=== PATIENT | female | born 1955 | race Caucasian/White ===

== ENCOUNTER → 2016-11-12 | Outpatient (CLI) | payer OTHER ==
--- NOTE | 2016-11-12 12:02 | MR ---
EXAMINATION TYPE: MR luisine/lspine wo/w con DATE OF EXAM: 11/12/2016 11:23 AM COMPARISON: CT cervical spine August 14, 2016. MRI lumbar spine November 26, 2013. HISTORY: Low back pain, spinal stenosis per order. Headache with neck pain for 30 years causing pain or weakness in left arm per patient. History of prior neck surgery. Low back pain for 20 years causin g pain into both lower extremities with history of prior surgery per patient. TECHNIQUE: Multiplanar, multisequence images of the cervical and lumbar spine are performed without and with IV contrast, utilizing 20 mL intravenous MultiHance FINDINGS: C-SPINE: FINDINGS: Sagittal images of the cervical spine show the craniocervical junction to appear within nor mal limits. The cervical and upper thoracic spinal cord is normal in caliber and signal. Vertebral alignment is stable and straightened. There is artifact from disc material C5-C6 level identified. Th e vertebral body and intravertebral disk heights are normal above and below this level. No large post erior disc herniations are seen on sagittal images. The bone marrow signal intensity is within maria de jesus l limits. No suspicious postcontrast enhancement is seen. No significant spurring is noted. Axial images show the C2-C3 and C3-C4 levels to appear within normal limits. Axial images at C4-C5 level are degraded by artifact, there may be ventral thecal sac effacement due to central disc herniation, bilateral neural foramina are patent. Axial images at C5-C6 level are degraded by artifact, bilateral neural foramina are patent. Axial images at C6-C7 are degraded by artifact, cannot exclude some mild thecal sac effacement on mendoza ge 14, bilateral neural foramina are patent. Axial images at C7-T1 level are felt within normal limits. Coronal images show T1 hyperintense signal right sagittal sinus presumed related to slow flow in asym ptomatic patient. IMPRESSION: Surgical changes C5-C6 level with satisfactory in stable alignment seen. Artifact degrada tion at the adjacent disc space levels is noted. Additional levels felt within normal limits. L-SPINE: Sagittal images of the lumbar spine show vertebral body heights to appear satisfactory. Multilevel d isc desiccation is redemonstrated. There is mild disc space narrowing L5-S1 level with disc desiccati on noted. No significant posterior disc herniations are seen on sagittal images. The conus medullari s is normal in position and signal ending at mid L1 vertebral body level. The bone marrow signal int ensity is within normal limits. No significant spurring is seen. No suspicious postcontrast enhanceme nt is noted. Axial images show the T12-L1 and L1-L2 levels to appear within normal limits. Axial images at L2-L3, L3-L4, and L4-L5 levels show mild facet arthropathy bilaterally but spinal can al is preserved and bilateral neural foramina are patent. Axial images at L5-S1 level shows mild to moderate facet arthropathy. There is broad-based right para central disc protrusion seen minimally effacing the anterior thecal sac, bilateral neural foramina ar e patent. There is right-sided laminectomy defect. Some enhancing scar tissue is present at this leve l extending to right epidural level is noted and stable. IMPRESSION: No significant change from prior exam, postsurgical change lumbosacral junction redemonst rated. No new prominent disc herniations are noted.
== END | disposition home or self-care (01) ==
LOC: RADMRIMAIN 10:06
PROVIDERS: ATTEND Family Medicine
DX: M54.9 Dorsalgia, unspecified (principal); Z98.890 Other specified postprocedural states
CPT/HCPCS: 72156; 72158; A9577

== ENCOUNTER → 2017-09-13 | Outpatient (CLI) | payer OTHER ==
--- NOTE | 2017-09-13 17:17 | CT ---
EXAMINATION TYPE: CT chest wo con DATE OF EXAM: 09/13/2017 COMPARISON: 08/29/2014 HISTORY: Shortness of breath CT DLP: 439.70 mGycm, Automated exposure control for dose reduction was used. CONTRAST: None TECHNIQUE: Axial images were obtained at 5 mm thick sections. Reconstructed images are reviewed on Footnote computer in the coronal plane. FINDINGS: Portion of the thyroid visualized is normal. There is an irregular triangular-shaped density with microlobulated borders measuring 2.7 x 3.3 cm in the posterior right upper lobe. Series 4 image 20. This has enlarged over the interval and suspiciou s for neoplasm.r There is a punctate density in the periphery of the right middle lobe measuring 0.2 cm. Series 4 imag e 30. No enlarged mediastinal or hilar adenopathy is evident. Small shotty lymph nodes are present. The a scending aorta diameter at the level of the main pulmonary artery is 3.9 cm. The main pulmonary shirin ry diameter at the bifurcation is 2.6 cm. No pericardial effusion is evident. Limited CT sections are obtained through the upper abdomen. Abdomen is essentially unremarkable. Osse ous structures as visualized are normal. IMPRESSIONS: 1. Enlarging lobulated density posterior right apex suspicious for neoplasm.
== END | disposition home or self-care (01) ==
LOC: RADCTMAIN 13:06
PROVIDERS: ATTEND Internal Medicine Pulmonary Disease
DX: R91.8 Other nonspecific abnormal finding of lung field (principal); R06.02 Shortness of breath
CPT/HCPCS: 71250; 94060; 94726; 94729

== ENCOUNTER → 2017-10-01 | Outpatient (CLI) | payer OTHER ==
--- NOTE | 2017-10-01 22:30 | PE ---
EXAMINATION TYPE: PET CT fusion skull to thigh DATE OF EXAM: 10/01/2017 COMPARISON: CT chest September 13, 2017 HISTORY: Lung mass per order. TECHNIQUE: Following the intravenous administration of 14.99 mCi of F-18 FDG, whole body images are performed from the skull base to the midthigh. Images are reviewed on the computer in the coronal, a xial, and sagittal planes. Reconstructed rotating images are created on independent workstation and reviewed on the computer. A noncontrast CT is performed in conjunction with the PET scan. SCAN: Initial Scan FINDINGS: SKULL BASE AND NECK: There is marked artifact from metallic cervical surgical material. At this leve l there is hypermetabolic uptake along the anterior margin max SUV is 4.71 near level of vocal cords, nonspecific finding. CHEST, MEDIASTINUM, AND HILAR REGION: There is persistent lobulated nodule posterior right upper lobe abutting major fissure measuring 2.1 x 1.7 cm axial image 76, it is fairly low dense, there is mild hypermetabolic uptake, max SUV is 2.89. Remainder of the thorax shows no suspicious hypermetabolic uptake. No worrisome lymph nodes are seen. ABDOMEN AND PELVIS: No suspicious hypermetabolic uptake is present. Normal excretion in bladder is se en. OSSEOUS STRUCTURES: No suspicious hypermetabolic uptake is present. OTHER CT: There is fairly moderate calcified plaque at bilateral carotid bulbs. Consider correlating with nonemergent carotid ultrasound. Surgical changes causing streak artifact in the lower cervical spine. Lipomatous hypertrophy of intra-arterial suboptimal heart is noted. Ascending aorta measures up to 3. 8 cm diameter on axial image 85. Area perhaps slightly more nodular tissue right breast axial image 95 does not show hypermetabolic up take, advise correlating with annual mammogram. Metallic artifact bilateral hip arthroplasties causes streak artifact limiting evaluation of pelvic s tructures. Scattered pelvic phleboliths are seen. Uterus is suboptimally evaluated. Normal-appearing appendix and cecum posteriorly in the right lower quadrant is noted. There is fairly moderate nonspecific perinephric fat stranding or fluid. There is facet arthropathy lower lumbar levels. There is mild to moderate calcified plaque in the abd ominal aorta extending into branch vessels. IMPRESSION: No convincing PET/CT evidence for malignancy. Borderline PET/CT findings are noted for no dule as detailed above. Consider bronchoscopy with sampling and/or short-term CT/PET CT in 2-3 months time to further evaluate. Nonspecific finding near site of cervical surgery is presumed related to s urgery. No suspicious adenopathy or metastatic disease seen.
== END | disposition home or self-care (01) ==
LOC: RADPETMAIN 12:37
PROVIDERS: ATTEND Internal Medicine Pulmonary Disease
DX: R91.1 Solitary pulmonary nodule (principal)
CPT/HCPCS: 78815; A9552

== ENCOUNTER → 2017-11-04 | Outpatient (CLI) | payer OTHER ==
--- NOTE | 2017-11-04 12:39 | MR ---
EXAMINATION TYPE: MR brain wo con DATE OF EXAM: 11/04/2017 COMPARISON: CT brain 08/14/2016 HISTORY: Short-term memory loss CONTRAST: Performed utilizing 0 mL intravenous Gadavist gadolinium contrast. TECHNIQUE: Multiplanar, multiecho imaging on a 3.0 Bren magnet is performed through the brain. Stud y is performed within 24 hours of arrival to the hospital. The craniovertebral junction is normal. The pituitary is normal. Diffusion-weighted imaging is performed. No abnormal hyperintensity is present to suggest an acute i ntracranial infarct or acute ischemic change. There are scattered punctate areas of hyperintensity on T2 and Inversion Recovery weighted sequences which are non-specific but can be related to microvascular ischemic changes. Couple of larger subcort ical areas are within the right keita radiata. Multiple periventricular white matter changes are pre sent. Scattered punctate subcortical white matter changes are within the centrum semiovale, right mor e so than left. Findings are nonspecific but can be related to microvascular ischemic change. Differe ntial could include gliosis from other etiologies such as Lyme disease, multiple sclerosis, vasculiti s. Findings appear more numerous than typically identified with migraine headaches. Ventricles and sulci are appropriate for the patient age. IMPRESSIONS: 1. Multiple bilateral subcortical and periventricular white matter changes. These are nonspecific. Di fferential diagnosis could include microvascular ischemic change, multiple sclerosis, vasculitis, Lym e disease. 2. Examination is noncontrast. If there is clinical concern for metastatic disease, post contrast MRI may be useful for additional evaluation. Large metastases are not evident. Punctate metastases canno t be excluded.
[2017-11-04 13:37] LABS: T4, Free (Free Thyroxine) 1.04 ng/dL (0.78-2.19)
== END | disposition home or self-care (01) ==
LOC: RADMRIMAIN 11:48
PROVIDERS: ATTEND Psychiatry & Neurology Neurology
DX: R90.89 Other abnormal findings on diagnostic imaging of central nervous system (principal); R41.3 Other amnesia
CPT/HCPCS: 36415; 70551; 82607; 84439; 84443

== ENCOUNTER → 2018-01-17 | Outpatient (CLI) | payer OTHER ==
--- NOTE | 2018-01-17 09:54 | US ---
EXAMINATION TYPE: US carotid duplex BILAT DATE OF EXAM: 01/17/2018 COMPARISON: NONE CLINICAL HISTORY: I77.9 Disorder of arteries. EXAM MEASUREMENTS: RIGHT: Peak Systolic Velocity (PSV) cm/sec ----- Right CCA: 86.6 ----- Right ICA: 312.5 ----- Right ECA: 167.0 ICA/CCA ratio: 3.6 RIGHT: End Diastole cm/sec ----- Right CCA: 16.9 ----- Right ICA: 63.0 ----- Right ECA: 16.4 LEFT: Peak Systolic Velocity (PSV) cm/sec ----- Left CCA: 106.6 ----- Left ICA: 155.4 ----- Left ECA: 222.7 ICA/CCA ratio: 1.5 LEFT: End Diastole cm/sec ----- Left CCA: 18.4 ----- Left ICA: 30.0 ----- Left ECA: 19.1 VERTEBRALS (direction of flow): Right Vertebral: Antegrade Left Vertebral: Antegrade Rhythm: Normal IMPRESSION: Moderate/severe amount of plaque visualized bilaterally. Elevated velocities right ICA, right ECA, left ICA, and left ECA Criteria for Assigning % of Stenosis / Diameter reduction (Estimation based on the indirect measurements of the internal carotid artery velocities (ICA PSV). 1. Normal (no stenosis)=ICA PSV < 125 cm/s: ratio < 2.0: ICA EDV<40 cm/s. 2. Less than 50% stenosis=ICA PSV < 125 cm/s: ratio < 2.0: ICA EDV<40 cm/s. 3. 50 to 69% stenosis=ICA PSV of 125 to 230 cm/s: ration 2.0 ? 4.0: ICA EDV 40-100 cm/s. 4. Greater than 70% stenosis to near occlusion= ICA PSV > 230 cm/s: ratio > 4.0: ICA EDV > 100 cm/s. 5. Near occlusion= ICA PSV velocities may be low or undetectable: variable ratio and ICA EDV. 6. Total occlusion=unable to detect flow.
--- NOTE | 2018-01-18 11:55 | MM ---
Reason for exam: screening (asymptomatic). Last mammogram was performed 4 years and 7 months ago. History: Patient is postmenopausal. Taking estrogen for 9 years beginning at age 43. Taking progesterone for 9 years beginning at age 43. Physical Findings: A clinical breast exam by your physician is recommended on an annual basis and results should be correlated with mammographic findings. MG 3D Screening Mammo W/Cad Bilateral CC and MLO view(s) were taken. XCCL view(s) were taken of the left breast. Prior study comparison: June 08, 2013, [facility] DIGITAL RIGHT MAMMOGRAM w/CAD. June 04, 2013, bilateral digital screening mammo w/CAD. There are scattered fibroglandular densities. No suspicious abnormality. No significant changes when compared with prior studies. ASSESSMENT: Negative, BI-RAD 1 RECOMMENDATION: Routine screening mammogram of both breasts in 1 year.
== END | disposition home or self-care (01) ==
LOC: RADMAMWWP 09:04
PROVIDERS: ATTEND Family Medicine
DX: Z12.31 Encounter for screening mammogram for malignant neoplasm of breast (principal); I65.23 Occlusion and stenosis of bilateral carotid arteries
CPT/HCPCS: 77063; 77067; 93880

== ENCOUNTER 2018-09-07 23:48 | Emergency (ER) | payer OTHER ==
[2018-09-08 00:03] VITALS: BP 198/94; PULSE 100; RESP 18; TEMP 98
--- NOTE | 2018-09-08 00:25 | ED ---
Fall HPI - General Chief Complaint: Fall Stated Complaint: Fall Time Seen by Provider: 09/08/18 00:23 Source: patient, EMS Mode of arrival: ambulatory - History of Present Illness Initial Comments: This is a 62-year-old female the ER for evaluation she presents today for evaluation status post fall trip and fall on her kitchen getting out some food from her fridge. Patient has history of fibromyalgia. Patient fell backwards landing on her right side right knee right hip. Patient denies loss of consciousness denies hitting her head, patient was unable to get up mainly after fall. No blood thinners no loss of consciousness MD Complaint: fall -: hour(s) Fall From: standing When Fall Occurred: 1-3 hours [employer] Fall Witnessed: no Place Fall Occurred: home Loss of Consciousness: none Prolonged Down Time?: no Symptoms Prior to Fall: none Location: pelvis Location - Extremities: Left: Thigh, Knee Severity: moderate Severity scale (1-10): 5 Quality: aching Context: tripped/slipped Associated Symptoms: denies - Related Data Home Medications Medication Instructions Recorded Confirmed ALPRAZolam 1 mg PO Q6H 12/26/14 08/14/16 Albuterol Inhaler [Ventolin 2 puff INHALATION RT-QID PRN 12/26/14 08/14/16 Inhaler] Albuterol Nebulized [Ventolin 2.5 mg INHALATION RT-QID PRN 12/26/14 08/14/16 Nebulized] Enalapril [Vasotec] 20 mg PO DAILY 12/26/14 08/14/16 Ipratropium Nebulized [Atrovent 0.5 mg INHALATION RT-QID PRN 12/26/14 08/14/16 Nebulized] Isosorbide Mononitrate [Isosorbide 30 mg PO DAILY 12/26/14 08/14/16 Mononitrate ER] Omeprazole 20 mg PO BID 12/26/14 08/14/16 Temazepam [Restoril] 30 mg PO HS 12/26/14 08/14/16 HYDROcodone/APAP 7.5-325MG [Stokes 1 tab PO 5XD PRN 03/08/16 08/14/16 7.5-325] Estrogen,Con/M-Progest Acet 1 tab PO DAILY 03/09/16 08/14/16 [Prempro 0.625-5 mg Tablet] Hydrochlorothiazide [Hydrodiuril] 50 mg PO DAILY 08/14/16 08/14/16 Levofloxacin [Levaquin] 500 mg PO DAILY 08/14/16 08/14/16 Loratadine [Claritin] 10 mg PO DAILY 08/14/16 08/14/16 Metoprolol Succinate [Toprol XL] 25 mg PO DAILY 08/14/16 08/14/16 Potassium Chloride [Klor-Con 20] 20 meq PO DAILY 08/14/16 08/14/16 Promethazine HCl/Codeine 5 - 10 ml PO Q4-6H PRN MDD 30ML 08/14/16 08/14/16 [Prometh-Codein 6.25-10 mg/5 ml] Spironolactone [Aldactone] 25 mg PO DAILY 08/14/16 08/14/16 Varenicline [Chantix] 0.5 - 1 mg PO DIRECTED 08/14/16 08/14/16 traMADol HCL [Ultram] 50 mg PO Q6HR PRN 08/14/16 08/14/16 Previous Rx's Medication Instructions Recorded Omeprazole [PriLOSEC] 40 mg PO AC-BRKFST #14 capsule. 08/16/16 predniSONE 10 mg PO DAILY #40 tab 08/16/16 Allergies Allergy/AdvReac Type Severity Reaction Status Date / Time adhesive Allergy Rash/Hives Verified 09/08/18 00:03 adhesive tape Allergy Rash/Hives Verified 09/08/18 00:03 chocolate flavor Allergy Anaphylaxis Verified 09/08/18 00:03 diphenhydramine HCl Allergy Unknown Verified 09/08/18 00:03 [From Benadryl] grass pollen-perennial rye, Allergy Unknown Verified 09/08/18 00:03 standar [grass poll-perennial rye,std] hydromorphone HCl Allergy Unknown Verified 09/08/18 00:03 [From Dilaudid] mold Allergy Unknown Verified 09/08/18 00:03 venom-honey bee Allergy Anaphylaxis Verified 09/08/18 00:03 [bee venom (honey bee)] dust Allergy Unknown Uncoded 09/08/18 00:03 nuts Allergy Anaphylaxis Uncoded 09/08/18 00:03 tape Allergy Rash/Hives Uncoded 09/08/18 00:03 Review of Systems ROS Statement: Those systems with pertinent positive or pertinent negative responses have been documented in the HPI. ROS Other: All systems not noted in ROS Statement are negative. Past Medical History Past Medical History: Asthma, COPD, CVA/TIA, Fibromyalgia, GERD/Reflux, Hypertension, Memory Impairment, Myocardial Infarction ([place]), Respiratory Disorder Additional Past Medical History / Comment(s): COPD, chronic hypoxic respiratory failure and the patient has been maintained on oxygen at 2 L/m nasal cannula, chronic constipation, Chronic back pain, frequent urinary tract infections, .had a pne and shingle vaccine but does'nt know the dates and dr office , hypertension, coronary artery disease, chronic back pain, abdominal aortic aneurysm measuring 3.7 cm, previous history of MRSA infection of the feet him a chronic back pain and 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 Last Myocardial Infarction Date:: 1999 History of Any Multi-Drug Resistant Organisms: MRSA Date of last positivie culture/infection: 02/07 MDRO Source:: linda feet Past Surgical History: Adenoidectomy, Back Surgery, Heart Catheterization, Joint Replacement, Orthopedic Surgery, Tonsillectomy, Tubal Ligation Additional Past Surgical History / Comment(s): bilateral hip replacements, had 2 sx on lt and 3 sx on rt., neck fusion with plate ,linda cataracts, Past Anesthesia/Blood Transfusion Reactions: No Reported Reaction Past Psychological History: Anxiety, Depression Smoking Status: Current every day smoker Past Alcohol Use History: Occasional Past Drug Use History: None Reported - Past Family History Father History Unknown: Yes Mother Family Medical History: Congestive Heart Failure (CHF), COPD General Exam Limitations: no limitations General appearance: alert, in no apparent distress Head exam: Present: atraumatic, normocephalic, normal inspection Eye exam: Present: normal appearance, PERRL, EOMI. Absent: scleral icterus, conjunctival injection, periorbital swelling ENT exam: Present: normal exam, mucous membranes moist Neck exam: Present: normal inspection. Absent: tenderness, meningismus, lymphadenopathy Respiratory exam: Present: normal lung sounds bilaterally. Absent: respiratory distress, wheezes, rales, rhonchi, stridor Cardiovascular Exam: Present: regular rate, normal rhythm, normal heart sounds. Absent: systolic murmur, diastolic murmur, rubs, gallop, clicks GI/Abdominal exam: Present: soft, normal bowel sounds. Absent: distended, tenderness, guarding, rebound, rigid Extremities exam: Present: normal inspection, full ROM, normal capillary refill , other (Right knee abrasion). Absent: tenderness, pedal edema, joint swelling , calf tenderness Back exam: Present: normal inspection Neurological exam: Present: alert, oriented X3, CN II-XII intact Psychiatric exam: Present: normal affect, normal mood Skin exam: Present: warm, dry, intact, normal color. Absent: rash Course Vital Signs 09/07/18 23:50 Temperature 98.0 F Pulse Rate 100 Respiratory 18 Rate Blood Pressure 198/94 O2 Sat by Pulse 98 Oximetry - Reevaluation(s) Reevaluation #1: 09/08/18 00:30 medical record is reviewed Reevaluation #2: 09/08/18 00:30 patient has improvement in pain control Medical Decision Making - Medical Decision Making 60 female the ER for evaluation of fall. Fall with knee pain. Patient is no fracture of distal femur. Distal to prosthetic right hip. Patient has pain control will be transferred - Radiology Data Radiology results: report reviewed (Chest x-ray x-ray pelvis x-ray right knee and right hip does show distal femur fracture), image reviewed Disposition Clinical Impression: Fall, Fracture, femur, distal Disposition: OTHER INSTITUTION NOT DEFINED Condition: Fair Is patient prescribed a controlled substance at d/c from ED?: No Referrals: Geovani Samayoa MD [Primary Care Provider] - 1-2 days - Out of Hospital Transfer - Req. Specs Out of Hospital Transfer - Requested Specifics: Other Emergency Center ([facility])
[2018-09-08] MEDS ORDERED: MORPHINE SULFATE 4 MG/ML SYRINGE IVP STA ×2 (00:27→02:21)
--- NOTE | 2018-09-08 01:53 | XR ---
EXAMINATION TYPE: XR Hip RT and AP Pelvis DATE OF EXAM: 09/08/2018 COMPARISON: NONE HISTORY: Hip pain TECHNIQUE: A single AP view of the pelvis is obtained. Two views of the right hip are obtained. FINDINGS: There is bilateral hip prosthesis. Components appear in normal anatomic position. There is mild protrusio of the prosthetic right acetabulum. I see no pelvic fracture. Sacroiliac joints are in tact. IMPRESSION: Mild protrusio of the prosthetic right acetabulum. No fracture seen.
--- NOTE | 2018-09-08 01:55 | XR ---
EXAMINATION TYPE: XR chest 1V DATE OF EXAM: 09/08/2018 COMPARISON: 08/14/2016 HISTORY: Fall. Chest pain. FINDINGS: There is no heart failure. Heart size is normal. Costophrenic angles are clear. There is 2 cm irregu lar infiltrate in the right upper lobe. TECHNIQUE: Single frontal view of the chest is obtained. IMPRESSION: No pleural effusion or pneumothorax. No rib fracture seen. There is an new Right upper lobe somewhat rounded infiltrate compared to old exam. Follow-up is recom mended.
--- NOTE | 2018-09-08 01:57 | XR ---
EXAMINATION TYPE: XR knee limited RT DATE OF EXAM: 09/08/2018 COMPARISON: NONE HISTORY: Knee pain TECHNIQUE: 2 views FINDINGS: There is an acute supracondylar fracture of the distal right femur. There is anterior angul ation at the fracture site. The knee joint is anatomic. IMPRESSION: Acute angulated supracondylar fracture distal right femur.
== END 2018-09-08 03:03 | disposition other institution (70) ==
LOC: EC 23:48
DX: T84.010A Broken internal right hip prosthesis, initial encounter (principal); M25.561 Pain in right knee; J44.9 Chronic obstructive pulmonary disease, unspecified; M79.7 Fibromyalgia; K21.9 Gastro-esophageal reflux disease without esophagitis; I10 Essential (primary) hypertension; I25.2 Old myocardial infarction; J96.90 Respiratory failure, unspecified, unspecified whether with hypoxia or hypercapnia; I25.10 Atherosclerotic heart disease of native coronary artery without angina pectoris; F32.9 Major depressive disorder, single episode, unspecified; F41.9 Anxiety disorder, unspecified; F17.200 Nicotine dependence, unspecified, uncomplicated; Z86.14 Personal history of Methicillin resistant Staphylococcus aureus infection; Z86.73 Personal history of transient ischemic attack (TIA), and cerebral infarction without residual deficits; Z79.899 Other long term (current) drug therapy; Z91.048 Other nonmedicinal substance allergy status; Z91.030 Bee allergy status; Z88.5 Allergy status to narcotic agent; Z91.018 Allergy to other foods; Z91.010 Allergy to peanuts; Z91.09 Other allergy status, other than to drugs and biological substances; Z96.643 Presence of artificial hip joint, bilateral; W01.0XXA Fall on same level from slipping, tripping and stumbling without subsequent striking against object, initial encounter; Y92.000 Kitchen of unspecified non-institutional (private) residence as the place of occurrence of the external cause
CPT/HCPCS: 51702; 96374; 96376; 99285; 73502; 73560; 71045; L1830; J2270; 99284

== ENCOUNTER 2019-10-10 19:39 | Observation (INO) | payer OTHER ==
[2019-10-10] MEDS ORDERED: IPRATROPIUM-ALBUTEROL 3 ML NEB INHALATION STA (19:49)
[2019-10-10] MEDS ORDERED: SODIUM CHLORIDE 0.9% 1,000 ML IV STA (19:49)
[2019-10-10] MEDS ORDERED: methylPREDNISolone SOD SUCCI 125 MG/2 ML VIAL IV STA (19:49)
--- NOTE | 2019-10-10 19:49 | ED ---
SOB HPI - General Chief Complaint: Shortness of Breath Stated Complaint: MACIEL Time Seen by Provider: 10/10/19 19:49 Source: patient, EMS, RN notes reviewed, old records reviewed Mode of arrival: EMS Limitations: no limitations - History of Present Illness Initial Comments: This is a 63-year-old female here she presents today for evaluation regards to severe shortness breath. Patient similar primary care sent ER for further evaluation regarding severe shortness of breath no significant cough or congestion recent travel history no sick contacts. Patient stated of worsening with no recent hospitalizations in the last year no fevers occasional chest pain mild. She doesn't some anxiety regarding her shortness of breath MD Complaint: shortness of breath, cough -: days(s) Severity: severe Severity scale (1-10): 8 Quality: throbbing Consistency: intermittent Improves With: nothing Worsens With: exertion Known History Of: COPD, asthma Context: recent URI, anxiety Associated Symptoms: chest pain, pain with inspiration, cough, sputum production Treatments Prior to Arrival: none - Related Data Home Medications Medication Instructions Recorded Confirmed Albuterol Inhaler [Ventolin 2 puff INHALATION RT-QID PRN 12/26/14 10/10/19 Inhaler] Albuterol Nebulized [Ventolin 2.5 mg INHALATION RT-QID 12/26/14 10/10/19 Nebulized] Enalapril [Vasotec] 20 mg PO DAILY 12/26/14 10/10/19 Ipratropium Nebulized [Atrovent 0.5 mg INHALATION RT-QID 12/26/14 10/10/19 Nebulized 0.2 MG/ML] Isosorbide Mononitrate [Isosorbide 30 mg PO DAILY 12/26/14 10/10/19 Mononitrate ER] Omeprazole 20 mg PO BID 12/26/14 10/10/19 Temazepam [Restoril] 30 mg PO HS 12/26/14 10/10/19 HYDROcodone/APAP 7.5-325MG [[place] 1 tab PO QID 03/08/16 10/10/19 7.5-325] Loratadine [Claritin] 10 mg PO DAILY 08/14/16 10/10/19 Metoprolol Succinate [Toprol XL] 25 mg PO DAILY 08/14/16 10/10/19 Atorvastatin [Lipitor] 40 mg PO DAILY 10/10/19 10/10/19 Cyclobenzaprine [Flexeril] 10 mg PO BID 10/10/19 10/10/19 EPINEPHrine (Auto Inject) [Epipen] 0.3 mg IM ONCE PRN 10/10/19 10/10/19 Estrogen,Con/M-Progest Acet 1 tab PO DAILY 10/10/19 10/10/19 [Prempro 0.625-5 mg Tablet] Fluticasone Nasal [place] [Flonase 2 sprays EA NOSTRIL BID 10/10/19 10/10/19 Nasal [place]] Furosemide [Lasix] 40 mg PO DAILY 10/10/19 10/10/19 Gabapentin 800 mg PO TID 10/10/19 10/10/19 Ibuprofen [Motrin] 800 mg PO TID PRN 10/10/19 10/10/19 Montelukast [Singulair] 10 mg PO DAILY 10/10/19 10/10/19 Nitroglycerin Sl Tabs [Nitrostat] 0.4 mg SUBLINGUAL Q5M PRN 10/10/19 10/10/19 Potassium Chloride ER [K-Dur 10] 10 meq PO DAILY 10/10/19 10/10/19 Sennosides [Senna] 17.2 mg PO HS 10/10/19 10/10/19 Vitamin B Complex 1 cap PO DAILY 10/10/19 10/10/19 Zinc 50 mg PO DAILY 10/10/19 10/10/19 busPIRone HCL 15 mg PO BID 10/10/19 10/10/19 Allergies Allergy/AdvReac Type Severity Reaction Status Date / Time adhesive Allergy Rash/Hives Verified 10/10/19 21:51 adhesive tape Allergy Rash/Hives Verified 10/10/19 21:51 chocolate flavor Allergy Anaphylaxis Verified 10/10/19 21:51 diphenhydramine HCl Allergy Unknown Verified 10/10/19 21:51 [From Benadryl] grass pollen-perennial rye, Allergy Unknown Verified 10/10/19 21:51 standar [grass poll-perennial rye,std] hydromorphone HCl Allergy Unknown Verified 10/10/19 21:51 [From Dilaudid] mold Allergy Unknown Verified 10/10/19 21:51 venom-honey bee Allergy Anaphylaxis Verified 10/10/19 21:51 [bee venom (honey bee)] dust Allergy Unknown Uncoded 10/10/19 19:48 nuts Allergy Anaphylaxis Uncoded 10/10/19 19:48 tape Allergy Rash/Hives Uncoded 10/10/19 19:48 Review of Systems ROS Statement: Those systems with pertinent positive or pertinent negative responses have been documented in the HPI. ROS Other: All systems not noted in ROS Statement are negative. Past Medical History Past Medical History: Asthma, COPD, CVA/TIA, Fibromyalgia, GERD/Reflux, Hypertension, Memory Impairment, Myocardial Infarction ([place]), Respiratory Disorder Additional Past Medical History / Comment(s): COPD, chronic hypoxic respiratory failure and the patient has been maintained on oxygen at 2 L/m nasal cannula, chronic constipation, Chronic back pain, frequent urinary tract infections, .had a pne and shingle vaccine but does'nt know the dates and dr office , hypertensio n, coronary artery disease, chronic back pain, abdominal aortic aneurysm measuring 3.7 cm, previous history of MRSA infection of the feet him a chronic back pain and 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 Last Myocardial Infarction Date:: 1999 History of Any Multi-Drug Resistant Organisms: MRSA Date of last positivie culture/infection: 02/07 MDRO Source:: linda feet Past Surgical History: Adenoidectomy, Back Surgery, Heart Catheterization, Joint Replacement, Orthopedic Surgery, Tonsillectomy, Tubal Ligation Additional Past Surgical History / Comment(s): bilateral hip replacements, had 2 sx on lt and 3 sx on rt., neck fusion with plate ,linda cataracts, Past Anesthesia/Blood Transfusion Reactions: No Reported Reaction Past Psychological History: Anxiety, Depression Smoking Status: Current every day smoker Past Alcohol Use History: Occasional Past Drug Use History: None Reported - Past Family History Father History Unknown: Yes Mother Family Medical History: Congestive Heart Failure (CHF), COPD General Exam Limitations: no limitations General appearance: alert, in no apparent distress, anxious Head exam: Present: atraumatic, normocephalic, normal inspection Eye exam: Present: normal appearance, PERRL, EOMI. Absent: scleral icterus, conjunctival injection, periorbital swelling ENT exam: Present: normal exam, mucous membranes moist Neck exam: Present: normal inspection. Absent: tenderness, meningismus, lym phadenopathy Respiratory exam: Present: normal lung sounds bilaterally. Absent: respiratory distress, wheezes, rales, rhonchi, stridor Cardiovascular Exam: Present: regular rate, normal rhythm, tachycardia, normal heart sounds. Absent: systolic murmur, diastolic murmur, rubs, gallop, clicks GI/Abdominal exam: Present: soft, normal bowel sounds. Absent: distended, tenderness, guarding, rebound, rigid Extremities exam: Present: normal inspection, full ROM, normal capillary refill. Absent: tenderness, pedal edema, joint swelling, calf tenderness Back exam: Present: normal inspection Neurological exam: Present: alert, oriented X3, CN II-XII intact Psychiatric exam: Present: normal affect, normal mood Skin exam: Present: warm, dry, intact, normal color. Absent: rash Course Vital Signs 10/10/19 10/10/19 10/10/19 19:40 20:10 20:28 Temperature 98.6 F Pulse Rate 117 H 106 H 111 H Respiratory 18 Rate Blood Pressure 138/83 O2 Sat by Pulse 93 L Oximetry 10/10/19 21:50 Temperature Pulse Rate 111 H Respiratory 20 Rate Blood Pressure 143/82 O2 Sat by Pulse 96 Oximetry - Reevaluation(s) Reevaluation #1: 10/10/19 22:37 Medical record is reviewed Reevaluation #2: 10/10/19 22:37 Patient has no significant improvement here in the emergency department - Consultations Consultation #1: Will admit to Dr. Samayoa for evaluation he agrees to admission Medical Decision Making - Medical Decision Making 63 female here for evaluation severe cough and congestion with COPD exacerbation A for continued breathing treatments - Lab Data Result diagrams: 10/10/19 07:59 10/10/19 07:59 Lab Results 10/10/19 10/10/19 10/10/19 Range/Units 07:59 07:59 07:59 WBC 12.4 H (3.8-10.6) k/uL RBC 4.20 (3.80-5.40) m/uL Hgb 12.7 (11.4-16.0) gm/dL Hct 39.5 (34.0-46.0) % MCV 94.1 (80.0-100.0) fL MCH 30.2 (25.0-35.0) pg MCHC 32.1 (31.0-37.0) g/dL RDW 13.6 (11.5-15.5) % Plt Count 378 (150-450) k/uL Neutrophils % 62 % Lymphocytes % 25 % Monocytes % 6 % Eosinophils % 1 % Basophils % 1 % Neutrophils # 7.7 (1.3-7.7) k/uL Lymphocytes # 3.1 (1.0-4.8) k/uL Monocytes # 0.7 (0-1.0) k/uL Eosinophils # 0.2 (0-0.7) k/uL Basophils # 0.2 (0-0.2) k/uL PT (9.0-12.0) sec INR (<1.2) APTT (22.0-30.0) sec Sodium 135 L (137-145) mmol/L Potassium 3.8 (3.5-5.1) mmol/L Chloride 101 (98-107) mmol/L Carbon Dioxide 29 (22-30) mmol/L Anion Gap 5 mmol/L BUN 9 (7-17) mg/dL Creatinine 0.55 (0.52-1.04) mg/dL Est GFR (CKD-EPI)AfAm >90 (>60 ml/min/1.73 sqM) Est GFR (CKD-EPI)NonAf >90 (>60 ml/min/1.73 sqM) Glucose 120 H (74-99) mg/dL Calcium 9.3 (8.4-10.2) mg/dL Magnesium 1.6 (1.6-2.3) mg/dL Total Bilirubin 0.3 (0.2-1.3) mg/dL AST 30 (14-36) U/L ALT 13 (4-34) U/L Alkaline Phosphatase 105 (38-126) U/L Troponin I (0.000-0.034) ng/mL NT-Pro-B Natriuret Pep 243 pg/mL Total Protein 6.2 L (6.3-8.2) g/dL Albumin 3.2 L (3.5-5.0) g/dL 10/10/19 10/10/19 Range/Units 07:59 07:59 WBC (3.8-10.6) k/uL RBC (3.80-5.40) m/uL Hgb (11.4-16.0) gm/dL Hct (34.0-46.0) % MCV (80.0-100.0) fL MCH (25.0-35.0) pg MCHC (31.0-37.0) g/dL RDW (11.5-15.5) % Plt Count (150-450) k/uL Neutrophils % % Lymphocytes % % Monocytes % % Eosinophils % % Basophils % % Neutrophils # (1.3-7.7) k/uL Lymphocytes # (1.0-4.8) k/uL Monocytes # (0-1.0) k/uL Eosinophils # (0-0.7) k/uL Basophils # (0-0.2) k/uL PT 9.8 (9.0-12.0) sec INR 0.9 (<1.2) APTT 25.4 (22.0-30.0) sec Sodium (137-145) mmol/L Potassium (3.5-5.1) mmol/L Chloride (98-107) mmol/L Carbon Dioxide (22-30) mmol/L Anion Gap mmol/L BUN (7-17) mg/dL Creatinine (0.52-1.04) mg/dL Est GFR (CKD-EPI)AfAm (>60 ml/min/1.73 sqM) Est GFR (CKD-EPI)NonAf (>60 ml/min/1.73 sqM) Glucose (74-99) mg/dL Calcium (8.4-10.2) mg/dL Magnesium (1.6-2.3) mg/dL Total Bilirubin (0.2-1.3) mg/dL AST (14-36) U/L ALT (4-34) U/L Alkaline Phosphatase (38-126) U/L Troponin I <0.012 (0.000-0.034) ng/mL NT-Pro-B Natriuret Pep pg/mL Total Protein (6.3-8.2) g/dL Albumin (3.5-5.0) g/dL - EKG Data -: EKG Interpreted by Me (EKG shows sinus tachycardia rate of 114, SD 162, QRS 80, QTC 468) - Radiology Data Radiology results: report reviewed (Chest x-rays atypical possible pneumonia but nondiagnostic), image reviewed Disposition Clinical Impression: Asthma with acute exacerbation, Acute exacerbation of chronic obstructive pulmonary disease, COPD exacerbation Disposition: ADMITTED IP TO THIS HOSP Condition: Good Is patient prescribed a controlled substance at d/c from ED?: No Referrals: Geovani Samayoa MD [Primary Care Provider] - 1-2 days
[2019-10-10 20:17] LABS: Basophils # (A) 0.2 k/uL (0-0.2); Basophils % (A) 1 %; Eosinophils # (A) 0.2 k/uL (0-0.7); Eosinophils % (A) 1 %; HCT 39.5 % (34.0-46.0); HGB 12.7 gm/dL (11.4-16.0); Lymphocytes # (A) 3.1 k/uL (1.0-4.8); Lymphocytes % (A) 25 %; MCH 30.2 pg (25.0-35.0); MCHC 32.1 g/dL (31.0-37.0); MCV 94.1 fL (80.0-100.0); Mean Platelet Volume 8.5; Monocytes # (A) 0.7 k/uL (0-1.0); Monocytes % (A) 6 %; Neutrophils # (A) 7.7 k/uL (1.3-7.7); Neutrophils % (A) 62 %; Platelet Count 378 k/uL (150-450); RDW 13.6 % (11.5-15.5); WBC 12.4 k/uL (3.8-10.6)
[2019-10-10 20:25] LABS: INR 0.9 (<1.2); Partial Thromboplastin Time 25.4 sec (22.0-30.0); Prothrombin Time 9.8 sec (9.0-12.0)
[2019-10-10 20:27] LABS: ALT 13 U/L (4-34); AST 30 U/L (14-36); African American GFR (CKD) >90 (>60 ml/min/1.73 sqM); Albumin 3.2 g/dL (3.5-5.0); Alkaline Phosphatase 105 U/L (38-126); Anion Gap 5 mmol/L; Blood Urea Nitrogen 9 mg/dL (7-17); Calcium 9.3 mg/dL (8.4-10.2); Carbon Dioxide 29 mmol/L (22-30); Chloride 101 mmol/L (98-107); Glucose 120 mg/dL (74-99); Magnesium 1.6 mg/dL (1.6-2.3); Non-African American GFR(CKD) >90 (>60 ml/min/1.73 sqM); Potassium 3.8 mmol/L (3.5-5.1); Sodium 135 mmol/L (137-145); Total Bilirubin 0.3 mg/dL (0.2-1.3); Total Protein 6.2 g/dL (6.3-8.2)
--- NOTE | 2019-10-10 21:02 | XR ---
EXAMINATION TYPE: XR chest 2V DATE OF EXAM: 10/10/2019 COMPARISON: 09/08/2018 HISTORY: Difficulty breathing TECHNIQUE: FINDINGS: Heart is normal. Lungs are clear of infiltrate. There is no heart failure. There is no pleu ral effusion. There is metallic density at the base of the cervical spine consistent with surgery. Th oracic spine is intact. There is unusual linear density that measures 3 x 1 cm over the medial right upper lobe. This could be area of scarring or atelectasis. IMPRESSION: Right upper lobe density of uncertain significance. There is density so close to this are a on the old exam and now appears increased. This does not have appearance of tumor or pneumonia. I t hink this could be followed conservatively with repeat chest x-ray in 4 weeks.
[2019-10-10] MEDS ORDERED: AZITHROMYCIN 500 MG in SODIUM CHLORIDE 0.9% 250 ML IVPB STA (22:40)
[2019-10-10] MEDS: SODIUM CHLORIDE 0.9% 1,000 ML IV SCH (23:10)
[2019-10-10] MEDS: IPRATROPIUM-ALBUTEROL 3 ML NEB INHALATION SCH (23:38)
[2019-10-11] MEDS ORDERED: NITROGLYCERIN SL TABS 0.4 MG TAB SUBLINGUAL PRN (00:46)
[2019-10-11] MEDS ORDERED: NON FORMULARY DRUG (Epinephrine (Auto Inject) 0.3 MG) IM PRN (00:46)
[2019-10-11] MEDS ORDERED: IBUPROFEN 800 MG TAB PO PRN (00:46)
[2019-10-11] MEDS ORDERED: ALBUTEROL NEBULIZED 2.5 MG/3 ML INHALATION PRN (00:50)
[2019-10-11] MEDS: methylPREDNISolone SOD SUCCI 125 MG/2 ML VIAL IV SCH ×5 (01:12→23:57)
[2019-10-11] MEDS: TEMAZEPAM 30 MG CAP PO SCH ×2 (01:19→20:41)
[2019-10-11] MEDS: SENNOSIDES 8.6 MG TAB PO SCH ×2 (01:19→20:40)
[2019-10-11] MEDS: HYDROcodone/APAP 7.5-325MG 1 EACH TAB PO PRN ×4 (01:19→20:44)
[2019-10-11] MEDS: GABAPENTIN 400 MG CAP PO SCH ×4 (01:19→20:40)
[2019-10-11] MEDS: busPIRone HCl 5 MG TAB PO SCH ×3 (01:19→20:40)
[2019-10-11] MEDS: CYCLOBENZAPRINE 10 MG TAB PO SCH ×3 (01:19→20:40)
[2019-10-11] MEDS: ATORVASTATIN 40 MG TAB PO SCH (08:05)
[2019-10-11] MEDS: METOPROLOL SUCCINATE (ER) 25 MG TAB.ER.24H PO SCH (08:05)
[2019-10-11] MEDS: LORATADINE 10 MG TAB PO SCH (08:05)
[2019-10-11] MEDS: LISINOPRIL 20 MG TAB PO SCH (08:05)
[2019-10-11] MEDS: MONTELUKAST 10 MG TAB PO SCH (08:05)
[2019-10-11] MEDS: POTASSIUM CHLORIDE ER 10 MEQ TAB.ER.PRT PO SCH (08:06)
[2019-10-11] MEDS: SODIUM CHLORIDE 0.9% 1,000 ML IV SCH ×2 (08:06→20:39)
[2019-10-11] MEDS: PANTOPRAZOLE 40 MG TABLET PO SCH (08:06)
[2019-10-11] MEDS: ISOSORBIDE MONONITRATE ER 30 MG TAB.ER.24H PO SCH (08:06)
[2019-10-11] MEDS: FUROSEMIDE 40 MG TAB PO SCH (08:06)
[2019-10-11] MEDS: FLUTICASONE 50MCG/SPRAY NASAL 16GM EA NOSTRIL SCH ×2 (08:16→20:41)
[2019-10-11] MEDS: ESTROGEN CON PO SCH (08:17)
[2019-10-11] MEDS: M PROGEST ACET PO SCH (08:17)
[2019-10-11] MEDS: IPRATROPIUM-ALBUTEROL 3 ML NEB INHALATION SCH ×4 (08:48→21:10)
[2019-10-11] MEDS ORDERED: NON FORMULARY DRUG (Zinc [Zinc] 50 MG) PO SCH (09:00)
[2019-10-11] MEDS ORDERED: NON FORMULARY DRUG (Vitamin B Complex [Vitamin B Complex] 1 CAP) PO SCH (09:00)
[2019-10-11] MEDS ORDERED: RX INFO: IV CONTRAST WAS GIVEN 1 EACH MISC MISCELLANE PRN (11:42)
--- NOTE | 2019-10-11 11:55 | P.CNPUL ---
History of Present Illness Consult date: 10/11/19 Requesting physician: Joe Morales Reason for consult: dyspnea, cough, lung mass Chief complaint: Shortness of breath, cough, sputum production History of present illness: 63-year-old female patient of Dr. Samayoa with past medical history of COPD on home oxygen at 3 L, history of 55 years of smoking, 1,5-2 packs daily, diabetes, hypertension, dementia. Patient had seen Dr. Taveras 6 years ago in 2014 she was diagnosed with severe COPD with chronic CO2 retention and chronic hypoxemic respiratory failure, unfortunately she had been unable to quit smoking. She states last year she had been seen by Dr. Hewitt/Lisha Pollard, however she states she decided not to see him anymore because she was not happy that Dr. Pollard wanted to do lung biopsy without clearly explaining to her why he was doing at. She states there was an abnormality in her lung on the CT chest are year ago that was performed at [facility]. She states she refused a biopsy. She is on maintenance inhaler and nebulized treatments. Most recent chest CT in this institution is from August 2017 that showed enlarging lobulated density in the posterior right apex suspicious for neoplasm measuring 2.7 x 3.3 cm. Her PFT from 2017 showed FEV1 of 1.01 L or 41% of predicted with FVC of 1.69 m or 54% of predicted and decreased diffusion capacity with DLVA of 77%. Patient did not follow-up with anybody in regards to the right upper lobe mass. She states she was also diagnosed with the left carotid artery stenosis of 70%. On 10/10/2019 patient presented to the emergency department per EMS for severe sh ortness of breath, cough, congestion, patient is bringing up yellow colored sputum, she was complaining of headaches, but no fevers, no hemoptysis. She states she hasn't had her influenza or pneumonia vaccine yet. She continues to smoke. She denied any chest pain. Chest x-ray showed right upper lobe density of uncertain significance likely the same right upper lobe mass previously seen on the CT chest. Patient has been started on Zithromax, IV steroids, nebulized bronchodilators, started to feel better, still quite congestive bronchospastic on today's exam. Review of Systems All systems: negative Constitutional: Reports weight loss, Denies chills, Denies fever Eyes: denies blurred vision, denies pain Ears, nose, mouth and throat: Denies headache, Denies sore throat Cardiovascular: Denies chest pain, Denies shortness of breath Respiratory: Reports congestion, Reports cough with sputum, Reports dyspnea, Denies cough Gastrointestinal: Denies abdominal pain, Denies diarrhea, Denies nausea, Denies vomiting Genitourinary: Denies dysuria, Denies hematuria Musculoskeletal: Denies myalgias Integumentary: Denies pruritus, Denies rash Neurological: Denies numbness, Denies weakness Psychiatric: Denies anxiety, Denies depression Endocrine: Denies fatigue, Denies weight change Past Medical History Past Medical History: Asthma, COPD, CVA/TIA, Fibromyalgia, GERD/Reflux, Hypertension, Memory Impairment, Myocardial Infarction ([place]), Respiratory Disorder Additional Past Medical History / Comment(s): COPD, chronic hypoxic respiratory failure and the patient has been maintained on oxygen at 2 L/m nasal cannula, chronic constipation, Chronic back pain, frequent urinary tract infections, .had a pne and shingle vaccine but does'nt know the dates and dr office , hypertension, coronary artery disease, chronic back pain, abdominal aortic aneurysm measuring 3.7 cm, previous history of MRSA infection of the feet him a chronic back pain and 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 Last Myocardial Infarction Date:: 1999 History of Any Multi-Drug Resistant Organisms: MRSA Date of last positivie culture/infection: 02/07 MDRO Source:: linda feet Past Surgical History: Adenoidectomy, Back Surgery, Heart Catheterization, Joint Replacement, Orthopedic Surgery, Tonsillectomy, Tubal Ligation Additional Past Surgical History / Comment(s): bilateral hip replacements, had 2 sx on lt and 3 sx on rt., neck fusion with plate ,linda cataracts, Past Anesthesia/Blood Transfusion Reactions: No Reported Reaction Past Psychological History: Anxiety, Depression Additional Psychological History / Comment(s): pt lives alone-has 1 indoor cat.hortensia checks on her often, gets visiting nurses Smoking Status: Former smoker Past Alcohol Use History: Occasional Additional Past Alcohol Use History / Comment(s): smokes 1 ppd,drinks occ, denies any drug use. Past Drug Use History: None Reported - Past Family History Father History Unknown: Yes Mother Family Medical History: Congestive Heart Failure (CHF), COPD Medications and Allergies Home Medications Medication Instructions Recorded Confirmed Type Albuterol Inhaler [Ventolin 2 puff INHALATION RT-QID PRN 12/26/14 10/10/19 History Inhaler] Albuterol Nebulized [Ventolin 2.5 mg INHALATION RT-QID 12/26/14 10/10/19 History Nebulized] Enalapril [Vasotec] 20 mg PO DAILY 12/26/14 10/10/19 History Ipratropium Nebulized [Atrovent 0.5 mg INHALATION RT-QID 12/26/14 10/10/19 History Nebulized 0.2 MG/ML] Isosorbide Mononitrate [Isosorbide 30 mg PO DAILY 12/26/14 10/10/19 History Mononitrate ER] Omeprazole 20 mg PO BID 12/26/14 10/10/19 History Temazepam [Restoril] 30 mg PO HS 12/26/14 10/10/19 History HYDROcodone/APAP 7.5-325MG [[place] 1 tab PO QID PRN 03/08/16 10/10/19 History 7.5-325] Loratadine [Claritin] 10 mg PO DAILY 08/14/16 10/10/19 History Metoprolol Succinate [Toprol XL] 25 mg PO DAILY 08/14/16 10/10/19 History Atorvastatin [Lipitor] 40 mg PO DAILY 10/10/19 10/10/19 History Cyclobenzaprine [Flexeril] 10 mg PO BID 10/10/19 10/10/19 History EPINEPHrine (Auto Inject) [Epipen] 0.3 mg IM ONCE PRN 10/10/19 10/10/19 History Estrogen,Con/M-Progest Acet 1 tab PO DAILY 10/10/19 10/10/19 History [Prempro 0.625-5 mg Tablet] Fluticasone Nasal [place] [Flonase 2 sprays EA NOSTRIL BID 10/10/19 10/10/19 History Nasal [place]] Furosemide [Lasix] 40 mg PO DAILY 10/10/19 10/10/19 History Gabapentin 800 mg PO TID 10/10/19 10/10/19 History Ibuprofen [Motrin] 800 mg PO TID PRN 10/10/19 10/10/19 History Montelukast [Singulair] 10 mg PO DAILY 10/10/19 10/10/19 History Nitroglycerin Sl Tabs [Nitrostat] 0.4 mg SUBLINGUAL Q5M PRN 10/10/19 10/10/19 History Potassium Chloride ER [K-Dur 10] 10 meq PO DAILY 10/10/19 10/10/19 History Sennosides [Senna] 17.2 mg PO HS 10/10/19 10/10/19 History Vitamin B Complex 1 cap PO DAILY 10/10/19 10/10/19 History Zinc 50 mg PO DAILY 10/10/19 10/10/19 History busPIRone HCL 15 mg PO BID 10/10/19 10/10/19 History Allergies Allergy/AdvReac Type Severity Reaction Status Date / Time adhesive Allergy Rash/Hives Verified 10/10/19 21:51 adhesive tape Allergy Rash/Hives Verified 10/10/19 21:51 chocolate flavor Allergy Anaphylaxis Verified 10/10/19 21:51 diphenhydramine HCl Allergy Unknown Verified 10/10/19 21:51 [From Benadryl] grass pollen-perennial rye, Allergy Unknown Verified 10/10/19 21:51 standar [grass poll-perennial rye,std] hydromorphone HCl Allergy Unknown Verified 10/10/19 21:51 [From Dilaudid] mold Allergy Unknown Verified 10/10/19 21:51 venom-honey bee Allergy Anaphylaxis Verified 10/10/19 21:51 [bee venom (honey bee)] dust Allergy Unknown Uncoded 10/10/19 19:48 nuts Allergy Anaphylaxis Uncoded 10/10/19 19:48 tape Allergy Rash/Hives Uncoded 10/10/19 19:48 Physical Exam Vitals: Vital Signs Temp Pulse Pulse Resp BP BP Pulse Ox 10/11/19 08:58 101 H 10/11/19 08:48 104 H 95 10/11/19 05:00 97.6 F 99 20 136/84 100 10/10/19 23:48 100 10/10/19 23:40 100 10/10/19 23:00 97.0 F L 80 24 122/78 97 10/10/19 21:50 111 H 20 143/82 96 10/10/19 20:28 111 H 10/10/19 20:10 106 H 10/10/19 19:40 98.6 F 117 H 18 138/83 93 L Intake and Output 10/10/19 10/11/19 10/11/19 22:59 06:59 14:59 Intake Total 0 Balance 0 Intake: Oral 0 Other: Voiding Method Toilet Toilet Bedside Commode Bedside Commode # Voids 1 # Bowel Movements 1 Weight 73.936 kg 73.936 kg GENERAL EXAM: Alert, very pleasant, 63-year-old white female on 4 L of oxygen with a pulse ox of 95-100% comfortable in no apparent distress. HEAD: Normocephalic/atraumatic. EYES: Normal reaction of pupils, equal size. Conjunctiva pink, sclera white. NOSE: Clear with pink turbinates. THROAT: No erythema or exudates. NECK: No masses, no JVD, no thyroid enlargement, no adenopathy. CHEST: No chest wall deformity. Symmetrical expansion. LUNGS: Equal air entry with diffuse rhonchi and wheezes CVS: Regular rate and rhythm, normal S1 and S2, no gallops, no murmurs, no rubs ABDOMEN: Soft, nontender. No hepatosplenomegaly, normal bowel sounds, no guarding or rigidity. EXTREMITIES: No clubbing, 1+ lower extremity pretibial and ankle edema, no cyanosis, 2+ pulses and upper and lower extremities. MUSCULOSKELETAL: Muscle strength and tone normal. SPINE: No scoliosis or deformity SKIN: No rashes CENTRAL NERVOUS SYSTEM: Alert and oriented -3. No focal deficits, tone is normal in all 4 extremities. PSYCHIATRIC: Alert and oriented -3. Appropriate affect. Intact judgment and insight. Results - Laboratory Findings CBC and BMP: 10/10/19 07:59 10/10/19 07:59 PT/INR, D-dimer PT 9.8 sec (9.0-12.0) 10/10/19 07:59 INR 0.9 (<1.2) 10/10/19 07:59 Abnormal lab findings: Abnormal Labs 10/10/19 10/10/19 07:59 07:59 WBC 12.4 H Sodium 135 L Glucose 120 H Total Protein 6.2 L Albumin 3.2 L - Diagnostic Findings Chest x-ray: report reviewed, image reviewed Assessment and Plan Plan: Assessment: #1. Acute exacerbation of COPD with tracheobronchitis #2. Right upper lobe mass, previously seen on the CT chest on 09/13/2017, and patient has not had a biopsy. PET scan was done in September 2017 showing no convincing PET/CT evidence for malignancy, and the SUV uptake in the posterior right upper lobe nodule was mild at 2.89, with no evidence of adenopathy or metastatic disease. Brain MRI from October 2017 was noncontrast but large metastasis was not evident #3. Advanced COPD, with chronic hypercapnic and hypoxemic respiratory failure on home oxygen at 3 L/m, last PFT in 2016 showed FEV1 value of 41% of predicted with diffusion abnormality, consistent with stage III COPD #4. Chronic and ongoing history of smoking, currently down to 1,5 packs a day, carries 55 years of smoking of up to 2 packs a day #5. Carotid stenosis bilaterally #6. History of CVA/TIA #7. Gait dysfunction, patient uses a motorized scooter #8. History of right hip fracture and surgical repair #9. Hypertension #10. Abdominal aortic aneurysm #11. MRSA infection history #12. Chronic back pain #13. Anxiety/depression #14. Weight loss, some intentional, patient states she lost 55 pounds in the last year, however states she had been dieting as well Plan: We'll obtain a repeat CT of the chest with contrast to characterize the right upper lobe lesion. Check influenza screen, continue current antibiotics, continue steroids and nebulized bronchodilators, we'll send a sputum for culture, we'll continue to follow I performed a history & physical examination of the patient and discussed their management with my nurse practitioner, Rica Mccullough. I reviewed the nurse practitioner's note and agree with the documented findings and plan of care. Lung sounds are positive for diffuse wheezes throughout the lung harmon. The findings and the impression was discussed with the patient. I attest to the documentation by the nurse practitioner. Time with Patient: Greater than 30
--- NOTE | 2019-10-11 11:58 | P.HPIM ---
History of Present Illness 63-year-old female presented to family physician noted to be hypoxic respiratory distress sent to the emergency room for evaluation. Patient has long-standing history of a chronic hypoxic respiratory failure on home O2 2 L. Chronic COPD and asthma Review of Systems Constitutional: Reports fever, Reports malaise Respiratory: Reports cough, Reports dyspnea Past Medical History Past Medical History: Asthma, COPD, CVA/TIA, Fibromyalgia, GERD/Reflux, Hypertension, Memory Impairment, Myocardial Infarction (ME), Respiratory Di sorder Additional Past Medical History / Comment(s): COPD, chronic hypoxic respiratory failure and the patient has been maintained on oxygen at 2 L/m nasal cannula, chronic constipation, Chronic back pain, frequent urinary tract infections, .had a pne and shingle vaccine but does'nt know the dates and dr office , hypertension, coronary artery disease, chronic back pain, abdominal aortic aneurysm measuring 3.7 cm, previous history of MRSA infection of the feet him a chronic back pain and 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 Last Myocardial Infarction Date:: 1999 History of Any Multi-Drug Resistant Organisms: MRSA Date of last positivie culture/infection: 02/07 MDRO Source:: linda feet Past Surgical History: Adenoidectomy, Back Surgery, Heart Catheterization, Joint Replacement, Orthopedic Surgery, Tonsillectomy, Tubal Ligation Additional Past Surgical History / Comment(s): bilateral hip replacements, had 2 sx on lt and 3 sx on rt., neck fusion with plate ,linda cataracts, Past Anesthesia/Blood Transfusion Reactions: No Reported Reaction Past Psychological History: Anxiety, Depression Additional Psychological History / Comment(s): pt lives alone-has 1 indoor cat.hortensia checks on her often, gets visiting nurses Smoking Status: Former smoker Past Alcohol Use History: Occasional Additional Past Alcohol Use History / Comment(s): smokes 1 ppd,drinks occ, denies any drug use. Past Drug Use History: None Reported - Past Family History Father History Unknown: Yes Mother Family Medical History: Congestive Heart Failure (CHF), COPD Medications and Allergies Home Medications Medication Instructions Recorded Confirmed Type Albuterol Inhaler [Ventolin 2 puff INHALATION RT-QID PRN 12/26/14 10/10/19 History Inhaler] Albuterol Nebulized [Ventolin 2.5 mg INHALATION RT-QID 12/26/14 10/10/19 History Nebulized] Enalapril [Vasotec] 20 mg PO DAILY 12/26/14 10/10/19 History Ipratropium Nebulized [Atrovent 0.5 mg INHALATION RT-QID 12/26/14 10/10/19 History Nebulized 0.2 MG/ML] Isosorbide Mononitrate [Isosorbide 30 mg PO DAILY 12/26/14 10/10/19 History Mononitrate ER] Omeprazole 20 mg PO BID 12/26/14 10/10/19 History Temazepam [Restoril] 30 mg PO HS 12/26/14 10/10/19 History HYDROcodone/APAP 7.5-325MG [[place] 1 tab PO QID PRN 03/08/16 10/10/19 History 7.5-325] Loratadine [Claritin] 10 mg PO DAILY 08/14/16 10/10/19 History Metoprolol Succinate [Toprol XL] 25 mg PO DAILY 08/14/16 10/10/19 History Atorvastatin [Lipitor] 40 mg PO DAILY 10/10/19 10/10/19 History Cyclobenzaprine [Flexeril] 10 mg PO BID 10/10/19 10/10/19 History EPINEPHrine (Auto Inject) [Epipen] 0.3 mg IM ONCE PRN 10/10/19 10/10/19 History Estrogen,Con/M-Progest Acet 1 tab PO DAILY 10/10/19 10/10/19 History [Prempro 0.625-5 mg Tablet] Fluticasone Nasal [place] [Flonase 2 sprays EA NOSTRIL BID 10/10/19 10/10/19 History Nasal [place]] Furosemide [Lasix] 40 mg PO DAILY 10/10/19 10/10/19 History Gabapentin 800 mg PO TID 10/10/19 10/10/19 History Ibuprofen [Motrin] 800 mg PO TID PRN 10/10/19 10/10/19 History Montelukast [Singulair] 10 mg PO DAILY 10/10/19 10/10/19 History Nitroglycerin Sl Tabs [Nitrostat] 0.4 mg SUBLINGUAL Q5M PRN 10/10/19 10/10/19 History Potassium Chloride ER [K-Dur 10] 10 meq PO DAILY 10/10/19 10/10/19 History Sennosides [Senna] 17.2 mg PO HS 10/10/19 10/10/19 History Vitamin B Complex 1 cap PO DAILY 10/10/19 10/10/19 History Zinc 50 mg PO DAILY 10/10/19 10/10/19 History busPIRone HCL 15 mg PO BID 10/10/19 10/10/19 History Allergies Allergy/AdvReac Type Severity Reaction Status Date / Time adhesive Allergy Rash/Hives Verified 10/10/19 21:51 adhesive tape Allergy Rash/Hives Verified 10/10/19 21:51 chocolate flavor Allergy Anaphylaxis Verified 10/10/19 21:51 diphenhydramine HCl Allergy Unknown Verified 10/10/19 21:51 [From Benadryl] grass pollen-perennial rye, Allergy Unknown Verified 10/10/19 21:51 standar [grass poll-perennial rye,std] hydromorphone HCl Allergy Unknown Verified 10/10/19 21:51 [From Dilaudid] mold Allergy Unknown Verified 10/10/19 21:51 venom-honey bee Allergy Anaphylaxis Verified 10/10/19 21:51 [bee venom (honey bee)] dust Allergy Unknown Uncoded 10/10/19 19:48 nuts Allergy Anaphylaxis Uncoded 10/10/19 19:48 tape Allergy Rash/Hives Uncoded 10/10/19 19:48 Physical Exam Vitals: Vital Signs Temp Pulse Pulse Resp BP BP Pulse Ox 10/11/19 08:58 101 H 10/11/19 08:48 104 H 95 10/11/19 05:00 97.6 F 99 20 136/84 100 10/10/19 23:48 100 10/10/19 23:40 100 10/10/19 23:00 97.0 F L 80 24 122/78 97 10/10/19 21:50 111 H 20 143/82 96 10/10/19 20:28 111 H 10/10/19 20:10 106 H 10/10/19 19:40 98.6 F 117 H 18 138/83 93 L Intake and Output 10/10/19 10/11/19 10/11/19 22:59 06:59 14:59 Intake Total 0 Balance 0 Intake: Oral 0 Other: Voiding Method Toilet Toilet Bedside Commode Bedside Commode # Voids 1 # Bowel Movements 1 Weight 73.936 kg 73.936 kg - Constitutional General appearance: mild distress - EENT Eyes: PERRLA Ears: bilateral: normal - Neck Neck: normal ROM - Respiratory Respiratory: bilateral: diminished, wheezing - Cardiovascular Rhythm: regular Abnormal Heart Sounds: systolic murmur - Gastrointestinal General gastrointestinal: soft - Integumentary Integumentary: normal - Neurologic Neurologic: CNII-XII intact - Musculoskeletal Musculoskeletal: generalized weakness - Psychiatric Psychiatric: A&O x's 3, appropriate affect, intact judgment & insight Results CBC & Chem 7: 10/10/19 07:59 10/10/19 07:59 Labs: Abnormal Lab Results - Last 24 Hours (Table) 10/10/19 10/10/19 Range/Units 07:59 07:59 WBC 12.4 H (3.8-10.6) k/uL Sodium 135 L (137-145) mmol/L Glucose 120 H (74-99) mg/dL Total Protein 6.2 L (6.3-8.2) g/dL Albumin 3.2 L (3.5-5.0) g/dL Chest x-ray: report reviewed Assessment and Plan Plan: Assessment Acute on Chronic hypoxic respiratory failure home O2 2 L Asthma acute exacerbation Acute on chronic COPD exacerbation Memory impairment History of anxiety/depression Smoker History of CVA/TIA Fibromyalgia Coronary disease with history of [place] Chronic back pain GERD Hypertension Plan Pulmonology consult
--- NOTE | 2019-10-11 13:28 | CT ---
EXAMINATION TYPE: CT chest w con DATE OF EXAM: 10/11/2019 COMPARISON: 09/13/2017 HISTORY: Rt upper lobe mass CT DLP: 312.6 mGycm Automated exposure control for dose reduction was used. CONTRAST: CT scan of the chest is performed with IV Contrast, patient injected with 100 mL of Isovue 300. FINDINGS: LUNGS: The previously noted 3.3 x 2.7 cm mass now measures 2.9 x 1.6 cm. No consolidative pneumonia. No pleu ral effusion. No pneumothorax subpleural nodule in the left upper lobe incidentally noted measuring 2 mm retrospectively stable. Punctate 2 mm density in the right middle lobe stable. Subsegmental changes involving the anterior left lower lobe most typical of atelectasis. MEDIASTINUM: There are no greater than 1 cm hilar or mediastinal lymph nodes. No pericardial effusi on is seen. Stable pericardial lipomatosis particularly surrounding the SVC. OTHER: Nonspecific perinephric stranding are seen in the upper abdomen. Atherosclerotic change of th e vasculature. Gallbladder wall thickened but the gallbladder is decompressed. Chronic appearing defo rmities of the rib cage suggest remote trauma. Hypertrophic change of the vertebral column. Hypodensi ty involving the upper pole the left kidney too small to characterize but statistically most likely r elated to a tiny cyst. IMPRESSION: 1. There is interval improvement in the appearance of the right upper lobe mass which now measures 2. 9 x 1.6 cm and previously measured 3.3 x 2.7 cm.
[2019-10-11] MEDS ORDERED: AZITHROMYCIN 500 MG in SODIUM CHLORIDE 0.9% 250 ML IVPB SCH (23:00)
[2019-10-12] MEDS: methylPREDNISolone SOD SUCCI 125 MG/2 ML VIAL IV SCH ×2 (06:08→13:13)
[2019-10-12] MEDS: SODIUM CHLORIDE 0.9% 1,000 ML IV SCH (06:09)
[2019-10-12] MEDS: HYDROcodone/APAP 7.5-325MG 1 EACH TAB PO PRN (06:11)
[2019-10-12] MEDS: ATORVASTATIN 40 MG TAB PO SCH (07:25)
[2019-10-12] MEDS: PANTOPRAZOLE 40 MG TABLET PO SCH (07:25)
[2019-10-12] MEDS: LISINOPRIL 20 MG TAB PO SCH (07:25)
[2019-10-12] MEDS: POTASSIUM CHLORIDE ER 10 MEQ TAB.ER.PRT PO SCH (07:26)
[2019-10-12] MEDS: FUROSEMIDE 40 MG TAB PO SCH (07:26)
[2019-10-12] MEDS: LORATADINE 10 MG TAB PO SCH (07:26)
[2019-10-12] MEDS: METOPROLOL SUCCINATE (ER) 25 MG TAB.ER.24H PO SCH (07:26)
[2019-10-12] MEDS: ISOSORBIDE MONONITRATE ER 30 MG TAB.ER.24H PO SCH (07:26)
[2019-10-12] MEDS: busPIRone HCl 5 MG TAB PO SCH (07:26)
[2019-10-12] MEDS: CYCLOBENZAPRINE 10 MG TAB PO SCH (07:26)
[2019-10-12] MEDS: GABAPENTIN 400 MG CAP PO SCH (07:27)
[2019-10-12] MEDS: MONTELUKAST 10 MG TAB PO SCH (07:27)
[2019-10-12] MEDS: ESTROGEN CON PO SCH (07:27)
[2019-10-12] MEDS: M PROGEST ACET PO SCH (07:27)
[2019-10-12] MEDS: FLUTICASONE 50MCG/SPRAY NASAL 16GM EA NOSTRIL SCH (07:28)
[2019-10-12] MEDS: IPRATROPIUM-ALBUTEROL 3 ML NEB INHALATION SCH ×2 (07:38→11:46)
--- NOTE | 2019-10-12 12:27 | P.PN ---
Subjective Progress Note Date: 10/12/19 Principal diagnosis: Acute exacerbation of COPD 63-year-old female patient of Dr. Samayoa with past medical history of COPD on home oxygen at 3 L, history of 55 years of smoking, 1,5-2 packs daily, diabetes, hypertension, dementia. Patient had seen Dr. Taveras 6 years ago in 2014 she was diagnosed with severe COPD with chronic CO2 retention and chronic hypoxemic respiratory failure, unfortunately she had been unable to quit smoking. She states last year she had been seen by Dr. Hewitt/Lisha Pollard, however she states she decided not to see him anymore because she was not happy that Dr. Pollard wanted to do lung biopsy without clearly explaining to her why he was doing at. She states there was an abnormality in her lung on the CT chest are year ago that was performed at [facility]. She states she refused a biopsy. She is on maintenance inhaler and nebulized treatments. Most recent chest CT in this institution is from August 2017 that showed enlarging lobulated density in the posterior right apex suspicious for neoplasm measuring 2.7 x 3.3 cm. Her PFT from 2017 showed FEV1 of 1.01 L or 41% of predicted with FVC of 1.69 m or 54% of predicted and decreased diffusion capacity with DLVA of 77%. Patient did not follow-up with anybody in regards to the right upper lobe mass. She states she was also diagnosed with the left carotid artery stenosis of 70%. On 10/10/2019 patient presented to the emergency department per EMS for severe shortness of breath, cough, congestion, patient is bringing up yellow colored sputum, she was complaining of headaches, but no fevers, no hemoptysis. She states she hasn't had her influenza or pneumonia vaccine yet. She continues to smoke. She denied any chest pain. Chest x-ray showed right upper lobe density of uncertain significance likely the same right upper lobe mass previously seen on the CT chest. Patient has been started on Zithromax, IV steroids, nebulized bronchodilators, started to feel better, still quite congestive bronchospastic on today's exam. The patient is seen today 10/12/2019 in follow-up on the regular medical floor. She is currently sitting up in a chair at the bedside. Awake and alert in no acute distress. She is maintaining O2 saturations in the upper 90s on 3 L/m per nasal cannula. She's been afebrile. Hemodynamically stable. She's been continued on DuoNeb inhalations, IV Solu-Medrol, Singulair, empiric antibiotics in the form of azithromycin. Objective - Vital Signs Vital signs: Vital Signs Temp 97.3 F L 10/12/19 05:10 Pulse 72 10/12/19 11:54 Resp 20 10/12/19 05:10 BP 108/66 10/12/19 05:10 Pulse Ox 97 10/12/19 05:10 Intake & Output 10/11/19 10/12/19 10/12/19 18:59 06:59 18:59 Intake Total 760 325 Output Total 2 Balance 758 325 Intake: Oral 760 325 Output: Urine 2 Other: Voiding Method Toilet Toilet Bedside Commode Bedside Commode # Voids 2 - Exam GENERAL EXAM: Alert, 63-year-old female patient, appears older than stated age, on 2 L nasal cannula, active, comfortable in no apparent distress. HEAD: Normocephalic. EYES: Normal reaction of pupils, equal size. NOSE: Clear with pink turbinates. THROAT: No erythema or exudates. NECK: No masses, no JVD. CHEST: No chest wall deformity. LUNGS: Equal air entry with bilateral end expiratory wheeze, diminished. CVS: S1 and S2 normal with no audible murmur, regular rhythm. ABDOMEN: No hepatosplenomegaly, normal bowel sounds, no guarding or rigidity. SPINE: No scoliosis or deformity SKIN: No rashes CENTRAL NERVOUS SYSTEM: No focal deficits, tone is normal in all 4 extremities. EXTREMITIES: There is no peripheral edema. No clubbing, no cyanosis. Peripheral pulses are intact. - Labs CBC & Chem 7: 10/10/19 07:59 10/10/19 07:59 Assessment and Plan Assessment: #1. Acute exacerbation of COPD with tracheobronchitis #2. Right upper lobe mass, previously seen on the CT chest on 09/13/2017, and patient has not had a biopsy. PET scan was done in September 2017 showing no convincing PET/CT evidence for malignancy, and the SUV uptake in the posterior right upper lobe nodule was mild at 2.89, with no evidence of adenopathy or metastatic disease. Brain MRI from October 2017 was noncontrast but large metastasis was not evident. CT of the chest with contrast has been reviewed with Dr. Orozco, compared to previous CT of the chest from 2017, and the lesion in the right upper lobe has decreased in size. Patient's most recent PET scan from September 2017 did not show convincing PET CT evidence for malignancy with low uptake in the right upper lobe lesion. For now we will treat the patient's COPD, patient will need outpatient follow-up with Dr. Taveras in the office and we'll need follow-up PET scan and further workup. #3. Advanced COPD, with chronic hypercapnic and hypoxemic respiratory failure on home oxygen at 3 L/m, last PFT in 2017 showed FEV1 value of 41% of predicted with diffusion abnormality, consistent with stage III COPD #4. Chronic and ongoing history of smoking, currently down to 1,5 packs a day, carries 55 years of smoking of up to 2 packs a day #5. Carotid stenosis bilaterally #6. History of CVA/TIA #7. Gait dysfunction, patient uses a motorized scooter #8. History of right hip fracture and surgical repair #9. Hypertension #10. Abdominal aortic aneurysm #11. MRSA infection history #12. Chronic back pain #13. Anxiety/depression #14. Weight loss, some intentional, patient states she lost 55 pounds in the last year, however states she had been dieting as well Plan: The patient was seen and evaluated by Dr. Orozco Cleared for discharge from the pulmonary standpoint Complete a course of antibiotics Complete a prednisone burst and taper starting at 40 mg for 4 days Continue her home pulmonary medications Again educated regarding the importance of complete smoking cessation Follow up with Dr. Taveras in the office to determine if a follow-up PET scan is recommended She is encouraged to call sooner with any recurrence of symptoms or other questions or concerns I, the cosigning physician, performed a history & physical examination of the patient. Lungs sounds with bilateral end expiratory wheeze, diminished. Maintaining good O2 saturations in the 90s on 2 L/m per nasal cannula. I discussed the assessment and plan of care with my nurse practitioner, Elida Hurtado. I attest to the above note as dictated by her.
--- NOTE | 2019-10-12 14:45 | P.DS ---
Providers Date of admission: 10/10/19 22:32 Expected date of discharge: 10/12/19 Attending physician: Geovani Samayoa Consults: 10/11/19 08:48 Consult Physician Urgent Consulting Provider: Vaishali Taveras Consult Reason/Comments: copd exacerbation Do you want consulting provider notified?: Yes Primary care physician: Geovani Samayoa Hospital Course: Final diagnosis Acute on Chronic hypoxic respiratory failure home O2 2 L Asthma acute exacerbation Acute on chronic COPD exacerbation Memory impairment History of anxiety/depression Smoker History of CVA/TIA Fibromyalgia Coronary disease with history of [place] Chronic back pain GERD Hypertension Discharge disposition Patient is being discharged in a stable condition with guarded prognosis to home and will follow-up with primary care provider Dr. Samayoa upon discharge this week. Patient will also follow-up with Dr. Taveras in the outpatient setting for further PET scanning and evaluation. Patient will continue on a short course of oral antibiotics in the form of Zithromax along with a prednisone taper upon discharge. Total time taken is 35 minutes. History of present illness 63-year-old female presented to family physician noted to be hypoxic respiratory distress sent to the emergency room for evaluation. Patient has long-standing history of a chronic hypoxic respiratory failure on home O2 2 L. Chronic COPD and asthma. Influenza screening was negative. Patient was started on oral antibiotics along with IV steroids and breathing inhalational treatments. Patient was evaluated by pulmonary and recommending outpatient follow-up for further PET scans due to a right upper lobe mass that has been being followed since 2017. Recent CAT scan of the chest yesterday shows that the lesion in the right upper lobe has decreased and will need a PET scan CT for further workup. Currently patient's condition is stable and would like to go home today. She is very angry at times and states that multiple doctors and nurses have been in here and aren't saying anything as far as her condition. Patient was talked to at length about the plan and what the plan will be moving forward. Patient's tobacco packing machine operator from [facility] was also notified by myself as the patient is concerned that her aide will no longer be visiting her and helping her as she was 3 times a week. Case management discussed with the patient that she will not lose those services. Patient was also given the number to [facility] and will follow-up with them as well. On exam vital signs are stable. Temp is 97.3F, pulse is 70, respirations are 20, blood pressure is 108/66, oxygen saturation is 97% on 2 L via nasal cannula. Patient is O2 dependent at home at 2 L via nasal cannula. Cardio S1, S2 are muffled. Respiratory system shows diminished breath sounds at the bases with mild expiratory wheezing noted. Abdomen is soft, thin, nontender. Nervous system shows no focal deficits. Please refer to medication reconciliation sheet for a list of medications. Patient Condition at Discharge: Good Plan - Discharge Summary Discharge Rx Participant: No New Discharge Prescriptions: New predniSONE 10 mg PO DIRECTED #30 tab Azithromycin [Zithromax] 500 mg PO DAILY 4 Days #4 tab Continue Temazepam [Restoril] 30 mg PO HS Ipratropium Nebulized [Atrovent Nebulized 0.2 MG/ML] 0.5 mg INHALATION RT-QID Enalapril [Vasotec] 20 mg PO DAILY Albuterol Nebulized [Ventolin Nebulized] 2.5 mg INHALATION RT-QID Albuterol Inhaler [Ventolin Hfa Inhaler] 2 puff INHALATION RT-QID PRN PRN Reason: Shortness Of Breath Omeprazole 20 mg PO BID Isosorbide Mononitrate [Isosorbide Mononitrate ER] 30 mg PO DAILY HYDROcodone/APAP 7.5-325MG [[place] 7.5-325] 1 tab PO QID PRN PRN Reason: pain Loratadine [Claritin] 10 mg PO DAILY Metoprolol Succinate [Toprol XL] 25 mg PO DAILY busPIRone HCL 15 mg PO BID Montelukast [Singulair] 10 mg PO DAILY Ibuprofen [Motrin] 800 mg PO TID PRN PRN Reason: Pain Gabapentin 800 mg PO TID Cyclobenzaprine [Flexeril] 10 mg PO BID Atorvastatin [Lipitor] 40 mg PO DAILY Estrogen,Con/M-Progest Acet [Prempro 0.625-5 mg Tablet] 1 tab PO DAILY Sennosides [Senna] 17.2 mg PO HS Potassium Chloride ER [K-Dur 10] 10 meq PO DAILY Nitroglycerin Sl Tabs [Nitrostat] 0.4 mg SUBLINGUAL Q5M PRN PRN Reason: Chest Pain Furosemide [Lasix] 40 mg PO DAILY Zinc 50 mg PO DAILY Fluticasone Nasal [place] [Flonase Nasal [place]] 2 sprays EA NOSTRIL BID EPINEPHrine (Auto Inject) [Epipen] 0.3 mg IM ONCE PRN PRN Reason: Anaphylaxis Vitamin B Complex 1 cap PO DAILY Discharge Medication List Albuterol Inhaler [Ventolin Hfa Inhaler] 2 puff INHALATION RT-QID PRN 12/26/14 [History] Albuterol Nebulized [Ventolin Nebulized] 2.5 mg INHALATION RT-QID 12/26/14 [History] Enalapril [Vasotec] 20 mg PO DAILY 12/26/14 [History] Ipratropium Nebulized [Atrovent Nebulized 0.2 MG/ML] 0.5 mg INHALATION RT-QID 12/26/14 [History] Isosorbide Mononitrate [Isosorbide Mononitrate ER] 30 mg PO DAILY 12/26/14 [History] Omeprazole 20 mg PO BID 12/26/14 [History] Temazepam [Restoril] 30 mg PO HS 12/26/14 [History] HYDROcodone/APAP 7.5-325MG [[place] 7.5-325] 1 tab PO QID PRN 03/08/16 [History] Loratadine [Claritin] 10 mg PO DAILY 08/14/16 [History] Metoprolol Succinate [Toprol XL] 25 mg PO DAILY 08/14/16 [History] Atorvastatin [Lipitor] 40 mg PO DAILY 10/10/19 [History] Cyclobenzaprine [Flexeril] 10 mg PO BID 10/10/19 [History] EPINEPHrine (Auto Inject) [Epipen] 0.3 mg IM ONCE PRN 10/10/19 [History] Estrogen,Con/M-Progest Acet [Prempro 0.625-5 mg Tablet] 1 tab PO DAILY 10/10/19 [History] Fluticasone Nasal [place] [Flonase Nasal [place]] 2 sprays EA NOSTRIL BID 10/10/19 [History] Furosemide [Lasix] 40 mg PO DAILY 10/10/19 [History] Gabapentin 800 mg PO TID 10/10/19 [History] Ibuprofen [Motrin] 800 mg PO TID PRN 10/10/19 [History] Montelukast [Singulair] 10 mg PO DAILY 10/10/19 [History] Nitroglycerin Sl Tabs [Nitrostat] 0.4 mg SUBLINGUAL Q5M PRN 10/10/19 [History] Potassium Chloride ER [K-Dur 10] 10 meq PO DAILY 10/10/19 [History] Sennosides [Senna] 17.2 mg PO HS 10/10/19 [History] Vitamin B Complex 1 cap PO DAILY 10/10/19 [History] Zinc 50 mg PO DAILY 10/10/19 [History] busPIRone HCL 15 mg PO BID 10/10/19 [History] Azithromycin [Zithromax] 500 mg PO DAILY 4 Days #4 tab 10/12/19 [Rx] predniSONE 10 mg PO DIRECTED #30 tab 10/12/19 [Rx] Follow up Appointment(s)/Referral(s): Geovani Samayoa MD [Primary Care Provider] - 1-2 days [facility], [NON-STAFF] - Vaishali Taveras MD [STAFF PHYSICIAN] - 1 Week Patient Instructions/Handouts: COPD (Chronic Obstructive Pulmonary Disease) (DC) Activity/Diet/Wound Care/Special Instructions: NURSE: Patient will need a [employer] van ride home due to her not having her scooter or portable tanks with her. Hospital will pay for this Activity [employer] until follow-up Follow-up with primary care provider upon discharge Follow Up with Dr. Taveras in the office in 1-2 weeks Continue antibiotics until finished Continue with prednisone taper Continue current diet Discharge Disposition: HOME WITH HOME HEALTH SERVICES
[2019-10-12 14:57] VITALS: BP 120/62; PULSE 97; RESP 18; TEMP 98.2
[2019-10-12] MEDS ORDERED: AZITHROMYCIN 500 MG TAB PO SCH (21:00)
== END 2019-10-12 14:29 | disposition home health service (06) ==
LOC: EC 19:39 → 6NMEDSUR 22:32
PROVIDERS: ADMIT Family Medicine; ATTEND Family Medicine
DX: J96.21 Acute and chronic respiratory failure with hypoxia (principal); J96.22 Acute and chronic respiratory failure with hypercapnia; J44.1 Chronic obstructive pulmonary disease with (acute) exacerbation; J45.901 Unspecified asthma with (acute) exacerbation; Z86.14 Personal history of Methicillin resistant Staphylococcus aureus infection; E11.9 Type 2 diabetes mellitus without complications; F03.90 Unspecified dementia, unspecified severity, without behavioral disturbance, psychotic disturbance, mood disturbance, and anxiety; F17.200 Nicotine dependence, unspecified, uncomplicated; F32.9 Major depressive disorder, single episode, unspecified; F41.9 Anxiety disorder, unspecified; I10 Essential (primary) hypertension; I25.10 Atherosclerotic heart disease of native coronary artery without angina pectoris; I25.2 Old myocardial infarction; I65.23 Occlusion and stenosis of bilateral carotid arteries; I71.4 Abdominal aortic aneurysm, without rupture; K21.9 Gastro-esophageal reflux disease without esophagitis; M79.7 Fibromyalgia; Z79.899 Other long term (current) drug therapy; Z82.49 Family history of ischemic heart disease and other diseases of the circulatory system; Z82.5 Family history of asthma and other chronic lower respiratory diseases; Z86.73 Personal history of transient ischemic attack (TIA), and cerebral infarction without residual deficits; Z87.440 Personal history of urinary (tract) infections; Z96.643 Presence of artificial hip joint, bilateral; Z98.1 Arthrodesis status; Z99.81 Dependence on supplemental oxygen; Z79.891 Long term (current) use of opiate analgesic
CPT/HCPCS: 96376 ×2; 96361 ×3; 96366 ×3; 96375; 96365; 99285; 36415; 94640 ×6; 94760; 93005; 97116; 97162; 97166; 83880; 80053; 83735; 84484; 85025; 85610; 85730; 87502; 71046; 71260; G0378 ×3; J2930 ×2; J0456 ×2; Q9967

== ENCOUNTER 2020-03-19 11:17 | Emergency (ER) | payer OTHER ==
[2020-03-19] MEDS ORDERED: HYDROcodone/APAP 7.5-325MG 1 EACH TAB PO ONE (11:36)
--- NOTE | 2020-03-19 11:59 | XR ---
EXAMINATION TYPE: XR knee complete RT DATE OF EXAM: 03/19/2020 CLINICAL HISTORY: pain TECHNIQUE: Three views of the right knee are obtained. COMPARISON: None. FINDINGS: There is no acute fracture/dislocation. Postoperative fixation right femur with plate fixa tion and screws noted as well as intramedullary anish partially imaged. The tri-compartment joint space s appear within normal limits. The overlying soft tissue appears unremarkable. IMPRESSION: There is no acute fracture or dislocation.ICD 10 NO FRACTURE, INITIAL EVALUATION
--- NOTE | 2020-03-19 12:24 | ED ---
Extremity Problem HPI - General Chief complaint: Extremity Problem,Nontraumatic Stated complaint: R Leg Pain Time Seen by Provider: 03/19/20 11:33 Source: patient, EMS Mode of arrival: EMS Limitations: no limitations - History of Present Illness Initial comments: Patient is 64-year-old female with history of COPD presenting to the emergency department with a chief complaint of right knee pain. Patient reports the pain started earlier today with no traumatic injury. Patient states she was walking and felt the sudden onset of sharp pain along the anterior lateral aspect of her right knee. Patient does report a previous right femur fracture which she underwent extensive surgery with plates and screws. Patient reports she has not had any significant problems since the surgical procedure. States the pain is exacerbated with ambulation. States she still able to ambulate. Denies any swelling, erythema or ecchymosis in the region. Denies any trauma. Denies any numbness or tingling. Denies any calf pain. Patient states she takes 7.5 [place] daily for chronic back pain but has not taken her medication today. Patient states having a caregiver for the last 20 years but she stopped taking for the last 2 weeks due to the coronavirus. Patient states now she is moving more throughout the house which could potentially be causing her to have increased pain. Patient states she also attempted to declutter her house - Related Data Home Medications Medication Instructions Recorded Confirmed Albuterol Inhaler (Mhu) [Ventolin 2 puff INHALATION RT-QID PRN 12/26/14 10/10/19 Hfa Inhaler (Mhu)] Albuterol Nebulized [Ventolin 2.5 mg INHALATION RT-QID 12/26/14 10/10/19 Nebulized] Enalapril [Vasotec] 20 mg PO DAILY 12/26/14 10/10/19 Ipratropium Nebulized [Atrovent 0.5 mg INHALATION RT-QID 12/26/14 10/10/19 Nebulized 0.2 MG/ML] Isosorbide Mononitrate [Isosorbide 30 mg PO DAILY 12/26/14 10/10/19 Mononitrate ER] Omeprazole 20 mg PO BID 12/26/14 10/10/19 Temazepam [Restoril] 30 mg PO HS 12/26/14 10/10/19 HYDROcodone/APAP 7.5-325MG [[place] 1 tab PO QID PRN 03/08/16 10/10/19 7.5-325] Loratadine [Claritin] 10 mg PO DAILY 08/14/16 10/10/19 Metoprolol Succinate [Toprol XL] 25 mg PO DAILY 08/14/16 10/10/19 Atorvastatin [Lipitor] 40 mg PO DAILY 10/10/19 10/10/19 Cyclobenzaprine [Flexeril] 10 mg PO BID 10/10/19 10/10/19 EPINEPHrine (Auto Inject) [Epipen] 0.3 mg IM ONCE PRN 10/10/19 10/10/19 Estrogen,Con/M-Progest Acet 1 tab PO DAILY 10/10/19 10/10/19 [Prempro 0.625-5 mg Tablet] Fluticasone Nasal [place] [Flonase 2 sprays EA NOSTRIL BID 10/10/19 10/10/19 Nasal [place]] Furosemide [Lasix] 40 mg PO DAILY 10/10/19 10/10/19 Gabapentin 800 mg PO TID 10/10/19 10/10/19 Ibuprofen [Motrin] 800 mg PO TID PRN 10/10/19 10/10/19 Montelukast [Singulair] 10 mg PO DAILY 10/10/19 10/10/19 Nitroglycerin Sl Tabs [Nitrostat] 0.4 mg SUBLINGUAL Q5M PRN 10/10/19 10/10/19 Potassium Chloride ER [K-Dur 10] 10 meq PO DAILY 10/10/19 10/10/19 Sennosides [Senna] 17.2 mg PO HS 10/10/19 10/10/19 Vitamin B Complex 1 cap PO DAILY 10/10/19 10/10/19 Zinc 50 mg PO DAILY 10/10/19 10/10/19 busPIRone HCL 15 mg PO BID 10/10/19 10/10/19 Previous Rx's Medication Instructions Recorded Azithromycin [Zithromax] 500 mg PO DAILY 4 Days #4 tab 10/12/19 predniSONE 10 mg PO DIRECTED #30 tab 10/12/19 Allergies Allergy/AdvReac Type Severity Reaction Status Date / Time adhesive Allergy Rash/Hives Verified 10/10/19 21:51 adhesive tape Allergy Rash/Hives Verified 10/10/19 21:51 chocolate flavor Allergy Anaphylaxis Verified 10/10/19 21:51 diphenhydramine HCl Allergy Unknown Verified 10/10/19 21:51 [From Benadryl] grass pollen-perennial rye, Allergy Unknown Verified 10/10/19 21:51 standar [grass poll-perennial rye,std] hydromorphone HCl Allergy Unknown Verified 10/10/19 21:51 [From Dilaudid] mold Allergy Unknown Verified 10/10/19 21:51 venom-honey bee Allergy Anaphylaxis Verified 10/10/19 21:51 [bee venom (honey bee)] dust Allergy Unknown Uncoded 10/10/19 19:48 nuts Allergy Anaphylaxis Uncoded 10/10/19 19:48 tape Allergy Rash/Hives Uncoded 10/10/19 19:48 Review of Systems ROS Statement: Those systems with pertinent positive or pertinent negative responses have been documented in the HPI. ROS Other: All systems not noted in ROS Statement are negative. Past Medical History Past Medical History: Asthma, COPD, CVA/TIA, Fibromyalgia, GERD/Reflux, Hypertension, Memory Impairment, Myocardial Infarction ([place]), Respiratory Disorder Additional Past Medical History / Comment(s): COPD, chronic hypoxic respiratory failure and the patient has been maintained on oxygen at 2 L/m nasal cannula, chronic constipation, Chronic back pain, frequent urinary tract infections, .had a pne and shingle vaccine but does'nt know the dates and dr office , hypertension, coronary artery disease, chronic back pain, abdominal aortic aneurysm measuring 3.7 cm, previous history of MRSA infection of the feet him a chronic back pain and 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 Last Myocardial Infarction Date:: 1999 History of Any Multi-Drug Resistant Organisms: MRSA Date of last positivie culture/infection: 02/07 MDRO Source:: linda feet Past Surgical History: Adenoidectomy, Back Surgery, Heart Catheterization, Joint Replacement, Orthopedic Surgery, Tonsillectomy, Tubal Ligation Additional Past Surgical History / Comment(s): bilateral hip replacements, had 2 sx on lt and 3 sx on rt., neck fusion with plate ,linda cataracts, Past Anesthesia/Blood Transfusion Reactions: No Reported Reaction Past Psychological History: Anxiety, Depression Smoking Status: Former smoker Past Alcohol Use History: Occasional Past Drug Use History: None Reported - Past Family History Father History Unknown: Yes Mother Family Medical History: Congestive Heart Failure (CHF), COPD General Exam Limitations: no limitations General appearance: alert, in no apparent distress, obese Head exam: Present: atraumatic, normocephalic, normal inspection Eye exam: Present: normal appearance, PERRL, EOMI Pupils: Present: normal accommodation ENT exam: Present: normal exam, normal oropharynx, mucous membranes moist Neck exam: Present: normal inspection, full ROM Respiratory exam: Present: normal lung sounds bilaterally. Absent: respiratory distress, wheezes Cardiovascular Exam: Present: regular rate, normal rhythm, normal heart sounds Extremities exam: Present: normal inspection (Scarring noted from previous surgical procedure. No swelling, ecchymosis or erythema noted. No signs of trauma.), full ROM, tenderness (Localized tenderness over the anterior lateral aspect of the suprapatellar region of the right knee.), normal capillary refill, other (+2 dorsalis pedis and posterior tibialis. Strength 5/5 bilateral lower extremities. Sensation intact.). Absent: joint swelling Back exam: Present: normal inspection, full ROM Neurological exam: Present: alert, oriented X3 Psychiatric exam: Present: normal affect, normal mood Skin exam: Present: warm, dry, intact, normal color Course Vital Signs 03/19/20 11:18 Temperature 97.2 F L Pulse Rate 101 H Respiratory 18 Rate Blood Pressure 126/62 O2 Sat by Pulse 97 Oximetry Medical Decision Making - Medical Decision Making Patient is 64-year-old female presenting to the emergency Department with a chief complaint of right knee pain. Exam there is no signs of acute trauma, s welling, erythema or ecchymosis. Patient has full range of motion. She is able to ambulate but that also causes her pain to be exacerbated. X-ray of the right knee shows no acute fracture or dislocations. Hardware intact. Neurovascularly intact right lower extremity. I gave the patient a prescription for knee brace. I suspect her pain is secondary to increased movement throughout the house due to not having a caregiver. Patient is attempting to get in contact with a social secretary but the process is delayed due to rotavirus. I also give the patient contact information for an case resolution specialist. Return parameters were thoroughly discussed patient was understanding and agreeable. Case discussed with physician. Disposition Clinical Impression: Right knee pain Disposition: HOME SELF-CARE Condition: Stable Instructions (If sedation given, give patient instructions): Knee Pain (ED) Additional Instructions: Follow up with case resolution specialist. Please obtain and apply knee brace. Avoid moving or standing for prolonged periods of time. Return to emergency department if symptoms worsen. Is patient prescribed a controlled substance at d/c from ED?: No Referrals: Gevoani Samayoa MD [Primary Care Provider] - 1-2 days Tim Remy MD [STAFF PHYSICIAN] - 1-2 days Time of Disposition: 12:42
[2020-03-19 12:58] VITALS: BP 128/70; PULSE 91; RESP 17; TEMP 98
== END 2020-03-19 13:07 | disposition home or self-care (01) ==
LOC: EC 11:17
DX: M25.561 Pain in right knee (principal); J44.9 Chronic obstructive pulmonary disease, unspecified; M79.7 Fibromyalgia; K21.9 Gastro-esophageal reflux disease without esophagitis; I10 Essential (primary) hypertension; I25.2 Old myocardial infarction; I25.10 Atherosclerotic heart disease of native coronary artery without angina pectoris; M47.892 Other spondylosis, cervical region; M16.0 Bilateral primary osteoarthritis of hip; F41.9 Anxiety disorder, unspecified; F32.9 Major depressive disorder, single episode, unspecified; Z86.73 Personal history of transient ischemic attack (TIA), and cerebral infarction without residual deficits; Z86.14 Personal history of Methicillin resistant Staphylococcus aureus infection; Z79.891 Long term (current) use of opiate analgesic; Z95.818 Presence of other cardiac implants and grafts; Z96.643 Presence of artificial hip joint, bilateral; Z98.1 Arthrodesis status; Z87.891 Personal history of nicotine dependence; Z79.890 Hormone replacement therapy; Z79.899 Other long term (current) drug therapy; Z91.048 Other nonmedicinal substance allergy status; Z91.018 Allergy to other foods; Z88.8 Allergy status to other drugs, medicaments and biological substances; Z88.5 Allergy status to narcotic agent; Z91.030 Bee allergy status; Z53.8 Procedure and treatment not carried out for other reasons
CPT/HCPCS: 99283

== ENCOUNTER → 2020-03-31 | Outpatient (CLI) | payer OTHER ==
--- NOTE | 2020-04-09 12:09 | EM ---
EVENT MONITOR EVENT MONITOR: Patient was monitored between the 03/31 and 04/07/2020. The rhythm strip revealed a sinus mechanism with single PVCs and single PACs. There was 1 episode of 5 complex ventricular tachycardia. There was a 5 complex and a 9 complex ventricular tachycardia that was asymptomatic. Symptoms of irregular heartbeat and flutter did not correlate with any dysrhythmia. CONCLUSION: 1. Sinus mechanism baseline rhythm. 2. Episode of nonsustained ventricular tachycardia that was asymptomatic with the longest being 9 complexes. No atrial fibrillation. 3. No pauses. MMODL / IJN: [id number] /
== END | disposition home or self-care (01) ==
LOC: RADECHMAIN 11:37
PROVIDERS: ATTEND Family Medicine
DX: R00.2 Palpitations (principal)
CPT/HCPCS: 93270

== ENCOUNTER → 2021-02-11 | Outpatient (CLI) | payer MEDICARE, OTHER ==
--- NOTE | 2021-02-11 11:44 | US ---
EXAMINATION TYPE: US duplex aorta DATE OF EXAM: 02/11/2021 COMPARISON: NONE CLINICAL HISTORY: Z13.6 Encounter for screening for cardiovascular disease EXAM MEASUREMENTS: Abdominal Aorta: Proximal: 2.0cm Mid/distal: difficult to assess, it is unclear whether visualization of the IVC is adjacent or whe ther there could be plaque in the aorta causing adjacent linear focus, a third option could be a diss ection. Technologist unable to use doppler to identify due to peristalsing bowel obscuring signal. Bi furcation: not seen due to obesity and overlying bowel Impression: 1. Limited study. This patient is morbidly obese and the mid to distal abdominal aorta is poorly visu alized. There is an area of possible focal dissection within the mid abdominal aorta which is not def initive on this study. A CT of the abdomen and pelvis is recommended with IV contrast to assess this region. Stat results were notified from [facility] to referring physician office Dr. Samayoa at 11:45 AM on 01/24
--- NOTE | 2021-02-12 12:37 | BD ---
EXAMINATION TYPE: Axial Bone Density DATE OF EXAM: 02/11/2021 COMPARISON: 04/22/2011 CLINICAL HISTORY: Post menopausal female Height: 62.5 IN Weight: 198 LBS FRAX RISK QUESTIONS: History of Fracture in Adulthood: RT FEMUR AGE 62 Secondary Osteoporosis: 3. Menopause before 45: PERIODS STOPPED AGE 16. DUE TO CONTROL AND PROBLEMS Current Tobacco Use: YES RISK FACTORS HISTORY OF: History of Wrist Fracture: YES LEFT WRIST Surgery to Spine/Hip([facility]): L-SPINE SURGERY 1999; HIP REPLACEMENTS SINCE 2003 Active: NO Postmenopausal woman: NO PERIOD SINCE AGE 16 DUE TO CONTROL AND PERIOD PROBLEMS Take estrogen and/or progesterone medications: CONTROL AGE 13-19; PREMPRO TAKES NOW. TAKEN FO R APPROX 15 YEARS Frequent falls: YES DUE TO BALANCE AND BAD HIPS MEDICATIONS: Additional Medications: BLOOD PRESSURE MEDS, CHOLESTEROL MEDS, ACID REFLUX MEDS, MUSCLE RELAXER, PRABHU PRO, NORCO, HEART PILL, WATER PILL, EXAM MEASUREMENTS: Bone mineral densitometry was performed using the [employer] System. PT HAS HAD L SPINE SURGERY. PT HAS HAD EDNA HIP REPLACEMENTS. PT HAS HAD LT WRIST FX Bone mineral density about the R Wrist (g/cm2): 0.534 T Score values are as follows: -----Dist. R+U: -2.5 -----Prox. R+U: -1.6 -----Radius total: -2.3 Bone mineral density BASELINE OF RT WRIST IMPRESSION: Osteopenia (T Score between -2.5 and -1). There is slightly increased risk of fracture and the patient may be considered for treatment. Re-Screen 2-5 years. NOTE: T-SCORE=SD OF THE YOUNG ADULT MEAN.
--- NOTE | 2021-02-16 09:43 | MM ---
Reason for exam: screening (asymptomatic). Last mammogram was performed 3 years and 1 month ago. History: Patient is postmenopausal. Taking estrogen for 9 years beginning at age 43. Taking progesterone for 9 years beginning at age 43. Physical Findings: A clinical breast exam by your physician is recommended on an annual basis and results should be correlated with mammographic findings. MG 3D Screening Mammo W/Cad Bilateral CC and MLO view(s) were taken. Prior study comparison: January 17, 2018, bilateral MG 3d screening mammo w/cad. June 08, 2013, [facility] DIGITAL RIGHT MAMMOGRAM w/CAD. New nodule upper outer quadrant posterior left breast. New nodule lower inner posterior left breast. This finding is changed when compared with previous exams. ASSESSMENT: Incomplete: need additional imaging evaluation, BI-RAD 0 RECOMMENDATION: Special view mammogram of the left breast. If lesion persists on supplemental views, image directed ultrasound is recommended. [facility] will attempt to contact patient to return for supplemental views and ultrasound if indicated.
== END | disposition home or self-care (01) ==
LOC: RADUSWWP 07:10
PROVIDERS: ATTEND Family Medicine
DX: Z12.31 Encounter for screening mammogram for malignant neoplasm of breast (principal); Z78.0 Asymptomatic menopausal state; Z13.6 Encounter for screening for cardiovascular disorders; M85.88 Other specified disorders of bone density and structure, other site
CPT/HCPCS: 77063; 77067; 77080; 93979

== ENCOUNTER → 2021-02-11 | Outpatient (CLI) | payer MEDICARE, OTHER ==
[2021-02-11 08:19] LABS: HCT 35.5 % (34.0-46.0); HGB 12.1 gm/dL (11.4-16.0); MCH 32.7 pg (25.0-35.0); MCV 96.2 fL (80.0-100.0); Mean Platelet Volume 8.6; Platelet Count 393 k/uL (150-450); RBC 3.69 m/uL (3.80-5.40); WBC 10.8 k/uL (3.8-10.6)
[2021-02-11 08:38] LABS: Potassium 4.7 mmol/L (3.5-5.1)
== END | disposition home or self-care (01) ==
LOC: LABPAT 07:11
PROVIDERS: ATTEND Internal Medicine Interventional Cardiology
DX: Z01.812 Encounter for preprocedural laboratory examination (principal); I47.2 Ventricular tachycardia
CPT/HCPCS: 36415; 80051; 82565; 84520; 85027

== ENCOUNTER → 2021-02-12 | Outpatient (CLI) | payer MEDICARE, OTHER ==
--- NOTE | 2021-02-12 09:20 | CT ---
EXAMINATION TYPE: CT angio thor/abd pel aorta DATE OF EXAM: 02/12/2021 COMPARISON: 10/11/2019 CT chest HISTORY: h/o dissention of aorta CT DLP: 2436 mGycm CONTRAST: CTA thoracic and abdominal aorta with 3-D reconstruction is performed and with IV Contrast, patient i njected with 80ml mL of Isovue 370. Contrast CTA of the thoracic and abdominal aorta was performed from the lung apex through the base of the pelvis. 3-D reconstruction imaging obtained at a separate workstation. CT Chest: THORACIC AORTA: There is no evidence for aneurysm. No dissection or mediastinal hematoma. Atheroma tous changes are seen. LUNGS: The lungs are clear and free of infiltrate or atelectasis. Increasing mass posterior aspect ri ght upper lobe measuring 3.3 x 2.2 cm versus 2.9 x 1.6 cm previously. Malignancy is not excluded. No additional nodules or masses seen. Parenchymal scarring in the region of the lingula. No pleural effu alan or CT evidence of interstitial lung disease. MEDIASTINUM: The heart is mildly enlarged. No evidence for mediastinal mass or adenopathy. HILAR STRUCTURES: No evidence for mass. No hilar adenopathy is appreciated. OTHER: No significant abnormality. CONTRAST CT ABDOMEN AND PELVIS ABDOMINAL AORTA: Scattered atheromatous changes noted. No evidence for abdominal aortic aneurysm. No dissection. Iliac vessels are symmetric and patent. LIVER/GB- No significant abnormality is seen. PANCREAS- No significant abnormality is seen. SPLEEN- No significant abnormality is seen. ADRENALS- No significant abnormality is seen. KIDNEYS/BLADDER- No significant abnormality is seen. BOWEL- No Significant abnormality GENITAL ORGANS: No gross abnormality seen. LYMPH NODES- No greater than 1cm abdominal or pelvic lymph nodes are appreciated. OSSEOUS STRUCTURES-bilateral hip prosthesis are in place. OTHER- No significant abnormality is seen. IMPRESSION- 1. No evidence for aortic aneurysm or dissection. Scattered atheromatous changes seen. 2. Enlarging mass right upper lobe suspicious for malignancy.
== END | disposition home or self-care (01) ==
LOC: RADCTMAIN 06:55
PROVIDERS: ATTEND Family Medicine
DX: I71.00 Dissection of unspecified site of aorta (principal)
CPT/HCPCS: 71275; 74174; Q9967

== ENCOUNTER → 2021-02-16 | Day surgery (SDC) | payer MEDICARE, OTHER ==
[2021-02-12 11:01] VITALS: BMI 35.4
[~2021-02-16] MED LIST: ALPRAZolam 0.25 MG TAB PO PRN; ALPRAZolam 0.5 MG TAB PO PRN; ASPIRIN 325 MG TAB PO STA; ATORVASTATIN 80 MG TAB PO STA; HEPARIN SODIUM,PORCINE 10,000 UNIT in SODIUM CHLORIDE 0.9% 1,000 ML IRRIGATION PRN; HEPARIN SODIUM,PORCINE 2,500 UNIT in SODIUM CHLORIDE 0.9% 250 ML IRRIGATION PRN; NITROGLYCERIN SL TABS 0.4 MG TAB SUBLINGUAL PRN; SODIUM CHLORIDE 0.9% 1,000 ML in EMPTY BAG 1 BAG IV ONE
== END ==
LOC: CATHCVL 06:11
PROVIDERS: ATTEND Internal Medicine Interventional Cardiology
DX: Z53.9 Procedure and treatment not carried out, unspecified reason (principal)

== ENCOUNTER 2021-02-19 12:44 | Observation (INO) | payer MEDICARE, OTHER ==
[2021-02-19] MEDS ORDERED: IPRATROPIUM-ALBUTEROL 3 ML NEB INHALATION STA (12:58)
--- NOTE | 2021-02-19 13:00 | ED ---
General Adult HPI - General Chief complaint: Shortness of Breath Stated complaint: SOB Time Seen by Provider: 02/19/21 12:50 Source: patient, RN notes reviewed Mode of arrival: wheelchair Limitations: no limitations - History of Present Illness Initial comments: Patient is a pleasant 65-year-old female presenting to the emergency Department with chest discomfort and dyspnea. Symptoms are chronic however worse over the past week. Patient has had multiple visits and test done with her doctor over the past week. Patient was advised come to the hospital. Patient was supposed to have a heart catheterization yesterday however was not able to do it s econdary to her anxiety. No calf pain. No leg swelling. Dyspnea is similar to chronic COPD. Patient is trying to stop smoking right now. No chest discomfort at this time. - Related Data Home Medications Medication Instructions Recorded Confirmed Enalapril [Vasotec] 20 mg PO DAILY 12/26/14 02/19/21 Isosorbide Mononitrate [Isosorbide 30 mg PO DAILY 12/26/14 02/19/21 Mononitrate ER] Omeprazole 20 mg PO BID 12/26/14 02/19/21 Temazepam [Restoril] 30 mg PO HS 12/26/14 02/19/21 Loratadine [Claritin] 10 mg PO DAILY 08/14/16 02/19/21 Cyclobenzaprine [Flexeril] 10 mg PO BID 10/10/19 02/19/21 EPINEPHrine (Auto Inject) [Epipen] 0.3 mg IM ONCE PRN 10/10/19 02/19/21 Estrogen,Con/M-Progest Acet 1 tab PO DAILY 10/10/19 02/19/21 [Prempro 0.625-5 mg Tablet] Fluticasone Nasal [place] [Flonase 2 sprays EA NOSTRIL DAILY 10/10/19 02/19/21 Nasal [place]] Furosemide [Lasix] 40 mg PO DAILY 10/10/19 02/19/21 Ibuprofen [Motrin] 800 mg PO TID PRN 10/10/19 02/19/21 Montelukast [Singulair] 10 mg PO DAILY 10/10/19 02/19/21 Nitroglycerin Sl Tabs [Nitrostat] 0.4 mg SUBLINGUAL Q5M PRN 10/10/19 02/19/21 Potassium Chloride ER [K-Dur 10] 10 meq PO DAILY 10/10/19 02/19/21 busPIRone HCL 15 mg PO BID 10/10/19 02/19/21 Atorvastatin [Lipitor] 80 mg PO DAILY 02/12/21 02/19/21 HYDROcodone/APAP 10-325MG [[place] 1 tab PO Q6HR PRN 02/12/21 02/19/21 10-325] Aspirin EC [Ecotrin Low Dose] 81 mg PO DAILY 02/19/21 02/19/21 Gabapentin 300 mg PO TID 02/19/21 02/19/21 Ipratropium-Albuterol Nebulize 3 ml INHALATION RT-Q6H PRN 02/19/21 02/19/21 [Duoneb 0.5 mg-3 mg/3 ml Soln] Metoprolol Succinate [Toprol XL] 50 mg PO DAILY 02/19/21 02/19/21 Mirabegron [Myrbetriq] 25 mg PO DAILY 02/19/21 02/19/21 Nystatin 100,000 Unit/gm Powd 1 applic TOPICAL BID 02/19/21 02/19/21 [Mycostatin Powder] Varenicline [Chantix Continuing 1 mg PO BID 02/19/21 02/19/21 Pack] traMADol HCL 50 mg PO QID PRN 02/19/21 02/19/21 Allergies Allergy/AdvReac Type Severity Reaction Status Date / Time adhesive Allergy Rash/Hives Verified 02/19/21 13:32 adhesive tape Allergy Rash/Hives Verified 02/19/21 13:32 chocolate flavor Allergy Anaphylaxis Verified 02/19/21 13:32 diphenhydramine HCl Allergy Unknown Verified 02/19/21 13:32 [From Benadryl] grass pollen-perennial rye, Allergy Unknown Verified 02/19/21 13:32 standar [grass poll-perennial rye,std] hydromorphone HCl Allergy Unknown Verified 02/19/21 13:32 [From Dilaudid] mold Allergy Unknown Verified 02/19/21 13:32 venom-honey bee Allergy Anaphylaxis Verified 02/19/21 13:32 [bee venom (honey bee)] dust Allergy Unknown Uncoded 02/19/21 12:49 nuts Allergy Anaphylaxis Uncoded 02/19/21 12:49 tape Allergy Rash/Hives Uncoded 02/12/21 10:21 Review of Systems ROS Statement: Those systems with pertinent positive or pertinent negative responses have been documented in the HPI. ROS Other: All systems not noted in ROS Statement are negative. Constitutional: Denies: fever Eyes: Denies: eye pain ENT: Denies: ear pain Respiratory: Reports: dyspnea Cardiovascular: Reports: chest pain Endocrine: Reports: fatigue Gastrointestinal: Denies: abdominal pain Genitourinary: Denies: urgency Musculoskeletal: Denies: back pain Skin: Denies: rash Neurological: Denies: weakness Past Medical History Past Medical History: Asthma, COPD, CVA/TIA, Fibromyalgia, GERD/Reflux, Hypertension, Memory Impairment, Myocardial Infarction ([place]), Respiratory Disorder Additional Past Medical History / Comment(s): COPD, chronic hypoxic respiratory failure and the patient has been maintained on oxygen at 2 L/m nasal cannula, chronic constipation, Chronic back pain, frequent urinary tract infections, .had a pne and shingle vaccine but does'nt know the dates and dr office , hypertension, coronary artery disease, chronic back pain, abdominal aortic aneurysm measuring 3.7 cm, previous history of MRSA infection of the feet him a chronic back pain and 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 Last Myocardial Infarction Date:: 1999 History of Any Multi-Drug Resistant Organisms: MRSA Date of last positivie culture/infection: 02/07 MDRO Source:: linda feet Past Surgical History: Adenoidectomy, Back Surgery, Heart Catheterization, Joint Replacement, Orthopedic Surgery, Tonsillectomy, Tubal Ligation Additional Past Surgical History / Comment(s): bilateral hip replacements, had 2 sx on lt and 3 sx on rt., neck fusion with plate ,linda cataracts, Past Anesthesia/Blood Transfusion Reactions: No Reported Reaction Past Psychological History: Anxiety, Depression Smoking Status: Current every day smoker Past Alcohol Use History: None Reported, Occasional Past Drug Use History: None Reported - Past Family History Father History Unknown: Yes Mother Family Medical History: Congestive Heart Failure (CHF), COPD General Exam Limitations: no limitations General appearance: alert, in no apparent distress Head exam: Present: normocephalic Eye exam: Present: normal appearance Neck exam: Present: normal inspection Respiratory exam: Present: wheezes. Absent: respiratory distress Cardiovascular Exam: Present: regular rate, normal rhythm GI/Abdominal exam: Present: soft. Absent: tenderness Extremities exam: Present: normal inspection. Absent: pedal edema, calf tenderness Neurological exam: Present: alert Psychiatric exam: Present: normal affect, normal mood Skin exam: Present: normal color Course Vital Signs 02/19/21 02/19/21 02/19/21 12:45 13:34 13:43 Temperature 99.0 F Pulse Rate 98 92 91 Respiratory 20 Rate Blood Pressure 152/86 O2 Sat by Pulse 98 Oximetry EKG Findings - EKG Comments: EKG Findings:: Normal sinus rhythm with rate of 96. MT 166. QRS 76. QT 360. QTC 454. Normal axis. Normal QRS. No acute ST change. Medical Decision Making - Medical Decision Making Patient was updated on plan. Case discussed with practitioner Ander, covering with Dr. Samayoa who will admit. - Lab Data Result diagrams: 02/19/21 13:13 02/19/21 13:13 Lab Results 02/19/21 02/19/21 02/19/21 Range/Units 13:13 13:13 13:13 WBC 16.4 H (3.8-10.6) k/uL RBC 4.13 (3.80-5.40) m/uL Hgb 13.1 (11.4-16.0) gm/dL Hct 38.9 (34.0-46.0) % MCV 94.3 (80.0-100.0) fL MCH 31.6 (25.0-35.0) pg MCHC 33.6 (31.0-37.0) g/dL RDW 13.2 (11.5-15.5) % Plt Count 420 (150-450) k/uL MPV 8.4 Neutrophils % 72 % Lymphocytes % 20 % Monocytes % 3 % Eosinophils % 3 % Basophils % 1 % Neutrophils # 11.8 H (1.3-7.7) k/uL Lymphocytes # 3.4 (1.0-4.8) k/uL Monocytes # 0.5 (0-1.0) k/uL Eosinophils # 0.4 (0-0.7) k/uL Basophils # 0.1 (0-0.2) k/uL PT 9.9 (9.0-12.0) sec INR 0.9 (<1.2) APTT 20.7 L (22.0-30.0) sec Sodium 136 L (137-145) mmol/L Potassium 4.6 (3.5-5.1) mmol/L Chloride 103 (98-107) mmol/L Carbon Dioxide 26 (22-30) mmol/L Anion Gap 7 mmol/L BUN 20 H (7-17) mg/dL Creatinine 1.13 H (0.52-1.04) mg/dL Est GFR (CKD-EPI)AfAm 59 (>60 ml/min/1.73 sqM) Est GFR (CKD-EPI)NonAf 51 (>60 ml/min/1.73 sqM) Glucose 92 (74-99) mg/dL Plasma Lactic Acid [place] (0.7-2.0) mmol/L Calcium 9.7 (8.4-10.2) mg/dL Total Bilirubin 0.3 (0.2-1.3) mg/dL AST 21 (14-36) U/L ALT 13 (4-34) U/L Alkaline Phosphatase 76 (38-126) U/L Troponin I (0.000-0.034) ng/mL NT-Pro-B Natriuret Pep pg/mL Total Protein 6.7 (6.3-8.2) g/dL Albumin 4.1 (3.5-5.0) g/dL 02/19/21 02/19/21 02/19/21 Range/Units 13:13 13:13 13:13 WBC (3.8-10.6) k/uL RBC (3.80-5.40) m/uL Hgb (11.4-16.0) gm/dL Hct (34.0-46.0) % MCV (80.0-100.0) fL MCH (25.0-35.0) pg MCHC (31.0-37.0) g/dL RDW (11.5-15.5) % Plt Count (150-450) k/uL MPV Neutrophils % % Lymphocytes % % Monocytes % % Eosinophils % % Basophils % % Neutrophils # (1.3-7.7) k/uL Lymphocytes # (1.0-4.8) k/uL Monocytes # (0-1.0) k/uL Eosinophils # (0-0.7) k/uL Basophils # (0-0.2) k/uL PT (9.0-12.0) sec INR (<1.2) APTT (22.0-30.0) sec Sodium (137-145) mmol/L Potassium (3.5-5.1) mmol/L Chloride (98-107) mmol/L Carbon Dioxide (22-30) mmol/L Anion Gap mmol/L BUN (7-17) mg/dL Creatinine (0.52-1.04) mg/dL Est GFR (CKD-EPI)AfAm (>60 ml/min/1.73 sqM) Est GFR (CKD-EPI)NonAf (>60 ml/min/1.73 sqM) Glucose (74-99) mg/dL Plasma Lactic Acid [place] 0.9 (0.7-2.0) mmol/L Calcium (8.4-10.2) mg/dL Total Bilirubin (0.2-1.3) mg/dL AST (14-36) U/L ALT (4-34) U/L Alkaline Phosphatase (38-126) U/L Troponin I <0.012 (0.000-0.034) ng/mL NT-Pro-B Natriuret Pep 1050 pg/mL Total Protein (6.3-8.2) g/dL Albumin (3.5-5.0) g/dL - Radiology Data Radiology results: image reviewed (Chest x-ray shows chronic changes. Persistent lung nodule.) Disposition Clinical Impression: COPD exacerbation, Chest pain Disposition: ADMITTED IP TO THIS HOSP Is patient prescribed a controlled substance at d/c from ED?: No Referrals: Geovani Samayoa MD [Primary Care Provider] - 1-2 days Decision Time: 14:39
[2021-02-19 13:36] LABS: Basophils # (A) 0.1 k/uL (0-0.2); Basophils % (A) 1 %; Eosinophils # (A) 0.4 k/uL (0-0.7); Eosinophils % (A) 3 %; HCT 38.9 % (34.0-46.0); HGB 13.1 gm/dL (11.4-16.0); Lymphocytes # (A) 3.4 k/uL (1.0-4.8); Lymphocytes % (A) 20 %; MCH 31.6 pg (25.0-35.0); MCHC 33.6 g/dL (31.0-37.0); MCV 94.3 fL (80.0-100.0); Mean Platelet Volume 8.4; Monocytes # (A) 0.5 k/uL (0-1.0); Monocytes % (A) 3 %; Neutrophils # (A) 11.8 k/uL (1.3-7.7); Neutrophils % (A) 72 %; Platelet Count 420 k/uL (150-450); RBC 4.13 m/uL (3.80-5.40); RDW 13.2 % (11.5-15.5); WBC 16.4 k/uL (3.8-10.6)
[2021-02-19 13:45] LABS: Albumin 4.1 g/dL (3.5-5.0); Calcium 9.7 mg/dL (8.4-10.2); Potassium 4.6 mmol/L (3.5-5.1); Total Bilirubin 0.3 mg/dL (0.2-1.3); Total Protein 6.7 g/dL (6.3-8.2)
--- NOTE | 2021-02-19 13:48 | XR ---
EXAMINATION TYPE: XR chest 2V DATE OF EXAM: 02/19/2021 COMPARISON: Chest x-ray October 10, 2019. CT chest October 11, 2019. HISTORY: History of COPD with shortness of breath TECHNIQUE: Frontal and lateral views of the chest are obtained. FINDINGS: There is chronic emphysematous change with persistent posterior right upper lung nodule se en best on lateral view. No new focal airspace opacity, pleural effusion, or pneumothorax seen bilate rally. The cardiac silhouette size is stable and upper limits of normal with atherosclerotic aorta. M etallic rectangular device lower cervical spine is redemonstrated. Old posterolateral right sixth rib fracture again seen. IMPRESSION: Chronic changes without new acute pulmonary process.
[2021-02-19 14:19] LABS: INR 0.9 (<1.2); Prothrombin Time 9.9 sec (9.0-12.0)
[2021-02-19 14:27] LABS: Partial Thromboplastin Time 20.7 sec (22.0-30.0)
[2021-02-19] MEDS ORDERED: NITROGLYCERIN SL TABS 0.4 MG TAB SUBLINGUAL PRN ×2 (14:39→17:23)
[2021-02-19] MEDS ORDERED: ASPIRIN 81 MG PO STA (14:39)
[2021-02-19] MEDS ORDERED: HYDROcodone/APAP 10-325MG 1 EACH TAB PO PRN (17:00)
[2021-02-19] MEDS: IPRATROPIUM-ALBUTEROL 3 ML NEB INHALATION SCH ×2 (17:45→20:20)
[2021-02-19] MEDS: NYSTATIN 100,000 UNIT/GM POWD 15 GM TOPICAL SCH (20:43)
[2021-02-19] MEDS: GABAPENTIN 300 MG CAP PO SCH (20:43)
[2021-02-19] MEDS: CYCLOBENZAPRINE 10 MG TAB PO SCH (20:44)
[2021-02-19] MEDS: NITROGLYCERIN OINT 1 INCH/GM PACKET TOPICAL SCH (20:44)
[2021-02-19] MEDS ORDERED: busPIRone HCl 5 MG TAB PO SCH (21:00)
[2021-02-19] MEDS ORDERED: TEMAZEPAM 30 MG CAP PO PRN (21:00)
[2021-02-19] MEDS ORDERED: TEMAZEPAM 15 MG CAP PO PRN (21:10)
[2021-02-19] MEDS: traMADol 50 MG TAB PO PRN (21:29)
[2021-02-20] MEDS: ALPRAZolam 0.5 MG TAB PO SCH ×4 (00:30→21:17)
[2021-02-20] MEDS: NITROGLYCERIN OINT 1 INCH/GM PACKET TOPICAL SCH ×4 (00:31→18:16)
[2021-02-20] MEDS: IPRATROPIUM-ALBUTEROL 3 ML NEB INHALATION PRN (04:39)
[2021-02-20] MEDS: IOPAMIDOL CONTRAST (ORAL USE) VIAL PO PRN ×2 (07:00→08:05)
[2021-02-20] MEDS: HYDROcodone/APAP 10-325MG 1 EACH TAB PO PRN ×2 (07:22→13:51)
--- NOTE | 2021-02-20 07:26 | P.HPIM ---
History of Present Illness H&P Date: 02/20/21 Chief Complaint: Shortness of breath 65-year-old female was admitted to the hospital for progressive shortness of breath, intermittent chest discomfort, and generalized weakness for acute on chronic duration. Patient has significant medical history of asthma, COPD, CVA/TIA, fibromyalgia, GERD/reflux, hypertension, mild memory impairment, chronic back pain, dysfunctional gait, history of myocardial infarction, abdominal aortic aneurysm measuring 3.7 cm, enlarging right upper lobe mass, and mixed anxiety and depression. Patient was seen in the office sent to the emergency department due to increasing shortness of breath and intermittent chest discomfort, admitted for COPD, and intermittent chest discomfort with consultation of cardiology, pulmonology, oncology/hematology for multiple medical conditions. Review of Systems Constitutional: Reports fatigue Ears: bilateral: decreased hearing Cardiovascular: Reports chest pain, Reports decreased exercise tolerance, Reports dyspnea on exertion, Reports high blood pressure, Reports shortness of breath Respiratory: Reports cough, Reports dyspnea Genitourinary: Reports stress incontinence, Reports urge incontinence, Reports urinary frequency Musculoskeletal: Reports muscle cramps, Reports muscle weakness Integumentary: Reports pruritus Neurological: Reports gait dysfunction, Reports weakness Psychiatric: Reports anxiety, Reports depression, Reports difficulty concentrating, Reports insomnia Endocrine: Reports fatigue Past Medical History Past Medical History: Asthma, COPD, CVA/TIA, Fibromyalgia, GERD/Reflux, Hypertension, Memory Impairment, Myocardial Infarction ([place]), Respiratory Disorder Additional Past Medical History / Comment(s): COPD, chronic hypoxic respiratory failure and the patient has been maintained on oxygen at 2 L/m nasal cannula, chronic constipation, Chronic back pain, frequent urinary tract infections, .had a pne and shingle vaccine but does'nt know the dates and dr office , hypertension, coronary artery disease, chronic back pain, abdominal aortic aneur ysm measuring 3.7 cm, previous history of MRSA infection of the feet him a chronic back pain and 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 Last Myocardial Infarction Date:: 1999 History of Any Multi-Drug Resistant Organisms: MRSA Date of last positivie culture/infection: 02/07 MDRO Source:: linda feet Past Surgical History: Adenoidectomy, Back Surgery, Heart Catheterization, Joint Replacement, Orthopedic Surgery, Tonsillectomy, Tubal Ligation Additional Past Surgical History / Comment(s): bilateral hip replacements, had 2 sx on lt and 3 sx on rt., neck fusion with plate ,linda cataracts, Past Anesthesia/Blood Transfusion Reactions: No Reported Reaction Past Psychological History: Anxiety, Depression Additional Psychological History / Comment(s): pt lives alone-has 1 indoor cat.hortensia checks on her often, gets visiting nurses Smoking Status: Current every day smoker Past Alcohol Use History: None Reported, Occasional Additional Past Alcohol Use History / Comment(s): smokes 1 ppd,drinks occ, denies any drug use. Past Drug Use History: None Reported - Past Family History Father History Unknown: Yes Mother Family Medical History: Congestive Heart Failure (CHF), COPD Medications and Allergies Home Medications and Allergies Comment(s): Medications and ALLERGIES reviewed Home Medications Medication Instructions Recorded Confirmed Type Enalapril [Vasotec] 20 mg PO DAILY 12/26/14 02/19/21 History Isosorbide Mononitrate [Isosorbide 30 mg PO DAILY 12/26/14 02/19/21 History Mononitrate ER] Omeprazole 20 mg PO BID 12/26/14 02/19/21 History Temazepam [Restoril] 30 mg PO HS 12/26/14 02/19/21 History Loratadine [Claritin] 10 mg PO DAILY 08/14/16 02/19/21 History Cyclobenzaprine [Flexeril] 10 mg PO BID 10/10/19 02/19/21 History EPINEPHrine (Auto Inject) [Epipen] 0.3 mg IM ONCE PRN 10/10/19 02/19/21 History Estrogen,Con/M-Progest Acet 1 tab PO DAILY 10/10/19 02/19/21 History [Prempro 0.625-5 mg Tablet] Fluticasone Nasal [place] [Flonase 2 sprays EA NOSTRIL DAILY 10/10/19 02/19/21 History Nasal [place]] Furosemide [Lasix] 40 mg PO DAILY 10/10/19 02/19/21 History Ibuprofen [Motrin] 800 mg PO TID PRN 10/10/19 02/19/21 History Montelukast [Singulair] 10 mg PO DAILY 10/10/19 02/19/21 History Nitroglycerin Sl Tabs [Nitrostat] 0.4 mg SUBLINGUAL Q5M PRN 10/10/19 02/19/21 History Potassium Chloride ER [K-Dur 10] 10 meq PO DAILY 10/10/19 02/19/21 History busPIRone HCL 15 mg PO BID 10/10/19 02/19/21 History Atorvastatin [Lipitor] 80 mg PO DAILY 02/12/21 02/19/21 History HYDROcodone/APAP 10-325MG [[place] 1 tab PO Q6HR PRN 02/12/21 02/19/21 History 10-325] Aspirin EC [Ecotrin Low Dose] 81 mg PO DAILY 02/19/21 02/19/21 History Gabapentin 300 mg PO TID 02/19/21 02/19/21 History Ipratropium-Albuterol Nebulize 3 ml INHALATION RT-Q6H PRN 02/19/21 02/19/21 History [Duoneb 0.5 mg-3 mg/3 ml Soln] Metoprolol Succinate [Toprol XL] 50 mg PO DAILY 02/19/21 02/19/21 History Mirabegron [Myrbetriq] 25 mg PO DAILY 02/19/21 02/19/21 History Nystatin 100,000 Unit/gm Powd 1 applic TOPICAL BID 02/19/21 02/19/21 History [Mycostatin Powder] Varenicline [Chantix Continuing 1 mg PO BID 02/19/21 02/19/21 History Pack] traMADol HCL 50 mg PO QID PRN 02/19/21 02/19/21 History Allergies Allergy/AdvReac Type Severity Reaction Status Date / Time adhesive Allergy Rash/Hives Verified 02/19/21 13:32 adhesive tape Allergy Rash/Hives Verified 02/19/21 13:32 chocolate flavor Allergy Anaphylaxis Verified 02/19/21 13:32 diphenhydramine HCl Allergy Unknown Verified 02/19/21 13:32 [From Benadryl] grass pollen-perennial rye, Allergy Unknown Verified 02/19/21 13:32 standar [grass poll-perennial rye,std] hydromorphone HCl Allergy Unknown Verified 02/19/21 13:32 [From Dilaudid] mold Allergy Unknown Verified 02/19/21 13:32 venom-honey bee Allergy Anaphylaxis Verified 02/19/21 13:32 [bee venom (honey bee)] dust Allergy Unknown Uncoded 02/19/21 12:49 nuts Allergy Anaphylaxis Uncoded 02/19/21 12:49 tape Allergy Rash/Hives Uncoded 02/12/21 10:21 Physical Exam Vitals: Vital Signs Temp Pulse Pulse Resp BP BP Pulse Ox 02/20/21 04:47 78 02/20/21 04:39 74 02/20/21 02:00 73 02/20/21 01:09 97.5 F L 73 18 134/70 98 02/19/21 20:30 84 02/19/21 20:25 88 02/19/21 20:00 91 18 02/19/21 19:19 98.2 F 91 18 129/80 98 02/19/21 18:34 98.7 F 97 20 153/89 93 L 02/19/21 17:53 100 02/19/21 17:43 100 02/19/21 15:28 90 19 125/72 95 02/19/21 13:43 91 02/19/21 13:34 92 02/19/21 12:45 99.0 F 98 20 152/86 98 Intake and Output 02/19/21 02/20/21 02/20/21 22:59 06:59 14:59 Other: Voiding Method Diaper # Voids 1 2 Weight 89.358 kg - Constitutional General appearance: mild distress - EENT Eyes: EOMI, PERRLA ENT: hard of hearing Ears: bilateral: normal - Neck Neck: normal ROM Thyroid: bilateral: normal size - Respiratory Respiratory: bilateral: wheezing (Anterior and posterior lung harmon) - Cardiovascular Normal sinus rhythm Heart rate: 74 Rhythm: regular Heart sounds: normal: S1, S2 radial pulse Peripheral Pulses: bilateral: Normal dorsalis pedis Peripheral Pulses: bilateral: Normal - Gastrointestinal General gastrointestinal: normal bowel sounds - Integumentary Integumentary: pale - Neurologic Neurologic: CNII-XII intact - Musculoskeletal Musculoskeletal: generalized weakness - Psychiatric Psychiatric: A&O x's 3 Results CBC & Chem 7: 02/19/21 13:13 02/19/21 13:13 Labs: Abnormal Lab Results - Last 24 Hours (Table) 02/19/21 02/19/21 02/19/21 Range/Units 13:13 13:13 13:13 WBC 16.4 H (3.8-10.6) k/uL Neutrophils # 11.8 H (1.3-7.7) k/uL APTT 20.7 L (22.0-30.0) sec Sodium 136 L (137-145) mmol/L BUN 20 H (7-17) mg/dL Creatinine 1.13 H (0.52-1.04) mg/dL Chest x-ray: report reviewed Thrombosis Risk Factor Assmnt - Choose All That Apply Any of the Below Risk Factors Present?: Yes Each Factor Represents 1 point: Abnormal pulmonary function (COPD), Age 41-60 years Other Risk Factors: Yes Each Risk Factor Represents 2 Points: Age 61-74 years Other congenital or acquired thrombophilia - If yes, enter type in comment: No Thrombosis Risk Factor Assessment Total Risk Factor Score: 4 Thrombosis Risk Factor Assessment Level: Moderate Risk Assessment and Plan Assessment: Chest discomfort COPD-dependent on 2 L of oxygen Right upper lobe lung mass Hypertension Fibromyalgia GERD/reflux History of CVA/TIA History of myocardial infarction History of multiple urinary tract infections History of urinary incontinence Memory impairment History of MRSA History of heart catheterizations History of bilateral hip replacements Mixed anxiety and depression DO NOT RESUSCITATE Plan: Chest discomfort, troponins negative 3, no acute EKG changes, consultation with cardiology for recommendations and treatment plan COPD, continue breathing treatments, consultation with pulmonology for recommendations and treatment plan Right upper lobe lung mass, consultation with hematology/oncology for recommendations and treatment plan Continue to monitor vital signs and diagnostic testing Continue home medications Further recommendations to come based on patient's clinical condition Time with Patient: Greater than 30
[2021-02-20] MEDS: IPRATROPIUM-ALBUTEROL 3 ML NEB INHALATION SCH ×4 (07:34→20:01)
[2021-02-20] MEDS: CYCLOBENZAPRINE 10 MG TAB PO SCH ×2 (08:13→21:16)
[2021-02-20] MEDS: ASPIRIN 325 MG TAB PO SCH (08:13)
[2021-02-20] MEDS: PANTOPRAZOLE 40 MG TABLET PO SCH (08:13)
[2021-02-20] MEDS: ISOSORBIDE MONONITRATE ER 30 MG TAB.ER.24H PO SCH (08:13)
[2021-02-20] MEDS: LORATADINE 10 MG TAB PO SCH (08:13)
[2021-02-20] MEDS: FUROSEMIDE 40 MG TAB PO SCH (08:13)
[2021-02-20] MEDS: MONTELUKAST 10 MG TAB PO SCH (08:14)
[2021-02-20] MEDS: lisinopriL 20 MG TAB PO SCH (08:14)
[2021-02-20] MEDS: ATORVASTATIN 80 MG TAB PO SCH (08:14)
[2021-02-20] MEDS: GABAPENTIN 300 MG CAP PO SCH ×3 (08:14→21:17)
[2021-02-20] MEDS: POTASSIUM CHLORIDE ER 10 MEQ TAB.ER.PRT PO SCH (08:14)
[2021-02-20] MEDS: FLUTICASONE 50MCG/SPRAY NASAL 16GM EA NOSTRIL SCH (08:15)
[2021-02-20] MEDS ORDERED: NON FORMULARY DRUG (Aspirin Ec 81 MG Tablet.Dr) PO SCH (09:00)
--- NOTE | 2021-02-20 09:58 | CT ---
EXAMINATION TYPE: CT ChestAbdPelvis w con DATE OF EXAM: 02/20/2021 COMPARISON: 02/12/2021 HISTORY: Staging probable lung malignancy CT DLP: 1636.20 mGycm CONTRAST: CT scan of the chest, abdomen and pelvis is performed with Oral Contrast and with IV Contrast, patien t injected with 100 ml mL of Isovue 300. CT Chest: LUNGS: Right upper lobe mass persists and currently measures 3.4 x 2.1 cm versus 3.3 x 2.2 cm previou sly. No additional pulmonary masses or nodules seen. No evidence for infiltrate. No pleural effusion. MEDIASTINUM: Thoracic aorta is of normal caliber. The heart is not enlarged. No evidence for media stinal mass or adenopathy. HILAR STRUCTURES: No evidence for mass. No hilar adenopathy is appreciated. OTHER: No significant abnormality. CONTRAST CT ABDOMEN AND PELVIS FINDINGS: LIVER/GB: No calcified gallstones. No space occupying hepatic lesion. Biliary tree is of normal ca liber. PANCREAS: No inflammation. No distinct mass. SPLEEN: No splenic enlargement. No lesion seen. ADRENALS: No nodule. No thickening. KIDNEYS/BLADDER: No hydronephrosis. No nephrolithiasis. No disctinct renal mass. BOWEL: Normal appendix. Normal bowel caliber. No inflammation. GENITAL ORGANS: No gross abnormality. LYMPH NODES: No greater than 1cm abdominal or pelvic lymph nodes are appreciated. All AORTA: No significant abnormality. OSSEOUS STRUCTURES: No significant abnormality is seen. OTHER: No significant additional abnormality is seen. IMPRESSION: 1. Right upper lobe mass persists and currently measures 3.4 x 2.1 cm versus 3.3 x 2.2 cm previously. No evidence for metastatic disease at this time.
[2021-02-20 10:04] LABS: Basophils # (A) 0.11 X 10*3/uL (0.00-0.10); Basophils % (A) 0.9 %; Eosinophils # (A) 0.19 X 10*3/uL (0.04-0.35); Eosinophils % (A) 1.5 %; HGB 12.5 g/dL (12.0-15.0); Lymphocytes # (A) 3.15 X 10*3/uL (0.90-5.00); Lymphocytes % (A) 25.3 %; MCH 31.2 pg (27.0-32.0); MCHC 31.3 g/dL (32.0-37.0); MCV 99.8 fL (80.0-97.0); Mean Platelet Volume 11.4 fL (9.5-12.2); Monocytes # (A) 0.74 X 10*3/uL (0.20-1.00); Monocytes % (A) 5.9 %; Neutrophils # (A) 8.19 X 10*3/uL (1.80-7.70); Neutrophils % (A) 65.9 %; Platelet Count 412 X 10*3/uL (140-440); RBC 4.01 X 10*6/uL (4.10-5.20); RDW 14.4 % (11.5-14.5); WBC 12.44 X 10*3/uL (4.50-10.00)
[2021-02-20] MEDS: traMADol 50 MG TAB PO PRN (10:34)
[2021-02-20] MEDS: METOPROLOL SUCCINATE (ER) 50 MG TAB.ER.24H PO SCH (10:35)
[2021-02-20] MEDS: NYSTATIN 100,000 UNIT/GM POWD 15 GM TOPICAL SCH ×2 (10:37→21:17)
[2021-02-20] MEDS: MIRABEGRON 25 MG PO SCH (10:39)
--- NOTE | 2021-02-20 11:46 | P.CRDCN ---
History of Present Illness History of present illness: This is Dr. Barnes dictating a consult on this patient The patient was interviewed and examined IMPRESSION / ASSESSMENT: Recurrent chest discomfort and shortness of breath History of COPD Hypertension PLAN: Patient had CT of the abdomen today with contrast Hold off sales operations lead catheterization today perhaps in the next 1-2 days as an inpatient HPI Patient presented with chest discomfort shortness of breath She was here yesterday for coronary angiography but she had a panic attack when she found out that Dr. Barnes was not doing the cardiac catheterization but it was some yahoo from [facility] whose name starts with S. ROS: No fever chills or rigors, no cough, phlegm or expectoration, no nausea, vomiting or diarrhea, no hematuria, dysuria, no musculoskeletal complaints, no strokes or seizures, no skin lesions. EXAMINATION: Patient looks comfortable. She is going around in her scootie Looks comfortable blood pressure is normal 137/79 mmHg Afebrile Heart rates are normal Normal heart sounds Decreased breath sounds bilaterally no rhonchi no crackles REVIEW OF LABS, ECG & MEDICAL DATA Elevated white count of 16,000, today 12.4 thousand Hemoglobin 13 Elevated neutrophil count Sodium 136 potassium 4.6 BUN 20 and creatinine 1.13 Normal troponins 3 MT proBNP 1050 Past Medical History Past Medical History: Asthma, COPD, CVA/TIA, Fibromyalgia, GERD/Reflux, Hypertension, Memory Impairment, Myocardial Infarction ([place]), Respiratory Disorder Additional Past Medical History / Comment(s): COPD, chronic hypoxic respiratory failure and the patient has been maintained on oxygen at 2 L/m nasal cannula, chronic constipation, Chronic back pain, frequent urinary tract infections, .had a pne and shingle vaccine but does'nt know the dates and dr office , hypertension, coronary artery disease, chronic back pain, abdominal aortic aneurysm measuring 3.7 cm, previous history of MRSA infection of the feet him a chronic back pain and 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 Last Myocardial Infarction Date:: 1999 History of Any Multi-Drug Resistant Organisms: MRSA Date of last positivie culture/infection: 02/07 MDRO Source:: linda feet Past Surgical History: Adenoidectomy, Back Surgery, Heart Catheterization, Joint Replacement, Orthopedic Surgery, Tonsillectomy, Tubal Ligation Additional Past Surgical History / Comment(s): bilateral hip replacements, had 2 sx on lt and 3 sx on rt., neck fusion with plate ,linda cataracts, Past Anesthesia/Blood Transfusion Reactions: No Reported Reaction Past Psychological History: Anxiety, Depression Additional Psychological History / Comment(s): pt lives alone-has 1 indoor cat.hortensia checks on her often, gets visiting nurses Smoking Status: Current every day smoker Past Alcohol Use History: None Reported, Occasional Additional Past Alcohol Use History / Comment(s): smokes 1 ppd,drinks occ, denies any drug use. Past Drug Use History: None Reported - Past Family History Father History Unknown: Yes Mother Family Medical History: Congestive Heart Failure (CHF), COPD Medications and Allergies Home Medications Medication Instructions Recorded Confirmed Type Enalapril [Vasotec] 20 mg PO DAILY 12/26/14 02/19/21 History Isosorbide Mononitrate [Isosorbide 30 mg PO DAILY 12/26/14 02/19/21 History Mononitrate ER] Omeprazole 20 mg PO BID 12/26/14 02/19/21 History Temazepam [Restoril] 30 mg PO HS 12/26/14 02/19/21 History Loratadine [Claritin] 10 mg PO DAILY 08/14/16 02/19/21 History Cyclobenzaprine [Flexeril] 10 mg PO BID 10/10/19 02/19/21 History EPINEPHrine (Auto Inject) [Epipen] 0.3 mg IM ONCE PRN 10/10/19 02/19/21 History Estrogen,Con/M-Progest Acet 1 tab PO DAILY 10/10/19 02/19/21 History [Prempro 0.625-5 mg Tablet] Fluticasone Nasal [place] [Flonase 2 sprays EA NOSTRIL DAILY 10/10/19 02/19/21 History Nasal [place]] Furosemide [Lasix] 40 mg PO DAILY 10/10/19 02/19/21 History Ibuprofen [Motrin] 800 mg PO TID PRN 10/10/19 02/19/21 History Montelukast [Singulair] 10 mg PO DAILY 10/10/19 02/19/21 History Nitroglycerin Sl Tabs [Nitrostat] 0.4 mg SUBLINGUAL Q5M PRN 10/10/19 02/19/21 History Potassium Chloride ER [K-Dur 10] 10 meq PO DAILY 10/10/19 02/19/21 History busPIRone HCL 15 mg PO BID 10/10/19 02/19/21 History Atorvastatin [Lipitor] 80 mg PO DAILY 02/12/21 02/19/21 History HYDROcodone/APAP 10-325MG [[place] 1 tab PO Q6HR PRN 02/12/21 02/19/21 History 10-325] Aspirin EC [Ecotrin Low Dose] 81 mg PO DAILY 02/19/21 02/19/21 History Gabapentin 300 mg PO TID 02/19/21 02/19/21 History Ipratropium-Albuterol Nebulize 3 ml INHALATION RT-Q6H PRN 02/19/21 02/19/21 History [Duoneb 0.5 mg-3 mg/3 ml Soln] Metoprolol Succinate [Toprol XL] 50 mg PO DAILY 02/19/21 02/19/21 History Mirabegron [Myrbetriq] 25 mg PO DAILY 02/19/21 02/19/21 History Nystatin 100,000 Unit/gm Powd 1 applic TOPICAL BID 02/19/21 02/19/21 History [Mycostatin Powder] Varenicline [Chantix Continuing 1 mg PO BID 02/19/21 02/19/21 History Pack] traMADol HCL 50 mg PO QID PRN 02/19/21 02/19/21 History Allergies Allergy/AdvReac Type Severity Reaction Status Date / Time adhesive Allergy Rash/Hives Verified 02/19/21 13:32 adhesive tape Allergy Rash/Hives Verified 02/19/21 13:32 chocolate flavor Allergy Anaphylaxis Verified 02/19/21 13:32 diphenhydramine HCl Allergy Unknown Verified 02/19/21 13:32 [From Benadryl] grass pollen-perennial rye, Allergy Unknown Verified 02/19/21 13:32 standar [grass poll-perennial rye,std] hydromorphone HCl Allergy Unknown Verified 02/19/21 13:32 [From Dilaudid] mold Allergy Unknown Verified 02/19/21 13:32 venom-honey bee Allergy Anaphylaxis Verified 02/19/21 13:32 [bee venom (honey bee)] dust Allergy Unknown Uncoded 02/19/21 12:49 nuts Allergy Anaphylaxis Uncoded 02/19/21 12:49 tape Allergy Rash/Hives Uncoded 02/12/21 10:21 Physical Exam Vitals: Vital Signs Temp Pulse Pulse Resp BP BP Pulse Ox 02/20/21 11:27 99 02/20/21 11:16 97 02/20/21 07:41 75 02/20/21 07:34 78 98 02/20/21 07:00 97.8 F 88 17 137/89 99 02/20/21 04:47 78 02/20/21 04:39 74 02/20/21 02:00 73 02/20/21 01:09 97.5 F L 73 18 134/70 98 02/19/21 20:30 84 02/19/21 20:25 88 02/19/21 20:00 91 18 02/19/21 19:19 98.2 F 91 18 129/80 98 02/19/21 18:34 98.7 F 97 20 153/89 93 L 02/19/21 17:53 100 02/19/21 17:43 100 02/19/21 15:28 90 19 125/72 95 02/19/21 13:43 91 02/19/21 13:34 92 02/19/21 12:45 99.0 F 98 20 152/86 98 Intake and Output 02/19/21 02/20/21 02/20/21 22:59 06:59 14:59 Other: Voiding Method Diaper # Voids 1 2 Weight 89.358 kg Results 02/20/21 05:10 02/19/21 13:13 Cardiac Enzymes 02/19/21 02/19/21 02/19/21 Range/Units 13:13 13:13 16:00 AST 21 (14-36) U/L Troponin I <0.012 <0.012 (0.000-0.034) ng/mL 02/19/21 Range/Units 19:42 AST (14-36) U/L Troponin I <0.012 (0.000-0.034) ng/mL Coagulation 02/19/21 Range/Units 13:13 PT 9.9 (9.0-12.0) sec APTT 20.7 L (22.0-30.0) sec CBC 02/19/21 02/20/21 Range/Units 13:13 05:10 WBC 16.4 H 12.44 H (3.8-10.6) k/uL RBC 4.13 4.01 L (3.80-5.40) m/uL Hgb 13.1 12.5 (11.4-16.0) gm/dL Hct 38.9 40.0 (34.0-46.0) % Plt Count 420 412 (150-450) k/uL Comprehensive Metabolic Panel 02/19/21 Range/Units 13:13 Sodium 136 L (137-145) mmol/L Potassium 4.6 (3.5-5.1) mmol/L Chloride 103 (98-107) mmol/L Carbon Dioxide 26 (22-30) mmol/L BUN 20 H (7-17) mg/dL Creatinine 1.13 H (0.52-1.04) mg/dL Glucose 92 (74-99) mg/dL Calcium 9.7 (8.4-10.2) mg/dL AST 21 (14-36) U/L ALT 13 (4-34) U/L Alkaline Phosphatase 76 (38-126) U/L Total Protein 6.7 (6.3-8.2) g/dL Albumin 4.1 (3.5-5.0) g/dL Current Medications Generic Name Dose Route Start Last Admin Trade Name Freq PRN Reason Stop Dose Admin Hydrocodone Bitart/Acetaminophen 1 each 02/19/21 17:23 02/20/21 07:22 Hydrocodone/Apap 10-325mg 1 Each Tab PO 1 each Q6HR PRN Administration Pain Albuterol/Ipratropium 3 ml 02/19/21 16:00 02/20/21 11:14 Ipratropium-Albuterol 3 Ml Neb INHALATION 3 ml RT-QID LARA Administration Albuterol/Ipratropium 3 ml 02/19/21 14:39 02/20/21 04:39 Ipratropium-Albuterol 3 Ml Neb INHALATION 3 ml RT-Q4H PRN Administration Shortness Of Breath Or Wheezing Alprazolam 0.5 mg 02/19/21 22:15 02/20/21 08:13 Alprazolam 0.5 Mg Tab PO 0.5 mg TID LARA Administration Aspirin 325 mg 02/20/21 09:00 02/20/21 08:13 Aspirin 325 Mg Tab PO 325 mg DAILY LARA Administration Atorvastatin Calcium 80 mg 02/20/21 09:00 02/20/21 08:14 Atorvastatin 80 Mg Tab PO 80 mg DAILY LARA Administration Cyclobenzaprine HCl 10 mg 02/19/21 21:00 02/20/21 08:13 Cyclobenzaprine 10 Mg Tab PO 10 mg BID LARA Administration Fluticasone Propionate 2 spray 02/20/21 09:00 02/20/21 08:15 Fluticasone 50mcg/[place] Nasal 16gm EA NOSTRIL 2 spray DAILY LARA Administration Furosemide 40 mg 02/20/21 09:00 02/20/21 08:13 Furosemide 40 Mg Tab PO 40 mg DAILY LARA Administration Gabapentin 300 mg 02/19/21 22:00 02/20/21 08:14 Gabapentin 300 Mg Cap PO 300 mg TID LARA Administration Iopamidol 30 ml 02/19/21 19:44 02/20/21 08:05 Iopamidol Contrast (Oral Use) Vial PO 02/20/21 19:45 30 ml Q60M PRN Administration CT Scan Isosorbide Mononitrate 30 mg 02/20/21 09:00 02/20/21 08:13 Isosorbide Mononitrate Er 30 Mg Tab.Er.24h PO 30 mg DAILY LARA Administration Lisinopril 40 mg 02/20/21 09:00 02/20/21 08:14 Lisinopril 20 Mg Tab PO 40 mg DAILY LARA Administration Loratadine 10 mg 02/20/21 09:00 02/20/21 08:13 Loratadine 10 Mg Tab PO 10 mg DAILY LARA Administration Metoprolol Succinate 50 mg 02/20/21 09:00 02/20/21 10:35 Metoprolol Succinate (Er) 50 Mg Tab.Er.24h PO 50 mg DAILY LARA Administration Montelukast Sodium 10 mg 02/20/21 09:00 02/20/21 08:14 Montelukast 10 Mg Tab PO 10 mg DAILY [facility] Administration Nitroglycerin 0.4 mg 02/19/21 14:39 Nitroglycerin Sl Tabs 0.4 Mg Tab SUBLINGUAL Q5M PRN Chest Pain Nitroglycerin 1 inch 02/19/21 18:00 02/20/21 05:34 Nitroglycerin Oint 1 Inch/Gm Packet TOPICAL Not Given Q6HR LARA Mirabegron [ 25 mg 02/20/21 09:00 02/20/21 10:39 Myrbetriq] 25 Mg Tab PO Not Given .Er DAILY LARA Nystatin 1 applic 02/19/21 21:00 02/20/21 10:37 Nystatin 100,000 Unit/Gm Powd 15 Gm TOPICAL 1 applic BID LARA Administration Pantoprazole Sodium 40 mg 02/20/21 07:30 02/20/21 08:13 Pantoprazole 40 Mg Tablet PO 40 mg [id number] LARA Administration Potassium Chloride 10 meq 02/20/21 09:00 02/20/21 08:14 Potassium Chloride Er 10 Meq Tab.Er.Prt PO 10 meq DAILY LARA Administration Sodium Chloride 10 ml 02/19/21 21:00 02/20/21 10:37 Sodium Chloride 0.9% Flush 10 Ml Syringe IV 10 ml BID LARA Administration Tramadol HCl 50 mg 02/19/21 17:23 02/20/21 10:34 Tramadol 50 Mg Tab PO 50 mg QID PRN Administration Pain Intake and Output 02/19/21 02/20/21 02/20/21 22:59 06:59 14:59 Other: Voiding Method Diaper # Voids 1 2 Weight 89.358 kg 02/20/21 05:10 02/19/21 13:13
[2021-02-20 11:49] LABS: African American GFR (CKD) 77.8 (60.0-200.0); Albumin 4.1 g/dL (3.80-4.90); Albumin/Globulin Ratio 1.86 (1.60-3.17); Anion Gap 7.6 mmol/L (4.00-12.00); BUN/Creat Ratio 21.11 Ratio (12.00-20.00); Calcium 9.3 mg/dL (8.7-10.3); Carbon Dioxide 29.4 mmol/L (21.6-31.8); Chol/HDL Ratio 3.46; Globulin 2.2 g/dL (1.6-3.3); LDL Cholesterol,Calculated 72.8 mg/dL (0.0-131.0); Magnesium 2.1 mg/dL (1.5-2.4); Non-African American GFR(CKD) 67.1 (60.0-200.0); Potassium 4.7 mmol/L (3.5-5.5); Total Bilirubin 0.2 mg/dL (0.2-1.2); Total Protein 6.3 g/dL (6.2-8.2); VLDL Calculation 55.2 mg/dL (5.00-40.00)
--- NOTE | 2021-02-20 13:07 | P.CNPUL ---
History of Present Illness Consult date: 02/20/21 Requesting physician: Geovani Samayoa Reason for consult: abnormal CXR/CT Chief complaint: Chest pain, shortness of breath History of present illness: This is a 65-year-old female patient who follows with Dr. Samayoa as her primary care provider. She has a history of CVA/TIA, fibromyalgia, GERD, hypertension, chronic back pain, chronic and ongoing tobacco dependence, chronic obstructive pulmonary disease, chronic hypoxic respiratory failure on home oxygen at 2 L/m. She states she has not been seen by a light coil winder in the past. They have a nebulizer and utilizes nebulized treatments as needed. She presented to the emergency room yesterday after having increasing shortness of breath and anxiety due to multiple testing that had been prescribed this week. She was to have a cardiac catheterization and states they were unable to do it because she can only travel by scooter and bus and she was not allowed to take a bus home after the procedure. Further arrangements were to be made and to be scheduled at a separate date. She also had a callback on a mammogram and was to have more t esting done. She is also scheduled for a PET scan that she was not able to get to. She has a history of a right upper lobe mass that she states she has had for 10 years but had recently increased in size. We are consulted for the same. Today's CAT scan reveals a right upper lobe mass measuring measuring 3.4 x 2.1 cm. This started as a pulmonary nodule dating back to 2012 with a 7 mm that had progressed to 11 mm in 2013. Multiple scans have been performed over the years. A PET scan from September 2017 revealed borderline findings with the mass at that time measuring 2.1 x 1.7. There was mild hypermetabolic uptake within max SUV of 2.89. No other areas of suspicious metastasis. Presently, she is seen on the regular medical floor. Currently sitting up in bed. Awake and alert in no acute distress. She is somewhat agitated throughout the process. She states she is not "a fan of doctors or hospitals". She does have some shortness of breath with exertion. Mild end expiratory wheeze. Review of Systems REVIEW OF SYSTEMS: CONSTITUTIONAL: Denies any recent significant weight loss or weight gain. EYES: Denies change in vision. EARS, NOSE, MOUTH, THROAT: Denies headaches, denies sore throat. CARDIOVASCULAR: Positive for chest pain, no palpitations or syncopal episodes. RESPIRATORY: Positive for shortness of breath, cough, congestion no hemoptysis. GASTROINTESTINAL: Denies change in appetite, denies abdominal pain GENITOURINARY: Denies hematuria, denies infections. MUSKULOSKELETAL: Denies pain, denies swelling. INTEGUMENTARY: Denies rash, denies eczema. NEUROLOGICAL: Denies recent memory loss, no recent seizure activity. PSYCHIATRIC: Denies anxiety, denies depression. HEMATOLOGIC/LYMPHATIC: Denies anemia, denies enlarged lymph nodes. Past Medical History Past Medical History: Asthma, COPD, CVA/TIA, Fibromyalgia, GERD/Reflux, Hypertension, Memory Impairment, Myocardial Infarction ([place]), Respiratory Di sorder Additional Past Medical History / Comment(s): COPD, chronic hypoxic respiratory failure and the patient has been maintained on oxygen at 2 L/m nasal cannula, chronic constipation, Chronic back pain, frequent urinary tract infections, .had a pne and shingle vaccine but does'nt know the dates and dr office , hypertension, coronary artery disease, chronic back pain, abdominal aortic aneurysm measuring 3.7 cm, previous history of MRSA infection of the feet him a chronic back pain and 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 Last Myocardial Infarction Date:: 1999 History of Any Multi-Drug Resistant Organisms: MRSA Date of last positivie culture/infection: 02/07 MDRO Source:: linda feet Past Surgical History: Adenoidectomy, Back Surgery, Heart Catheterization, Joint Replacement, Orthopedic Surgery, Tonsillectomy, Tubal Ligation Additional Past Surgical History / Comment(s): bilateral hip replacements, had 2 sx on lt and 3 sx on rt., neck fusion with plate ,linda cataracts, Past Anesthesia/Blood Transfusion Reactions: No Reported Reaction Past Psychological History: Anxiety, Depression Additional Psychological History / Comment(s): pt lives alone-has 1 indoor cat.hortensia checks on her often, gets visiting nurses Smoking Status: Current every day smoker Past Alcohol Use History: None Reported, Occasional Additional Past Alcohol Use History / Comment(s): smokes 1 ppd,drinks occ, denies any drug use. Past Drug Use History: None Reported - Past Family History Father History Unknown: Yes Mother Family Medical History: Congestive Heart Failure (CHF), COPD Medications and Allergies Home Medications Medication Instructions Recorded Confirmed Type Enalapril [Vasotec] 20 mg PO DAILY 12/26/14 02/19/21 History Isosorbide Mononitrate [Isosorbide 30 mg PO DAILY 12/26/14 02/19/21 History Mononitrate ER] Omeprazole 20 mg PO BID 12/26/14 02/19/21 History Temazepam [Restoril] 30 mg PO HS 12/26/14 02/19/21 History Loratadine [Claritin] 10 mg PO DAILY 08/14/16 02/19/21 History Cyclobenzaprine [Flexeril] 10 mg PO BID 10/10/19 02/19/21 History EPINEPHrine (Auto Inject) [Epipen] 0.3 mg IM ONCE PRN 10/10/19 02/19/21 History Estrogen,Con/M-Progest Acet 1 tab PO DAILY 10/10/19 02/19/21 History [Prempro 0.625-5 mg Tablet] Fluticasone Nasal [place] [Flonase 2 sprays EA NOSTRIL DAILY 10/10/19 02/19/21 History Nasal [place]] Furosemide [Lasix] 40 mg PO DAILY 10/10/19 02/19/21 History Ibuprofen [Motrin] 800 mg PO TID PRN 10/10/19 02/19/21 History Montelukast [Singulair] 10 mg PO DAILY 10/10/19 02/19/21 History Nitroglycerin Sl Tabs [Nitrostat] 0.4 mg SUBLINGUAL Q5M PRN 10/10/19 02/19/21 History Potassium Chloride ER [K-Dur 10] 10 meq PO DAILY 10/10/19 02/19/21 History busPIRone HCL 15 mg PO BID 10/10/19 02/19/21 History Atorvastatin [Lipitor] 80 mg PO DAILY 02/12/21 02/19/21 History HYDROcodone/APAP 10-325MG [[place] 1 tab PO Q6HR PRN 02/12/21 02/19/21 History 10-325] Aspirin EC [Ecotrin Low Dose] 81 mg PO DAILY 02/19/21 02/19/21 History Gabapentin 300 mg PO TID 02/19/21 02/19/21 History Ipratropium-Albuterol Nebulize 3 ml INHALATION RT-Q6H PRN 02/19/21 02/19/21 History [Duoneb 0.5 mg-3 mg/3 ml Soln] Metoprolol Succinate [Toprol XL] 50 mg PO DAILY 02/19/21 02/19/21 History Mirabegron [Myrbetriq] 25 mg PO DAILY 02/19/21 02/19/21 History Nystatin 100,000 Unit/gm Powd 1 applic TOPICAL BID 02/19/21 02/19/21 History [Mycostatin Powder] Varenicline [Chantix Continuing 1 mg PO BID 02/19/21 02/19/21 History Pack] traMADol HCL 50 mg PO QID PRN 02/19/21 02/19/21 History Allergies Allergy/AdvReac Type Severity Reaction Status Date / Time adhesive Allergy Rash/Hives Verified 02/19/21 13:32 adhesive tape Allergy Rash/Hives Verified 02/19/21 13:32 chocolate flavor Allergy Anaphylaxis Verified 02/19/21 13:32 diphenhydramine HCl Allergy Unknown Verified 02/19/21 13:32 [From Benadryl] grass pollen-perennial rye, Allergy Unknown Verified 02/19/21 13:32 standar [grass poll-perennial rye,std] hydromorphone HCl Allergy Unknown Verified 02/19/21 13:32 [From Dilaudid] mold Allergy Unknown Verified 02/19/21 13:32 venom-honey bee Allergy Anaphylaxis Verified 02/19/21 13:32 [bee venom (honey bee)] dust Allergy Unknown Uncoded 02/19/21 12:49 nuts Allergy Anaphylaxis Uncoded 02/19/21 12:49 tape Allergy Rash/Hives Uncoded 02/12/21 10:21 Physical Exam Vitals: Vital Signs Temp Pulse Pulse Resp BP BP Pulse Ox 02/20/21 11:27 99 02/20/21 11:16 97 02/20/21 07:41 75 02/20/21 07:34 78 98 02/20/21 07:00 97.8 F 88 17 137/89 99 02/20/21 04:47 78 02/20/21 04:39 74 02/20/21 02:00 73 02/20/21 01:09 97.5 F L 73 18 134/70 98 02/19/21 20:30 84 02/19/21 20:25 88 02/19/21 20:00 91 18 02/19/21 19:19 98.2 F 91 18 129/80 98 02/19/21 18:34 98.7 F 97 20 153/89 93 L 02/19/21 17:53 100 02/19/21 17:43 100 02/19/21 15:28 90 19 125/72 95 02/19/21 13:43 91 02/19/21 13:34 92 02/19/21 12:45 99.0 F 98 20 152/86 98 Intake and Output 02/19/21 02/20/21 02/20/21 22:59 06:59 14:59 Other: Voiding Method Diaper # Voids 1 2 Weight 89.358 kg GENERAL EXAM: Alert, 65-year-old female patient, on 3 L nasal cannula, comfortable in no apparent distress. HEAD: Normocephalic. EYES: Normal reaction of pupils, equal size. NOSE: Clear with pink turbinates. THROAT: No erythema or exudates. NECK: No masses, no JVD. CHEST: No chest wall deformity. LUNGS: Equal air entry with end expiratory wheeze, diminished. CVS: S1 and S2 normal with no audible murmur, regular rhythm. ABDOMEN: No hepatosplenomegaly, normal bowel sounds, no guarding or rigidity. SPINE: No scoliosis or deformity SKIN: No rashes CENTRAL NERVOUS SYSTEM: No focal deficits, tone is normal in all 4 extremities. EXTREMITIES: There is no peripheral edema. No clubbing, no cyanosis. Peripheral pulses are intact. Results - Laboratory Findings CBC and BMP: 02/20/21 05:10 02/20/21 05:10 PT/INR, D-dimer PT 9.9 sec (9.0-12.0) 02/19/21 13:13 INR 0.9 (<1.2) 02/19/21 13:13 Abnormal lab findings: Abnormal Labs 02/19/21 02/19/21 02/19/21 13:13 13:13 13:13 WBC 16.4 H RBC MCV MCHC Immature Gran # Neutrophils # 11.8 H Basophils # APTT 20.7 L Sodium 136 L BUN 20 H Creatinine 1.13 H BUN/Creatinine Ratio Triglycerides VLDL Cholesterol, Calc 02/20/21 02/20/21 05:10 05:10 WBC 12.44 H RBC 4.01 L MCV 99.8 H MCHC 31.3 L Immature Gran # 0.06 H Neutrophils # 8.19 H Basophils # 0.11 H APTT Sodium BUN Creatinine BUN/Creatinine Ratio 21.11 H Triglycerides 276.0 H VLDL Cholesterol, Calc 55.20 H - Diagnostic Findings CT scan - chest: image reviewed Assessment and Plan Assessment: 1 Recurrent chest discomfort, was seen in outpatient heart catheterization 2 Acute exacerbation of chronic obstructive pulmonary disease with advanced COPD, with chronic hypercapnic and hypoxemic respiratory failure on home oxygen at 3 L/m, last PFT in 2017 showed FEV1 value of 41% of predicted with diffusion abnormality, consistent with stage III COPD 3 Chronic and ongoing tobacco dependence, carries 55 years of smoking of up to 2 packs a day 4 History of right upper lobe mass without any significant change. Previous PET scan in 2018 with a SUV of 2.89 5 Carotid stenosis bilaterally 6 History of CVA/TIA 7 Gait dysfunction, patient uses a motorized scooter 8 History of right hip fracture and surgical repair 9 Hypertension 10 Abdominal aortic aneurysm 11 MRSA infection history 12 Chronic back pain 13 Anxiety/depression 14 Weight loss, some intentional, patient states she lost 55 pounds in the last year, however states she had been dieting as well Plan: The patient was seen and evaluated by Dr. Tavears Multiple CT scans and PET scan were reviewed over the past several years No significant uptake and no significant changes in the right upper lobe mass No plans for biopsies at this point Continue DuoNeb inhalations Add Pulmicort and Perforomist inhalations We'll continue to follow I, the cosigning physician, performed a history & physical examination of the patient. Lungs sounds with bilateral end expiratory wheeze, diminished. Maintaining good O2 saturations in the 90s on 3 L/m per nasal cannula. I discussed the assessment and plan of care with my nurse practitioner, Elida Hurtado. I attest to the above consultation as dictated by her. Time with Patient: Greater than 30
--- NOTE | 2021-02-20 16:39 | P.CONS ---
History of Present Illness - Reason for Consult Consult date: 02/20/21 Enlarging Right Posterior Lung Mass Requesting physician: Ander Balderrama - Chief Complaint SOB/ANxiety - History of Present Illness Mrs. Thorne is a 63-year-old female patient of Dr. Samayoa with history of COPD on daily home oxygen at 3 L, admits to smoking 1,5-2 packs daily for all of her life. She also has known history of diabetes, hypertension, dementia. Patient has been seen and evaluated Dr. Taveras regarding her extensive COPD Apparently they had found an abnormality years ago on CT chest are year ago that was performed at [facility]. She has refused a biopsy to further diagnose this mass as it appears to continue to slowly enlarge over the years. CT from September 2020 that showed enlarging lobulated density in the posterior right apex suspicious for neoplasm measuring 2.7 x 3.3 cm. Prior 2.9 X 1.6, however it appears it had initially decreased then increased again. Review of Systems All systems: negative Constitutional: Reports as per HPI Past Medical History Past Medical History: Asthma, COPD, CVA/TIA, Fibromyalgia, GERD/Reflux, Hypertension, Memory Impairment, Myocardial Infarction (MO), Respiratory Disorder Additional Past Medical History / Comment(s): COPD, chronic hypoxic respiratory failure and the patient has been maintained on oxygen at 2 L/m nasal cannula, chronic constipation, Chronic back pain, frequent urinary tract infections, .had a pne and shingle vaccine but does'nt know the dates and dr office , hypertension, coronary artery disease, chronic back pain, abdominal aortic aneurysm measuring 3.7 cm, previous history of MRSA infection of the feet him a chronic back pain and 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 Last Myocardial Infarction Date:: 1999 History of Any Multi-Drug Resistant Organisms: MRSA Year Discovered:: 02/07 MDRO Source:: linda feet Past Surgical History: Adenoidectomy, Back Surgery, Heart Catheterization, Joint Replacement, Orthopedic Surgery, Tonsillectomy, Tubal Ligation Additional Past Surgical History / Comment(s): bilateral hip replacements, had 2 sx on lt and 3 sx on rt., neck fusion with plate ,linda cataracts, Past Anesthesia/Blood Transfusion Reactions: No Reported Reaction Past Psychological History: Anxiety, Depression Additional Psychological History / Comment(s): pt lives alone-has 1 indoor cat.duaghter checks on her often, gets visiting nurses Smoking Status: Current every day smoker Past Alcohol Use History: None Reported, Occasional Additional Past Alcohol Use History / Comment(s): smokes 1 ppd,drinks occ, denies any drug use. Past Drug Use History: None Reported - Past Family History Father History Unknown: Yes Mother Family Medical History: Congestive Heart Failure (CHF), COPD Medications and Allergies Home Medications Medication Instructions Recorded Confirmed Type Enalapril [Vasotec] 20 mg PO DAILY 12/26/14 02/19/21 History Isosorbide Mononitrate [Isosorbide 30 mg PO DAILY 12/26/14 02/19/21 History Mononitrate ER] Omeprazole 20 mg PO BID 12/26/14 02/19/21 History Temazepam [Restoril] 30 mg PO HS 12/26/14 02/19/21 History Loratadine [Claritin] 10 mg PO DAILY 08/14/16 02/19/21 History Cyclobenzaprine [Flexeril] 10 mg PO BID 10/10/19 02/19/21 History EPINEPHrine (Auto Inject) [Epipen] 0.3 mg IM ONCE PRN 10/10/19 02/19/21 History Estrogen,Con/M-Progest Acet 1 tab PO DAILY 10/10/19 02/19/21 History [Prempro 0.625-5 mg Tablet] Fluticasone Nasal [place] [Flonase 2 sprays EA NOSTRIL DAILY 10/10/19 02/19/21 History Nasal [place]] Furosemide [Lasix] 40 mg PO DAILY 10/10/19 02/19/21 History Ibuprofen [Motrin] 800 mg PO TID PRN 10/10/19 02/19/21 History Montelukast [Singulair] 10 mg PO DAILY 10/10/19 02/19/21 History Nitroglycerin Sl Tabs [Nitrostat] 0.4 mg SUBLINGUAL Q5M PRN 10/10/19 02/19/21 History Potassium Chloride ER [K-Dur 10] 10 meq PO DAILY 10/10/19 02/19/21 History busPIRone HCL 15 mg PO BID 10/10/19 02/19/21 History Atorvastatin [Lipitor] 80 mg PO DAILY 02/12/21 02/19/21 History HYDROcodone/APAP 10-325MG [[place] 1 tab PO Q6HR PRN 02/12/21 02/19/21 History 10-325] Aspirin EC [Ecotrin Low Dose] 81 mg PO DAILY 02/19/21 02/19/21 History Gabapentin 300 mg PO TID 02/19/21 02/19/21 History Ipratropium-Albuterol Nebulize 3 ml INHALATION RT-Q6H PRN 02/19/21 02/19/21 History [Duoneb 0.5 mg-3 mg/3 ml Soln] Metoprolol Succinate [Toprol XL] 50 mg PO DAILY 02/19/21 02/19/21 History Mirabegron [Myrbetriq] 25 mg PO DAILY 02/19/21 02/19/21 History Nystatin 100,000 Unit/gm Powd 1 applic TOPICAL BID 02/19/21 02/19/21 History [Mycostatin Powder] Varenicline [Chantix Continuing 1 mg PO BID 02/19/21 02/19/21 History Pack] traMADol HCL 50 mg PO QID PRN 02/19/21 02/19/21 History Allergies Allergy/AdvReac Type Severity Reaction Status Date / Time adhesive Allergy Rash/Hives Verified 02/19/21 13:32 adhesive tape Allergy Rash/Hives Verified 02/19/21 13:32 chocolate flavor Allergy Anaphylaxis Verified 02/19/21 13:32 diphenhydramine HCl Allergy Unknown Verified 02/19/21 13:32 [From Benadryl] grass pollen-perennial rye, Allergy Unknown Verified 02/19/21 13:32 standar [grass poll-perennial rye,std] hydromorphone HCl Allergy Unknown Verified 02/19/21 13:32 [From Dilaudid] mold Allergy Unknown Verified 02/19/21 13:32 venom-honey bee Allergy Anaphylaxis Verified 02/19/21 13:32 [bee venom (honey bee)] dust Allergy Unknown Uncoded 02/19/21 12:49 nuts Allergy Anaphylaxis Uncoded 02/19/21 12:49 tape Allergy Rash/Hives Uncoded 02/12/21 10:21 Physical Exam Vitals: Vital Signs Temp Pulse Pulse Resp BP BP Pulse Ox 02/20/21 07:41 75 02/20/21 07:34 78 98 02/20/21 07:00 97.8 F 88 17 137/89 99 02/20/21 04:47 78 02/20/21 04:39 74 02/20/21 02:00 73 02/20/21 01:09 97.5 F L 73 18 134/70 98 02/19/21 20:30 84 02/19/21 20:25 88 02/19/21 20:00 91 18 02/19/21 19:19 98.2 F 91 18 129/80 98 02/19/21 18:34 98.7 F 97 20 153/89 93 L 02/19/21 17:53 100 02/19/21 17:43 100 02/19/21 15:28 90 19 125/72 95 02/19/21 13:43 91 02/19/21 13:34 92 02/19/21 12:45 99.0 F 98 20 152/86 98 Intake and Output 02/19/21 02/20/21 02/20/21 22:59 06:59 14:59 Other: Voiding Method Diaper # Voids 1 2 Weight 89.358 kg Wears oxygen - Constitutional General appearance: no acute distress - EENT Eyes: EOMI ENT: NA/AT, normal oropharynx - Neck Neck: normal ROM - Respiratory Respiratory: right: rhonchi, bilateral: diminished - Cardiovascular Rhythm: regularly irregular - Gastrointestinal General gastrointestinal: soft - Integumentary Integumentary: pale Results CBC & Chem 7: 02/20/21 05:10 02/20/21 05:10 Labs: Abnormal Lab Results - Last 24 Hours (Table) 02/19/21 02/19/21 02/19/21 Range/Units 13:13 13:13 13:13 WBC 16.4 H (3.8-10.6) k/uL Neutrophils # 11.8 H (1.3-7.7) k/uL APTT 20.7 L (22.0-30.0) sec Sodium 136 L (137-145) mmol/L BUN 20 H (7-17) mg/dL Creatinine 1.13 H (0.52-1.04) mg/dL Chest x-ray: report reviewed Assessment and Plan (1) Lung mass Current Visit: Yes Status: Acute Code(s): R91.8 - OTHER NONSPECIFIC ABNORMAL FINDING OF LUNG FIELD SNOMED Code(s): 803091345 (2) COPD exacerbation Current Visit: Yes Status: Acute Code(s): J44.1 - CHRONIC OBSTRUCTIVE PULMONARY DISEASE W (ACUTE) EXACERBATION SNOMED Code(s): 639506208 Plan: Patient has had lung mass quite some time and refuses diagnostic testing with biopsy. She continues to follow with Pulm She agreed to CT scans and will do PET as outpatient and if FDG avid may see radiation therapy to treat without biopsy. Physician attest: Sara completed the full history and physical and agree with above dictation dictated as a scribe.
[2021-02-21] MEDS: NITROGLYCERIN OINT 1 INCH/GM PACKET TOPICAL SCH ×2 (00:34→05:53)
[2021-02-21 02:18] VITALS: RESP 16
[2021-02-21] MEDS: IPRATROPIUM-ALBUTEROL 3 ML NEB INHALATION PRN (03:17)
[2021-02-21] MEDS: HYDROcodone/APAP 10-325MG 1 EACH TAB PO PRN (06:15)
[2021-02-21] MEDS: IPRATROPIUM-ALBUTEROL 3 ML NEB INHALATION SCH ×2 (07:27→10:53)
[2021-02-21] MEDS: PANTOPRAZOLE 40 MG TABLET PO SCH (07:58)
[2021-02-21] MEDS: ALPRAZolam 0.5 MG TAB PO SCH (09:48)
[2021-02-21] MEDS: ATORVASTATIN 80 MG TAB PO SCH (09:48)
[2021-02-21] MEDS: ISOSORBIDE MONONITRATE ER 30 MG TAB.ER.24H PO SCH (09:48)
[2021-02-21] MEDS: LORATADINE 10 MG TAB PO SCH (09:49)
[2021-02-21] MEDS: POTASSIUM CHLORIDE ER 10 MEQ TAB.ER.PRT PO SCH (09:49)
[2021-02-21] MEDS: GABAPENTIN 300 MG CAP PO SCH (09:49)
[2021-02-21] MEDS: FUROSEMIDE 40 MG TAB PO SCH (09:49)
[2021-02-21] MEDS: METOPROLOL SUCCINATE (ER) 50 MG TAB.ER.24H PO SCH (09:49)
[2021-02-21] MEDS: ASPIRIN 325 MG TAB PO SCH (09:49)
[2021-02-21] MEDS: CYCLOBENZAPRINE 10 MG TAB PO SCH (09:50)
[2021-02-21] MEDS: MONTELUKAST 10 MG TAB PO SCH (09:57)
[2021-02-21] MEDS: lisinopriL 20 MG TAB PO SCH (09:57)
[2021-02-21] MEDS: NYSTATIN 100,000 UNIT/GM POWD 15 GM TOPICAL SCH (09:57)
[2021-02-21] MEDS: FLUTICASONE 50MCG/SPRAY NASAL 16GM EA NOSTRIL SCH (09:58)
[2021-02-21] MEDS: MIRABEGRON 25 MG PO SCH (10:01)
[2021-02-21 11:05] VITALS: PULSE 76
--- NOTE | 2021-02-21 12:32 | PN ---
PROGRESS NOTE Mrs. Thorne is a lady with multiple medical problems, admitted to the hospital yesterday with chest pain, recurrent also atypical. She was advised cardiac cath, but this was not performed in view of the fact she received some contrast 24 hours before. However, the patient was a little unhappy, was going to go home, but came back to the hospital and there are a number of social issues for her to come into the hospital again. She was scheduled to have a cardiac cath by Dr. Le. However, this being the holiday and her pain is not severe or significant and does not require immediate in- hospital procedure and therefore I suggested that she can be discharged. She has issues with transportation, but she is willing to have the procedure done on Tuesday and go home on a Tuesday on a bus and her visiting nurse will be able to follow up with her in the house when she goes back home after the procedure. These arrangements will be made as an outpatient. I spoke to Dr. Barnes who takes care of her from a cardiology standpoint. The patient is comfortable and quite happy with this. VITAL SIGNS: Stable. No further chest pain. S1-S2 heard normally. Lungs reveal diminished air entry. No significant murmurs. Abdomen is soft. Lower extremities reveal trace edema. Diminished pulses. The patient is on oxygen 24 hours. She can be discharged on current medical regimen and we will make outpatient catheterization arrangements and Dr. Barnes will facilitate this. The patient can be discharged. MMODL / DALIAN: [id number] /
[2021-02-21 13:30] VITALS: BP 132/88; TEMP 98.8
--- NOTE | 2021-02-22 07:12 | DS ---
DISCHARGE SUMMARY DATE OF SERVICE: 02/21/2021 FINAL DIAGNOSIS: 1. Chest pain, possible unstable angina. Myocardial infarction ruled out. 2. Chronic obstructive pulmonary disease with chronic hypoxic respiratory failure. 3. Right upper lobe lung mass. 4. Hypertension. 5. Fibromyalgia. 6. Gastroesophageal reflux disease. 7. Cerebrovascular accident, transient ischemic attack. 8. History of myocardial infarction. 9. History of multiple UTIs. 10.History of urinary incontinence. 11.History of memory impairment. 12.History of MRSA. 13.History of cardiac catheterization. 14.History of bilateral hip replacement. 15.History of mixed anxiety and depression. 16.NO CODE, NO CPR, NO VENT. DISPOSITION: The patient will be discharged in stable condition with guarded prognosis. HISTORY OF PRESENT ILLNESS: This 65-year-old woman with a past medical history of multiple medical problems being followed by Dr. Geovani Samayoa in the outpatient setting was admitted with chest pain. Myocardial infarction was ruled out. Cardiology recommended the patient to be discharged and follow up in the outpatient setting. PHYSICAL EXAMINATION: On exam vitals are stable. Cardiovascular S1 and S2. Abdomen soft. Nervous system DISCHARGE INSTRUCTIONS: Discharge diet is cardiac. Activity limited to follow up. Follow up with Dr. Samayoa in 1- 2 days. Follow up with Cardiology as recommended. DISCHARGE MEDICATIONS ARE: 1. BuSpar 15 mg p.o. b.i.d. 2. Chantix 1 mg b.i.d. 3. Claritin 10 mg daily. 4. DuoNeb q.i.d. and p.r.n. 5. Ecotrin 81 mg p.o. daily. 6. Flexeril 10 mg p.o. b.i.d. 7. Fluticasone 2 sprays daily. 8. Gabapentin 300 mg t.i.d. 9. Imdur 30 mg daily. 10.K-Dur 10 mEq p.o. daily. 11.Lasix 40 mg p.o. daily. 12.Lipitor 80 mg p.o. daily. 13.Motrin 800 mg p.o. t.i.d. 14.Nystatin p.r.n. 15.Myrbetriq 25 mg p.o. daily. 16.Nitrostat p.r.n. 17.[place] 10 mg q.6 p.r.n. 18.Omeprazole 20 mg p.o. b.i.d. 19.Estrogen 1 p.o. daily. 20.Restoril 30 mg q.h.s. 21.Singulair 10 mg daily. 22.Toprol-XL 50 mg p.o. daily. 23.Ultram 50 mg q.i.d. p.r.n. 24.Vasotec 20 mg p.o. daily. Once again the patient will be discharged in stable condition with a guarded prognosis. MMODL / DALIAN: [id number] / MTDD
== END 2021-02-21 12:03 ==
LOC: EC 12:44 → 6NMEDSUR 14:39
PROVIDERS: ADMIT Family Medicine; ATTEND Family Medicine
DX: J44.1 Chronic obstructive pulmonary disease with (acute) exacerbation (principal); J96.12 Chronic respiratory failure with hypercapnia; J96.11 Chronic respiratory failure with hypoxia; R91.1 Solitary pulmonary nodule; R07.89 Other chest pain; I25.10 Atherosclerotic heart disease of native coronary artery without angina pectoris; I65.23 Occlusion and stenosis of bilateral carotid arteries; I10 Essential (primary) hypertension; I25.2 Old myocardial infarction; K21.9 Gastro-esophageal reflux disease without esophagitis; M79.7 Fibromyalgia; R26.9 Unspecified abnormalities of gait and mobility; I71.4 Abdominal aortic aneurysm, without rupture; G89.29 Other chronic pain; M54.9 Dorsalgia, unspecified; K59.09 Other constipation; M19.90 Unspecified osteoarthritis, unspecified site; F17.210 Nicotine dependence, cigarettes, uncomplicated; Z99.81 Dependence on supplemental oxygen; F41.3 Other mixed anxiety disorders; F32.9 Major depressive disorder, single episode, unspecified; F41.8 Other specified anxiety disorders; N39.41 Urge incontinence; E11.9 Type 2 diabetes mellitus without complications; F03.90 Unspecified dementia, unspecified severity, without behavioral disturbance, psychotic disturbance, mood disturbance, and anxiety; F41.0 Panic disorder [episodic paroxysmal anxiety]; R45.1 Restlessness and agitation; D72.829 Elevated white blood cell count, unspecified; Z20.822 Contact with and (suspected) exposure to COVID-19; Z79.82 Long term (current) use of aspirin; Z79.899 Other long term (current) drug therapy; Z91.030 Bee allergy status; Z88.5 Allergy status to narcotic agent; Z91.018 Allergy to other foods; Z88.8 Allergy status to other drugs, medicaments and biological substances; Z91.048 Other nonmedicinal substance allergy status; Z86.14 Personal history of Methicillin resistant Staphylococcus aureus infection; Z87.440 Personal history of urinary (tract) infections; Z86.73 Personal history of transient ischemic attack (TIA), and cerebral infarction without residual deficits; Z66 Do not resuscitate; Z96.643 Presence of artificial hip joint, bilateral; Z98.1 Arthrodesis status; Z98.51 Tubal ligation status; Z98.42 Cataract extraction status, left eye; Z98.41 Cataract extraction status, right eye; Z87.81 Personal history of (healed) traumatic fracture; Z82.49 Family history of ischemic heart disease and other diseases of the circulatory system; Z82.5 Family history of asthma and other chronic lower respiratory diseases
CPT/HCPCS: 93005 ×2; 99285; 36415; 94640 ×6; 94760; 97162; 83880; 80061; 80053 ×2; 83605; 83735; 84484; 85025 ×2; 85610; 85730; 87635; 71046; 71260; 74177; G0378 ×3; Q9967

== ENCOUNTER 2021-05-10 01:57 | Inpatient (IN) | payer MEDICARE, OTHER ==
[2021-05-10] MEDS ORDERED: SODIUM CHLORIDE 0.9% 1,000 ML IV STA ×2 (02:35→04:36)
[2021-05-10] MEDS ORDERED: ONDANSETRON 4 MG/2 ML VIAL IVP STA (02:38)
--- NOTE | 2021-05-10 02:38 | ED ---
Weakness HPI - General Chief complaint: Nausea/Vomiting/Diarrhea Stated complaint: Fall Time Seen by Provider: 05/10/21 02:20 Source: patient, RN notes reviewed, old records reviewed Mode of arrival: ambulatory Limitations: no limitations - History of Present Illness Initial comments: This is a 65-year-old female presenting today for evaluation regards to nausea and diarrhea shortness of breath weakness. Patient denies any chest pain. Appetite is been diminished patient's able tolerate oral intake at home. She states she did try some Gatorade today requested a family member she was able to tolerate. Otherwise she has no fevers. No recent travel history or sick contacts and no recent change in medications. Patient is a mildly poor historian MD Complaint: generalized weakness, lack of energy -: unknown Location: generalized Severity: severe Severity scale (1-10): 9 Consistency: constant Improves with: none Worsens with: none Context: recent illness, history of similar Associated Symptoms: confusion, loss of appetite, nausea/vomiting, shortness of breath - Related Data Home Medications Medication Instructions Recorded Confirmed Isosorbide Mononitrate [Isosorbide 30 mg PO DAILY 12/26/14 05/10/21 Mononitrate ER] Omeprazole 20 mg PO BID 12/26/14 05/10/21 Temazepam [Restoril] 30 mg PO HS 12/26/14 05/10/21 Loratadine [Claritin] 10 mg PO DAILY 08/14/16 05/10/21 Cyclobenzaprine [Flexeril] 10 mg PO BID 10/10/19 05/10/21 EPINEPHrine (Auto Inject) [Epipen] 0.3 mg IM ONCE PRN 10/10/19 05/10/21 Estrogen,Con/M-Progest Acet 1 tab PO DAILY 10/10/19 05/10/21 [Prempro 0.625-5 mg Tablet] Fluticasone Nasal [place] [Flonase 2 sprays EA NOSTRIL DAILY 10/10/19 05/10/21 Nasal [place]] Montelukast [Singulair] 10 mg PO DAILY 10/10/19 05/10/21 Nitroglycerin Sl Tabs [Nitrostat] 0.4 mg SUBLINGUAL Q5M PRN 10/10/19 05/10/21 Potassium Chloride ER [K-Dur 10] 10 meq PO DAILY 10/10/19 05/10/21 busPIRone HCL 15 mg PO BID 10/10/19 05/10/21 Atorvastatin [Lipitor] 80 mg PO DAILY 02/12/21 05/10/21 HYDROcodone/APAP 10-325MG [[place] 1 tab PO Q6HR PRN 02/12/21 05/10/21 10-325] Gabapentin 900 mg PO TID 02/19/21 05/10/21 Ipratropium-Albuterol Nebulize 3 ml INHALATION RT-Q6H PRN 02/19/21 05/10/21 [Duoneb 0.5 mg-3 mg/3 ml Soln] Metoprolol Succinate [Toprol XL] 50 mg PO DAILY 02/19/21 05/10/21 Nystatin 100,000 Unit/gm Powd 1 applic TOPICAL BID 02/19/21 05/10/21 [Mycostatin Powder] traMADol HCL 50 mg PO QID PRN 02/19/21 05/10/21 Previous Rx's Medication Instructions Recorded Amoxicillin/Potassium Clav 1 tab PO BID 10 Days #20 tab 05/15/21 [Augmentin 875-125 Tablet] Ferrous Sulfate [Iron (65 MG 325 mg PO DAILY #60 tab 05/15/21 Elemental)] Furosemide [Lasix] 20 mg PO DAILY #10 tab 05/15/21 hydrALAZINE HCL 25 mg PO TID #30 tablet 05/15/21 metroNIDAZOLE [Flagyl] 500 mg PO TID 10 Days #30 tab 05/15/21 Allergies Allergy/AdvReac Type Severity Reaction Status Date / Time adhesive Allergy Rash/Hives Verified 05/10/21 14:04 adhesive tape Allergy Rash/Hives Verified 05/10/21 14:04 chocolate flavor Allergy Anaphylaxis Verified 05/10/21 14:04 diphenhydramine HCl Allergy Unknown Verified 05/10/21 14:04 [From Benadryl] grass pollen-perennial rye, Allergy Unknown Verified 05/10/21 14:04 standar [grass poll-perennial rye,std] hydromorphone HCl Allergy Unknown Verified 05/10/21 14:04 [From Dilaudid] mold Allergy Unknown Verified 05/10/21 14:04 venom-honey bee Allergy Anaphylaxis Verified 05/10/21 14:04 [bee venom (honey bee)] dust Allergy Unknown Uncoded 05/10/21 02:09 nuts Allergy Anaphylaxis Uncoded 05/10/21 02:09 tape Allergy Rash/Hives Uncoded 05/10/21 02:09 Review of Systems ROS Statement: Those systems with pertinent positive or pertinent negative responses have been documented in the HPI. ROS Other: All systems not noted in ROS Statement are negative. Past Medical History Past Medical History: Asthma, COPD, CVA/TIA, Fibromyalgia, GERD/Reflux, Hypertension, Memory Impairment, Myocardial Infarction (DC), Respiratory Disorder Additional Past Medical History / Comment(s): COPD, chronic hypoxic respiratory failure and the patient has been maintained on oxygen at 2 L/m nasal cannula, chronic constipation, Chronic back pain, frequent urinary tract infections, .had a pne and shingle vaccine but does'nt know the dates and dr office , hypertension, coronary artery disease, chronic back pain, abdominal aortic aneu rysm measuring 3.7 cm, previous history of MRSA infection of the feet him a chronic back pain and 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 Last Myocardial Infarction Date:: 1999 History of Any Multi-Drug Resistant Organisms: MRSA Date of last positivie culture/infection: 02/07 MDRO Source:: linda feet Past Surgical History: Adenoidectomy, Back Surgery, Heart Catheterization, Joint Replacement, Orthopedic Surgery, Tonsillectomy, Tubal Ligation Additional Past Surgical History / Comment(s): bilateral hip replacements, had 2 sx on lt and 3 sx on rt., neck fusion with plate ,linda cataracts, Past Anesthesia/Blood Transfusion Reactions: No Reported Reaction Past Psychological History: Anxiety, Depression Smoking Status: Current every day smoker - Past Family History Father History Unknown: Yes Mother Family Medical History: Congestive Heart Failure (CHF), COPD General Exam Limitations: altered mental status General appearance: alert, in no apparent distress, anxious Head exam: Present: atraumatic, normocephalic, normal inspection Eye exam: Present: normal appearance, PERRL, EOMI. Absent: scleral icterus, conjunctival injection, periorbital swelling ENT exam: Present: normal exam, mucous membranes dry Neck exam: Present: normal inspection. Absent: tenderness, meningismus, lymphadenopathy Respiratory exam: Present: normal lung sounds bilaterally. Absent: respiratory distress, wheezes, rales, rhonchi, stridor Cardiovascular Exam: Present: regular rate, normal rhythm, normal heart sounds. Absent: systolic murmur, diastolic murmur, rubs, gallop, clicks GI/Abdominal exam: Present: soft, normal bowel sounds. Absent: distended, tenderness, guarding, rebound, rigid Extremities exam: Present: normal inspection, full ROM, normal capillary refill. Absent: tenderness, pedal edema, joint swelling, calf tenderness Back exam: Present: normal inspection Neurological exam: Present: alert, oriented X3, CN II-XII intact Psychiatric exam: Present: normal affect, normal mood Skin exam: Present: warm, dry, intact, normal color. Absent: rash Course Vital Signs 05/10/21 05/10/21 05/10/21 02:00 03:22 04:02 Temperature 98.1 F Pulse Rate 95 90 92 Respiratory 20 20 18 Rate Blood Pressure 77/60 88/42 90/44 O2 Sat by Pulse 99 98 97 Oximetry 05/10/21 05/10/21 05/10/21 04:34 05:09 05:33 Temperature 97 F L Pulse Rate 90 102 H 88 Respiratory 20 20 Rate Blood Pressure 100/63 92/67 O2 Sat by Pulse 98 97 Oximetry 05/10/21 05/10/21 05:46 06:15 Temperature Pulse Rate 87 89 Respiratory 20 Rate Blood Pressure 110/62 O2 Sat by Pulse 97 Oximetry - Reevaluation(s) Reevaluation #1: 05/10/21 04:54 Medical record is reviewed Reevaluation #2: 05/10/21 04:55 Patient symptoms are mildly improved blood pressure is improved Reevaluation #3: 05/10/21 04:55 Patient is without pain EKG Findings - EKG Comments: EKG Findings:: EKG is sinus rhythm 84 RI 190 QRS 90 QTC 502 Medical Decision Making - Medical Decision Making 65 female in moderate distress from dehydration malnutrition multiple electrolyte abnormalities as well as pneumonia and day urinary tract infection. Diarrhea, patient will be admitted for resuscitation and IV antibiotics patient is also found to have possible cholecystitis likely ultrasound pending surgery consult pending and colitis on computed tomography scan - Lab Data Result diagrams: 05/15/21 14:42 05/15/21 14:42 Lab Results 05/10/21 05/10/21 05/10/21 Range/Units 02:37 02:37 02:37 WBC 20.8 H (3.8-10.6) k/uL RBC 3.65 L (3.80-5.40) m/uL Hgb 11.5 (11.4-16.0) gm/dL Hct 34.6 (34.0-46.0) % MCV 94.9 (80.0-100.0) fL MCH 31.6 (25.0-35.0) pg MCHC 33.3 (31.0-37.0) g/dL RDW 14.1 (11.5-15.5) % Plt Count 673 H (150-450) k/uL MPV 7.5 Neutrophils % (Manual) 64 % Band Neuts % (Manual) 8 % Lymphocytes % (Manual) 18 % Monocytes % (Manual) 8 % Metamyelocytes % 1 % Myelocytes % 1 % Neutrophils # (Manual) 14.90 H (1.3-7.7) k/uL Lymphocytes # (Manual) 3.74 (1.0-4.8) k/uL Monocytes # (Manual) 1.66 H (0-1.0) k/uL Metamyelocytes # (Man) 0.21 H (0) k/uL Myelocytes # (Manual) 0.21 H (0) k/uL Nucleated RBCs 0 (0-0) /100 WBC Manual Slide Review Performed Poikilocytosis Slight PT 14.1 H (9.0-12.0) sec INR 1.4 H (<1.2) APTT 26.1 (22.0-30.0) sec Sodium (137-145) mmol/L Potassium (3.5-5.1) mmol/L Chloride (98-107) mmol/L Carbon Dioxide (22-30) mmol/L Anion Gap mmol/L BUN (7-17) mg/dL Creatinine (0.52-1.04) mg/dL Est GFR (CKD-EPI)AfAm (>60 ml/min/1.73 sqM) Est GFR (CKD-EPI)NonAf (>60 ml/min/1.73 sqM) Glucose (74-99) mg/dL Plasma Lactic Acid [place] (0.7-2.0) mmol/L Calcium (8.4-10.2) mg/dL Phosphorus (2.5-4.5) mg/dL Magnesium (1.6-2.3) mg/dL Total Bilirubin (0.2-1.3) mg/dL AST (14-36) U/L ALT (4-34) U/L Alkaline Phosphatase (38-126) U/L Troponin I (0.000-0.034) ng/mL Total Protein (6.3-8.2) g/dL Albumin (3.5-5.0) g/dL Lipase (23-300) U/L Urine Color Dark Yellow Urine Appearance Turbid H (Clear) Urine pH 5.0 (5.0-8.0) Ur Specific [place] 1.023 (1.001-1.035) Urine Protein 1+ H (Negative) Urine Glucose (UA) Negative (Negative) Urine Ketones Negative (Negative) Urine Blood Small H (Negative) Urine Nitrite Negative (Negative) Urine Bilirubin Negative (Negative) Urine Urobilinogen <2.0 (<2.0) mg/dL Ur Leukocyte Esterase Large H (Negative) Urine RBC 8 H (0-5) /hpf Urine WBC 26 H (0-5) /hpf Ur Squamous Epith Cells 15 H (0-4) /hpf Amorphous Sediment Occasional H (None) /hpf Urine Bacteria Moderate H (None) /hpf Urine Mucus Rare H (None) /hpf Coronavirus (PCR) (Not Detectd) 05/10/21 05/10/21 05/10/21 Range/Units 02:37 02:37 02:37 WBC (3.8-10.6) k/uL RBC (3.80-5.40) m/uL Hgb (11.4-16.0) gm/dL Hct (34.0-46.0) % MCV (80.0-100.0) fL MCH (25.0-35.0) pg MCHC (31.0-37.0) g/dL RDW (11.5-15.5) % Plt Count (150-450) k/uL MPV Neutrophils % (Manual) % Band Neuts % (Manual) % Lymphocytes % (Manual) % Monocytes % (Manual) % Metamyelocytes % % Myelocytes % % Neutrophils # (Manual) (1.3-7.7) k/uL Lymphocytes # (Manual) (1.0-4.8) k/uL Monocytes # (Manual) (0-1.0) k/uL Metamyelocytes # (Man) (0) k/uL Myelocytes # (Manual) (0) k/uL Nucleated RBCs (0-0) /100 WBC Manual Slide Review Poikilocytosis PT (9.0-12.0) sec INR (<1.2) APTT (22.0-30.0) sec Sodium 137 (137-145) mmol/L Potassium 3.3 L (3.5-5.1) mmol/L Chloride 108 H (98-107) mmol/L Carbon Dioxide 13 L (22-30) mmol/L Anion Gap 16 mmol/L BUN 48 H (7-17) mg/dL Creatinine 5.17 H (0.52-1.04) mg/dL Est GFR (CKD-EPI)AfAm 9 (>60 ml/min/1.73 sqM) Est GFR (CKD-EPI)NonAf 8 (>60 ml/min/1.73 sqM) Glucose 101 H (74-99) mg/dL Plasma Lactic Acid [place] 1.8 (0.7-2.0) mmol/L Calcium 7.1 L (8.4-10.2) mg/dL Phosphorus 6.5 H (2.5-4.5) mg/dL Magnesium 1.5 L (1.6-2.3) mg/dL Total Bilirubin 0.2 (0.2-1.3) mg/dL AST 30 (14-36) U/L ALT 14 (4-34) U/L Alkaline Phosphatase 121 (38-126) U/L Troponin I 0.013 (0.000-0.034) ng/mL Total Protein 4.9 L (6.3-8.2) g/dL Albumin 2.3 L (3.5-5.0) g/dL Lipase (23-300) U/L Urine Color Urine Appearance (Clear) Urine pH (5.0-8.0) Ur Specific [place] (1.001-1.035) Urine Protein (Negative) Urine Glucose (UA) (Negative) Urine Ketones (Negative) Urine Blood (Negative) Urine Nitrite (Negative) Urine Bilirubin (Negative) Urine Urobilinogen (<2.0) mg/dL Ur Leukocyte Esterase (Negative) Urine RBC (0-5) /hpf Urine WBC (0-5) /hpf Ur Squamous Epith Cells (0-4) /hpf Amorphous Sediment (None) /hpf Urine Bacteria (None) /hpf Urine Mucus (None) /hpf Coronavirus (PCR) (Not Detectd) 05/10/21 05/10/21 Range/Units 02:37 03:15 WBC (3.8-10.6) k/uL RBC (3.80-5.40) m/uL Hgb (11.4-16.0) gm/dL Hct (34.0-46.0) % MCV (80.0-100.0) fL MCH (25.0-35.0) pg MCHC (31.0-37.0) g/dL RDW (11.5-15.5) % Plt Count (150-450) k/uL MPV Neutrophils % (Manual) % Band Neuts % (Manual) % Lymphocytes % (Manual) % Monocytes % (Manual) % Metamyelocytes % % Myelocytes % % Neutrophils # (Manual) (1.3-7.7) k/uL Lymphocytes # (Manual) (1.0-4.8) k/uL Monocytes # (Manual) (0-1.0) k/uL Metamyelocytes # (Man) (0) k/uL Myelocytes # (Manual) (0) k/uL Nucleated RBCs (0-0) /100 WBC Manual Slide Review Poikilocytosis PT (9.0-12.0) sec INR (<1.2) APTT (22.0-30.0) sec Sodium (137-145) mmol/L Potassium (3.5-5.1) mmol/L Chloride (98-107) mmol/L Carbon Dioxide (22-30) mmol/L Anion Gap mmol/L BUN (7-17) mg/dL Creatinine (0.52-1.04) mg/dL Est GFR (CKD-EPI)AfAm (>60 ml/min/1.73 sqM) Est GFR (CKD-EPI)NonAf (>60 ml/min/1.73 sqM) Glucose (74-99) mg/dL Plasma Lactic Acid [place] (0.7-2.0) mmol/L Calcium (8.4-10.2) mg/dL Phosphorus (2.5-4.5) mg/dL Magnesium (1.6-2.3) mg/dL Total Bilirubin (0.2-1.3) mg/dL AST (14-36) U/L ALT (4-34) U/L Alkaline Phosphatase (38-126) U/L Troponin I (0.000-0.034) ng/mL Total Protein (6.3-8.2) g/dL Albumin (3.5-5.0) g/dL Lipase 10 L (23-300) U/L Urine Color Urine Appearance (Clear) Urine pH (5.0-8.0) Ur Specific [place] (1.001-1.035) Urine Protein (Negative) Urine Glucose (UA) (Negative) Urine Ketones (Negative) Urine Blood (Negative) Urine Nitrite (Negative) Urine Bilirubin (Negative) Urine Urobilinogen (<2.0) mg/dL Ur Leukocyte Esterase (Negative) Urine RBC (0-5) /hpf Urine WBC (0-5) /hpf Ur Squamous Epith Cells (0-4) /hpf Amorphous Sediment (None) /hpf Urine Bacteria (None) /hpf Urine Mucus (None) /hpf Coronavirus (PCR) Not Detected (Not Detectd) - Radiology Data Radiology results: report reviewed (Chest x-ray shows persistent pneumonia likely underlying lung mass), image reviewed Critical Care Time Critical Care Time: Yes Total Critical Care Time: 31 Disposition Clinical Impression: ARF (acute renal failure), Dehydration, Malnutrition, Hypokalemia, Hypomagnesemia, Acute exacerbation of chronic obstructive pulmonary disease, Pneumonia, UTI (urinary tract infection), Altered mental status, Cholecystitis, Colitis, Diarrhea Disposition: ADMITTED IP TO THIS [facility] Condition: Serious Is patient prescribed a controlled substance at d/c from ED?: No
--- NOTE | 2021-05-10 03:03 | XR ---
EXAMINATION TYPE: XR chest 2V DATE OF EXAM: 05/10/2021 COMPARISON: 02/19/2021 HISTORY: COPD. Short of breath. Weakness. TECHNIQUE: FINDINGS: Heart is normal. There is poorly marginated 2.5 cm infiltrate over the medial right upper l obe. This is also present on old exam and CT scan of 02/20/2021 as infiltrate in the posterior segment of the right upper lobe. This is adjacent to the major fissure. The other lung harmon are clear. The re are no hilar masses. Bony thorax is intact. Pulmonary vascularity is normal. There is no pleural e ffusion. There are chest leads. IMPRESSION: Right upper lobe infiltrate not significantly different than old exam. This infiltrate al so demonstrated by previous CT scans up to 4 years ago and not significantly different.
[2021-05-10 03:05] LABS: INR 1.4 (<1.2); Partial Thromboplastin Time 26.1 sec (22.0-30.0); Prothrombin Time 14.1 sec (9.0-12.0)
[2021-05-10 03:06] LABS: HCT 34.6 % (34.0-46.0); HGB 11.5 gm/dL (11.4-16.0); MCH 31.6 pg (25.0-35.0); MCHC 33.3 g/dL (31.0-37.0); MCV 94.9 fL (80.0-100.0); Mean Platelet Volume 7.5; Platelet Count 673 k/uL (150-450); Poikilocytosis Slight; RBC 3.65 m/uL (3.80-5.40); RDW 14.1 % (11.5-15.5); WBC 20.8 k/uL (3.8-10.6)
[2021-05-10 03:08] LABS: Albumin 2.3 g/dL (3.5-5.0); Calcium 7.1 mg/dL (8.4-10.2); Magnesium 1.5 mg/dL (1.6-2.3); Phosphorus 6.5 mg/dL (2.5-4.5); Potassium 3.3 mmol/L (3.5-5.1); Total Bilirubin 0.2 mg/dL (0.2-1.3); Total Protein 4.9 g/dL (6.3-8.2)
[2021-05-10 03:33] LABS: Band Neutrophils % 8 %; Lymphocytes # (M) 3.74 k/uL (1.0-4.8); Metamyelocytes # (M) 0.21 k/uL (0); Metamyelocytes % 1 %; Monocytes # (M) 1.66 k/uL (0-1.0); Myelocytes # (M) 0.21 k/uL (0); Myelocytes % 1 %; Neutrophils % (M) 64 %; Nucleated Red Blood Cells 0 /100 WBC (0-0); Total Cells Counted 100
[2021-05-10 04:13] LABS: Amorphous Sediment,Urine Occasional /hpf; Appearance,Urine Turbid (Clear); Bacteria,Urine Moderate /hpf; Bilirubin,Urine Negative (Negative); Blood,Urine Small (Negative); Color,Urine Dark Yellow; Glucose,Urine (UA) Negative (Negative); Ketones,Urine Negative (Negative); Leukocyte Esterase,Urine Large (Negative); Mucus,Urine Rare /hpf; Nitrite,Urine Negative (Negative); Protein,Urine 1+ (Negative); RBC,Urine 8 /hpf (0-5); Specific Gravity,Urine 1.023 (1.001-1.035); Squamous Epithelial Cell,Urine 15 /hpf (0-4); Urobilinogen,Urine <2.0 mg/dL (<2.0); WBC,Urine 26 /hpf (0-5)
[2021-05-10] MEDS ORDERED: LEVOFLOXACIN 750MG-D5W PMX 750 MG in DEXTROSE/WATER 1 150ML.BAG IVPB STA (04:33)
[2021-05-10] MEDS ORDERED: PIPERACILLIN-TAZOBACTAM 3.375 GM in SODIUM CHLORIDE 0.9% 100 ML IVPB STA (04:33)
[2021-05-10] MEDS ORDERED: SODIUM CHLORIDE 0.9% 1,000 ML IV SCH (04:45)
[2021-05-10] MEDS ORDERED: fentaNYL (PF) 50 MCG/ML 2 ML AMP IV PRN (04:50)
[2021-05-10] MEDS ORDERED: ACETAMINOPHEN IV (For NPO) 1,000 MG in EMPTY BAG 1 BAG IVPB STA (04:50)
[2021-05-10] MEDS ORDERED: methylPREDNISolone SOD SUCCI 125 MG/2 ML VIAL IV STA (04:52)
[2021-05-10] MEDS ORDERED: IPRATROPIUM-ALBUTEROL 3 ML NEB INHALATION STA (04:52)
[2021-05-10] MEDS ORDERED: IPRATROPIUM-ALBUTEROL 3 ML NEB INHALATION PRN (04:58)
--- NOTE | 2021-05-10 06:15 | CT ---
EXAMINATION TYPE: CT brain wo con DATE OF EXAM: 05/10/2021 COMPARISON: 08/14/2016 HISTORY: fever/pain. prior on PACS CT DLP: 1051 mGycm Automated exposure control for dose reduction was used. Ventricles have normal size. There is no mass effect nor midline shift. There is no sign of intracran ial hemorrhage. There is no evidence of cerebral edema. Calvarium is intact. IMPRESSION: Negative unenhanced head CT scan. No change.
[2021-05-10] MEDS: methylPREDNISolone SOD SUCCI 125 MG/2 ML VIAL IV SCH ×4 (06:16→23:25)
--- NOTE | 2021-05-10 06:22 | CT ---
EXAMINATION TYPE: CT abdomen pelvis wo con DATE OF EXAM: 05/10/2021 COMPARISON: 02/20/2021 HISTORY: fever/pain. prior on PACS CT DLP: 1031 mGycm Automated exposure control for dose reduction was used. Images obtained without contrast from the diaphragm to the floor the pelvis. Lung bases are clear of consolidation. There is no pleural effusion. Heart size is fairly normal. The re is no pericardial effusion. There is 1 cm calcified gallstone. Gallbladder is dilated and measures 5 x 11 cm. The bile ducts are not dilated. Spleen is intact. Stomach is intact. There is no pancreatic mass. There is no adrenal mass. Kidneys show bilateral perinephric fat stranding. There is no evidence of a renal mass. Ureters are not dilated. There is metal artifact from bilateral hip prosthesis. There is Cordero catheter in the urinary bladder. Bladder is empty. There is no sign of free fluid in the pelvi s. There is no hydronephrosis. There is no retroperitoneal adenopathy. There is no sign of free air. There is no evidence of bowel obstruction. There is some wall thickeni ng of the right colon. There is also some wall thickening and edema around the transverse colon and d escending colon. Lumbar vertebra have normal alignment. There is vacuum disc at L5-S1. There is no compression fractur e. IMPRESSION: Dilated gallbladder with gallstone and suggestive of acute cholecystitis. This is a change compared t o old exam. There is diffuse colonic wall thickening involving the ascending colon transverse colon and descendin g colon and is consistent with nonspecific colitis and is a change compared to old exam. Perinephric fat stranding could relate to previous episode of obstruction or inflammation. Unchanged.
[2021-05-10] MEDS: IPRATROPIUM-ALBUTEROL 3 ML NEB INHALATION SCH ×3 (07:00→21:48)
[2021-05-10] MEDS ORDERED: IPRATROPIUM-ALBUTEROL 3 ML NEB INHALATION SCH (08:00)
--- NOTE | 2021-05-10 08:00 | US ---
EXAMINATION TYPE: US gallbladder DATE OF EXAM: 05/10/2021 COMPARISON: CT CLINICAL HISTORY: donna. COPD, Fever, UTI, gallstone per CT STUDY IS SUBOPTIMAL IN EVALUATION DUE TO TECHNIQUE EXAM MEASUREMENTS: Liver Length: 16.4 cm Gallbladder Wall: 0.3 cm CBD: 0.6 cm Right Kidney: 10.9 x 5.6 x 5.7 cm Pancreas: Hyperechoic appearing pancreas likely represents partial fatty replacement. Distal body and neck secured by bowel bowel gas. Liver: Hyperechoic hepatic parenchyma suggests steatosis. Coarse heterogeneous echotexture. Gallbladder: non mobile, shadowing gallstone seen near neck Evidence for sonographic Scott's sign: yes CBD: 6 mm in diameter Right Kidney: Limited in evaluation, normal parenchymal echogenicity. No hydronephrosis. IMPRESSION: 1. Gallbladder stone at the neck, no gallbladder wall thickening, no significant pericholecystic flui d, Scott's sign reported positive by breeder service technician. Findings are not strongly convincing for acute cholecystitis, clinical correlation recommended. 2. Hepatic steatosis.
[2021-05-10] MEDS ORDERED: POTASSIUM CHLORIDE ER 20 MEQ TAB.ER PO STA (08:58)
--- NOTE | 2021-05-10 09:00 | P.NPCON ---
History of Present Illness - Reason for Consult acute renal failure - History of Present Illness Reason for consultation: Acute kidney injury History of present illness: Patient is a 65-year-old female seen in renal consultation for acute kidney injury. Patient was brought to the hospital due to nausea, diarrhea and generalized weakness. Patient is currently quite confused and states she wants to go home today. It appears the patient only had some Gatorade and was not tolerating much oral intake at all prior to admission. At this time patient does not recall why she is in the hospital. Her blood pressure was in the systolic 70s on admission and is now 110/62. She did receive 2 L of normal sa line on admission and is currently maintained on normal saline at 130 mL an hour. Has been voiding. No hematuria. I do see Lasix and her home medication list as well as enalapril but unclear as to what exactly she's been taking. No fever or chills. Denies chest pain or shortness of breath. No edema. No history of diabetes. Vital signs are stable. General: The patient appeared well nourished and normally developed. HEENT: Head exam is unremarkable. LUNGS: Breath sounds decreased. HEART: Rate and Rhythm are regular. ABDOMEN: Soft, no distention. EXTREMITITES: No edema. Past Medical History Past Medical History: Asthma, COPD, CVA/TIA, Fibromyalgia, GERD/Reflux, Hyperlipidemia, Hypertension, Memory Impairment, Myocardial Infarction ([place]), Respiratory Disorder Additional Past Medical History / Comment(s): COPD, chronic hypoxic respiratory failure and the patient has been maintained on oxygen at 2 L/m nasal cannula, ch ronic constipation, Chronic back pain, frequent urinary tract infections, .had a pne and shingle vaccine but does'nt know the dates and dr office , hypertension, coronary artery disease, chronic back pain, abdominal aortic aneurysm measuring 3.7 cm, previous history of MRSA infection of the feet him a chronic back pain and 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 Last Myocardial Infarction Date:: 1999 History of Any Multi-Drug Resistant Organisms: MRSA Date of last positivie culture/infection: 02/07 MDRO Source:: linda feet Past Surgical History: Adenoidectomy, Back Surgery, Heart Catheterization, Joint Replacement, Orthopedic Surgery, Tonsillectomy, Tubal Ligation Additional Past Surgical History / Comment(s): bilateral hip replacements, had 2 sx on lt and 3 sx on rt., neck fusion with plate ,linda cataracts, Past Anesthesia/Blood Transfusion Reactions: No Reported Reaction Smoking Status: Current every day smoker - Past Family History Father History Unknown: Yes Mother Family Medical History: Congestive Heart Failure (CHF), COPD Medications and Allergies Home Medications Medication Instructions Recorded Confirmed Type RX: Enalapril [Vasotec] 20 mg PO DAILY 12/26/14 02/26/21 History RX: Isosorbide Mononitrate 30 mg PO DAILY 12/26/14 02/26/21 History [Isosorbide Mononitrate ER] RX: Omeprazole 20 mg PO BID 12/26/14 02/26/21 History RX: Temazepam [Restoril] 30 mg PO HS 12/26/14 02/26/21 History RX: Loratadine [Claritin] 10 mg PO DAILY 08/14/16 02/26/21 History RX: Cyclobenzaprine [Flexeril] 10 mg PO BID 10/10/19 02/26/21 History RX: EPINEPHrine (Auto Inject) 0.3 mg IM ONCE PRN 10/10/19 02/26/21 History [Epipen] RX: Estrogen,Con/M-Progest Acet 1 tab PO DAILY 10/10/19 02/26/21 History [Prempro 0.625-5 mg Tablet] RX: Fluticasone Nasal [place] 2 sprays EA NOSTRIL DAILY 10/10/19 02/26/21 History [Flonase Nasal [place]] RX: Furosemide [Lasix] 40 mg PO DAILY 10/10/19 02/26/21 History RX: Ibuprofen [Motrin] 800 mg PO TID PRN 10/10/19 02/26/21 History RX: Montelukast [Singulair] 10 mg PO DAILY 10/10/19 02/26/21 History RX: Nitroglycerin Sl Tabs 0.4 mg SUBLINGUAL Q5M PRN 10/10/19 02/26/21 History [Nitrostat] RX: Potassium Chloride ER [K-Dur 10 meq PO DAILY 10/10/19 02/26/21 History 10] RX: busPIRone HCL 15 mg PO BID 10/10/19 02/26/21 History RX: Atorvastatin [Lipitor] 80 mg PO DAILY 02/12/21 02/26/21 History RX: HYDROcodone/APAP 10-325MG 1 tab PO Q6HR PRN 02/12/21 02/26/21 History [[place] 10-325] RX: Aspirin EC [Ecotrin Low Dose] 81 mg PO DAILY 02/19/21 02/26/21 History RX: Gabapentin 800 mg PO TID 02/19/21 02/26/21 History RX: Ipratropium-Albuterol Nebulize 3 ml INHALATION RT-Q6H PRN 02/19/21 02/26/21 History [Duoneb 0.5 mg-3 mg/3 ml Soln] RX: Metoprolol Succinate [Toprol 50 mg PO DAILY 02/19/21 02/26/21 History XL] RX: Mirabegron [Myrbetriq] 25 mg PO DAILY 02/19/21 02/26/21 History RX: Nystatin 100,000 Unit/gm Powd 1 applic TOPICAL BID 02/19/21 02/26/21 History [Mycostatin Powder] RX: Varenicline [Chantix 1 mg PO BID 02/19/21 02/26/21 History Continuing Pack] RX: traMADol HCL 50 mg PO QID PRN 02/19/21 02/26/21 History Allergies Allergy/AdvReac Type Severity Reaction Status Date / Time adhesive Allergy Rash/Hives Verified 05/10/21 02:09 adhesive tape Allergy Rash/Hives Verified 05/10/21 02:09 chocolate flavor Allergy Anaphylaxis Verified 05/10/21 02:09 diphenhydramine HCl Allergy Unknown Verified 05/10/21 02:09 [From Benadryl] grass pollen-perennial rye, Allergy Unknown Verified 05/10/21 02:09 standar [grass poll-perennial rye,std] hydromorphone HCl Allergy Unknown Verified 05/10/21 02:09 [From Dilaudid] mold Allergy Unknown Verified 05/10/21 02:09 venom-honey bee Allergy Anaphylaxis Verified 05/10/21 02:09 [bee venom (honey bee)] dust Allergy Unknown Uncoded 05/10/21 02:09 nuts Allergy Anaphylaxis Uncoded 05/10/21 02:09 tape Allergy Rash/Hives Uncoded 05/10/21 02:09 Physical Exam Vitals: Vital Signs Temp Pulse Resp BP Pulse Ox 05/10/21 07:10 82 18 05/10/21 07:00 88 18 05/10/21 06:15 89 20 110/62 97 05/10/21 05:46 87 05/10/21 05:33 88 05/10/21 05:09 97 F L 102 H 20 92/67 97 05/10/21 04:34 90 20 100/63 98 05/10/21 04:02 92 18 90/44 97 05/10/21 03:22 90 20 88/42 98 05/10/21 02:00 98.1 F 95 20 77/60 99 Intake and Output 05/09/21 05/10/21 05/10/21 22:59 06:59 14:59 Other: Weight 81.647 kg 81.647 kg Results - Lab Results Most recent lab results Calcium 7.1 mg/dL (8.4-10.2) L 05/10/21 02:37 Phosphorus 6.5 mg/dL (2.5-4.5) H 05/10/21 02:37 Magnesium 1.5 mg/dL (1.6-2.3) L 05/10/21 02:37 05/10/21 02:37 05/10/21 02:37 Assessment and Plan Plan: Assessment: 1. Acute kidney injury mostly prerenal from hypovolemia, Lasix and Vasotec. Creatinine 5.17 on admission. Baseline creatinine from January 2021 was near 1. No hydronephrosis noted on CAT scan. 2. UTI on antibiotics. 3. Metabolic acidosis secondary to acute kidney injury and diarrhea. 4. Hypokalemia from poor intake and Lasix. 5. Hypomagnesemia from GI losses and diuretics. 6. Hyperphosphatemia secondary to acute kidney injury. Plan: Stop normal saline. Start bicarb drip to be run at 100 mL an hour. Replace potassium and magnesium. Diuretics and antihypertensives held. Avoid nephrotoxins. Continue to monitor renal function and urine output. Thank you for the consultation. I will continue to follow the patient with you during her hospital stay.
[2021-05-10] MEDS: DEXTROSE 5% IN WATER 1,000 ML with SODIUM BICARB (1 MEQ/ML) 150 ML IV SCH (10:54)
[2021-05-10] MEDS: MAGNESIUM SULFATE-D5W PMX 1 GM in DEXTROSE/WATER 1 100ML.BAG IVPB SCH ×2 (12:28→13:46)
--- NOTE | 2021-05-10 13:10 | HP ---
HISTORY AND PHYSICAL I am covering for Dr. Samayoa. CHIEF COMPLAINTS: Fever, change in mental status, nausea, diarrhea. HISTORY OF PRESENT ILLNESS: This 65-year-old woman who presented with a past medical history of asthma, COPD, CVA, TIA, fibromyalgia, GERD, hyperlipidemia, being followed by Dr. Samayoa in the outpatient setting, also had chronic hypoxic respiratory failure. Patient is using 2 L nasal cannula. The patient was not feeling well over the past several days. Patient had fever and some change in mental status. Patient came to [facility]. UTI with pneumonia was suspected. Creatinine was more than 5. Nephrology has seen the patient and she has been started on bicarb drip at this time. The patient is unable to tolerate p.o. fluids also. The patient is currently confused, unable to give a coherent history. Most of the history is taken from my discussion with staff and review of chart at this time. There is no history of trauma. PAST MEDICAL HISTORY: Asthma, COPD, CVA, TIA, fibromyalgia, GERD, hypertension, hyperlipidemia, history of memory impairment. MEDICATIONS: Home medications are Ultram, buspirone, Chantix, Restoril, K-Dur, Mycostatin, Nitrostat, Singulair, Toprol-XL, Claritin, isosorbide, DuoNeb, [place], Flonase, Prempro, Vasotec, EpiPen, Flexeril, Lipitor, Ecotrin. Doses are reviewed. ALLERGIES: ADHESIVE TAPE, CHOCOLATE FLAVOR, BENADRYL, POLLEN, MOLD, HONEY BEE VENOM, TAPE. FAMILY HISTORY: History of CHF and COPD in the family. SOCIAL HISTORY: Previous history of smoking. REVIEW OF SYSTEMS: Review of systems could not be taken. The patient is confused. PHYSICAL EXAMINATION: Patient is conscious but confused and stuporous. The patient is restless, slightly combative. Pulse 79, blood pressure 110/62, respiration 20, temperature normal, pulse ox 97% on 4 L. It was 99% on 3 L. HEENT: Conjunctivae normal. Oral mucosa moist. NECK: No jugular venous distention. No carotid bruit. No lymph node enlargement. CARDIOVASCULAR SYSTEM: S1, S2 muffled. No S3. No S4. RESPIRATORY: Breath sounds diminished at the bases. A few scattered rhonchi and crackles. ABDOMEN: Soft, nontender. LEGS: No edema. No swelling. NERVOUS SYSTEM: Diffusely weak. Full exam is not possible. SKIN: No ulcer, rash, bleeding. JOINTS: No active deforming arthropathy. LABS: WBC 20.8. INR is 1.4. Sodium ntd, potassium 3.3. CO2 is 13. Creatinine is 5.17. Magnesium is 1.5. UA noted. ASSESSMENT: 1. Possible acute urinary tract infection with sepsis. 2. Acute on chronic kidney disease with chronic kidney disease, stage 3 baseline. 3. Acute cholelithiasis. Rule out cholecystitis. 4. Hypotension, possibly secondary to sepsis as well as hypovolemia. 5. Possible colitis with diffuse colonic wall thickening of the ascending, transverse and descending colon. 6. Hypokalemia. 7. Metabolic acidosis secondary to worsening renal failure. 8. Hypomagnesemia. 9. Hypoalbuminemia with mild protein-calorie malnutrition. 10.Obesity with body mass index of 30. 11.Rule out chronic liver disease. 12.Increased white count, possibly secondary to sepsis. 13.Increased platelets. 14.Abnormal peripheral smear. 15.History of asthma, chronic obstructive pulmonary disease. 16.Possible right upper lobe pneumonia, possibly chronic lesion. 17.History of cerebrovascular accident, transient ischemic attack. 18.Fibromyalgia. 19.Gastroesophageal reflux disease. 20.Hypertension. 21.Hyperlipidemia. 22.History of memory impairment. 23.History of myocardial infarction. 24.Chronic hypoxic respiratory failure, on 2 L nasal cannula at home. 25.Chronic constipation. 26.Chronic back pain. 27.History of recurrent urinary tract infections. 28.Abdominal aortic aneurysm, 3.7 cm. 29.History of MRSA. 30.History of back surgery. 31.History of cardiac catheterization. 32.FULL CODE. RECOMMENDATIONS AND DISCUSSION: In this 65-year-old woman who presented with multiple complex medical issues, we will monitor the patient closely. Will initiate broad-spectrum IV antibiotics, bronchodilators. Otherwise, empiric steroids. Monitor blood sugars closely. Bicarb drip. Monitor electrolytes closely. The patient also had an abdominal gallbladder ultrasound which showed cholelithiasis with no evidence of any acute cholecystitis. Ultrasound also showed hepatic steatosis. CT scan of the abdomen and pelvis, which was reviewed personally by me, showed a dilated gallbladder and diffuse colonic wall thickening also, including ascending colon, transverse colon, descending colon. CT brain was noted. Overall prognosis is guarded. Will consult Surgery as well. Obtain cultures. We will resume the home medications once they are reconciled. Avoid hepatotoxic as well as nephrotoxic medications. Prognosis guarded. Further recommendations to follow. A copy of this dictation is being forwarded to Dr. Samayoa, who is the primary physician. KAROL / DOREEN: [id number] / MTDD
[2021-05-10] MEDS ORDERED: PIPERACILLIN-TAZOBACTAM 3.375 GM in SODIUM CHLORIDE 0.9% 100 ML IVPB SCH (14:00)
[2021-05-10 16:24] LABS: Glucose,Whole Blood 130 mg/dL (75-99)
[2021-05-10] MEDS: PIPERACILLIN-TAZOBACTAM 3.375 GM in SODIUM CHLORIDE 0.9% 100 ML IVPB SCH (17:41)
[2021-05-10] MEDS: ACETAMINOPHEN TAB 325 MG TAB PO PRN (18:36)
--- NOTE | 2021-05-10 19:44 | P.GSCN ---
History of Present Illness Consult date: 05/10/21 History of present illness: CHIEF COMPLAINT: Abnormal computed tomography scan HISTORY OF PRESENT ILLNESS: The patient is a 65-year-old female with pre- existing multiple comorbidities including ischemic cardiomyopathy, abdominal aortic aneurysm, chronic obstructive pulmonary disease, tobacco abuse disorder, hypertensive heart disease who presented to emergency room with generalized weakness nausea and diarrhea. Additional workup including CT brain, abdomen and pelvis were performed. Incidental finding of gallstones with possible cholecystitis was found. Computed tomography scan was identified and Gen. surgery consultation. Patient also presented in acute renal failure with creatinine greater than 5 as her baseline is 0. as of 3 months ago.general surgery is consulted for possible cholecystitis. PAST MEDICAL HISTORY: See list and reviewed PAST SURGICAL HISTORY: See list and reviewed MEDICATIONS: See list and reviewed ALLERGIES: See list and reviewed SOCIAL HISTORY: See list and reviewed FAMILY HISTORY: See list and reviewed REVIEW OF ORGAN SYSTEMS: CONSTITUTIONAL: No fevers or chills. EYES: Denies any trouble with vision. HEENT: No difficulties with hearing. No nosebleeds. No difficulty swallowing. RESPIRATORY: His chronic obstructive pulmonary disease and past hospitalization. Also has lung mass. She is on supplemental oxygen. CARDIOVASCULAR: Past history of myocardial infarction including cardiac catheterization. History of abdominal aortic aneurysm. Has congestive heart failure. Has coronary artery disease. Has hyperlipidemia. GASTROINTESTINAL: Recent diarrhea. No blood in stools. Has gastroesophageal reflux disease. GENITOURINARY: Has blood in urine or increased urinary frequency. NEUROLOGICAL: Past CVA and transient ischemic attack. Has fibromyalgia. History of memory impairment. MUSCULOSKELETAL: Has back pain, stiffness or joint arthritis. History of bilateral hip replacements. SKIN: No current skin cancer. Has skin rash. PSYCHIATRIC: Has anxiety and depression. ENDOCRINE: Denies current thyroid disorders. Denies any blood sugar glucose intolerance. HEME/LYMPHATIC: Denies any lumps and bumps around the neck. No recent deep venous thrombosis. History of MRSA ALLERGY/IMMUNOLOGY: No immunoglobulin therapy. No immune deficiencies. BREAST: Denies current breast lumps, pain or nipple discharge. PHYSICAL EXAM: VITALS: Reviewed CONSTITUTIONAL: Well developed and in no acute distress. Resting comfortably. EYES: Conjuctivae without sclera icterus. Extraocular movements grossly intact. HEAD, EARS, NOSE, THROAT: Moist buccal mucosa. Head is atraumatic, normocephalic. Hears conversational speech. No nasal drainage. NECK: Supple. No gross JV distention. No gross thyroidomegaly. RESPIRATORY: Non-labored respirations and equal bilateral excursions. No gross wheezes. CARDIOVASCULAR: Palpable 2+ radial pulses. ABDOMEN: No peritonitis. LYMPH: No gross neck lymphadenopathy. MUSCULOSKELETAL: Nail and fingers with good capillary refill. SKIN: Warm and well perfused with good skin turgor. NEUROLOGIC: Cranial nerves II through XII grossly intact. Sensation upper and extremities intact. No focal or lateralizing signs. PSYCH: Appropriate affect. Alert and oriented to person, place and time. CLINCAL LABS: Reviewed. WBC and presentation over 20,000. INR elevated at 1.4. LFTs within normal limits. Creatinine elevated 5.17. Potassium of 3.3. IMAGING: Independently reviewed CT of the abdomen and pelvis was with dilated gallbladder including stone along the infundibulum with hydropic features. Computed tomography scan is noncontrast. Bilateral kidney inflammation or features of medical kidney disease. Motion artifact identified. Questionable colitis of the ascending colon. Studies of the pelvis limited due to bilateral knee arthroplasties. This is my independent interpretation. RADIOLOGY: Report reviewed CT of the brain without acute intraparenchymal bleed or hemorrhage Ultrasound report of the gallbladder independently reviewed with gallbladder wall less than 3 mm. RECORDS: previous old records reviewed from January 2021 with known liver nodules for which patient declined biopsy of workup during hospitalization. EKG: Prolonged QT interval ASSESSMENT: 1. Hydropic cholecystitis due to gallstones 2. Acute renal failure 3. Sepsis due to unclear etiology 4. Ischemic cardiomyopathy 5. Diarrhea PLAN: 1. She has elevated INR including acute renal failure which increased risk for any immediate surgical intervention. Recommend correction of renal failure including antibiotic management. 2. Patient has pre-existing heart disease and may need cardiac risk assessment prior to surgical intervention 3. Management of acute renal failure may require additional IV fluid hydration due to prolonged diarrhea 4. Send stool cultures for C. diff and stool assays for diarrhea Thank you for this kind consultation. Past Medical History Past Medical History: Asthma, COPD, CVA/TIA, Fibromyalgia, GERD/Reflux, Hyperlipidemia, Hypertension, Memory Impairment, Myocardial Infarction ([place]), Respiratory Disorder Additional Past Medical History / Comment(s): COPD, chronic hypoxic respiratory failure and the patient has been maintained on oxygen at 2 L/m nasal cannula, chronic constipation, Chronic back pain, frequent urinary tract infections, .had a pne and shingle vaccine but does'nt know the dates and dr office , hypertension, coronary artery disease, chronic back pain, abdominal aortic aneurysm measuring 3.7 cm, previous history of MRSA infection of the feet him a chronic back pain and 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 Last Myocardial Infarction Date:: 1999 History of Any Multi-Drug Resistant Organisms: MRSA Year Discovered:: 02/07 MDRO Source:: linda feet Past Surgical History: Adenoidectomy, Back Surgery, Heart Catheterization, Joint Replacement, Orthopedic Surgery, Tonsillectomy, Tubal Ligation Additional Past Surgical History / Comment(s): bilateral hip replacements, had 2 sx on lt and 3 sx on rt., neck fusion with plate ,linda cataracts, Past Anesthesia/Blood Transfusion Reactions: No Reported Reaction Smoking Status: Current every day smoker - Past Family History Father History Unknown: Yes Mother Family Medical History: Congestive Heart Failure (CHF), COPD Medications and Allergies Home Medications Medication Instructions Recorded Confirmed Type Enalapril [Vasotec] 20 mg PO DAILY 12/26/14 05/10/21 History Isosorbide Mononitrate [Isosorbide 30 mg PO DAILY 12/26/14 05/10/21 History Mononitrate ER] Omeprazole 20 mg PO BID 12/26/14 05/10/21 History Temazepam [Restoril] 30 mg PO HS 12/26/14 05/10/21 History Loratadine [Claritin] 10 mg PO DAILY 08/14/16 05/10/21 History Cyclobenzaprine [Flexeril] 10 mg PO BID 10/10/19 05/10/21 History EPINEPHrine (Auto Inject) [Epipen] 0.3 mg IM ONCE PRN 10/10/19 05/10/21 History Estrogen,Con/M-Progest Acet 1 tab PO DAILY 10/10/19 05/10/21 History [Prempro 0.625-5 mg Tablet] Fluticasone Nasal [place] [Flonase 2 sprays EA NOSTRIL DAILY 10/10/19 05/10/21 History Nasal [place]] Furosemide [Lasix] 40 mg PO DAILY 10/10/19 05/10/21 History Ibuprofen [Motrin] 800 mg PO TID PRN 10/10/19 05/10/21 History Montelukast [Singulair] 10 mg PO DAILY 10/10/19 05/10/21 History Nitroglycerin Sl Tabs [Nitrostat] 0.4 mg SUBLINGUAL Q5M PRN 10/10/19 05/10/21 History Potassium Chloride ER [K-Dur 10] 10 meq PO DAILY 10/10/19 05/10/21 History busPIRone HCL 15 mg PO BID 10/10/19 05/10/21 History Atorvastatin [Lipitor] 80 mg PO DAILY 02/12/21 05/10/21 History HYDROcodone/APAP 10-325MG [[place] 1 tab PO Q6HR PRN 02/12/21 05/10/21 History 10-325] Aspirin EC [Ecotrin Low Dose] 81 mg PO DAILY 02/19/21 05/10/21 History Gabapentin 900 mg PO TID 02/19/21 05/10/21 History Ipratropium-Albuterol Nebulize 3 ml INHALATION RT-Q6H PRN 02/19/21 05/10/21 History [Duoneb 0.5 mg-3 mg/3 ml Soln] Metoprolol Succinate [Toprol XL] 50 mg PO DAILY 02/19/21 05/10/21 History Mirabegron [Myrbetriq] 25 mg PO DAILY 02/19/21 05/10/21 History Nystatin 100,000 Unit/gm Powd 1 applic TOPICAL BID 02/19/21 05/10/21 History [Mycostatin Powder] Varenicline [Chantix Continuing 1 mg PO BID 02/19/21 05/10/21 History Pack] traMADol HCL 50 mg PO QID PRN 02/19/21 05/10/21 History Allergies Allergy/AdvReac Type Severity Reaction Status Date / Time adhesive Allergy Rash/Hives Verified 05/10/21 14:04 adhesive tape Allergy Rash/Hives Verified 05/10/21 14:04 chocolate flavor Allergy Anaphylaxis Verified 05/10/21 14:04 diphenhydramine HCl Allergy Unknown Verified 05/10/21 14:04 [From Benadryl] grass pollen-perennial rye, Allergy Unknown Verified 05/10/21 14:04 standar [grass poll-perennial rye,std] hydromorphone HCl Allergy Unknown Verified 05/10/21 14:04 [From Dilaudid] mold Allergy Unknown Verified 05/10/21 14:04 venom-honey bee Allergy Anaphylaxis Verified 05/10/21 14:04 [bee venom (honey bee)] dust Allergy Unknown Uncoded 05/10/21 02:09 nuts Allergy Anaphylaxis Uncoded 05/10/21 02:09 tape Allergy Rash/Hives Uncoded 05/10/21 02:09 Surgical - Exam Vital Signs Temp Pulse Resp BP Pulse Ox 98.1 F 95 20 77/60 99 05/10/21 02:00 05/10/21 02:00 05/10/21 02:00 05/10/21 02:00 05/10/21 02:00 Results - Labs 05/10/21 02:37 05/10/21 02:37 Abnormal Lab Results - Last 24 Hours (Table) 05/10/21 05/10/21 05/10/21 Range/Units 02:37 02:37 02:37 WBC 20.8 H (3.8-10.6) k/uL RBC 3.65 L (3.80-5.40) m/uL Plt Count 673 H (150-450) k/uL Neutrophils # (Manual) 14.90 H (1.3-7.7) k/uL Monocytes # (Manual) 1.66 H (0-1.0) k/uL Metamyelocytes # (Man) 0.21 H (0) k/uL Myelocytes # (Manual) 0.21 H (0) k/uL PT 14.1 H (9.0-12.0) sec INR 1.4 H (<1.2) Potassium (3.5-5.1) mmol/L Chloride (98-107) mmol/L Carbon Dioxide (22-30) mmol/L BUN (7-17) mg/dL Creatinine (0.52-1.04) mg/dL Glucose (74-99) mg/dL Calcium (8.4-10.2) mg/dL Phosphorus (2.5-4.5) mg/dL Magnesium (1.6-2.3) mg/dL Total Protein (6.3-8.2) g/dL Albumin (3.5-5.0) g/dL Lipase (23-300) U/L Urine Appearance Turbid H (Clear) Urine Protein 1+ H (Negative) Urine Blood Small H (Negative) Ur Leukocyte Esterase Large H (Negative) Urine RBC 8 H (0-5) /hpf Urine WBC 26 H (0-5) /hpf Ur Squamous Epith Cells 15 H (0-4) /hpf Amorphous Sediment Occasional H (None) /hpf Urine Bacteria Moderate H (None) /hpf Urine Mucus Rare H (None) /hpf 05/10/21 05/10/21 Range/Units 02:37 02:37 WBC (3.8-10.6) k/uL RBC (3.80-5.40) m/uL Plt Count (150-450) k/uL Neutrophils # (Manual) (1.3-7.7) k/uL Monocytes # (Manual) (0-1.0) k/uL Metamyelocytes # (Man) (0) k/uL Myelocytes # (Manual) (0) k/uL PT (9.0-12.0) sec INR (<1.2) Potassium 3.3 L (3.5-5.1) mmol/L Chloride 108 H (98-107) mmol/L Carbon Dioxide 13 L (22-30) mmol/L BUN 48 H (7-17) mg/dL Creatinine 5.17 H (0.52-1.04) mg/dL Glucose 101 H (74-99) mg/dL Calcium 7.1 L (8.4-10.2) mg/dL Phosphorus 6.5 H (2.5-4.5) mg/dL Magnesium 1.5 L (1.6-2.3) mg/dL Total Protein 4.9 L (6.3-8.2) g/dL Albumin 2.3 L (3.5-5.0) g/dL Lipase 10 L (23-300) U/L Urine Appearance (Clear) Urine Protein (Negative) Urine Blood (Negative) Ur Leukocyte Esterase (Negative) Urine RBC (0-5) /hpf Urine WBC (0-5) /hpf Ur Squamous Epith Cells (0-4) /hpf Amorphous Sediment (None) /hpf Urine Bacteria (None) /hpf Urine Mucus (None) /hpf Microbiology - Last 24 Hours (Table) 05/10/21 02:37 Urine Culture - Preliminary Urine,Catheterized Diabetes panel 05/10/21 Range/Units 02:37 Sodium 137 (137-145) mmol/L Potassium 3.3 L (3.5-5.1) mmol/L Chloride 108 H (98-107) mmol/L Carbon Dioxide 13 L (22-30) mmol/L BUN 48 H (7-17) mg/dL Creatinine 5.17 H (0.52-1.04) mg/dL Glucose 101 H (74-99) mg/dL Calcium 7.1 L (8.4-10.2) mg/dL AST 30 (14-36) U/L ALT 14 (4-34) U/L Alkaline Phosphatase 121 (38-126) U/L Total Protein 4.9 L (6.3-8.2) g/dL Albumin 2.3 L (3.5-5.0) g/dL Calcium panel 05/10/21 Range/Units 02:37 Calcium 7.1 L (8.4-10.2) mg/dL Phosphorus 6.5 H (2.5-4.5) mg/dL Albumin 2.3 L (3.5-5.0) g/dL Pituitary panel 05/10/21 Range/Units 02:37 Sodium 137 (137-145) mmol/L Potassium 3.3 L (3.5-5.1) mmol/L Chloride 108 H (98-107) mmol/L Carbon Dioxide 13 L (22-30) mmol/L BUN 48 H (7-17) mg/dL Creatinine 5.17 H (0.52-1.04) mg/dL Glucose 101 H (74-99) mg/dL Calcium 7.1 L (8.4-10.2) mg/dL Adrenal panel 05/10/21 Range/Units 02:37 Sodium 137 (137-145) mmol/L Potassium 3.3 L (3.5-5.1) mmol/L Chloride 108 H (98-107) mmol/L Carbon Dioxide 13 L (22-30) mmol/L BUN 48 H (7-17) mg/dL Creatinine 5.17 H (0.52-1.04) mg/dL Glucose 101 H (74-99) mg/dL Calcium 7.1 L (8.4-10.2) mg/dL Total Bilirubin 0.2 (0.2-1.3) mg/dL AST 30 (14-36) U/L ALT 14 (4-34) U/L Alkaline Phosphatase 121 (38-126) U/L Total Protein 4.9 L (6.3-8.2) g/dL Albumin 2.3 L (3.5-5.0) g/dL Assessment and Plan (1) Tobacco abuse disorder Current Visit: Yes Status: Acute Code(s): Z72.0 - TOBACCO USE SNOMED Code(s): 202076515 (2) ARF (acute renal failure) Current Visit: Yes Status: Acute Code(s): N17.9 - ACUTE KIDNEY FAILURE, UNSPECIFIED SNOMED Code(s): 33387292 (3) Cholecystitis Current Visit: Yes Status: Acute Code(s): K81.9 - CHOLECYSTITIS, UNSPECIFIED SNOMED Code(s): 21624723 (4) Colitis Current Visit: Yes Status: Acute Code(s): K52.9 - NONINFECTIVE GASTROENTERITIS AND COLITIS, UNSPECIFIED SNOMED Code(s): 65253084 (5) Dehydration Current Visit: Yes Status: Acute Code(s): E86.0 - DEHYDRATION SNOMED Code(s): 04395733 (6) Diarrhea Current Visit: Yes Status: Acute Code(s): R19.7 - DIARRHEA, UNSPECIFIED SNOMED Code(s): 33620918 (7) Hypokalemia Current Visit: Yes Status: Acute Code(s): E87.6 - HYPOKALEMIA SNOMED Code(s): 19972547 (8) COPD exacerbation Current Visit: No Status: Acute Code(s): J44.1 - CHRONIC OBSTRUCTIVE PULMO NARY DISEASE W (ACUTE) EXACERBATION SNOMED Code(s): 616429611 (9) Lung mass Current Visit: No Status: Acute Code(s): R91.8 - OTHER NONSPECIFIC ABNORMAL FINDING OF LUNG FIELD SNOMED Code(s): 417943988 (10) Sepsis Current Visit: Yes Status: Acute Code(s): A41.9 - SEPSIS, UNSPECIFIED ORGANISM SNOMED Code(s): 34056775
[2021-05-11] MEDS: ACETAMINOPHEN TAB 325 MG TAB PO PRN ×3 (01:01→20:50)
[2021-05-11] MEDS ORDERED: LEVOFLOXACIN 750MG-D5W PMX 750 MG in DEXTROSE/WATER 1 150ML.BAG IVPB SCH (05:00)
[2021-05-11] MEDS: PIPERACILLIN-TAZOBACTAM 3.375 GM in SODIUM CHLORIDE 0.9% 100 ML IVPB SCH ×2 (05:45→18:50)
[2021-05-11] MEDS: methylPREDNISolone SOD SUCCI 125 MG/2 ML VIAL IV SCH ×4 (05:45→23:35)
[2021-05-11] MEDS: DEXTROSE 5% IN WATER 1,000 ML with SODIUM BICARB (1 MEQ/ML) 150 ML IV SCH ×3 (05:45→23:35)
[2021-05-11 06:27] LABS: Glucose,Whole Blood 156 mg/dL (75-99)
[2021-05-11] MEDS: INSULIN ASPART (NovoLOG) 100 UNIT/ML VIAL SQ SCH ×4 (06:29→20:42)
[2021-05-11 07:34] LABS: Magnesium 2.2 mg/dL (1.6-2.3); Potassium 3.4 mmol/L (3.5-5.1)
[2021-05-11 07:40] LABS: Calcium 5.9 mg/dL (8.4-10.2)
[2021-05-11] MEDS ORDERED: POTASSIUM CHLORIDE ER 20 MEQ TAB.ER PO STA (08:22)
--- NOTE | 2021-05-11 08:41 | P.PN ---
Subjective Patient is seen in follow-up for acute kidney injury. Renal function a little better. Acidosis slowly improving. Patient remains somewhat confused and agitated. Wants to go home. Vital signs are stable. General: The patient appeared well nourished and normally developed. HEENT: Head exam is unremarkable. Neck is without jugular venous distension. LUNGS: Breath sounds decreased. HEART: Rate and Rhythm are regular. ABDOMEN: Soft, no distention. EXTREMITITES: No edema. Objective - Vital Signs Vital signs: Vital Signs Temp 98.2 F 05/10/21 20:00 Pulse 101 H 05/11/21 08:00 Resp 18 05/11/21 08:00 BP 109/55 05/11/21 08:00 Pulse Ox 97 05/11/21 08:00 Intake & Output 05/10/21 05/11/21 05/11/21 18:59 06:59 18:59 Intake Total 1430 660 Output Total 200 200 Balance 1430 460 -200 Weight 81.647 kg Intake: Intake, IV Titration 900 Amount Dextrose 5% in Water 1, 700 000 ml @ 100 mls/hr IV . [id number] LARA with Sodium Bicarb (1 Meq/ml) 150 ml Rx#:[id number] Levofloxacin 500Mg-D5w 100 Pmx 500 mg In Dextrose/ Water 1 100ml.bag @ 100 mls/hr IVPB Q48H [facility] Rx#: [id number] Piperacillin-Tazobactam 3 100 .375 gm In Sodium Chloride 0.9% 100 ml @ 25 mls/hr IVPB Q12H [facility] Rx# :[id number] Oral 530 660 Output: Urine 200 200 Other: Voiding Method Indwelling Catheter Indwelling Catheter Indwelling Catheter - Labs CBC & Chem 7: 05/10/21 02:37 05/11/21 07:03 Labs: Abnormal Lab Results - Last 24 Hours (Table) 05/10/21 05/10/21 05/11/21 Range/Units 02:37 16:19 06:26 Potassium (3.5-5.1) mmol/L Chloride (98-107) mmol/L Carbon Dioxide (22-30) mmol/L BUN (7-17) mg/dL Creatinine (0.52-1.04) mg/dL Glucose (74-99) mg/dL POC Glucose (mg/dL) 130 H 156 H (75-99) mg/dL Calcium (8.4-10.2) mg/dL Lipase 10 L (23-300) U/L 05/11/21 Range/Units 07:03 Potassium 3.4 L (3.5-5.1) mmol/L Chloride 108 H (98-107) mmol/L Carbon Dioxide 15 L (22-30) mmol/L BUN 56 H (7-17) mg/dL Creatinine 4.35 H (0.52-1.04) mg/dL Glucose 146 H (74-99) mg/dL POC Glucose (mg/dL) (75-99) mg/dL Calcium 5.9 L* (8.4-10.2) mg/dL Lipase (23-300) U/L Microbiology - Last 24 Hours (Table) 05/10/21 05:35 Blood Culture - Preliminary Blood No Growth after 24 hours 05/10/21 05:48 Blood Culture - Preliminary Blood No Growth after 24 hours 05/10/21 02:37 Urine Culture - Preliminary Urine,Catheterized Assessment and Plan Plan: Assessment: 1. Acute kidney injury mostly prerenal from hypovolemia, Lasix and Vasotec. Creatinine 5.17 on admission - 4.35 today. Baseline creatinine from January 2021 was near 1. No hydronephrosis noted on CAT scan. 2. UTI on antibiotics. 3. Metabolic acidosis secondary to acute kidney injury and diarrhea. 4. Hypokalemia from poor intake and Lasix. Also component of intracellular shifting from IV bicarb. 5. Hypomagnesemia from GI losses and diuretics. Replace. Better. 6. Hyperphosphatemia secondary to acute kidney injury. 7. Hypocalcemia secondary to acute kidney injury. Corrected calcium near 7.1. Plan: Maintain bicarb dript 100 mL an hour. Replace potassium. 1 g IV calcium gluconate today. Diuretics and antihypertensives held. Avoid nephrotoxins. Continue to monitor renal function and urine output. Check renal ultrasound.
[2021-05-11] MEDS: IPRATROPIUM-ALBUTEROL 3 ML NEB INHALATION SCH ×3 (08:56→19:48)
[2021-05-11] MEDS ORDERED: CALCIUM GLUCONATE 1 GM in SODIUM CHLORIDE 0.9% 100 ML IVPB ONE (09:00)
--- NOTE | 2021-05-11 11:09 | US ---
EXAMINATION TYPE: US kidneys/renal and bladder DATE OF EXAM: 05/11/2021 COMPARISON: CT 2020 CLINICAL HISTORY: chintan. Exam done portable. EXAM MEASUREMENTS: Right Kidney: 10.4 x 5.4 x 5.5 cm Left Kidney: 10.1 x 6.5 x 4.9 cm Difficult and limited by patient body habitus Right Kidney: No hydronephrosis or masses seen Left Kidney: No hydronephrosis or masses seen Bladder: not distended, armando catheter Bilateral Jets seen: no No nephrolithiasis. IMPRESSION: No acute process.
[2021-05-11 11:35] LABS: Glucose,Whole Blood 187 mg/dL (75-99)
--- NOTE | 2021-05-11 12:22 | P.PN ---
Subjective Progress Note Date: 05/11/21 CHIEF COMPLAINT: Gallstones HISTORY OF PRESENT ILLNESS: The patient is a 65-year-old female with pre-ex isting multiple comorbidities including ischemic cardiomyopathy, abdominal aortic aneurysm, chronic obstructive pulmonary disease, tobacco abuse disorder, hypertensive heart disease who presented to emergency room with generalized weakness nausea and diarrhea. She had incidental finding of distended gallbladder with gallstone along the infundibulum. Patient today seems more confused and confirmed with her nurse. Patient reports she doesn't know how she came to the hospital. Patient denies abdominal pain at this time. REVIEW OF ORGAN SYSTEMS: No fevers or chills. No chest pain. No shortness of breath. PHYSICAL EXAM: VITALS: Reviewed CONSTITUTIONAL: Well developed and in no acute distress. Resting comfortably. EYES: Conjuctivae without sclera icterus. Extraocular movements grossly intact. HEAD, EARS, NOSE, THROAT: Moist buccal mucosa. Head is atraumatic, normocephalic. Hears conversational speech. No nasal drainage. NECK: Supple. No gross JV distention. No gross thyroidomegaly. RESPIRATORY: Non-labored respirations and equal bilateral excursions. No gross wheezes. CARDIOVASCULAR: Palpable 2+ radial pulses. ABDOMEN: Nontender. MUSCULOSKELETAL: Nail and fingers with good capillary refill. SKIN: Warm and well perfused with good skin turgor. NEUROLOGIC: Cranial nerves II through XII grossly intact. Sensation upper and extremities intact. No focal or lateralizing signs. PSYCH: Alert to self. CLINCAL LABS: Reviewed. WBC at presentation over 20,000. Creatinine elevated 5.17 down to 4.35. ASSESSMENT: 1. Hydropic cholecystitis due to gallstones 2. Acute renal failure 3. Sepsis due to unclear etiology 4. Ischemic cardiomyopathy 5. Diarrhea PLAN: 1. She has multiple medical comorbidities including acute renal failure. Management per nephrology. 2. Recommend cardiac risk assessment prior to surgical intervention. Objective - Vital Signs Vital signs: Vital Signs Temp 98.2 F 05/10/21 20:00 Pulse 84 05/11/21 08:56 Resp 18 05/11/21 08:00 BP 109/55 05/11/21 08:00 Pulse Ox 97 05/11/21 08:00 Intake & Output 05/10/21 05/11/21 05/11/21 18:59 06:59 18:59 Intake Total 1430 660 Output Total 200 200 Balance 1430 460 -200 Weight 81.647 kg Intake: Intake, IV Titration 900 Amount Dextrose 5% in Water 1, 700 000 ml @ 100 mls/hr IV . [id number] LARA with Sodium Bicarb (1 Meq/ml) 150 ml Rx#:[id number] Levofloxacin 500Mg-D5w 100 Pmx 500 mg In Dextrose/ Water 1 100ml.bag @ 100 mls/hr IVPB Q48H [facility] Rx#: [id number] Piperacillin-Tazobactam 3 100 .375 gm In Sodium Chloride 0.9% 100 ml @ 25 mls/hr IVPB Q12H [facility] Rx# :[id number] Oral 530 660 Output: Urine 200 200 Other: Voiding Method Indwelling Catheter Indwelling Catheter Indwelling Catheter - Labs CBC & Chem 7: 05/10/21 02:37 05/11/21 07:03 Labs: Abnormal Lab Results - Last 24 Hours (Table) 05/10/21 05/11/21 05/11/21 Range/Units 16:19 06:26 07:03 Potassium 3.4 L (3.5-5.1) mmol/L Chloride 108 H (98-107) mmol/L Carbon Dioxide 15 L (22-30) mmol/L BUN 56 H (7-17) mg/dL Creatinine 4.35 H (0.52-1.04) mg/dL Glucose 146 H (74-99) mg/dL POC Glucose (mg/dL) 130 H 156 H (75-99) mg/dL Calcium 5.9 L* (8.4-10.2) mg/dL Microbiology - Last 24 Hours (Table) 05/10/21 05:35 Blood Culture - Preliminary Blood No Growth after 24 hours 05/10/21 05:48 Blood Culture - Preliminary Blood No Growth after 24 hours 05/10/21 02:37 Urine Culture - Preliminary Urine,Catheterized Assessment and Plan (1) Tobacco abuse disorder Current Visit: Yes Status: Acute Code(s): Z72.0 - TOBACCO USE SNOMED Code(s): 064767806 (2) ARF (acute renal failure) Current Visit: Yes Status: Acute Code(s): N17.9 - ACUTE KIDNEY FAILURE, UNSPECIFIED SNOMED Code(s): 04474589 (3) Cholecystitis Current Visit: Yes Status: Acute Code(s): K81.9 - CHOLECYSTITIS, UNSPECIFIED SNOMED Code(s): 96421191 (4) Colitis Current Visit: Yes Status: Acute Code(s): K52.9 - NONINFECTIVE GASTROENTERITIS AND COLITIS, UNSPECIFIED SNOMED Code(s): 56677156 (5) Dehydration Current Visit: Yes Status: Acute Code(s): E86.0 - DEHYDRATION SNOMED Code(s): 50457966 (6) Diarrhea Current Visit: Yes Status: Acute Code(s): R19.7 - DIARRHEA, UNSPECIFIED SNOMED Code(s): 83450214 (7) Hypokalemia Current Visit: Yes Status: Acute Code(s): E87.6 - HYPOKALEMIA SNOMED Code(s): 46777784 (8) COPD exacerbation Current Visit: No Status: Acute Code(s): J44.1 - CHRONIC OBSTRUCTIVE PULMONARY DISEASE W (ACUTE) EXACERBATION SNOMED Code(s): 072533920 (9) Lung mass Current Visit: No Status: Acute Code(s): R91.8 - OTHER NONSPECIFIC ABNORMAL FINDING OF LUNG FIELD SNOMED Code(s): 435316205 (10) Sepsis Current Visit: Yes Status: Acute Code(s): A41.9 - SEPSIS, UNSPECIFIED ORGANISM SNOMED Code(s): 85327260
--- NOTE | 2021-05-11 14:25 | CDI ---
Documentation Clarification Form Date: 05/11/2021 02:08:59 PM From: Etelvina Fitzpatrick CCS, CCDS Admit Date: 05/10/2021 04:35:00 AM Patient Name: Jeaneth Thorne Visit Number: [id number] Discharge Date: ATTENTION: The Clinical Documentation Specialists (CDI) and [facility] Coding Staff appreciate your assistance in clarifying documentation. Please respond to the clarification below the line at the bottom and electronically sign. The CDI & [facility] Coding staff will review the response and follow-up if needed. Please note: Queries are made part of the Legal Health Record. If you have any questions, please contact the author of this message via ITS. Dr. Uma Wilkins: Altered mental status is documented in the 05/10 ED Note and per the 05/11 Nephrology Progress note the patient remains confused & agitated. Also in the 05/10 H/P: The patient is confused and stuporous. Additional clarification regarding the type of encephalopathy is requested. History/Risk Factors: Asthma, COPD, CVA, TIA, Fibromyalgia, GERD, Hypertension, MO, Hyperlipidemia, Chronic Hypoxic Respiratory Failure on 2Lnc, Frequent UTIs, CAD, AAA, MRSA. Clinical Indicators: Presented to the ED on 05/10 with Weakness, Nausea, Vomiting, Diarrhea, SOB, Confusion, Loss of appetite. ED Clinical Impression: LARISSA, Dehydration, Malnutrition, Hypokalemia, Hypomagnesemia, Acute Exacerbation COPD, Pneumonia, UTI, Altered Mental Status, Cholecystitis and Colitis. 05/10 VS: T 98.1, P 95, R 20, BP 77/60, PO 99 3Lnc, BMI: 30.0 05/10 LAB: WBC 20.8, Pl Ct 673, Neut 14.90, PT 14.1, INR 1.4, k 3.3, Cl 108, CO2 13, BUN 48, Cr 5.17, Gluose 101, Calcium 7.1, Phos 6.5, Mag 1.5, Total Protein 4.9, Albumin 23, Lipase 10 05/10 UA: Dk Yellow, Turbid, 1+ Protein, Small blood, Large Esterase, RBC 8, WBC 26 05/10 CT Brain: Negative Treatment: O2 3-4Lnc, IV fluid 1,000 mls @ 999 mls/hr x2 q1H, IV Zofran, IV Levaquin, IV Zosyn, IV IV fl rate 130 mls/hr q7H, IV Tylenol, INH Duoneb, IV Solumedrol Please further clarify the etiology of the patient's altered mental status & confusion, if known: [ ] Metabolic Encephalopathy [ ] Septic Encephalopathy [ ] Toxic Encephalopathy [ ] Other, please specify [ ] Unable to determine (Template Last Revised: November 2020) Metabolic Encephalopathy MTDD
--- NOTE | 2021-05-11 16:38 | PN ---
PROGRESS NOTE DATE OF SERVICE: 05/11/2021 This 65-year-old woman who was admitted with fever, change in mental status, diarrhea, had possible UTI with sepsis. The patient is confused. Patient on antibiotics. Patient also has relative hypotension. The patient is on bicarb drip at this time. Nephrology and Surgery are following the patient closely. Abdominal and bladder ultrasound showed no acute processes. PAST MEDICAL HISTORY: Reviewed. REVIEW OF SYSTEMS: CARDIOVASCULAR SYSTEM: No angina or palpitations. RESPIRATORY: As mentioned earlier. GI: As mentioned earlier. : No dysuria. NERVOUS SYSTEM: No numbness or weakness. MEDICATIONS: Reviewed and include: DuoNeb, NovoLog, Levaquin, Solu-Medrol and Zosyn. PHYSICAL EXAMINATION: Patient is conscious, confused. Pulse is 90. Blood pressure 109/52, respiration 18, temperature 98.1, pulse ox 94% on 4 L. HEENT: Conjunctivae normal. NECK: No JVD. CARDIOVASCULAR: S1, S2 muffled. RESPIRATORY SYSTEM: Breath sounds diminished at the bases. A few scattered rhonchi and crackles. ABDOMEN: Soft, nontender. LEGS are no edema. No swelling. NERVOUS SYSTEM: No focal deficits. LABS: Creatinine 4.35, sodium 138. Yesterday it was 5.17 and calcium is 5.9. UA noted. Urine culture, gram-negative bacilli. ASSESSMENT: 1. Acute urinary tract infection with sepsis, present on admission. 2. Acute kidney injury with acute renal failure with baseline chronic kidney stage 3. 3. Acute cholelithiasis, rule out cholecystitis. 4. Hypotension, possibly secondary to sepsis as well as hypovolemia. 5. Possible colitis with diffuse colonic wall thickening in the ascending, transverse, and descending colon on the CT scan of the abdomen. 6. Hypokalemia. 7. Metabolic acidosis secondary to worsening renal failure. 8. Hypomagnesemia. 9. Hypoalbuminemia with mild protein calorie malnutrition. 10.Obesity with body mass index of 30. 11.Rule out chronic liver disease. 12.Increased WBC, possibly secondary to sepsis. 13.Increased platelets. 14.Abnormal peripheral smear. 15.History of asthma. 16.Chronic obstructive pulmonary disease. 17.Possible right upper lobe pneumonia possibly chronic lesion. 18.History of cerebrovascular accident, transient ischemic attack. 19.Fibromyalgia. 20.Gastroesophageal reflux disease. 21.Hypertension. 22.Hyperlipidemia. 23.History of memory impairment. 24.History of myocardial infarction. 25.Chronic hypoxic respiratory failure on 2 L nasal cannula at home. 26.Chronic constipation. 27.Chronic back pain. 28.History of recurrent UTIs. 29.Abdominal aortic aneurysm 3.7 cm. 30.History of MRSA. 31.History of back surgery. 32.History of cardiac catheterization. 33.FULL CODE. RECOMMENDATIONS AND DISCUSSION: Continue current medications, symptomatic treatment. Continue the antibiotics. The patient is still confused. The creatinine is still elevated. Continue the bicarb drip. Avoid any antihypertension medications. Patient also had multiple complex other medical issues as listed above. I would recommend continued follow up in the outpatient setting and continue to follow up and repeat labs as well. Otherwise, overall prognosis guarded currently. Follow with Nephrology and surgery and further recommendations will follow. Dr. Samayoa will follow the patient in the morning. MMEVI / DALIAN: [id number] /
[2021-05-11 17:19] LABS: Glucose,Whole Blood 170 mg/dL (75-99)
[2021-05-11 20:17] LABS: Glucose,Whole Blood 139 mg/dL (75-99)
[2021-05-12] MEDS: ACETAMINOPHEN TAB 325 MG TAB PO PRN ×2 (05:17→10:18)
[2021-05-12] MEDS: methylPREDNISolone SOD SUCCI 125 MG/2 ML VIAL IV SCH ×4 (05:17→22:57)
[2021-05-12] MEDS: PIPERACILLIN-TAZOBACTAM 3.375 GM in SODIUM CHLORIDE 0.9% 100 ML IVPB SCH ×2 (05:18→17:00)
[2021-05-12 06:13] LABS: Glucose,Whole Blood 143 mg/dL (75-99)
[2021-05-12] MEDS: INSULIN ASPART (NovoLOG) 100 UNIT/ML VIAL SQ SCH ×4 (06:21→21:05)
--- NOTE | 2021-05-12 08:41 | ECHOF ---
Referral Reason:pre-op MEASUREMENTS -------- HEIGHT: 165.1 cm WEIGHT: 81.6 kg BP: RVIDd: 3.3 cm (< 3.3) IVSd: 1.7 cm (0.6 - 1.1) LVIDd: 3.1 cm (3.9 - 5.3) LVPWd: 1.9 cm (0.6 - 1.1) IVSs: 2.1 cm LVIDs: 1.9 cm LVPWs: 2.4 cm Ao Diam: 3.2 cm (2.0 - 3.7) AV Cusp: 1.8 cm (1.5 - 2.6) LA Diam: 3.4 cm (2.7 - 3.8) MV EXCURSION: 15.965 mm (> 18.000) MV EF SLOPE: 68 mm/s (70 - 150) EPSS: 0.4 cm MV E Alexis: 0.83 m/s MV DecT: 218 ms MV A Alexis: 0.75 m/s MV E/A Ratio: 1.11 AV maxP.48 mmHg AV meanP.81 mmHg RAP: 5.00 mmHg RVSP: 27.57 mmHg FINDINGS -------- This was a technically difficult study with suboptimal views. The left ventricular size is normal. There is severe concentric left ventricular hypertrophy. Ove rall left ventricular systolic function is normal with, an EF between 60 - 65 %. Possible LVOT Obst ruction with a max gradient of 17 mmHg The right ventricle is normal in size. The left atrial size is normal. The right atrial size is normal. Lumason used The aortic valve is trileaflet and appears structurally normal. The mitral valve is normal. Mild mitral regurgitation is present. The tricuspid valve appears structurally normal. Mild tricuspid regurgitation present. Right vent ricular systolic pressure is normal at < 35 mmHg. There is no pulmonic regurgitation present. The aortic root size is normal. IVC Not well visulized. There is no pericardial effusion. CONCLUSIONS -------- 1. The left ventricular size is normal. 2. There is severe concentric left ventricular hypertrophy. 3. Overall left ventricular systolic function is normal with, an EF between 60 - 65 %. 4. Possible LVOT Obstruction with a max gradient of 17 mmHg. 5. Mild mitral regurgitation is present. 6. Mild tricuspid regurgitation present. 7. There is no pericardial effusion. OPERATIONS MGR: Lorrie Gee RDCS
[2021-05-12 08:51] LABS: Magnesium 2.1 mg/dL (1.6-2.3); Potassium 3.2 mmol/L (3.5-5.1)
[2021-05-12 08:57] LABS: Calcium 6.1 mg/dL (8.4-10.2)
[2021-05-12] MEDS ORDERED: LEVOFLOXACIN 500MG-D5W PMX 500 MG in DEXTROSE/WATER 1 100ML.BAG IVPB SCH (09:00)
[2021-05-12] MEDS ORDERED: CALCIUM GLUCONATE 1 GM in SODIUM CHLORIDE 0.9% 100 ML IVPB ONE ×2 (09:12→09:18)
[2021-05-12] MEDS ORDERED: POTASSIUM CHLORIDE ER 20 MEQ TAB.ER PO STA (09:12)
--- NOTE | 2021-05-12 09:13 | P.PN ---
Subjective Patient is seen in follow-up for acute kidney injury. Renal function improving. Acidosis improving as well. On bicarb drip. Patient remains somewhat confused. Oral intake is fair. Vital signs are stable. General: The patient appeared well nourished and normally developed. HEENT: Head exam is unremarkable. Neck is without jugular venous distension. LUNGS: Breath sounds decreased. HEART: Rate and Rhythm are regular. ABDOMEN: Soft, no distention. EXTREMITITES: No edema. Objective - Vital Signs Vital signs: Vital Signs Temp 98.5 F 05/12/21 08:00 Pulse 101 H 05/12/21 08:00 Resp 18 05/12/21 08:00 BP 102/64 05/12/21 08:00 Pulse Ox 95 05/12/21 08:00 Intake & Output 05/11/21 05/12/21 05/12/21 18:59 06:59 18:59 Intake Total 240 480 Output Total 450 725 Balance -210 -245 Intake: Oral 240 480 Output: Urine 450 725 Other: Voiding Method Indwelling Catheter Indwelling Catheter # Voids 1 # Bowel Movements 1 - Labs CBC & Chem 7: 05/10/21 02:37 05/12/21 07:48 Labs: Abnormal Lab Results - Last 24 Hours (Table) 05/11/21 05/11/21 05/11/21 Range/Units 11:33 17:17 20:15 Potassium (3.5-5.1) mmol/L Carbon Dioxide (22-30) mmol/L BUN (7-17) mg/dL Creatinine (0.52-1.04) mg/dL Glucose (74-99) mg/dL POC Glucose (mg/dL) 187 H 170 H 139 H (75-99) mg/dL Calcium (8.4-10.2) mg/dL 05/12/21 05/12/21 Range/Units 06:12 07:48 Potassium 3.2 L (3.5-5.1) mmol/L Carbon Dioxide 20 L (22-30) mmol/L BUN 56 H (7-17) mg/dL Creatinine 3.08 H (0.52-1.04) mg/dL Glucose 123 H (74-99) mg/dL POC Glucose (mg/dL) 143 H (75-99) mg/dL Calcium 6.1 L* (8.4-10.2) mg/dL Microbiology - Last 24 Hours (Table) 05/10/21 05:48 Blood Culture - Preliminary Blood No Growth after 48 hours 05/10/21 05:35 Blood Culture - Preliminary Blood No Growth after 48 hours 05/10/21 02:37 Urine Culture - Preliminary Urine,Catheterized Gram Neg Bacilli Assessment and Plan Plan: Assessment: 1. Acute kidney injury mostly prerenal from hypovolemia, Lasix and Vasotec. Creatinine 5.17 on admission - 3.08 today. Baseline creatinine from January 2021 was near 1. No hydronephrosis noted on CAT scan. 2. UTI on antibiotics. 3. Metabolic acidosis secondary to acute kidney injury and diarrhea. Improving. 4. Hypokalemia from poor intake and Lasix. Also component of intracellular shifting from IV bicarb. 5. Hypomagnesemia from GI losses and diuretics. Replaced. Better. 6. Hyperphosphatemia secondary to acute kidney injury. 7. Hypocalcemia secondary to acute kidney injury. Corrected calcium near 7.5. Plan: Stop bicarb drip. Start normal saline at 75 mL an hour. Add oral bicarbonate. Replace potassium. 1 g IV calcium gluconate today. Diuretics and antihypertensives held. Avoid nephrotoxins. Continue to monitor renal function and urine output.
[2021-05-12] MEDS: IPRATROPIUM-ALBUTEROL 3 ML NEB INHALATION SCH ×3 (09:23→19:31)
[2021-05-12] MEDS: DEXTROSE 5% IN WATER 1,000 ML with SODIUM BICARB (1 MEQ/ML) 150 ML IV SCH (09:35)
[2021-05-12 10:12] LABS: Basophils % (A) 0 %; Eosinophils % (A) 0 %; HGB 11.1 gm/dL (11.4-16.0); Lymphocytes # (A) 0.6 k/uL (1.0-4.8); Lymphocytes % (A) 4 %; MCH 32.3 pg (25.0-35.0); MCHC 34.6 g/dL (31.0-37.0); MCV 93.4 fL (80.0-100.0); Mean Platelet Volume 8.6; Monocytes # (A) 0.2 k/uL (0-1.0); Monocytes % (A) 1 %; Neutrophils % (A) 95 %; Platelet Count 502 k/uL (150-450); Poikilocytosis Slight; RBC 3.43 m/uL (3.80-5.40); RDW 14.3 % (11.5-15.5); WBC 15.9 k/uL (3.8-10.6)
[2021-05-12] MEDS: SODIUM BICARBONATE TAB 650 MG TAB PO SCH ×3 (10:14→21:05)
[2021-05-12] MEDS: SODIUM CHLORIDE 0.9% 1,000 ML IV SCH ×2 (10:15→21:05)
--- NOTE | 2021-05-12 11:56 | P.CRDCN ---
History of Present Illness History of present illness: HISTORY OF PRESENTING ILLNESS This is a pleasant 65-year-old female past medical history significant for COPD, hypertension, dyslipidemia, peripheral vascular disease and chronic n icotine dependence. She follows in the office with Dr. Barnes. We have been asked to see in consultation for operative evaluation. She presented to the hospital with symptoms of nausea and diarrhea and has been diagnosed with cholecystitis and scheduled to undergo robotic cholecystectomy later this week. The patient is extremely agitated and confused upon entering the room. She has no idea what surgery she is supposed to have or why she is in the hospital. She denies symptoms of chest pain, shortness of breath, dizziness or palpitations. EKG on admission revealed sinus mechanism heart rate of 94 chest x-ray reveals right upper lobe infiltrate not significantly different from previous exam, demonstrated by previous CT scans up to 4 years ago. Echocardiogram obtained on this admission reveals preserved LV systolic function with ejection fraction 60- 65% with a possible LVOT obstruction with a max gradient of 17 mmHg, mild MR and mild TR. Patient previously had a Lexiscan stress test April 2020 that revealed no evidence of reversibility. Laboratory data reviewed, WBC 15.9, hem oglobin 11.1, platelets 502, sodium 140, potassium 3.2, creatinine 3.08, magnesium 2.1, troponin negative 2. Current cardiac medications include aspirin 81 mg daily, atorvastatin 80 mg daily, enalapril 20 mg daily, Lasix 40 mg daily, Imdur 30 mg daily, Toprol 50 mg daily and daily potassium supple mentation. REVIEW OF SYSTEMS At the time of my exam: CONSTITUTIONAL: Denies fever or chills. CARDIOVASCULAR: Denies chest pain, shortness of breath, orthopnea, PND or palpitations. RESPIRATORY: Denies cough. GASTROINTESTINAL: Denies abdominal pain, diarrhea, constipation, nausea or vomiting. MUSCULOSKELETAL: Denies myalgias. NEUROLOGIC: Denies numbness, tingling, headache or weakness. ENDOCRINE: Denies fatigue, weight change, polydipsia or polyurina. GENITOURINARY: Denies burning, hematuria or urgency with micturation. HEMATOLOGIC: Denies history of anemia or bleeding. PHYSICAL EXAMINATION Blood pressure 102/64 heart rate 88 afebrile and maintaining oxygen saturation on nasal cannula. CONSTITUTIONAL: No apparent distress. HEENT: Head is normocephalic. Pupils are equal, round. Sclerae anicteric. Mucous membranes of the mouth are moist. No JVD. No carotid bruit. CHEST EXAMINATION: Expiratory wheezes throughout, no rales or rhonchi. No chest wall tenderness is noted on palpation or with deep breathing. HEART EXAMINATION: Regular rate and rhythm. S1, S2 heard. No murmurs, gallops or rub. ABDOMEN: Soft, nontender. EXTREMITIES: 2+ peripheral pulses, no lower extremity edema and no calf tenderness. NEUROLOGIC EXAMINATION: Patient is awake, alert and oriented x3. ASSESSMENT Cholecystitis Leukocytosis Hypokalemia Hypocalcemia Acute kidney injury Hypertension Dyslipidemia Peripheral vascular disease COPD Chronic nicotine dependence Altered mental status PLAN The patient has no previously documented history of cardiomyopathy. Clinically the patient is euvolemic and having no symptoms of angina. Recent normal stress test in the office. From a cardiac perspective there is no acute contraindications to undergo surgical intervention. She is elevated risk due multiple comorbid conditions. Thank you kindly for this consultation. Nurse Practitioner note has been reviewed, I agree with a documented findings and plan of care. Patient was seen and examined. Past Medical History Past Medical History: Asthma, COPD, CVA/TIA, Fibromyalgia, GERD/Reflux, Hyperlipidemia, Hypertension, Memory Impairment, Myocardial Infarction (CA), Respiratory Disorder Additional Past Medical History / Comment(s): COPD, chronic hypoxic respiratory failure and the patient has been maintained on oxygen at 2 L/m nasal cannula, chronic constipation, Chronic back pain, frequent urinary tract infections, .had a pne and shingle vaccine but does'nt know the dates and dr office , hypertension, coronary artery disease, chronic back pain, abdominal aortic aneurysm measuring 3.7 cm, previous history of MRSA infection of the feet him a chronic back pain and 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 Last Myocardial Infarction Date:: 1999 History of Any Multi-Drug Resistant Organisms: MRSA Date of last positivie culture/infection: 02/07 MDRO Source:: linda feet Past Surgical History: Adenoidectomy, Back Surgery, Heart Catheterization, Joint Replacement, Orthopedic Surgery, Tonsillectomy, Tubal Ligation Additional Past Surgical History / Comment(s): bilateral hip replacements, had 2 sx on lt and 3 sx on rt., neck fusion with plate ,linda cataracts, Past Anesthesia/Blood Transfusion Reactions: No Reported Reaction Smoking Status: Current every day smoker - Past Family History Father History Unknown: Yes Mother Family Medical History: Congestive Heart Failure (CHF), COPD Medications and Allergies Home Medications Medication Instructions Recorded Confirmed Type Enalapril [Vasotec] 20 mg PO DAILY 12/26/14 05/10/21 History Isosorbide Mononitrate [Isosorbide 30 mg PO DAILY 12/26/14 05/10/21 History Mononitrate ER] Omeprazole 20 mg PO BID 12/26/14 05/10/21 History Temazepam [Restoril] 30 mg PO HS 12/26/14 05/10/21 History Loratadine [Claritin] 10 mg PO DAILY 08/14/16 05/10/21 History Cyclobenzaprine [Flexeril] 10 mg PO BID 10/10/19 05/10/21 History EPINEPHrine (Auto Inject) [Epipen] 0.3 mg IM ONCE PRN 10/10/19 05/10/21 History Estrogen,Con/M-Progest Acet 1 tab PO DAILY 10/10/19 05/10/21 History [Prempro 0.625-5 mg Tablet] Fluticasone Nasal Cornelius [Flonase 2 sprays EA NOSTRIL DAILY 10/10/19 05/10/21 His tory Nasal Cornelius] Furosemide [Lasix] 40 mg PO DAILY 10/10/19 05/10/21 History Ibuprofen [Motrin] 800 mg PO TID PRN 10/10/19 05/10/21 History Montelukast [Singulair] 10 mg PO DAILY 10/10/19 05/10/21 History Nitroglycerin Sl Tabs [Nitrostat] 0.4 mg SUBLINGUAL Q5M PRN 10/10/19 05/10/21 History Potassium Chloride ER [K-Dur 10] 10 meq PO DAILY 10/10/19 05/10/21 History busPIRone HCL 15 mg PO BID 10/10/19 05/10/21 History Atorvastatin [Lipitor] 80 mg PO DAILY 02/12/21 05/10/21 History HYDROcodone/APAP 10-325MG [[place] 1 tab PO Q6HR PRN 02/12/21 05/10/21 History 10-325] Aspirin EC [Ecotrin Low Dose] 81 mg PO DAILY 02/19/21 05/10/21 History Gabapentin 900 mg PO TID 02/19/21 05/10/21 History Ipratropium-Albuterol Nebulize 3 ml INHALATION RT-Q6H PRN 02/19/21 05/10/21 H istory [Duoneb 0.5 mg-3 mg/3 ml Soln] Metoprolol Succinate [Toprol XL] 50 mg PO DAILY 02/19/21 05/10/21 History Mirabegron [Myrbetriq] 25 mg PO DAILY 02/19/21 05/10/21 History Nystatin 100,000 Unit/gm Powd 1 applic TOPICAL BID 02/19/21 05/10/21 History [Mycostatin Powder] Varenicline [Chantix Continuing 1 mg PO BID 02/19/21 05/10/21 History Pack] traMADol HCL 50 mg PO QID PRN 02/19/21 05/10/21 History Allergies Allergy/AdvReac Type Severity Reaction Status Date / Time adhesive Allergy Rash/Hives Verified 05/10/21 14:04 adhesive tape Allergy Rash/Hives Verified 05/10/21 14:04 chocolate flavor Allergy Anaphylaxis Verified 05/10/21 14:04 diphenhydramine HCl Allergy Unknown Verified 05/10/21 14:04 [From Benadryl] grass pollen-perennial rye, Allergy Unknown Verified 05/10/21 14:04 standar [grass poll-perennial rye,std] hydromorphone HCl Allergy Unknown Verified 05/10/21 14:04 [From Dilaudid] mold Allergy Unknown Verified 05/10/21 14:04 venom-honey bee Allergy Anaphylaxis Verified 05/10/21 14:04 [bee venom (honey bee)] dust Allergy Unknown Uncoded 05/10/21 02:09 nuts Allergy Anaphylaxis Uncoded 05/10/21 02:09 tape Allergy Rash/Hives Uncoded 05/10/21 02:09 Physical Exam Vitals: Vital Signs Temp Pulse Pulse Resp BP Pulse Ox 05/12/21 04:00 91 18 124/73 95 05/12/21 00:00 100 18 119/70 96 05/11/21 20:02 91 05/11/21 20:00 97.9 F 106 H 18 102/63 96 05/11/21 19:51 90 05/11/21 16:00 97.8 F 68 18 106/50 94 L 05/11/21 14:00 18 109/52 94 L 05/11/21 13:22 90 05/11/21 13:09 92 05/11/21 12:00 98.1 F 66 18 80/54 93 L 05/11/21 09:20 88 05/11/21 08:56 84 Intake and Output 05/11/21 05/12/21 05/12/21 22:59 06:59 14:59 Intake Total 720 Output Total 725 Balance 720 -725 Intake: Oral 720 Output: Urine 725 Other: Voiding Method Indwelling Catheter # Voids 1 # Bowel Movements 1 Results 05/12/21 07:48 05/12/21 07:48 Current Medications Generic Name Dose Route Start Last Admin Trade Name Freq PRN Reason Stop Dose Admin Acetaminophen 650 mg 05/10/21 17:28 05/12/21 05:17 Acetaminophen Tab 325 Mg Tab PO 650 mg Q6HR PRN Administration Fever and/ or Pain Albuterol/Ipratropium 3 ml 05/10/21 08:00 05/11/21 19:48 Ipratropium-Albuterol 3 Ml Neb INHALATION 3 ml RT-TID LARA Administration Albuterol/Ipratropium 3 ml 05/10/21 04:58 Ipratropium-Albuterol 3 Ml Neb INHALATION RT-Q2H PRN Shortness Of Breath Or Wheezing Sodium Bicarbonate 150 ml/ 1,150 mls @ 100 mls/hr 05/10/21 09:00 05/11/21 23:35 Dextrose/Water IV 100 mls/hr .[id number] LARA Administration Levofloxacin 500 mg/ IV 100 mls @ 100 mls/hr 05/12/21 09:00 Solution IVPB Q48H LARA Piperacillin Sod/Tazobactam 100 mls @ 25 mls/hr 05/10/21 18:00 05/12/21 05:18 Sod 3.375 gm/ Sodium Chloride IVPB 25 mls/hr Q12H LARA Administration Insulin Aspart 0 unit 05/11/21 07:30 05/12/21 06:21 Insulin Aspart (Novolog) 100 Unit/Ml Vial SQ Not Given ACHS LARA Protocol Methylprednisolone Sodium Succinate 60 mg 05/10/21 06:00 05/12/21 05:17 Methylprednisolone Sod Succi 125 Mg/2 Ml Vial IV 60 mg Q6HR LARA Administration Intake and Output 05/11/21 05/12/21 05/12/21 22:59 06:59 14:59 Intake Total 720 Output Total 725 Balance 720 -725 Intake: Oral 720 Output: Urine 725 Other: Voiding Method Indwelling Catheter # Voids 1 # Bowel Movements 1 05/10/21 02:37 05/11/21 07:03
[2021-05-12 12:03] LABS: Glucose,Whole Blood 145 mg/dL (75-99)
[2021-05-12 16:50] LABS: Glucose,Whole Blood 113 mg/dL (75-99)
[2021-05-12] MEDS: MORPHINE SULFATE 2 MG/ML SYRINGE IVP PRN ×2 (16:59→21:06)
--- NOTE | 2021-05-12 18:00 | P.PN ---
Subjective Progress Note Date: 05/12/21 Principal diagnosis: Acute urinary tract infection present on admission Acute kidney injury with acute renal failure with baseline kidney disease of stage III Acute cholecystitis 65-year-old female presented to the hospital with significant medical history of asthma, COPD, CVA/TIA, fibromyalgia, GERD/reflux, hyperlipidemia, history of stage III kidney disease, memory impairment, history of myocardial infarction, chronic respiratory failure, 2 L nasal cannula at home, chronic urinary tract infections, abdominal aortic aneurysm measuring 3.7 cm, history of MRSA, history of cardiac catheterizations, and several comorbidities. Patient had extensive diagnostic workup in the emergency department revealing a UTI, hospital community-acquired pneumonia, acute kidney injury with a creatinine of 5, fever and change in mental status. Throughout patient's hospital stay CT abdomen and pelvis was performed with impression dilated gallbladder with gallstones and suggestion of acute cholecystitis. Consultants on board to the patient's multi comorbidities and complexity of of illnesses. 05/12/2021 Seen and examined at bedside. Patient resting comfortably in bed. Patient e ndorsing shortness of breath, exertional dyspnea, abdominal pain, nausea, and diarrhea. Patient has significant acute kidney injury patient has improved with bicarbonate drip and creatinine has decreased from 5-3, patient has known history of stage III kidney disease. In-depth conversation with patient regarding surgical intervention for acute cholecystitis. Patient agreeable to surgical interventions. Vital signs and diagnostic testing reviewed Objective - Vital Signs Vital signs: Vital Signs Temp 98.2 F 05/12/21 15:40 Pulse 103 H 05/12/21 15:40 Resp 17 05/12/21 15:40 BP 121/70 05/12/21 15:40 Pulse Ox 97 05/12/21 15:40 Intake & Output 05/11/21 05/12/21 05/12/21 18:59 06:59 18:59 Intake Total 240 480 480 Output Total 450 725 500 Balance -210 -245 -20 Intake: Oral 240 480 480 Output: Urine 450 725 500 Other: Voiding Method Indwelling Catheter Indwelling Catheter Indwelling Catheter # Voids 1 # Bowel Movements 1 4 - Constitutional General appearance: Present: mild distress - EENT Eyes: Present: EOMI, PERRLA ENT: Present: hard of hearing Ears: bilateral: normal - Neck Neck: Present: normal ROM Carotids: bilateral: upstroke normal Thyroid: bilateral: normal size - Respiratory Respiratory: bilateral: diminished (Anterior and posterior lung harmon) - Cardiovascular Heart rate: 94 Rhythm: regular Heart sounds: normal: S1, S2 - Peripheral pulses radial pulse Peripheral Pulses: bilateral: Normal dorsalis pedis Peripheral Pulses: bilateral: Normal - Gastrointestinal General gastrointestinal: Present: hyperactive bowel sounds - Integumentary Integumentary: Present: decreased turgor, pale - Neurologic Neurologic: Present: CNII-XII intact - Musculoskeletal Musculoskeletal: Present: generalized weakness - Psychiatric Psychiatric: Present: A&O x's 3 - Allied health notes Allied health notes reviewed: nursing - Labs CBC & Chem 7: 05/12/21 07:48 05/12/21 07:48 Labs: Abnormal Lab Results - Last 24 Hours (Table) 05/11/21 05/12/21 05/12/21 Range/Units 20:15 06:12 07:48 WBC (3.8-10.6) k/uL RBC (3.80-5.40) m/uL Hgb (11.4-16.0) gm/dL Hct (34.0-46.0) % Plt Count (150-450) k/uL Neutrophils # (1.3-7.7) k/uL Lymphocytes # (1.0-4.8) k/uL Potassium 3.2 L (3.5-5.1) mmol/L Carbon Dioxide 20 L (22-30) mmol/L BUN 56 H (7-17) mg/dL Creatinine 3.08 H (0.52-1.04) mg/dL Glucose 123 H (74-99) mg/dL POC Glucose (mg/dL) 139 H 143 H (75-99) mg/dL Calcium 6.1 L* (8.4-10.2) mg/dL 05/12/21 05/12/21 05/12/21 Range/Units 07:48 11:51 16:49 WBC 15.9 H (3.8-10.6) k/uL RBC 3.43 L (3.80-5.40) m/uL Hgb 11.1 L (11.4-16.0) gm/dL Hct 32.0 L (34.0-46.0) % Plt Count 502 H (150-450) k/uL Neutrophils # 15.0 H (1.3-7.7) k/uL Lymphocytes # 0.6 L (1.0-4.8) k/uL Potassium (3.5-5.1) mmol/L Carbon Dioxide (22-30) mmol/L BUN (7-17) mg/dL Creatinine (0.52-1.04) mg/dL Glucose (74-99) mg/dL POC Glucose (mg/dL) 145 H 113 H (75-99) mg/dL Calcium (8.4-10.2) mg/dL Microbiology - Last 24 Hours (Table) 05/10/21 02:37 Urine Culture - Final Urine,Catheterized Escherichia coli 05/10/21 05:48 Blood Culture - Preliminary Blood No Growth after 48 hours 05/10/21 05:35 Blood Culture - Preliminary Blood No Growth after 48 hours Assessment and Plan Assessment: Acute urinary tract infection with sepsis, present on admission Acute injury with acute renal failure with baseline chronic kidney disease stage III Acute cholecystitis Leukocytosis Possible colitis Hypokalemia Hypo-magnesium Metabolic acidosis secondary to acute kidney injury History of asthma COPD Possible right upper lobe pneumonia History of cerebrovascular accident/TIA Fibromyalgia GERD/reflux Hypertension Dyslipidemia History of memory impairment History of myocardial infarction Chronic hypoxic respiratory failure-dependent on 2 L of nasal cannula Back back pain Abdominal aortic aneurysm measuring 3.7 cm History of MRSA History of remote recent cardiac catheterization Full code Plan: Acute urinary tract infection continue IV antibiotics Acute kidney injury with acute renal failure continue IV fluids and continue to trend, avoid nephrotoxic medications Acute cholecystitis, continue broad-spectrum IV antibiotics and consultation with surgery Continue home medications Continue medical management Continue to monitor vital signs and diagnostic testing Further recommendations to come based on patient's clinical condition Time with Patient: Greater than 30
[2021-05-12 20:12] LABS: Glucose,Whole Blood 158 mg/dL (75-99)
[2021-05-12] MEDS ORDERED: TEMAZEPAM 30 MG CAP PO SCH (21:15)
[2021-05-12] MEDS: TEMAZEPAM 15 MG CAP PO SCH (22:57)
[2021-05-13] MEDS: MORPHINE SULFATE 2 MG/ML SYRINGE IVP PRN ×4 (03:26→20:29)
[2021-05-13] MEDS: SODIUM CHLORIDE 0.9% 1,000 ML IV SCH ×2 (04:25→20:30)
[2021-05-13 05:58] LABS: Glucose,Whole Blood 167 mg/dL (75-99)
[2021-05-13] MEDS: methylPREDNISolone SOD SUCCI 125 MG/2 ML VIAL IV SCH ×4 (06:05→22:57)
[2021-05-13] MEDS: ACETAMINOPHEN TAB 325 MG TAB PO PRN ×3 (06:05→23:04)
[2021-05-13] MEDS: PIPERACILLIN-TAZOBACTAM 3.375 GM in SODIUM CHLORIDE 0.9% 100 ML IVPB SCH ×3 (06:06→21:29)
[2021-05-13] MEDS: INSULIN ASPART (NovoLOG) 100 UNIT/ML VIAL SQ SCH ×4 (06:06→20:29)
[2021-05-13] MEDS: IPRATROPIUM-ALBUTEROL 3 ML NEB INHALATION SCH ×4 (07:45→19:38)
--- NOTE | 2021-05-13 08:11 | XR ---
EXAMINATION TYPE: XR chest 1V portable DATE OF EXAM: 05/13/2021 HISTORY: Shortness of breath. COMPARISON: 05/10/2021 TECHNIQUE: Single view of the chest is submitted. FINDINGS: Demonstrated are scattered senescent parenchymal change. There is no evidence for focal infiltrate. The heart is stable. Hilar and mediastinal structures are within normal limits. Degenerative changes are seen of the dorsal spine. IMPRESSION: 1. Chronic changes without evidence for acute pulmonary disease.
[2021-05-13] MEDS: METOPROLOL SUCCINATE (ER) 50 MG TAB.ER.24H PO SCH (09:07)
[2021-05-13] MEDS: FLUTICASONE 50MCG/SPRAY NASAL 16GM EA NOSTRIL SCH (09:07)
[2021-05-13] MEDS: ASPIRIN 81 MG PO SCH (09:07)
[2021-05-13] MEDS: MONTELUKAST 10 MG TAB PO SCH (09:08)
[2021-05-13] MEDS: ATORVASTATIN 80 MG TAB PO SCH (09:08)
[2021-05-13] MEDS: SODIUM BICARBONATE TAB 650 MG TAB PO SCH ×3 (09:08→20:29)
[2021-05-13 10:33] LABS: HCT 33.1 % (34.0-46.0); HGB 11.1 gm/dL (11.4-16.0); MCH 31.7 pg (25.0-35.0); MCHC 33.6 g/dL (31.0-37.0); MCV 94.3 fL (80.0-100.0); Mean Platelet Volume 7.6; Platelet Count 568 k/uL (150-450); Poikilocytosis Slight; RBC 3.51 m/uL (3.80-5.40); RDW 14.8 % (11.5-15.5); WBC 10.8 k/uL (3.8-10.6)
[2021-05-13 10:40] LABS: Albumin 2.5 g/dL (3.5-5.0); Calcium 6.6 mg/dL (8.4-10.2); Total Bilirubin 0.2 mg/dL (0.2-1.3); Total Protein 4.8 g/dL (6.3-8.2)
[2021-05-13 11:56] LABS: Glucose,Whole Blood 239 mg/dL (75-99)
[2021-05-13] MEDS ORDERED: Potassium Replacement Protocol 1 EACH MISC MISCELLANE PRN (12:20)
[2021-05-13] MEDS: POTASSIUM CHLORIDE ER 20 MEQ TAB.ER PO SCH ×2 (12:39→15:00)
[2021-05-13] MEDS ORDERED: CALCIUM GLUCONATE 1 GM in SODIUM CHLORIDE 0.9% 100 ML IVPB ONE (13:24)
[2021-05-13 13:41] LABS: Band Neutrophils % 2 %; Lymphocytes # (M) 0.86 k/uL (1.0-4.8); Metamyelocytes # (M) 0.22 k/uL (0); Metamyelocytes % 2 %; Monocytes # (M) 0.32 k/uL (0-1.0); Myelocytes # (M) 0.32 k/uL (0); Myelocytes % 3 %; Neutrophils % (M) 84 %; Nucleated Red Blood Cells 0 /100 WBC (0-0); Total Cells Counted 200
--- NOTE | 2021-05-13 16:39 | PN ---
PROGRESS NOTE Patient is seen for followup for acute kidney injury. She is status post bicarb drip, maintained on IV fluids. Serum creatinine has improved, down to 1.89 from 5.1. EXAMINATION: Today blood pressure was 138/53 heart rate 120 per minute, she is afebrile. Examination of the heart S1, S2. Examination of the lungs, decreased breath sounds at the bases. Abdomen is soft, nontender. Examination of lower extremities shows edema. TOWER SUPERVISOR exam is intact. LAB: Show hemoglobin 11.1, sodium 142, potassium 3.0, chloride 110, CO2 20, BUN 50, creatinine 1.89.. ASSESSMENT: 1. Acute kidney injury, currently improved, nonoliguric, mostly from hypovolemia, diuretics and CAROL inhibitor. No evidence of obstruction on CAT scan. 2. Urinary tract infection, maintained on antibiotics. 3. Metabolic acidosis associated with renal failure and diarrhea, now improved. 4. Hypokalemia being replaced. 5. Hypomagnesemia from gastrointestinal losses. 6. Hypocalcemia associated with renal failure, corrected calcium has been around 7.5. PLAN: Encourage increased oral intake. Decrease IV fluids tomorrow if the patient is eating well. MMODL / IJN: [id number] /
[2021-05-13 16:51] LABS: Glucose,Whole Blood 131 mg/dL (75-99)
--- NOTE | 2021-05-13 18:31 | P.PN ---
Subjective Progress Note Date: 05/13/21 Principal diagnosis: Acute urinary tract infection present on admission Acute kidney injury with acute renal failure with baseline kidney disease of stage III Acute cholecystitis 65-year-old female presented to the hospital with significant medical history of asthma, COPD, CVA/TIA, fibromyalgia, GERD/reflux, hyperlipidemia, history of stage III kidney disease, memory impairment, history of myocardial infarction, chronic respiratory failure, 2 L nasal cannula at home, chronic urinary tract infections, abdominal aortic aneurysm measuring 3.7 cm, history of MRSA, history of cardiac catheterizations, and several comorbidities. Patient had extensive diagnostic workup in the emergency department revealing a UTI, hospital community-acquired pneumonia, acute kidney injury with a creatinine of 5, fever and change in mental status. Throughout patient's hospital stay CT abdomen and pelvis was performed with impression dilated gallbladder with gallstones and suggestion of acute cholecystitis. Consultants on board to the patient's multi comorbidities and complexity of of illnesses. 05/12/2021 Seen and examined at bedside. Patient resting comfortably in bed. Patient e ndorsing shortness of breath, exertional dyspnea, abdominal pain, nausea, and diarrhea. Patient has significant acute kidney injury patient has improved with bicarbonate drip and creatinine has decreased from 5-3, patient has known history of stage III kidney disease. In-depth conversation with patient regarding surgical intervention for acute cholecystitis. Patient agreeable to surgical interventions. Vital signs and diagnostic testing reviewed 05/13/2021 Patient seen and examined at bedside. Patient resting comfortably in bed. Patient endorsing shortness of breath, exertional dyspnea, abdominal pain, nausea and intermittent diarrhea. Patient's kidney function has improved to stage III kidney disease at baseline. Patient has been transitioned to oral corticosteroids for COPD. Awaiting recommendations are surgery from surgical team regarding possible acute cholecystitis. Patient in no acute signs of distress Objective - Vital Signs Vital signs: Vital Signs Temp 98.1 F 05/13/21 16:00 Pulse 98 05/13/21 16:11 Resp 17 05/13/21 16:00 BP 124/73 05/13/21 16:00 Pulse Ox 94 L 05/13/21 16:00 Intake & Output 05/12/21 05/13/21 05/13/21 18:59 06:59 18:59 Intake Total 315 159 8708 Output Total 800 650 700 Balance -200 -410 1225 Weight 86 kg Intake: Intake, IV Titration 725 Amount Calcium Gluconate 1 gm In 100 Sodium Chloride 0.9% 100 ml @ 100 mls/hr IVPB ONCE ONE Rx#:[id number] Piperacillin-Tazobactam 3 100 .375 gm In Sodium Chloride 0.9% 100 ml @ 25 mls/hr IVPB Q8HR@0600, 1400,2200 [facility] Rx#: [id number] Sodium Chloride 0.9% 1, 525 000 ml @ 75 mls/hr IV . [id number] [facility] Rx#:[id number] Oral 853 323 5078 Output: Urine 800 650 700 Other: Voiding Method Indwelling Catheter Indwelling Catheter Indwelling Catheter # Voids 1 # Bowel Movements 1 - Constitutional General appearance: Present: mild distress - EENT Eyes: Present: EOMI, PERRLA ENT: Present: normal oropharynx Ears: bilateral: normal - Neck Neck: Present: normal ROM Carotids: bilateral: upstroke normal Thyroid: bilateral: normal size - Respiratory Respiratory: bilateral: diminished (Anterior and posterior lung harmon) - Cardiovascular Heart rate: 94 Rhythm: regular Heart sounds: normal: S1, S2 - Peripheral pulses radial pulse Peripheral Pulses: bilateral: Normal dorsalis pedis Peripheral Pulses: bilateral: Normal - Gastrointestinal General gastrointestinal: Present: normal bowel sounds, soft - Integumentary Integumentary: Present: pale - Neurologic Neurologic: Present: CNII-XII intact - Musculoskeletal Musculoskeletal: Present: generalized weakness - Psychiatric Psychiatric: Present: A&O x's 3 - Allied health notes Allied health notes reviewed: nursing - Labs CBC & Chem 7: 05/13/21 09:58 05/13/21 09:58 Labs: Abnormal Lab Results - Last 24 Hours (Table) 05/12/21 05/13/21 05/13/21 Range/Units 20:10 05:56 09:58 WBC (3.8-10.6) k/uL RBC (3.80-5.40) m/uL Hgb (11.4-16.0) gm/dL Hct (34.0-46.0) % Plt Count (150-450) k/uL Neutrophils # (Manual) (1.3-7.7) k/uL Lymphocytes # (Manual) (1.0-4.8) k/uL Metamyelocytes # (Man) (0) k/uL Myelocytes # (Manual) (0) k/uL Potassium 3.0 L (3.5-5.1) mmol/L Chloride 110 H (98-107) mmol/L Carbon Dioxide 20 L (22-30) mmol/L BUN 50 H (7-17) mg/dL Creatinine 1.89 H (0.52-1.04) mg/dL Glucose 248 H (74-99) mg/dL POC Glucose (mg/dL) 158 H 167 H (75-99) mg/dL Calcium 6.6 L (8.4-10.2) mg/dL Total Protein 4.8 L (6.3-8.2) g/dL Albumin 2.5 L (3.5-5.0) g/dL 05/13/21 05/13/21 05/13/21 Range/Units 09:58 11:53 16:49 WBC 10.8 H (3.8-10.6) k/uL RBC 3.51 L (3.80-5.40) m/uL Hgb 11.1 L (11.4-16.0) gm/dL Hct 33.1 L (34.0-46.0) % Plt Count 568 H (150-450) k/uL Neutrophils # (Manual) 9.20 H (1.3-7.7) k/uL Lymphocytes # (Manual) 0.86 L (1.0-4.8) k/uL Metamyelocytes # (Man) 0.22 H (0) k/uL Myelocytes # (Manual) 0.32 H (0) k/uL Potassium (3.5-5.1) mmol/L Chloride (98-107) mmol/L Carbon Dioxide (22-30) mmol/L BUN (7-17) mg/dL Creatinine (0.52-1.04) mg/dL Glucose (74-99) mg/dL POC Glucose (mg/dL) 239 H 131 H (75-99) mg/dL Calcium (8.4-10.2) mg/dL Total Protein (6.3-8.2) g/dL Albumin (3.5-5.0) g/dL Microbiology - Last 24 Hours (Table) 05/10/21 05:35 Blood Culture - Preliminary Blood No Growth after 72 hours 05/10/21 05:48 Blood Culture - Preliminary Blood No Growth after 72 hours - Imaging and Cardiology Chest x-ray: report reviewed Assessment and Plan Assessment: Acute urinary tract infection with sepsis, present on admission Acute injury with acute renal failure with baseline chronic kidney disease stage III Acute cholecystitis Leukocytosis Possible colitis Hypokalemia Hypo-magnesium Metabolic acidosis secondary to acute kidney injury History of asthma COPD Possible right upper lobe pneumonia History of cerebrovascular accident/TIA Fibromyalgia GERD/reflux Hypertension Dyslipidemia History of memory impairment History of myocardial infarction Chronic hypoxic respiratory failure-dependent on 2 L of nasal cannula Back back pain Abdominal aortic aneurysm measuring 3.7 cm History of MRSA History of remote recent cardiac catheterization Full code Plan: Acute urinary tract infection continue IV antibiotics Acute kidney injury with acute renal failure continue IV fluids and continue to trend, avoid nephrotoxic medications Acute cholecystitis, continue broad-spectrum IV antibiotics and consultation with surgery Continue home medications Continue medical management Continue to monitor vital signs and diagnostic testing Further recommendations to come based on patient's clinical condition Awaiting on surgery for recommendations for acute cholecystitis; patient medically stable for surgery Time with Patient: Greater than 30
[2021-05-13 20:05] LABS: Glucose,Whole Blood 261 mg/dL (75-99)
[2021-05-13] MEDS: CYCLOBENZAPRINE 10 MG TAB PO SCH (20:29)
[2021-05-13] MEDS: busPIRone HCl 5 MG TAB PO SCH (20:29)
--- NOTE | 2021-05-13 22:38 | P.PN ---
Subjective Progress Note Date: 05/13/21 CHIEF COMPLAINT: Gallstones HISTORY OF PRESENT ILLNESS: The patient is a 65-year-old female with multiple comorbidities including ischemic cardiomyopathy, abdominal aortic aneurysm, chronic obstructive pulmonary disease, tobacco abuse disorder, hypertensive heart disease who presents with incidental finding of gallstones: Hydrops of the gallbladder. She is tolerating a low-fat diet. She has intermittent confusion. Patient at this time denies any abdominal pain. Per discussion with nursing, patient does complain of right upper quadrant abdominal pain. REVIEW OF ORGAN SYSTEMS: No fevers or chills. No chest pain. No shortness of breath. PHYSICAL EXAM: VITALS: Reviewed CONSTITUTIONAL: Well developed and in no acute distress. Resting comfortably. EYES: Conjuctivae without sclera icterus. Extraocular movements grossly intact. HEAD, EARS, NOSE, THROAT: Moist buccal mucosa. Head is atraumatic, normocephalic. Hears conversational speech. No nasal drainage. NECK: Supple. No gross JV distention. No gross thyroidomegaly. RESPIRATORY: Non-labored respirations and equal bilateral excursions. No gross wheezes. CARDIOVASCULAR: Palpable 2+ radial pulses. ABDOMEN: No peritonitis MUSCULOSKELETAL: No clubbing cyanosis or edema SKIN: Warm and well perfused with good skin turgor. NEUROLOGIC: Cranial nerves II through XII grossly intact. Sensation upper and extremities intact. No focal or lateralizing signs. PSYCH: Alert to self. CLINCAL LABS: Reviewed. WBC at presentation over 20,000, now over 10,000. Creatinine elevated 5.17 down to 1.89. ECHO: Review with ejection fraction over 60-65% without aortic stenosis or pulmonary hypertension. ASSESSMENT: 1. Hydropic cholecystitis due to gallstones 2. Acute renal failure 3. Sepsis due to unclear etiology 4. Ischemic cardiomyopathy 5. Diarrhea PLAN: 1. Patient is still very hesitant about surgery. Additionally, patient is high risk due to multiple comorbidities. We'll obtain additional studies with HIDA scan to exclude acute cholecystitis. Objective - Vital Signs Vital signs: Vital Signs Temp 97.7 F 05/13/21 20:00 Pulse 95 05/13/21 20:00 Resp 20 05/13/21 20:00 BP 157/72 05/13/21 20:00 Pulse Ox 98 05/13/21 20:00 Intake & Output 05/13/21 05/13/2105/14/21 06:59 18:59 06:59 Intake Total 240 2405 240 Output Total 650 700 200 Balance -410 1705 40 Weight 86 kg Intake: Intake, IV Titration 725 Amount Calcium Gluconate 1 gm In 100 Sodium Chloride 0.9% 100 ml @ 100 mls/hr IVPB ONCE ONE Rx#:[id number] Piperacillin-Tazobactam 3 100 .375 gm In Sodium Chloride 0.9% 100 ml @ 25 mls/hr IVPB Q8HR@0600, 1400,2200 [facility] Rx#: [id number] Sodium Chloride 0.9% 1, 525 000 ml @ 75 mls/hr IV . [id number] [facility] Rx#:[id number] Oral 240 1680 240 Output: Urine 650 700 200 Other: Voiding Method Indwelling Catheter Indwelling Catheter Indwelling Catheter # Voids 1 # Bowel Movements 1 - Labs CBC & Chem 7: 05/13/21 09:58 05/13/21 09:58 Labs: Abnormal Lab Results - Last 24 Hours (Table) 05/13/21 05/13/21 05/13/21 Range/Units 05:56 09:58 09:58 WBC 10.8 H (3.8-10.6) k/uL RBC 3.51 L (3.80-5.40) m/uL Hgb 11.1 L (11.4-16.0) gm/dL Hct 33.1 L (34.0-46.0) % Plt Count 568 H (150-450) k/uL Neutrophils # (Manual) 9.20 H (1.3-7.7) k/uL Lymphocytes # (Manual) 0.86 L (1.0-4.8) k/uL Metamyelocytes # (Man) 0.22 H (0) k/uL Myelocytes # (Manual) 0.32 H (0) k/uL Potassium 3.0 L (3.5-5.1) mmol/L Chloride 110 H (98-107) mmol/L Carbon Dioxide 20 L (22-30) mmol/L BUN 50 H (7-17) mg/dL Creatinine 1.89 H (0.52-1.04) mg/dL Glucose 248 H (74-99) mg/dL POC Glucose (mg/dL) 167 H (75-99) mg/dL Calcium 6.6 L (8.4-10.2) mg/dL Total Protein 4.8 L (6.3-8.2) g/dL Albumin 2.5 L (3.5-5.0) g/dL 05/13/21 05/13/21 05/13/21 Range/Units 11:53 16:49 20:03 WBC (3.8-10.6) k/uL RBC (3.80-5.40) m/uL Hgb (11.4-16.0) gm/dL Hct (34.0-46.0) % Plt Count (150-450) k/uL Neutrophils # (Manual) (1.3-7.7) k/uL Lymphocytes # (Manual) (1.0-4.8) k/uL Metamyelocytes # (Man) (0) k/uL Myelocytes # (Manual) (0) k/uL Potassium (3.5-5.1) mmol/L Chloride (98-107) mmol/L Carbon Dioxide (22-30) mmol/L BUN (7-17) mg/dL Creatinine (0.52-1.04) mg/dL Glucose (74-99) mg/dL POC Glucose (mg/dL) 239 H 131 H 261 H (75-99) mg/dL Calcium (8.4-10.2) mg/dL Total Protein (6.3-8.2) g/dL Albumin (3.5-5.0) g/dL Microbiology - Last 24 Hours (Table) 05/10/21 05:35 Blood Culture - Preliminary Blood No Growth after 72 hours 05/10/21 05:48 Blood Culture - Preliminary Blood No Growth after 72 hours Assessment and Plan (1) Tobacco abuse disorder Current Visit: Yes Status: Acute Code(s): Z72.0 - TOBACCO USE SNOMED Code(s): 908072934 (2) ARF (acute renal failure) Current Visit: Yes Status: Acute Code(s): N17.9 - ACUTE KIDNEY FAILURE, UNSPECIFIED SNOMED Code(s): 47419780 (3) Cholecystitis Current Visit: Yes Status: Acute Code(s): K81.9 - CHOLECYSTITIS, UNSPECIFIED SNOMED Code(s): 42705824 (4) Colitis Current Visit: Yes Status: Acute Code(s): K52.9 - NONINFECTIVE GASTROENTERITIS AND COLITIS, UNSPECIFIED SNOMED Code(s): 72673348 (5) Dehydration Current Visit: Yes Status: Acute Code(s): E86.0 - DEHYDRATION SNOMED Code(s): 79731723 (6) Diarrhea Current Visit: Yes Status: Acute Code(s): R19.7 - DIARRHEA, UNSPECIFIED SNOMED Code(s): 45151388 (7) Hypokalemia Current Visit: Yes Status: Acute Code(s): E87.6 - HYPOKALEMIA SNOMED Code(s): 82193918 (8) COPD exacerbation Current Visit: No Status: Acute Code(s): J44.1 - CHRONIC OBSTRUCTIVE PULM ONARY DISEASE W (ACUTE) EXACERBATION SNOMED Code(s): 137693277 (9) Lung mass Current Visit: No Status: Acute Code(s): R91.8 - OTHER NONSPECIFIC ABNORMAL FINDING OF LUNG FIELD SNOMED Code(s): 959622957 (10) Sepsis Current Visit: Yes Status: Acute Code(s): A41.9 - SEPSIS, UNSPECIFIED ORGANISM SNOMED Code(s): 30447940
[2021-05-13] MEDS: TEMAZEPAM 15 MG CAP PO SCH (22:56)
[2021-05-14] MEDS: ACETAMINOPHEN TAB 325 MG TAB PO PRN ×2 (04:07→22:35)
[2021-05-14 06:14] LABS: Glucose,Whole Blood 158 mg/dL (75-99)
[2021-05-14] MEDS: methylPREDNISolone SOD SUCCI 125 MG/2 ML VIAL IV SCH (06:30)
[2021-05-14] MEDS: PIPERACILLIN-TAZOBACTAM 3.375 GM in SODIUM CHLORIDE 0.9% 100 ML IVPB SCH ×3 (06:30→21:09)
[2021-05-14] MEDS: INSULIN ASPART (NovoLOG) 100 UNIT/ML VIAL SQ SCH ×4 (06:30→21:02)
[2021-05-14] MEDS: SODIUM CHLORIDE 0.9% 1,000 ML IV SCH (06:31)
[2021-05-14] MEDS: IPRATROPIUM-ALBUTEROL 3 ML NEB INHALATION SCH ×4 (07:49→20:25)
--- NOTE | 2021-05-14 08:45 | NM ---
EXAMINATION TYPE: NM hepatobiliary wo EF DATE OF EXAM: 05/14/2021 COMPARISON: Ultrasound 05/10/2021 HISTORY: 65-year-old female with cholecystitis TECHNIQUE: After the intravenous administration of 4.8 mCi Tc 99m Mebrofenin hepatobiliary scintigrap hy is performed. Immediate images post injection. FINDINGS: Patient refused further imaging snf to the exam at the 30 minute time point. There is initial sat isfactory uptake of tracer by the liver. Bowel activity is seen at 6 minutes. There is no gallbladder visualized at the 30 minute time point. IMPRESSION: The patient discontinued the exam at the 30 minute time point (snf through the exam). No gallblad teagan visualized by this time. Acute cholecystitis remains in the differential but this exam is nondiag nostic.
[2021-05-14] MEDS: MORPHINE SULFATE 2 MG/ML SYRINGE IVP PRN ×3 (08:52→21:08)
[2021-05-14] MEDS: MONTELUKAST 10 MG TAB PO SCH (08:52)
[2021-05-14] MEDS: METOPROLOL SUCCINATE (ER) 50 MG TAB.ER.24H PO SCH (08:52)
[2021-05-14] MEDS: ATORVASTATIN 80 MG TAB PO SCH (08:52)
[2021-05-14] MEDS: SODIUM BICARBONATE TAB 650 MG TAB PO SCH (08:52)
[2021-05-14] MEDS: ASPIRIN 81 MG PO SCH (08:52)
[2021-05-14] MEDS: busPIRone HCl 5 MG TAB PO SCH ×2 (08:52→21:08)
[2021-05-14] MEDS: CYCLOBENZAPRINE 10 MG TAB PO SCH ×2 (08:52→21:09)
[2021-05-14] MEDS: FLUTICASONE 50MCG/SPRAY NASAL 16GM EA NOSTRIL SCH (08:53)
[2021-05-14 10:43] LABS: Albumin 2.4 g/dL (3.5-5.0); Calcium 7.2 mg/dL (8.4-10.2); Magnesium 2.1 mg/dL (1.6-2.3); Potassium 3.9 mmol/L (3.5-5.1); Total Bilirubin 0.3 mg/dL (0.2-1.3); Total Protein 4.7 g/dL (6.3-8.2)
[2021-05-14] MEDS ORDERED: FUROSEMIDE 10 MG/ML 2 ML VIAL IV ONE (11:06)
[2021-05-14 11:30] LABS: Glucose,Whole Blood 114 mg/dL (75-99)
[2021-05-14 11:40] LABS: HCT 33.3 % (34.0-46.0); HGB 10.5 gm/dL (11.4-16.0); MCH 30.9 pg (25.0-35.0); MCHC 31.7 g/dL (31.0-37.0); MCV 97.6 fL (80.0-100.0); Mean Platelet Volume 7.9; Platelet Count 542 k/uL (150-450); Poikilocytosis Slight; RBC 3.41 m/uL (3.80-5.40); RDW 14.9 % (11.5-15.5); WBC 17.3 k/uL (3.8-10.6)
[2021-05-14] MEDS ORDERED: LORazepam 2 MG/ML INJ IV STA (14:09)
[2021-05-14 14:52] LABS: Band Neutrophils % 4 %; Eosinophils # (M) 0.17 k/uL (0-0.7); Lymphocytes # (M) 1.04 k/uL (1.0-4.8); Metamyelocytes # (M) 0.35 k/uL (0); Metamyelocytes % 2 %; Monocytes # (M) 0.69 k/uL (0-1.0); Myelocytes # (M) 0.69 k/uL (0); Myelocytes % 4 %; Neutrophils % (M) 81 %; Nucleated Red Blood Cells 0 /100 WBC (0-0); Total Cells Counted 200
[2021-05-14] MEDS ORDERED: POLYETHYLENE GLYCOL LYTES SOLN 4,000 ML SOLN.RECON PO ONE (15:50)
--- NOTE | 2021-05-14 16:39 | PN ---
PROGRESS NOTE Patient is seen for followup for acute kidney injury. Her renal function has improved, with creatinine down to 1.4 from 5.1. The patient is maintained on IV fluids. Overall she denies any significant complaints, states she is feeling better. The patient was also acidotic and currently maintained on oral sodium bicarb. PHYSICAL EXAMINATION: On examination today, blood pressure was 133/97, heart rate 88 per minute. Patient is afebrile. EXAMINATION OF THE HEART: S1 and S2. EXAMINATION OF LUNGS: Bilateral breath sounds are heard. Decreased breath sounds at the bases. ABDOMEN: Soft, nontender. LOWER EXTREMITIES: Examination of lower extremities trace edema bilaterally. SSN/SSBN ASSISTANT NAVIGATOR EXAM: Grossly intact. LABS: Labs show sodium 143, potassium 3.9, chloride 112, BUN 37, creatinine 1.47, hemoglobin 10.5 g/dL. ASSESSMENT: 1. Acute kidney injury, currently improved, nonoliguric, mostly from hypovolemia on initial admission. Currently patient is hypervolemic. I will discontinue the IV fluids. 2. Urinary tract infection, maintained on antibiotics. 3. Metabolic acidosis associated with renal failure and diarrhea, now improved. 4. Hypokalemia; being replaced. 5. Hypomagnesemia from gastrointestinal fluid losses, status post replacement. 6. Volume overload. PLAN: Discontinue IV fluids. Lasix 20 mg IV push x1. Repeat labs in a.m. Continue to avoid nephrotoxic agents. May need to continue with IV diuretics, depending on her volume status. MMODL / IJN: [id number] /
[2021-05-14 16:41] LABS: Glucose,Whole Blood 211 mg/dL (75-99)
--- NOTE | 2021-05-14 18:03 | P.PN ---
Subjective Progress Note Date: 05/14/21 Principal diagnosis: Acute urinary tract infection present on admission Acute kidney injury with acute renal failure with baseline kidney disease of stage III Acute cholecystitis 65-year-old female presented to the hospital with significant medical history of asthma, COPD, CVA/TIA, fibromyalgia, GERD/reflux, hyperlipidemia, history of stage III kidney disease, memory impairment, history of myocardial infarction, chronic respiratory failure, 2 L nasal cannula at home, chronic urinary tract infections, abdominal aortic aneurysm measuring 3.7 cm, history of MRSA, history of cardiac catheterizations, and several comorbidities. Patient had extensive diagnostic workup in the emergency department revealing a UTI, hospital community-acquired pneumonia, acute kidney injury with a creatinine of 5, fever and change in mental status. Throughout patient's hospital stay CT abdomen and pelvis was performed with impression dilated gallbladder with gallstones and suggestion of acute cholecystitis. Consultants on board to the patient's multi comorbidities and complexity of of illnesses. 05/12/2021 Seen and examined at bedside. Patient resting comfortably in bed. Patient e ndorsing shortness of breath, exertional dyspnea, abdominal pain, nausea, and diarrhea. Patient has significant acute kidney injury patient has improved with bicarbonate drip and creatinine has decreased from 5-3, patient has known history of stage III kidney disease. In-depth conversation with patient regarding surgical intervention for acute cholecystitis. Patient agreeable to surgical interventions. Vital signs and diagnostic testing reviewed 05/13/2021 Patient seen and examined at bedside. Patient resting comfortably in bed. Patient endorsing shortness of breath, exertional dyspnea, abdominal pain, nausea and intermittent diarrhea. Patient's kidney function has improved to stage III kidney disease at baseline. Patient has been transitioned to oral corticosteroids for COPD. Awaiting recommendations are surgery from surgical team regarding possible acute cholecystitis. Patient in no acute signs of distress 05/14/2021 Patient seen and examined at bedside. Patient resting comfortably in bed. Patient continues to endorse shortness of breath, exertional shortness of breat h, abdominal pain, nausea, and anxiety. Patient kidney function has improved to baseline stage III kidney disease. Patient's breathing has improved with corticosteroids and [id number] DuoNeb's. Patient was unable to tolerate HIDA scan, deferred to surgery for treatment options. Patient to undergo upper and lower GI tomorrow for episode of bright red blood in stool. Vital signs and diagnostic testing reviewed. Patient in no acute signs of distress. Objective - Vital Signs Vital signs: Vital Signs Temp 98.0 F 05/14/21 15:19 Pulse 94 05/14/21 16:09 Resp 18 05/14/21 15:19 BP 138/84 05/14/21 15:19 Pulse Ox 97 05/14/21 15:19 Intake & Output 05/13/21 05/14/21 05/14/21 18:59 06:59 18:59 Intake Total 2405 480 180 Output Total 700 600 500 Balance 1705 -120 -320 Weight 88 kg Intake: Intake, IV Titration 725 Amount Calcium Gluconate 1 gm In 100 Sodium Chloride 0.9% 100 ml @ 100 mls/hr IVPB ONCE ONE Rx#:[id number] Piperacillin-Tazobactam 3 100 .375 gm In Sodium Chloride 0.9% 100 ml @ 25 mls/hr IVPB Q8HR@0600, 1400,2200 [facility] Rx#: [id number] Sodium Chloride 0.9% 1, 525 000 ml @ 75 mls/hr IV . [id number] [facility] Rx#:[id number] Oral 1680 480 180 Output: Urine 700 600 500 Other: Voiding Method Indwelling Catheter Indwelling Catheter Indwelling Catheter # Voids 1 # Bowel Movements 1 1 - Constitutional General appearance: Present: mild distress, obese - EENT Eyes: Present: EOMI, PERRLA ENT: Present: hard of hearing, normal oropharynx - Neck Neck: Present: normal ROM Carotids: bilateral: upstroke normal Thyroid: bilateral: normal size - Respiratory Respiratory: bilateral: diminished (Anterior and posterior lung harmon) - Cardiovascular Heart rate: 65 Rhythm: regular Heart sounds: normal: S1, S2 - Peripheral pulses radial pulse Peripheral Pulses: bilateral: Normal dorsalis pedis Peripheral Pulses: bilateral: Normal - Gastrointestinal General gastrointestinal: Present: soft, tenderness Localized gastrointestinal: tender: diffuse - Integumentary Integumentary: Present: decreased turgor, pale - Neurologic Neurologic: Present: CNII-XII intact - Musculoskeletal Musculoskeletal: Present: gait normal - Psychiatric Psychiatric: Present: A&O x's 3 - Allied health notes Allied health notes reviewed: nursing - Labs CBC & Chem 7: 05/14/21 09:54 05/14/21 09:54 Labs: Abnormal Lab Results - Last 24 Hours (Table) 05/13/21 05/14/21 05/14/21 Range/Units 20:03 06:13 09:54 WBC 17.3 H (3.8-10.6) k/uL RBC 3.41 L (3.80-5.40) m/uL Hgb 10.5 L (11.4-16.0) gm/dL Hct 33.3 L (34.0-46.0) % Plt Count 542 H (150-450) k/uL Neutrophils # (Manual) 14.70 H (1.3-7.7) k/uL Metamyelocytes # (Man) 0.35 H (0) k/uL Myelocytes # (Manual) 0.69 H (0) k/uL Chloride (98-107) mmol/L BUN (7-17) mg/dL Creatinine (0.52-1.04) mg/dL Glucose (74-99) mg/dL POC Glucose (mg/dL) 261 H 158 H (75-99) mg/dL Calcium (8.4-10.2) mg/dL Total Protein (6.3-8.2) g/dL Albumin (3.5-5.0) g/dL 05/14/21 05/14/21 05/14/21 Range/Units 09:54 11:27 16:40 WBC (3.8-10.6) k/uL RBC (3.80-5.40) m/uL Hgb (11.4-16.0) gm/dL Hct (34.0-46.0) % Plt Count (150-450) k/uL Neutrophils # (Manual) (1.3-7.7) k/uL Metamyelocytes # (Man) (0) k/uL Myelocytes # (Manual) (0) k/uL Chloride 112 H (98-107) mmol/L BUN 37 H (7-17) mg/dL Creatinine 1.47 H (0.52-1.04) mg/dL Glucose 115 H (74-99) mg/dL POC Glucose (mg/dL) 114 H 211 H (75-99) mg/dL Calcium 7.2 L (8.4-10.2) mg/dL Total Protein 4.7 L (6.3-8.2) g/dL Albumin 2.4 L (3.5-5.0) g/dL Microbiology - Last 24 Hours (Table) 05/10/21 05:48 Blood Culture - Preliminary Blood No Growth after 96 hours 05/10/21 05:35 Blood Culture - Preliminary Blood No Growth after 96 hours Assessment and Plan Assessment: Acute urinary tract infection with sepsis, present on admission Acute injury with acute renal failure with baseline chronic kidney disease stage III Acute cholecystitis Leukocytosis Possible colitis Hypokalemia Hypo-magnesium Metabolic acidosis secondary to acute kidney injury History of asthma COPD Possible right upper lobe pneumonia History of cerebrovascular accident/TIA Fibromyalgia GERD/reflux Hypertension Dyslipidemia History of memory impairment History of myocardial infarction Chronic hypoxic respiratory failure-dependent on 2 L of nasal cannula Back back pain Abdominal aortic aneurysm measuring 3.7 cm History of MRSA History of remote recent cardiac catheterization Full code Plan: Acute urinary tract infection continue IV antibiotics Acute kidney injury with acute renal failure continue IV fluids and continue to trend, avoid nephrotoxic medications Acute cholecystitis, continue broad-spectrum IV antibiotics and consultation with surgery Episode of bright red stools, consultation with general surgery for upper and lo wer GI. Continue home medications Continue medical management Continue to monitor vital signs and diagnostic testing Further recommendations to come based on patient's clinical condition Time with Patient: Greater than 30
[2021-05-14 20:04] LABS: Glucose,Whole Blood 142 mg/dL (75-99)
[2021-05-14] MEDS: predniSONE 20 MG TAB PO SCH (21:09)
--- NOTE | 2021-05-14 21:14 | P.PN ---
Subjective Progress Note Date: 05/14/21 CHIEF COMPLAINT: Gallstones HISTORY OF PRESENT ILLNESS: The patient is a 65-year-old female with multiple comorbidities including ischemic cardiomyopathy, abdominal aortic aneurysm, chronic obstructive pulmonary disease, tobacco abuse disorder, hypertensive heart disease who presented with incidental finding of gallstones. Per discussion with nursing, patient could not tolerate her HIDA and her procedure was aborted. I was notified by her nurse that the patient had epigastric abdominal pain with blood in stools. Patient reports that she could not tolerate laying on a table due to her pain in her hips. Additionally, she reports hemorrhoids as a cause of her rectal bleeding. She refused any further procedures or surgeries and wanted to eat and go home. "I don't want anything done." Patient signs all of her own consents and refuses any further surgical care. REVIEW OF ORGAN SYSTEMS: No fevers or chills. No chest pain. No shortness of breath. PHYSICAL EXAM: VITALS: Reviewed CONSTITUTIONAL: Well developed. EYES: Conjuctivae without sclera icterus. Extraocular movements grossly int act. HEAD, EARS, NOSE, THROAT: Moist buccal mucosa. Head is atraumatic, normocephalic. Hears conversational speech. No nasal drainage. NECK: Supple. No gross JV distention. No gross thyroidomegaly. RESPIRATORY: Non-labored respirations and equal bilateral excursions. No gross wheezes. CARDIOVASCULAR: Palpable 2+ radial pulses. ABDOMEN: Mild epigastric tenderness. No peritonitis. MUSCULOSKELETAL: No clubbing cyanosis or edema SKIN: Warm and well perfused with good skin turgor. NEUROLOGIC: Cranial nerves II through XII grossly intact. Sensation upper and extremities intact. No focal or lateralizing signs. PSYCH: Alert to self. CLINCAL LABS: Reviewed. WBC at presentation over 20,000 now 17,000, up from over 10,000 yesterday. Hgb down from 11.1 to 10.5. STUDIES: HIDA scan reviewed with visualization of the small bowel. Gallbladder not visualized. Study non-diagnostic less than 30 minutes. ASSESSMENT: 1. Gallstones 2. Acute renal failure 3. Sepsis due to unclear etiology 4. Ischemic cardiomyopathy 5. Diarrhea 6. GI bleed, new PLAN: 1. Patient has refused all procedures including further work-up of her gallbladder or acute GI bleed. Per patient request, all procedures are cancelled as patients refuses consent. 2. Any additional management may be differed to GI for endoscopies as patient refuses surgical treatment. 3. Management of cholecystitis may be done with antibiotics. Objective - Vital Signs Vital signs: Vital Signs Temp 98.0 F 05/14/21 15:19 Pulse 112 H 05/14/21 20:25 Resp 18 05/14/21 15:19 BP 138/84 05/14/21 15:19 Pulse Ox 97 05/14/21 15:19 Intake & Output 05/14/21 05/14/21 05/15/21 06:59 18:59 06:59 Intake Total 480 180 Output Total 600 2100 Balance -120 -1920 Weight 88 kg Intake: Oral 480 180 Output: Urine 600 2100 Other: Voiding Method Indwelling Catheter Indwelling Catheter # Bowel Movements 1 1 - Labs CBC & Chem 7: 05/14/21 09:54 05/14/21 09:54 Labs: Abnormal Lab Results - Last 24 Hours (Table) 05/14/21 05/14/21 05/14/21 Range/Units 06:13 09:54 09:54 WBC 17.3 H (3.8-10.6) k/uL RBC 3.41 L (3.80-5.40) m/uL Hgb 10.5 L (11.4-16.0) gm/dL Hct 33.3 L (34.0-46.0) % Plt Count 542 H (150-450) k/uL Neutrophils # (Manual) 14.70 H (1.3-7.7) k/uL Metamyelocytes # (Man) 0.35 H (0) k/uL Myelocytes # (Manual) 0.69 H (0) k/uL Chloride 112 H (98-107) mmol/L BUN 37 H (7-17) mg/dL Creatinine 1.47 H (0.52-1.04) mg/dL Glucose 115 H (74-99) mg/dL POC Glucose (mg/dL) 158 H (75-99) mg/dL Calcium 7.2 L (8.4-10.2) mg/dL Total Protein 4.7 L (6.3-8.2) g/dL Albumin 2.4 L (3.5-5.0) g/dL 05/14/21 05/14/21 05/14/21 Range/Units 11:27 16:40 20:03 WBC (3.8-10.6) k/uL RBC (3.80-5.40) m/uL Hgb (11.4-16.0) gm/dL Hct (34.0-46.0) % Plt Count (150-450) k/uL Neutrophils # (Manual) (1.3-7.7) k/uL Metamyelocytes # (Man) (0) k/uL Myelocytes # (Manual) (0) k/uL Chloride (98-107) mmol/L BUN (7-17) mg/dL Creatinine (0.52-1.04) mg/dL Glucose (74-99) mg/dL POC Glucose (mg/dL) 114 H 211 H 142 H (75-99) mg/dL Calcium (8.4-10.2) mg/dL Total Protein (6.3-8.2) g/dL Albumin (3.5-5.0) g/dL Microbiology - Last 24 Hours (Table) 05/10/21 05:48 Blood Culture - Preliminary Blood No Growth after 96 hours 05/10/21 05:35 Blood Culture - Preliminary Blood No Growth after 96 hours Assessment and Plan (1) Tobacco abuse disorder Current Visit: Yes Status: Acute Code(s): Z72.0 - TOBACCO USE SNOMED Code(s): 735835304 (2) ARF (acute renal failure) Current Visit: Yes Status: Acute Code(s): N17.9 - ACUTE KIDNEY FAILURE, UNSPECIFIED SNOMED Code(s): 15334225 (3) Cholecystitis Current Visit: Yes Status: Acute Code(s): K81.9 - CHOLECYSTITIS, UNSPECIFIED SNOMED Code(s): 79392604 (4) Colitis Current Visit: Yes Status: Acute Code(s): K52.9 - NONINFECTIVE GASTROENTERITIS AND COLITIS, UNSPECIFIED SNOMED Code(s): 03333969 (5) Dehydration Current Visit: Yes Status: Acute Code(s): E86.0 - DEHYDRATION SNOMED Code(s): 52154411 (6) Diarrhea Current Visit: Yes Status: Acute Code(s): R19.7 - DIARRHEA, UNSPECIFIED SNOMED Code(s): 40799452 (7) Hypokalemia Current Visit: Yes Status: Acute Code(s): E87.6 - HYPOKALEMIA SNOMED Code(s): 59386277 (8) COPD exacerbation Current Visit: No Status: Acute Code(s): J44.1 - CHRONIC OBSTRUCTIVE PULMONARY DISEASE W (ACUTE) EXACERBATION SNOMED Code(s): 712259964 (9) Lung mass Current Visit: No Status: Acute Code(s): R91.8 - OTHER NONSPECIFIC ABNORMAL FINDING OF LUNG FIELD SNOMED Code(s): 266896934 (10) Sepsis Current Visit: Yes Status: Acute Code(s): A41.9 - SEPSIS, UNSPECIFIED ORGANISM SNOMED Code(s): 74893478
--- NOTE | 2021-05-14 21:16 | P.PN ---
Progress Note - Text Progress Note Date: 05/14/[address] Samayoa's office that patient is agreeable for scopes after eating. Upper endoscopy and lower endoscopy re-scheduled for tomorrow. Cholecystitis may be treated with antibiotics as patient declined surgical treatment.
[2021-05-14] MEDS: LORazepam 0.5 MG TAB PO PRN (21:19)
[2021-05-15] MEDS: MORPHINE SULFATE 2 MG/ML SYRINGE IVP PRN ×2 (03:35→18:10)
[2021-05-15] MEDS: LORazepam 0.5 MG TAB PO PRN (05:01)
[2021-05-15] MEDS: PIPERACILLIN-TAZOBACTAM 3.375 GM in SODIUM CHLORIDE 0.9% 100 ML IVPB SCH ×3 (05:07→21:26)
[2021-05-15 05:48] LABS: HCT 30.3 % (34.0-46.0); Hypochromasia Slight; MCH 31.2 pg (25.0-35.0); MCHC 32.9 g/dL (31.0-37.0); MCV 94.8 fL (80.0-100.0); Mean Platelet Volume 8.6; Platelet Count 514 k/uL (150-450); Poikilocytosis Slight; RBC 3.19 m/uL (3.80-5.40); RDW 14.7 % (11.5-15.5)
[2021-05-15 05:57] LABS: Albumin 2.4 g/dL (3.5-5.0); Calcium 7.2 mg/dL (8.4-10.2); Magnesium 1.9 mg/dL (1.6-2.3); Total Bilirubin 0.5 mg/dL (0.2-1.3); Total Protein 4.7 g/dL (6.3-8.2)
[2021-05-15] MEDS: POTASSIUM CHLORIDE ER 20 MEQ TAB.ER PO SCH ×6 (06:10→18:12)
[2021-05-15 06:17] LABS: Glucose,Whole Blood 127 mg/dL (75-99)
[2021-05-15] MEDS: INSULIN ASPART (NovoLOG) 100 UNIT/ML VIAL SQ SCH ×4 (06:22→21:26)
[2021-05-15] MEDS ORDERED: Magnesium Replacement Protocol 1 EACH MISC MISCELLANE PRN (06:39)
[2021-05-15] MEDS: MAGNESIUM SULFATE-D5W PMX 1 GM in DEXTROSE/WATER 1 100ML.BAG IVPB SCH ×2 (06:48→10:10)
[2021-05-15] MEDS: IPRATROPIUM-ALBUTEROL 3 ML NEB INHALATION SCH ×4 (07:07→19:30)
--- NOTE | 2021-05-15 07:33 | XR ---
EXAMINATION TYPE: XR chest 2V DATE OF EXAM: 05/15/2021 COMPARISON: Chest x-ray from [address] February 20, 2021 HISTORY: Shortness of breath TECHNIQUE: Frontal and lateral views of the chest are obtained. FINDINGS: Stable posterior right upper lung nodule suspected on lateral view There is no suspicious f ocal air space opacity, pleural effusion, or pneumothorax seen. The cardiac silhouette size remains within normal limits. Metallic disc material lower cervical spine redemonstrated. IMPRESSION: No acute cardiopulmonary process. No significant change from most recent prior
--- NOTE | 2021-05-15 07:46 | P.DS ---
Providers Date of admission: 05/10/21 04:35 Expected date of discharge: 05/15/21 (AGAINST MEDICAL ADVICE) Attending physician: Geovani Samayoa Consults: 05/10/21 04:51 Consult Physician Routine Consulting Provider: Fabiola Cuellar Consult Reason/Comments: arf Do you want consulting provider notified?: Yes 05/10/21 06:36 Consult Physician Routine Consulting Provider: Yee Smith Consult Reason/Comments: donna Do you want consulting provider notified?: Yes 05/11/21 12:22 Consult Physician Routine Consulting Provider: Devonte Le Consult Reason/Comments: cardiac clearance for surgery Do you want consulting provider notified?: Yes Primary care physician: Geovani Samayoa Hospital Course: 65-year-old female presented to the hospital with significant medical history of asthma, COPD, CVA/TIA, fibromyalgia, GERD/reflux, hyperlipidemia, history of stage III kidney disease, memory impairment, history of myocardial infarction, chronic respiratory failure, 2 L nasal cannula at home, chronic urinary tract infections, abdominal aortic aneurysm measuring 3.7 cm, history of MRSA, history of cardiac catheterizations, and several comorbidities. Patient had extensive diagnostic workup in the emergency department revealing a UTI, hospital community-acquired pneumonia, acute kidney injury with a creatinine of 5, fever and change in mental status. Throughout patient's hospital stay CT abdomen and pelvis was performed with impression dilated gallbladder with gallstones and suggestion of acute cholecystitis. Several consultants followed the patient's case due to multiple comorbidities and illness. Patient's kidney function improved to baseline of kidney disease stage III, patient had episodes of bright red blood in stool, recommendation was for upper and lower GI, patient refuses adamantly to have scopes done. Patient was scheduled for a cholecystectomy, patient refused to have surgical intervention. Patient was counseled with lengthy discussion regarding acute cholecystitis with need of cholecystectomy, GI bleed with upper and lower GI scope, acute on chronic kidney disease with subsequent continue to trend kidney function and avoid nephrotoxic drugs, COPD the need for corticosteroids and breathing treatments and continued monitoring; patient refused continue medical treatment plan, adamant on leaving AGAINST MEDICAL ADVICE, nursing staff at bedside when explaining to patient the risk of leaving AGAINST MEDICAL ADVICE could lead to permanent disability or . Assessment: Acute urinary tract infection with sepsis, present on admission Acute injury with acute renal failure with baseline chronic kidney disease stage III Acute cholecystitis Leukocytosis Possible colitis Hypokalemia Hypo-magnesium Possible gastrointestinal bleeding Metabolic acidosis secondary to acute kidney injury History of asthma COPD Possible right upper lobe pneumonia History of cerebrovascular accident/TIA Fibromyalgia GERD/reflux Hypertension Dyslipidemia History of memory impairment History of myocardial infarction Chronic hypoxic respiratory failure-dependent on 2 L of nasal cannula Back back pain Abdominal aortic aneurysm measuring 3.7 cm History of MRSA History of remote recent cardiac catheterization DO NOT RESUSCITATE Final diagnoses Acute urinary tract infection with sepsis present on admission, was treated with broad-spectrum antibiotics Acute kidney injury with acute renal failure with baseline chronic kidney disease stage III, improved with avoiding nephrotoxic drugs and IV hydration Acute cholecystitis, was treated with Zosyn and Levaquin, refused surgical intervention Leukocytosis possibly due to sepsis Hypokalemia, was corrected with potassium replacement protocol Hypomagnesemia, was corrected with magnesium replacement protocol Chronic obstructive pulmonary disorder, was treated with corticosteroids and qwydgj-kzd-woliw breathing treatments Possible gastrointestinal bleeding avoided antiplatelets, was scheduled for upper and lower GI patient adamantly refused Metabolic acidosis secondary to acute kidney injury improved with IV hydration and avoidance of nephrotoxic drugs Right upper lobe pneumonia was treated with broad-spectrum antibiotics of Zosyn 3.75 g and Levaquin 750 every 48 hours Patient was counseled and lengthy discussion regarding multiple comorbidities with illness and disease processes ongoing with the need for further diagnostic testing and treatment inpatient hospital stay; patient was adamantly against leaving AGAINST MEDICAL ADVICE. Patient was educated regarding leaving AGAINST MEDICAL ADVICE could lead to permanent disability or . Health Concerns: Multiple comorbidities Complexity of medical treatment plan Leaving AGAINST MEDICAL ADVICE with multiple comorbidities, and acute illness of cholecystitis, differential of gastrointestinal bleeding, acute kidney injury, COPD, and generalized malaise Pertinent Studies: CT of the head without contrast no acute changes chronic changes noted CT abdomen and pelvis, possible acute cholecystitis Ultrasound of gallbladder, positive Scott sign correlation with acute cholecystitis Echocardiogram, severe left ventricular hypertrophy, ejection fraction of 60-65% Serial chest x-rays clinical correlation with hyper inflation, consistent with COPD HIDA scan unable to complete due to patient's medical status Procedures: Serial chest x-rays, revealing no acute cardiopulmonary processes noted CT of the head without contrast no acute abnormalities noted chronic changes noted CT abdomen and pelvis, dilated gallbladder with gallstones suggest is of acute cholecystitis Ultrasound of the gallbladder, positive Scott's sign noted, acute donna cystitis, hepatic steatosis Echocardiogram, severe left ventricle hypertrophy, with a reserved ejection fraction of 60-65% HIDA scan unable to complete due to patient's refusing to complete procedure Patient Condition at Discharge: Serious Plan - Discharge Summary Discharge Rx Participant: Yes New Discharge Prescriptions: New metroNIDAZOLE [Flagyl] 500 mg PO TID 10 Days #30 tab Ferrous Sulfate [Iron (65 MG Elemental)] 325 mg PO DAILY #60 tab Furosemide [Lasix] 20 mg PO DAILY #10 tab Amoxicillin/Potassium Clav [Augmentin 875-125 Tablet] 1 tab PO BID 10 Days #20 tab hydrALAZINE HCL 25 mg PO TID #30 tablet Continue Temazepam [Restoril] 30 mg PO HS Omeprazole 20 mg PO BID Isosorbide Mononitrate [Isosorbide Mononitrate ER] 30 mg PO DAILY Loratadine [Claritin] 10 mg PO DAILY busPIRone HCL 15 mg PO BID Montelukast [Singulair] 10 mg PO DAILY Cyclobenzaprine [Flexeril] 10 mg PO BID Estrogen,Con/M-Progest Acet [Prempro 0.625-5 mg Tablet] 1 tab PO DAILY Potassium Chloride ER [K-Dur 10] 10 meq PO DAILY Nitroglycerin Sl Tabs [Nitrostat] 0.4 mg SUBLINGUAL Q5M PRN PRN Reason: Chest Pain Fluticasone Nasal Marion [Flonase Nasal Marion] 2 sprays EA NOSTRIL DAILY EPINEPHrine (Auto Inject) [Epipen] 0.3 mg IM ONCE PRN PRN Reason: Anaphylaxis Atorvastatin [Lipitor] 80 mg PO DAILY Ipratropium-Albuterol Nebulize [Duoneb 0.5 mg-3 mg/3 ml Soln] 3 ml INHALATION RT-Q6H PRN PRN Reason: Shortness Of Breath Nystatin 100,000 Unit/gm Powd [Mycostatin Powder] 1 applic TOPICAL BID HYDROcodone/APAP 10-325MG [Melvin 10-325] 1 tab PO Q6HR PRN PRN Reason: Pain Gabapentin 900 mg PO TID Metoprolol Succinate [Toprol XL] 50 mg PO DAILY traMADol HCL 50 mg PO QID PRN PRN Reason: Pain Discontinued Enalapril [Vasotec] 20 mg PO DAILY Ibuprofen [Motrin] 800 mg PO TID PRN PRN Reason: Pain Furosemide [Lasix] 40 mg PO DAILY Varenicline [Chantix Continuing Pack] 1 mg PO BID Aspirin EC [Ecotrin Low Dose] 81 mg PO DAILY Mirabegron [Myrbetriq] 25 mg PO DAILY Discharge Medication List Isosorbide Mononitrate [Isosorbide Mononitrate ER] 30 mg PO DAILY 12/26/14 [History] Omeprazole 20 mg PO BID 12/26/14 [History] Temazepam [Restoril] 30 mg PO HS 12/26/14 [History] Loratadine [Claritin] 10 mg PO DAILY 08/14/16 [History] Cyclobenzaprine [Flexeril] 10 mg PO BID 10/10/19 [History] EPINEPHrine (Auto Inject) [Epipen] 0.3 mg IM ONCE PRN 10/10/19 [History] Estrogen,Con/M-Progest Acet [Prempro 0.625-5 mg Tablet] 1 tab PO DAILY 10/10/19 [History] Fluticasone Nasal Marion [Flonase Nasal Marion] 2 sprays EA NOSTRIL DAILY 10/10/19 [History] Montelukast [Singulair] 10 mg PO DAILY 10/10/19 [History] Nitroglycerin Sl Tabs [Nitrostat] 0.4 mg SUBLINGUAL Q5M PRN 10/10/19 [History] Potassium Chloride ER [K-Dur 10] 10 meq PO DAILY 10/10/19 [History] busPIRone HCL 15 mg PO BID 10/10/19 [History] Atorvastatin [Lipitor] 80 mg PO DAILY 02/12/21 [History] HYDROcodone/APAP 10-325MG [Melvin 10-325] 1 tab PO Q6HR PRN 02/12/21 [History] Gabapentin 900 mg PO TID 02/19/21 [History] Ipratropium-Albuterol Nebulize [Duoneb 0.5 mg-3 mg/3 ml Soln] 3 ml INHALATION RT-Q6H PRN 02/19/21 [History] Metoprolol Succinate [Toprol XL] 50 mg PO DAILY 02/19/21 [History] Nystatin 100,000 Unit/gm Powd [Mycostatin Powder] 1 applic TOPICAL BID 02/19/21 [History] traMADol HCL 50 mg PO QID PRN 02/19/21 [History] Amoxicillin/Potassium Clav [Augmentin 875-125 Tablet] 1 tab PO BID 10 Days #20 tab 05/15/21 [Rx] Ferrous Sulfate [Iron (65 MG Elemental)] 325 mg PO DAILY #60 tab 05/15/21 [Rx] Furosemide [Lasix] 20 mg PO DAILY #10 tab 05/15/21 [Rx] hydrALAZINE HCL 25 mg PO TID #30 tablet 05/15/21 [Rx] metroNIDAZOLE [Flagyl] 500 mg PO TID 10 Days #30 tab 05/15/21 [Rx] Follow up Appointment(s)/Referral(s): Geovani Samayoa MD [Primary Care Provider] - 1-2 days Patient Instructions/Handouts: Biliary Colic (GEN), Low Fat Diet (ED), Rectal Bleeding (DC), Urinary Tract Infection in Women (DC), COPD (Chronic Obstructive Pulmonary Disease) (DC), Chronic Kidney Disease (DC), Acute Kidney Injury (DC) Discharge Disposition: Left Against Medical Advice
[2021-05-15] MEDS: busPIRone HCl 5 MG TAB PO SCH ×2 (10:10→21:25)
[2021-05-15] MEDS: METOPROLOL SUCCINATE (ER) 50 MG TAB.ER.24H PO SCH (10:11)
[2021-05-15] MEDS: predniSONE 20 MG TAB PO SCH ×2 (10:11→21:25)
[2021-05-15] MEDS: MONTELUKAST 10 MG TAB PO SCH (10:11)
[2021-05-15] MEDS: CYCLOBENZAPRINE 10 MG TAB PO SCH ×2 (10:11→21:25)
[2021-05-15] MEDS: ASPIRIN 81 MG PO SCH (10:11)
[2021-05-15] MEDS: hydrALAZINE HCL 25 MG TAB PO SCH ×3 (10:11→21:25)
[2021-05-15] MEDS: ATORVASTATIN 80 MG TAB PO SCH (10:11)
[2021-05-15 12:22] LABS: Glucose,Whole Blood 145 mg/dL (75-99)
[2021-05-15] MEDS: FLUTICASONE 50MCG/SPRAY NASAL 16GM EA NOSTRIL SCH (12:29)
[2021-05-15 13:24] LABS: Band Neutrophils % 7 %; Metamyelocytes % 5 %; Myelocytes % 1 %; Neutrophils % (M) 69 %; Nucleated Red Blood Cells 0 /100 WBC (0-0); Total Cells Counted 200
[2021-05-15 13:40] VITALS: BMI 31.7
[2021-05-15 15:11] LABS: HCT 30.1 % (34.0-46.0); HGB 9.9 gm/dL (11.4-16.0); Hypochromasia Slight; MCH 31.2 pg (25.0-35.0); MCHC 32.7 g/dL (31.0-37.0); MCV 95.5 fL (80.0-100.0); Mean Platelet Volume 7.7; Platelet Count 522 k/uL (150-450); Poikilocytosis Slight; RBC 3.16 m/uL (3.80-5.40); RDW 14.5 % (11.5-15.5); WBC 20.6 k/uL (3.8-10.6)
[2021-05-15 16:04] LABS: Band Neutrophils % 6 %; Hypersegmented Neutrophils Present; Lymphocytes # (M) 1.65 k/uL (1.0-4.8); Metamyelocytes # (M) 2.06 k/uL (0); Metamyelocytes % 10 %; Monocytes # (M) 0.21 k/uL (0-1.0); Myelocytes # (M) 0.21 k/uL (0); Myelocytes % 1 %; Neutrophils % (M) 74 %; Nucleated Red Blood Cells 0 /100 WBC (0-0); Total Cells Counted 100
--- NOTE | 2021-05-15 17:13 | P.PN ---
Subjective Progress Note Date: 05/15/21 Principal diagnosis: Acute urinary tract infection present on admission Acute kidney injury with acute renal failure with baseline kidney disease of stage III Acute cholecystitis Gastrointestinal bleeding 65-year-old female presented to the hospital with significant medical history of asthma, COPD, CVA/TIA, fibromyalgia, GERD/reflux, hyperlipidemia, history of stage III kidney disease, memory impairment, history of myocardial infarction, chronic respiratory failure, 2 L nasal cannula at home, chronic urinary tract infections, abdominal aortic aneurysm measuring 3.7 cm, history of MRSA, history of cardiac catheterizations, and several comorbidities. Patient had extensive diagnostic workup in the emergency department revealing a UTI, hospital community-acquired pneumonia, acute kidney injury with a creatinine of 5, fever and change in mental status. Throughout patient's hospital stay CT abdomen and pelvis was performed with impression dilated gallbladder with gallstones and suggestion of acute cholecystitis. Consultants on board to the patient's multi comorbidities and complexity of of illnesses. 05/12/2021 Seen and examined at bedside. Patient resting comfortably in bed. Patient endorsing shortness of breath, exertional dyspnea, abdominal pain, nausea, and diarrhea. Patient has significant acute kidney injury patient has improved with bicarbonate drip and creatinine has decreased from 5-3, patient has known history of stage III kidney disease. In-depth conversation with patient regarding surgical intervention for acute cholecystitis. Patient agreeable to surgical interventions. Vital signs and diagnostic testing reviewed 05/13/2021 Patient seen and examined at bedside. Patient resting comfortably in bed. Patient endorsing shortness of breath, exertional dyspnea, abdominal pain, nausea and intermittent diarrhea. Patient's kidney function has improved to stage III kidney disease at baseline. Patient has been transitioned to oral cor ticosteroids for COPD. Awaiting recommendations are surgery from surgical team regarding possible acute cholecystitis. Patient in no acute signs of distress 05/14/2021 Patient seen and examined at bedside. Patient resting comfortably in bed. Patient continues to endorse shortness of breath, exertional shortness of breath, abdominal pain, nausea, and anxiety. Patient kidney function has impro karen to baseline stage III kidney disease. Patient's breathing has improved with corticosteroids and [id number] DuoNeb's. Patient was unable to tolerate HIDA scan, deferred to surgery for treatment options. Patient to undergo upper and lower GI tomorrow for episode of bright red blood in stool. Vital signs and diagnostic testing reviewed. Patient in no acute signs of distress. 05/15/2021 Patient seen and examined at bedside. Patient resting comfortable in bed. Patient continues to endorse shortness of breath, exertional shortness of breath, abdominal pain, nausea and generalized anxiety. Patient's kidney functions has improved to baseline stage III kidney disease. Patient's br eathing has improved throughout hospital stay with corticosteroids and [id number] breathing treatments. Throughout the last 2 days patient has had noticeable melena and stool per nursing staff with associated drop of hemoglobin 11.2-9.3. Patient is willing at this time to have prep for upper and lower GI; consultation with general surgery for upper and lower GI. Vital signs and diagnostic testing reviewed. Objective - Vital Signs Vital signs: Vital Signs Temp 97.5 F L 05/15/21 10:06 Pulse 100 05/15/21 16:20 Resp 20 05/15/21 14:35 BP 125/57 05/15/21 13:10 Pulse Ox 95 05/15/21 13:10 Intake & Output 05/14/21 05/15/21 05/15/21 18:59 06:59 18:59 Intake Total 180 2000 Output Total 2100 700 500 Balance -1920 1300 -500 Weight 86.5 kg 86.5 kg Intake: Oral 180 2000 Output: Urine 2100 700 500 Other: Voiding Method Indwelling Catheter Indwelling Catheter Indwelling Catheter # Bowel Movements 1 1 2 - Constitutional General appearance: Present: cooperative, mild distress - EENT Eyes: Present: EOMI, PERRLA ENT: Present: normal oropharynx Ears: bilateral: normal - Neck Neck: Present: normal ROM Carotids: bilateral: upstroke normal Thyroid: bilateral: normal size - Respiratory Respiratory: bilateral: diminished (Anterior and posterior lung harmon) - Cardiovascular Heart rate: 74 Rhythm: regular Heart sounds: normal: S1, S2 - Peripheral pulses radial pulse Peripheral Pulses: bilateral: Normal dorsalis pedis Peripheral Pulses: bilateral: Normal - Gastrointestinal General gastrointestinal: Present: soft, tenderness Localized gastrointestinal: tender: diffuse - Integumentary Integumentary: Present: decreased turgor, pale - Neurologic Neurologic: Present: CNII-XII intact - Musculoskeletal Musculoskeletal: Present: generalized weakness - Psychiatric Psychiatric: Present: A&O x's 3 - Allied health notes Allied health notes reviewed: nursing - Labs CBC & Chem 7: 05/15/21 14:42 05/15/21 14:42 Labs: Abnormal Lab Results - Last 24 Hours (Table) 05/14/21 05/15/21 05/15/21 Range/Units 20:03 05:35 05:35 WBC 20.0 H (3.8-10.6) k/uL RBC 3.19 L (3.80-5.40) m/uL Hgb 10.0 L (11.4-16.0) gm/dL Hct 30.3 L (34.0-46.0) % Plt Count 514 H (150-450) k/uL Neutrophils # (Manual) 15.20 H (1.3-7.7) k/uL Metamyelocytes # (Man) 1.00 H (0) k/uL Myelocytes # (Manual) 0.20 H (0) k/uL Potassium 3.0 L (3.5-5.1) mmol/L Chloride 111 H (98-107) mmol/L BUN 30 H (7-17) mg/dL Creatinine 1.16 H (0.52-1.04) mg/dL Glucose 122 H (74-99) mg/dL POC Glucose (mg/dL) 142 H (75-99) mg/dL Calcium 7.2 L (8.4-10.2) mg/dL AST 45 H (14-36) U/L Total Protein 4.7 L (6.3-8.2) g/dL Albumin 2.4 L (3.5-5.0) g/dL 05/15/21 05/15/21 05/15/21 Range/Units 06:16 09:52 12:21 WBC (3.8-10.6) k/uL RBC (3.80-5.40) m/uL Hgb (11.4-16.0) gm/dL Hct (34.0-46.0) % Plt Count (150-450) k/uL Neutrophils # (Manual) (1.3-7.7) k/uL Metamyelocytes # (Man) (0) k/uL Myelocytes # (Manual) (0) k/uL Potassium 3.3 L (3.5-5.1) mmol/L Chloride (98-107) mmol/L BUN (7-17) mg/dL Creatinine (0.52-1.04) mg/dL Glucose (74-99) mg/dL POC Glucose (mg/dL) 127 H 145 H (75-99) mg/dL Calcium (8.4-10.2) mg/dL AST (14-36) U/L Total Protein (6.3-8.2) g/dL Albumin (3.5-5.0) g/dL 05/15/21 05/15/21 Range/Units 14:42 14:42 WBC 20.6 H (3.8-10.6) k/uL RBC 3.16 L (3.80-5.40) m/uL Hgb 9.9 L (11.4-16.0) gm/dL Hct 30.1 L (34.0-46.0) % Plt Count 522 H (150-450) k/uL Neutrophils # (Manual) 16.40 H (1.3-7.7) k/uL Metamyelocytes # (Man) 2.06 H (0) k/uL Myelocytes # (Manual) 0.21 H (0) k/uL Potassium 3.3 L (3.5-5.1) mmol/L Chloride (98-107) mmol/L BUN (7-17) mg/dL Creatinine (0.52-1.04) mg/dL Glucose (74-99) mg/dL POC Glucose (mg/dL) (75-99) mg/dL Calcium (8.4-10.2) mg/dL AST (14-36) U/L Total Protein (6.3-8.2) g/dL Albumin (3.5-5.0) g/dL Microbiology - Last 24 Hours (Table) 05/10/21 05:48 Blood Culture - Preliminary Blood No Growth after 120 hours 05/10/21 05:35 Blood Culture - Preliminary Blood No Growth after 120 hours Assessment and Plan Assessment: Acute urinary tract infection with sepsis, present on admission Acute injury with acute renal failure with baseline chronic kidney disease stage III Acute cholecystitis Leukocytosis Possible colitis Hypokalemia Hypo-magnesium Metabolic acidosis secondary to acute kidney injury Full gastrointestinal bleeding noted melena and stool History of asthma COPD Possible right upper lobe pneumonia History of cerebrovascular accident/TIA Fibromyalgia GERD/reflux Hypertension Dyslipidemia History of memory impairment History of myocardial infarction Chronic hypoxic respiratory failure-dependent on 2 L of nasal cannula Back back pain Abdominal aortic aneurysm measuring 3.7 cm History of MRSA History of remote recent cardiac catheterization Full code Plan: Acute urinary tract infection continue IV antibiotics Acute kidney injury with acute renal failure continue IV fluids and continue to trend, avoid nephrotoxic medications Acute cholecystitis, continue broad-spectrum IV antibiotics and consultation with surgery Episode of bright red stools, consultation with general surgery for upper and lo wer GI. Continue home medications Continue medical management Continue to monitor vital signs and diagnostic testing Further recommendations to come based on patient's clinical condition Time with Patient: Greater than 30
[2021-05-15 17:15] LABS: Glucose,Whole Blood 201 mg/dL (75-99)
[2021-05-15] MEDS ORDERED: POTASSIUM CHLORIDE ER 20 MEQ TAB.ER PO STA (17:16)
[2021-05-15] MEDS ORDERED: POLYETHYLENE GLYCOL LYTES SOLN 4,000 ML SOLN.RECON PO ONE (17:18)
--- NOTE | 2021-05-15 18:05 | P.PN ---
Subjective Progress Note Date: 05/15/21 CHIEF COMPLAINT: Gallstones and GI bleeding HISTORY OF PRESENT ILLNESS: The patient is a 65-year-old female with multiple comorbidities including ischemic cardiomyopathy, abdominal aortic aneurysm, chronic obstructive pulmonary disease, tobacco abuse disorder, hypertensive heart disease who presented to the hospital with dye reaction weakness. Workup demonstrated cholecystitis and gallstones. During hospitalization, patient developed GI bleed. Multiple attempts for upper and lower endoscopy was made however patient continued to decline care. Per discussion with nursing team, patient wanted to leave AGAINST MEDICAL ADVICE multiple times. Patient refused to drink her prep. Patient refused to be nothing by mouth. Per nursing report, patient continues to bleed. REVIEW OF ORGAN SYSTEMS: No fevers or chills. No chest pain. No shortness of breath. PHYSICAL EXAM: VITALS: Reviewed CONSTITUTIONAL: Well developed. EYES: Conjuctivae without sclera icterus. Extraocular movements grossly intact. HEAD, EARS, NOSE, THROAT: Moist buccal mucosa. Head is atraumatic, normocephalic. Hears conversational speech. No nasal drainage. NECK: Supple. No gross JV distention. No gross thyroidomegaly. RESPIRATORY: Non-labored respirations and equal bilateral excursions. No gross wheezes. CARDIOVASCULAR:2+ radial pulses. ABDOMEN: No peritonitis. MUSCULOSKELETAL: No clubbing cyanosis or edema SKIN: Warm and well perfused with good skin turgor. NEUROLOGIC: Cranial nerves II through XII grossly intact. Sensation upper and extremities intact. No focal or lateralizing signs. PSYCH: Alert to self. CLINCAL LABS: Reviewed. WBC at presentation over 20,000 now back up to 21,000 from prior 10,000. Hemoglobin was stable at 10.0-9.9. ASSESSMENT: 1. Gallstones 2. Acute renal failure 3. Sepsis due to unclear etiology 4. Ischemic cardiomyopathy 5. Diarrhea 6. GI bleed, new PLAN: 1. Patient continued to refuse all attempts of surgical care despite admitting team attempts including healthcare team attempts. 2. As patient has intermittent disorientation and delirium, may benefit from psychological assessment to give own consents. Patient may benefit from guardian and she also lives alone with complex medical history. 3. At this time, conservative management for cholecystitis and leukocytosis with antibiotics 4. Strongly recommend evaluation for guardianship due to complexity of care from patient's intermittent disorientation/dementia 5. I will be off today and return May 25. Surgical team, Dr. Sutton rounding for the weekend. 6. Please call us if requiring further assistance. Objective - Vital Signs Vital signs: Vital Signs Temp 97.5 F L 05/15/21 10:06 Pulse 100 05/15/21 16:20 Resp 20 05/15/21 14:35 BP 125/57 05/15/21 13:10 Pulse Ox 95 05/15/21 13:10 Intake & Output 05/14/21 05/15/21 05/15/21 18:59 06:59 18:59 Intake Total 180 2000 Output Total 2100 700 500 Balance -1920 1300 -500 Weight 86.5 kg 86.5 kg Intake: Oral 180 2000 Output: Urine 2100 700 500 Other: Voiding Method Indwelling Catheter Indwelling Catheter Indwelling Catheter # Bowel Movements 1 1 2 - Labs CBC & Chem 7: 05/15/21 14:42 05/15/21 14:42 Labs: Abnormal Lab Results - Last 24 Hours (Table) 05/14/21 05/15/21 05/15/21 Range/Units 20:03 05:35 05:35 WBC 20.0 H (3.8-10.6) k/uL RBC 3.19 L (3.80-5.40) m/uL Hgb 10.0 L (11.4-16.0) gm/dL Hct 30.3 L (34.0-46.0) % Plt Count 514 H (150-450) k/uL Neutrophils # (Manual) 15.20 H (1.3-7.7) k/uL Metamyelocytes # (Man) 1.00 H (0) k/uL Myelocytes # (Manual) 0.20 H (0) k/uL Potassium 3.0 L (3.5-5.1) mmol/L Chloride 111 H (98-107) mmol/L BUN 30 H (7-17) mg/dL Creatinine 1.16 H (0.52-1.04) mg/dL Glucose 122 H (74-99) mg/dL POC Glucose (mg/dL) 142 H (75-99) mg/dL Calcium 7.2 L (8.4-10.2) mg/dL AST 45 H (14-36) U/L Total Protein 4.7 L (6.3-8.2) g/dL Albumin 2.4 L (3.5-5.0) g/dL 05/15/21 05/15/21 05/15/21 Range/Units 06:16 09:52 12:21 WBC (3.8-10.6) k/uL RBC (3.80-5.40) m/uL Hgb (11.4-16.0) gm/dL Hct (34.0-46.0) % Plt Count (150-450) k/uL Neutrophils # (Manual) (1.3-7.7) k/uL Metamyelocytes # (Man) (0) k/uL Myelocytes # (Manual) (0) k/uL Potassium 3.3 L (3.5-5.1) mmol/L Chloride (98-107) mmol/L BUN (7-17) mg/dL Creatinine (0.52-1.04) mg/dL Glucose (74-99) mg/dL POC Glucose (mg/dL) 127 H 145 H (75-99) mg/dL Calcium (8.4-10.2) mg/dL AST (14-36) U/L Total Protein (6.3-8.2) g/dL Albumin (3.5-5.0) g/dL 05/15/21 05/15/21 05/15/21 Range/Units 14:42 14:42 17:13 WBC 20.6 H (3.8-10.6) k/uL RBC 3.16 L (3.80-5.40) m/uL Hgb 9.9 L (11.4-16.0) gm/dL Hct 30.1 L (34.0-46.0) % Plt Count 522 H (150-450) k/uL Neutrophils # (Manual) 16.40 H (1.3-7.7) k/uL Metamyelocytes # (Man) 2.06 H (0) k/uL Myelocytes # (Manual) 0.21 H (0) k/uL Potassium 3.3 L (3.5-5.1) mmol/L Chloride (98-107) mmol/L BUN (7-17) mg/dL Creatinine (0.52-1.04) mg/dL Glucose (74-99) mg/dL POC Glucose (mg/dL) 201 H (75-99) mg/dL Calcium (8.4-10.2) mg/dL AST (14-36) U/L Total Protein (6.3-8.2) g/dL Albumin (3.5-5.0) g/dL Microbiology - Last 24 Hours (Table) 05/10/21 05:48 Blood Culture - Preliminary Blood No Growth after 120 hours 05/10/21 05:35 Blood Culture - Preliminary Blood No Growth after 120 hours Assessment and Plan (1) Tobacco abuse disorder Current Visit: Yes Status: Acute Code(s): Z72.0 - TOBACCO USE SNOMED Code(s): 870564083 (2) ARF (acute renal failure) Current Visit: Yes Status: Acute Code(s): N17.9 - ACUTE KIDNEY FAILURE, UNSPECIFIED SNOMED Code(s): 56398462 (3) Cholecystitis Current Visit: Yes Status: Acute Code(s): K81.9 - CHOLECYSTITIS, UNSPECIFIED SNOMED Code(s): 57173868 (4) Colitis Current Visit: Yes Status: Acute Code(s): K52.9 - NONINFECTIVE GASTROENTERITIS AND COLITIS, UNSPECIFIED SNOMED Code(s): 80871446 (5) Dehydration Current Visit: Yes Status: Acute Code(s): E86.0 - DEHYDRATION SNOMED Code(s): 18109181 (6) Diarrhea Current Visit: Yes Status: Acute Code(s): R19.7 - DIARRHEA, UNSPECIFIED SNOMED Code(s): 06203348 (7) Hypokalemia Current Visit: Yes Status: Acute Code(s): E87.6 - HYPOKALEMIA SNOMED Code(s): 09590388 (8) COPD exacerbation Current Visit: No Status: Acute Code(s): J44.1 - CHRONIC OBSTRUCTIVE PULMONARY DISEASE W (ACUTE) EXACERBATION SNOMED Code(s): 810574383 (9) Lung mass Current Visit: No Status: Acute Code(s): R91.8 - OTHER NONSPECIFIC ABNORMAL FINDING OF LUNG FIELD SNOMED Code(s): 663693475 (10) Sepsis Current Visit: Yes Status: Acute Code(s): A41.9 - SEPSIS, UNSPECIFIED ORGANISM SNOMED Code(s): 93509629 (11) GI bleed Current Visit: Yes Status: Acute Code(s): K92.2 - GASTROINTESTINAL HEMOR RHAGE, UNSPECIFIED SNOMED Code(s): 92428910
[2021-05-15 19:59] LABS: Glucose,Whole Blood 252 mg/dL (75-99)
[2021-05-15] MEDS: TEMAZEPAM 15 MG CAP PO SCH (21:25)
[2021-05-16] MEDS: PIPERACILLIN-TAZOBACTAM 3.375 GM in SODIUM CHLORIDE 0.9% 100 ML IVPB SCH ×3 (05:57→22:41)
[2021-05-16 06:39] LABS: HCT 26.3 % (34.0-46.0); HGB 8.7 gm/dL (11.4-16.0); Hypochromasia Slight; MCH 31.5 pg (25.0-35.0); MCHC 32.9 g/dL (31.0-37.0); MCV 95.8 fL (80.0-100.0); Mean Platelet Volume 8.8; Platelet Count 432 k/uL (150-450); Poikilocytosis Slight; RBC 2.75 m/uL (3.80-5.40); RDW 14.5 % (11.5-15.5); WBC 21.4 k/uL (3.8-10.6)
[2021-05-16 06:53] LABS: Albumin 2.1 g/dL (3.5-5.0); Calcium 7.3 mg/dL (8.4-10.2); Magnesium 2.2 mg/dL (1.6-2.3); Potassium 4.4 mmol/L (3.5-5.1); Total Bilirubin 0.4 mg/dL (0.2-1.3); Total Protein 4.2 g/dL (6.3-8.2)
[2021-05-16 06:59] LABS: Band Neutrophils % 9 %; Lymphocytes # (M) 3.42 k/uL (1.0-4.8); Metamyelocytes # (M) 0.64 k/uL (0); Metamyelocytes % 3 %; Monocytes # (M) 0.43 k/uL (0-1.0); Myelocytes # (M) 0.21 k/uL (0); Myelocytes % 1 %; Neutrophils % (M) 69 %; Nucleated Red Blood Cells 0 /100 WBC (0-0); Total Cells Counted 200
[2021-05-16 07:12] LABS: Toxic Granulation Present
[2021-05-16] MEDS: FLUTICASONE 50MCG/SPRAY NASAL 16GM EA NOSTRIL SCH (07:53)
[2021-05-16 08:08] LABS: Glucose,Whole Blood 135 mg/dL (75-99)
[2021-05-16] MEDS: METOPROLOL SUCCINATE (ER) 50 MG TAB.ER.24H PO SCH (08:21)
[2021-05-16] MEDS: ATORVASTATIN 80 MG TAB PO SCH (08:21)
[2021-05-16] MEDS: CYCLOBENZAPRINE 10 MG TAB PO SCH ×2 (08:21→20:22)
[2021-05-16] MEDS: busPIRone HCl 5 MG TAB PO SCH ×2 (08:21→20:22)
[2021-05-16] MEDS: INSULIN ASPART (NovoLOG) 100 UNIT/ML VIAL SQ SCH ×3 (08:21→16:31)
[2021-05-16] MEDS: predniSONE 20 MG TAB PO SCH ×2 (08:22→20:22)
[2021-05-16] MEDS: MORPHINE SULFATE 2 MG/ML SYRINGE IVP PRN ×3 (08:22→20:23)
[2021-05-16] MEDS: hydrALAZINE HCL 25 MG TAB PO SCH ×3 (08:22→20:22)
[2021-05-16] MEDS: MONTELUKAST 10 MG TAB PO SCH (08:22)
[2021-05-16] MEDS: IPRATROPIUM-ALBUTEROL 3 ML NEB INHALATION SCH ×4 (08:32→18:56)
--- NOTE | 2021-05-16 11:06 | P.PN ---
Subjective Progress Note Date: 05/16/21 Principal diagnosis: Colitis Patient says she is having intermittent pain. Comes and goes. She did have another bloody stool that was maroon in color. Previous studies reviewed. Patient definitely has evidence of right sided colitis on CAT scan. Gallbladder distended with a stone. No visualization after 30 minutes on HIDA scan. Remains tachycardic. White blood cell count remains elevated with bandemia. Objective - Vital Signs Vital signs: Vital Signs Temp 98.1 F 05/16/21 05:46 Pulse 108 H 05/16/21 08:46 Resp 20 05/16/21 05:46 BP 137/73 05/16/21 05:46 Pulse Ox 97 05/16/21 05:46 Intake & Output 05/15/21 05/16/21 05/16/21 18:59 06:59 18:59 Intake Total 120 Output Total 500 360 Balance -500 -240 Weight 86.5 kg Intake: IV 20 Invasive Line 2 20 Intake, IV Titration 100 Amount Piperacillin-Tazobactam 3 100 .375 gm In Sodium Chloride 0.9% 100 ml @ 25 mls/hr IVPB Q8HR@0600, 1400,2200 [facility] Rx#: [id number] Oral 0 Output: Urine 500 360 Other: Voiding Method Indwelling Catheter Bedside Commode # Voids 0 1 # Bowel Movements 2 0 - Exam Abdomen: Soft, nondistended, minimal right-sided tenderness - Labs CBC & Chem 7: 05/16/21 06:27 05/16/21 06:27 Labs: Abnormal Lab Results - Last 24 Hours (Table) 05/15/21 05/15/21 05/15/21 Range/Units 05:35 12:21 14:42 WBC 20.6 H (3.8-10.6) k/uL RBC 3.16 L (3.80-5.40) m/uL Hgb 9.9 L (11.4-16.0) gm/dL Hct 30.1 L (34.0-46.0) % Plt Count 522 H (150-450) k/uL Neutrophils # (Manual) 15.20 H 16.40 H (1.3-7.7) k/uL Metamyelocytes # (Man) 1.00 H 2.06 H (0) k/uL Myelocytes # (Manual) 0.20 H 0.21 H (0) k/uL Potassium (3.5-5.1) mmol/L Chloride (98-107) mmol/L BUN (7-17) mg/dL Glucose (74-99) mg/dL POC Glucose (mg/dL) 145 H (75-99) mg/dL Calcium (8.4-10.2) mg/dL AST (14-36) U/L Total Protein (6.3-8.2) g/dL Albumin (3.5-5.0) g/dL 05/15/21 05/15/21 05/15/21 Range/Units 14:42 17:13 19:58 WBC (3.8-10.6) k/uL RBC (3.80-5.40) m/uL Hgb (11.4-16.0) gm/dL Hct (34.0-46.0) % Plt Count (150-450) k/uL Neutrophils # (Manual) (1.3-7.7) k/uL Metamyelocytes # (Man) (0) k/uL Myelocytes # (Manual) (0) k/uL Potassium 3.3 L (3.5-5.1) mmol/L Chloride (98-107) mmol/L BUN (7-17) mg/dL Glucose (74-99) mg/dL POC Glucose (mg/dL) 201 H 252 H (75-99) mg/dL Calcium (8.4-10.2) mg/dL AST (14-36) U/L Total Protein (6.3-8.2) g/dL Albumin (3.5-5.0) g/dL 05/16/21 05/16/21 05/16/21 Range/Units 06:27 06:27 08:05 WBC 21.4 H (3.8-10.6) k/uL RBC 2.75 L (3.80-5.40) m/uL Hgb 8.7 L (11.4-16.0) gm/dL Hct 26.3 L (34.0-46.0) % Plt Count (150-450) k/uL Neutrophils # (Manual) 16.60 H (1.3-7.7) k/uL Metamyelocytes # (Man) 0.64 H (0) k/uL Myelocytes # (Manual) 0.21 H (0) k/uL Potassium (3.5-5.1) mmol/L Chloride 116 H (98-107) mmol/L BUN 19 H (7-17) mg/dL Glucose 120 H (74-99) mg/dL POC Glucose (mg/dL) 135 H (75-99) mg/dL Calcium 7.3 L (8.4-10.2) mg/dL AST 38 H (14-36) U/L Total Protein 4.2 L (6.3-8.2) g/dL Albumin 2.1 L (3.5-5.0) g/dL Microbiology - Last 24 Hours (Table) 05/10/21 05:48 Blood Culture - Final Blood No Growth after 144 hours 05/10/21 05:35 Blood Culture - Final Blood No Growth after 144 hours Assessment and Plan (1) Colitis Narrative/Plan: 65-year-old female with bloody stools and intermittent right-sided pain. Previous CAT scan reviewed showing distended gallbladder with stones and right sided colitis. Patient's vital signs and labs showing tachycardia and leukocytosis with bandemia remains concerning however patient looks quite comfortable albeit somewhat confused. She is not agitated currently. Would like to repeat CT abdomen and pelvis at this point to evaluate the right sided colitis. Following that likely will try to convince patient to proceed with upper and lower endoscopy. Current Visit: Yes Status: Acute Code(s): K52.9 - NONINFECTIVE GASTROENTERITIS AND COLITIS, UNSPECIFIED SNOMED Code(s): 37262005
[2021-05-16 11:43] LABS: Glucose,Whole Blood 138 mg/dL (75-99)
[2021-05-16] MEDS: IOPAMIDOL CONTRAST (ORAL USE) VIAL PO PRN ×2 (12:05→15:11)
[2021-05-16] MEDS: metroNIDAZOLE-NS PMX 500 MG in SALINE 1 100ML.BAG IVPB SCH ×2 (12:06→20:22)
[2021-05-16] MEDS: ACETAMINOPHEN TAB 325 MG TAB PO PRN (12:23)
[2021-05-16] MEDS ORDERED: ADENOSINE 3 MG/ML 2 ML VIAL IVP ONE (12:42)
[2021-05-16 12:56] LABS: HCT 27.3 % (34.0-46.0); HGB 8.9 gm/dL (11.4-16.0); Hypochromasia Moderate; MCHC 32.4 g/dL (31.0-37.0); MCV 98.9 fL (80.0-100.0); Mean Platelet Volume 8.4; Platelet Count 520 k/uL (150-450); Poikilocytosis Slight; RBC 2.77 m/uL (3.80-5.40); RDW 14.2 % (11.5-15.5); WBC 31.3 k/uL (3.8-10.6)
[2021-05-16] MEDS ORDERED: DILTIAZEM DRIP BOLUS FROM BAG 1 MG SOLN IV ONE (13:08)
[2021-05-16] MEDS: DILTIAZEM 125 MG in SODIUM CHLORIDE 0.9% 100 ML IV SCH (13:15)
--- NOTE | 2021-05-16 13:59 | P.EN ---
A- team: Indication: Tachycardia Arrived on Scene to find: SVT Patient seen and examined at bedside. Patient awake alert and talking, Deneis chest pain but she is clenching her chest, c/o some shortness of breath. Unsure if she is light headed or dizzy. Vital signs reviewed General: non toxic, mild distress, appears at stated age, obese Derm: warm, dry Head: atraumatic, normocephalic, symmetric Eyes: EOMI, no lid lag, anicteric sclera Mouth: no lip lesion, mucus membranes moist Cardiovascular: S1S2 tachy, no murmur, positive posterior tibial pulse bilateral, Lungs: CTA bilateral, no rhonchi, no rales , + accessory muscle use, + 3 word conversational dyspnea Abdominal: soft, +tender to palpation diffusely, no guarding, no appreciable organomegaly Ext: no gross muscle atrophy, no edema, no contractures Neuro: CN II-XI grossly intact, no focal neuro deficits Psych: Alert, oriented, appropriate affect Assessment: Tachycahrdia - likely SVT vs A fib with 2:1 block - transferred to selective care - given Adenosine 6 mg and again rate increased to 170 (patient moving and unabel to assess underlying rhythm). given adenosine 12 mg IVP and agian went back to 170 able to assess underlyignrhythm of A fib - Cardizem 10 mg IVP and gtt started at 5 mg with titrate to rate less than 110. (still 130-140) - Labese reviewed HgB stable, K+ 4.4, Mg 2.2 Trop normal A fib no heparin gtt due to patient with maroon stools today per patient and nursing. HgB appears stable but will defer to primary team. Disposition: Transferred to ICU, rate conrolled. Notified: Dr. Banres notrified by nursing Dr. Flores had been notified prior to A team A Total of 60 minutes of critical care time was spent on the complex care of this patient.
--- NOTE | 2021-05-16 16:22 | CT ---
EXAMINATION TYPE: CT abdomen pelvis w con DATE OF EXAM: 05/16/2021 COMPARISON: 05/10/2021. HISTORY: Follow up colitis CT DLP: 1969.8 mGycm Automated exposure control for dose reduction was used. TECHNIQUE: Helical acquisition of images was performed from the lung bases through the pelvis. CONTRAST: Performed with Oral Contrast and with IV Contrast, patient injected with 100 mL of Isovue 300. FINDINGS: LUNG BASES: No significant abnormality is appreciated. LIVER/GB: Stable gallstone at the gallbladder neck with mild distention. No significant gallbladder w all thickening or pericholecystic fluid. No acute abnormality of the liver. PANCREAS: No significant abnormality is seen. SPLEEN: No significant abnormality is seen. ADRENALS: No significant abnormality is seen. KIDNEYS: No acute abnormality is seen. Chronic perinephric fat stranding. Stable few left renal cyst measuring up to 1 cm. FREE AIR: No free air is visualized. RETROPERITONEAL ADENOPATHY: None visualized REPRODUCTIVE ORGANS: No significant abnormality is seen URINARY BLADDER: Moderately distended urinary bladder. Otherwise no acute abnormality is seen. PELVIC ADENOPATHY: None visualized. OSSEOUS STRUCTURES: No acute abnormality is seen. Bilateral hip arthroplasty seen. BOWEL: Intraluminal contrast is seen to be the level of the mid descending colon. Nonspecific mild n arrowing of the descending colon is seen at this level. Also mild colonic wall thickening of the prox imal transverse colon. No bowel obstruction, free air or fluid. OTHER: Moderate to advanced atherosclerotic disease. IMPRESSION: MILD NARROWING OF THE DESCENDING COLON, CORRESPONDING TO LEVEL OF INTRALUMINAL CONTRAST TERMINUS. FIN DING IS NONSPECIFIC AND MAY RELATE TO INADEQUATE DISTENTION. HOWEVER OTHER ETIOLOGIES CANNOT BE EXCLU DED. CONSIDER COLONOSCOPY CORRELATION. Also mild wall thickening of the proximal transverse colon, nonspecific may relate to resolving colit is. Otherwise improvement of previous diffuse colonic wall thickening. No bowel obstruction, free air or fluid. Stable gallbladder neck stone without inflammatory changes. Urinary bladder distention.
--- NOTE | 2021-05-16 18:00 | P.PN ---
Subjective Progress Note Date: 05/16/21 Principal diagnosis: SVT/rapid atrial fibrillation Acute GI bleed Acute blood loss anemia Acute colitis 65-year-old female patient admitted to the hospital with fever, change in mental status, diarrhea with UTI and sepsis; patient developed acute GI bleed while inpatient and is being followed by general surgery and cardiology Patient reported another bloody bowel movement this morning; repeat CT of the abdomen done by general surgery does reveal right-sided colitis with gallbladder distended with stone While on medical floor patient became tachycardic and hypotensive; stat EKG revealed patient to be in SVT; patient was resuscitated with adenosine 6 mg followed by 12 mg dose and placed on Cardizem 5 mg with plans to titrate as needed; cardiology is consulted; patient is transferred to selective care unit Objective - Vital Signs Vital signs: Vital Signs Temp 97.3 F L 05/16/21 12:30 Pulse 176 H 05/16/21 12:30 Resp 20 05/16/21 12:30 BP 137/73 05/16/21 05:46 Pulse Ox 93 L 05/16/21 12:30 Intake & Output 05/15/21 05/16/21 05/16/21 18:59 06:59 18:59 Intake Total 120 10 Output Total 500 360 Balance -500 -240 10 Weight 86.5 kg Intake: IV 20 10 Invasive Line 2 20 10 Intake, IV Titration 100 Amount Piperacillin-Tazobactam 3 100 .375 gm In Sodium Chloride 0.9% 100 ml @ 25 mls/hr IVPB Q8HR@0600, 1400,2200 [facility] Rx#: [id number] Oral 0 Output: Urine 500 360 Other: Voiding Method Indwelling Catheter Bedside Commode Bedside Commode # Voids 0 1 # Bowel Movements 2 0 - Exam CONSTITUTIONAL: No apparent distress. HEENT: Head is normocephalic. Pupils are equal, round. Sclerae anicteric. Mucous membranes of the mouth are moist. No JVD. No carotid bruit. CHEST EXAMINATION: Expiratory wheezes throughout, no rales or rhonchi. No chest wall tenderness is noted on palpation or with deep breathing. HEART EXAMINATION: Regular rate and rhythm. S1, S2 heard. No murmurs, gallops or rub. ABDOMEN: Soft, nontender. EXTREMITIES: 2+ peripheral pulses, no lower extremity edema and no calf tenderness. NEUROLOGIC EXAMINATION: Patient is awake, alert and oriented x3. - Labs CBC & Chem 7: 05/16/21 12:42 05/16/21 06:27 Labs: Abnormal Lab Results - Last 24 Hours (Table) 05/15/21 05/15/21 05/15/21 Range/Units 14:42 14:42 17:13 WBC 20.6 H (3.8-10.6) k/uL RBC 3.16 L (3.80-5.40) m/uL Hgb 9.9 L (11.4-16.0) gm/dL Hct 30.1 L (34.0-46.0) % Plt Count 522 H (150-450) k/uL Neutrophils # (Manual) 16.40 H (1.3-7.7) k/uL Metamyelocytes # (Man) 2.06 H (0) k/uL Myelocytes # (Manual) 0.21 H (0) k/uL Potassium 3.3 L (3.5-5.1) mmol/L Chloride (98-107) mmol/L BUN (7-17) mg/dL Glucose (74-99) mg/dL POC Glucose (mg/dL) 201 H (75-99) mg/dL Calcium (8.4-10.2) mg/dL AST (14-36) U/L Total Protein (6.3-8.2) g/dL Albumin (3.5-5.0) g/dL 05/15/21 05/16/21 05/16/21 Range/Units 19:58 06:27 06:27 WBC 21.4 H (3.8-10.6) k/uL RBC 2.75 L (3.80-5.40) m/uL Hgb 8.7 L (11.4-16.0) gm/dL Hct 26.3 L (34.0-46.0) % Plt Count (150-450) k/uL Neutrophils # (Manual) 16.60 H (1.3-7.7) k/uL Metamyelocytes # (Man) 0.64 H (0) k/uL Myelocytes # (Manual) 0.21 H (0) k/uL Potassium (3.5-5.1) mmol/L Chloride 116 H (98-107) mmol/L BUN 19 H (7-17) mg/dL Glucose 120 H (74-99) mg/dL POC Glucose (mg/dL) 252 H (75-99) mg/dL Calcium 7.3 L (8.4-10.2) mg/dL AST 38 H (14-36) U/L Total Protein 4.2 L (6.3-8.2) g/dL Albumin 2.1 L (3.5-5.0) g/dL 05/16/21 05/16/21 05/16/21 Range/Units 08:05 11:41 12:42 WBC 31.3 H (3.8-10.6) k/uL RBC 2.77 L (3.80-5.40) m/uL Hgb 8.9 L (11.4-16.0) gm/dL Hct 27.3 L (34.0-46.0) % Plt Count 520 H (150-450) k/uL Neutrophils # (Manual) (1.3-7.7) k/uL Metamyelocytes # (Man) (0) k/uL Myelocytes # (Manual) (0) k/uL Potassium (3.5-5.1) mmol/L Chloride (98-107) mmol/L BUN (7-17) mg/dL Glucose (74-99) mg/dL POC Glucose (mg/dL) 135 H 138 H (75-99) mg/dL Calcium (8.4-10.2) mg/dL AST (14-36) U/L Total Protein (6.3-8.2) g/dL Albumin (3.5-5.0) g/dL Microbiology - Last 24 Hours (Table) 05/10/21 05:48 Blood Culture - Final Blood No Growth after 144 hours 05/10/21 05:35 Blood Culture - Final Blood No Growth after 144 hours Assessment and Plan Assessment: Acute urinary tract infection with sepsis, present on admission Acute injury with acute renal failure with baseline chronic kidney disease stage III Acute cholecystitis Leukocytosis Possible colitis Hypokalemia Hypo-magnesium Metabolic acidosis secondary to acute kidney injury Full gastrointestinal bleeding noted melena and stool History of asthma COPD Possible right upper lobe pneumonia History of cerebrovascular accident/TIA Fibromyalgia GERD/reflux Hypertension Dyslipidemia History of memory impairment History of myocardial infarction Chronic hypoxic respiratory failure-dependent on 2 L of nasal cannula Back back pain Abdominal aortic aneurysm measuring 3.7 cm History of MRSA History of remote recent cardiac catheterization Full code Plan: Acute urinary tract infection continue IV antibiotics Acute kidney injury with acute renal failure continue IV fluids and continue to trend, avoid nephrotoxic medications Acute cholecystitis, continue broad-spectrum IV antibiotics and consultation with surgery Episode of bright red stools, consultation with general surgery for upper and lower GI. Continue home medications Continue medical management Continue to monitor vital signs and diagnostic testing Further recommendations to come based on patient's clinical condition
[2021-05-16] MEDS ORDERED: LIDOCAINE 1% (10MG/ML) FOR IV START INTRADERMA PRN (19:55)
[2021-05-16] MEDS ORDERED: ONDANSETRON 4 MG/2 ML VIAL IVP ONE (19:55)
[2021-05-16] MEDS ORDERED: DEXAMETHASONE SOD PHOSPHATE 4 MG/ML 1 ML VIAL IV ONE (19:55)
[2021-05-16] MEDS ORDERED: MIDAZOLAM 2 MG/2 ML VIAL IV PRN (19:55)
[2021-05-16] MEDS: TEMAZEPAM 15 MG CAP PO SCH (20:22)
[2021-05-17] MEDS: metroNIDAZOLE-NS PMX 500 MG in SALINE 1 100ML.BAG IVPB SCH ×3 (03:31→21:21)
[2021-05-17] MEDS: MORPHINE SULFATE 2 MG/ML SYRINGE IVP PRN ×3 (03:34→18:41)
[2021-05-17] MEDS: PIPERACILLIN-TAZOBACTAM 3.375 GM in SODIUM CHLORIDE 0.9% 100 ML IVPB SCH ×3 (06:01→23:00)
[2021-05-17 07:59] LABS: HGB 8.2 gm/dL (11.4-16.0); Hypochromasia Slight; MCH 31.5 pg (25.0-35.0); MCHC 32.6 g/dL (31.0-37.0); MCV 96.5 fL (80.0-100.0); Mean Platelet Volume 8.3; Platelet Count 545 k/uL (150-450); Poikilocytosis Slight; RBC 2.59 m/uL (3.80-5.40); RDW 14.3 % (11.5-15.5); WBC 22.9 k/uL (3.8-10.6)
[2021-05-17 08:19] LABS: Albumin 2.4 g/dL (3.5-5.0); Calcium 7.6 mg/dL (8.4-10.2); Potassium 3.8 mmol/L (3.5-5.1); Total Bilirubin 0.2 mg/dL (0.2-1.3); Total Protein 4.5 g/dL (6.3-8.2)
[2021-05-17] MEDS: METOPROLOL SUCCINATE (ER) 50 MG TAB.ER.24H PO SCH ×2 (08:56→20:09)
[2021-05-17] MEDS: ATORVASTATIN 80 MG TAB PO SCH (08:56)
[2021-05-17] MEDS: MONTELUKAST 10 MG TAB PO SCH (08:56)
[2021-05-17] MEDS: hydrALAZINE HCL 25 MG TAB PO SCH ×3 (08:56→20:09)
[2021-05-17] MEDS: LORazepam 0.5 MG TAB PO PRN (08:56)
[2021-05-17] MEDS: busPIRone HCl 5 MG TAB PO SCH ×2 (08:56→20:09)
[2021-05-17] MEDS: CYCLOBENZAPRINE 10 MG TAB PO SCH ×2 (08:56→20:09)
[2021-05-17] MEDS: predniSONE 20 MG TAB PO SCH ×2 (08:56→20:09)
[2021-05-17] MEDS: IPRATROPIUM-ALBUTEROL 3 ML NEB INHALATION SCH ×4 (09:10→18:57)
[2021-05-17 09:40] LABS: Band Neutrophils % 2 %; Lymphocytes # (M) 2.75 k/uL (1.0-4.8); Metamyelocytes # (M) 1.15 k/uL (0); Metamyelocytes % 5 %; Monocytes # (M) 0.92 k/uL (0-1.0); Myelocytes # (M) 0.92 k/uL (0); Myelocytes % 4 %; Neutrophils % (M) 75 %; Nucleated Red Blood Cells 0 /100 WBC (0-0); Total Cells Counted 200
[2021-05-17 09:42] LABS: Hypersegmented Neutrophils Present
--- NOTE | 2021-05-17 10:09 | P.PN ---
Subjective Progress Note Date: 05/17/21 Principal diagnosis: Colitis Patient transferred to cardiac floor because of supraventricular tachycardia. Doing better today. Still denies any discomfort. Does have heartburn. White blood cell count went up to 30 it is down to 22.9. Cardiac rhythm improved. Repeat CAT scan reviewed. Still mild colonic wall thickening. Possible abnormality in the descending colon that is likely artifactual. Gallbladder itself does not appear inflamed. Perinephric stranding bilaterally is noted. Patient has had additional small amount of blood in stools. Objective - Vital Signs Vital signs: Vital Signs Temp 97.8 F 05/17/21 08:00 Pulse 109 H 05/17/21 09:21 Resp 22 05/17/21 08:00 BP 128/67 05/17/21 08:00 Pulse Ox 99 05/17/21 09:10 Intake & Output 05/16/21 05/17/21 05/17/21 18:59 06:59 18:59 Intake Total 10 10 237 Output Total 500 580 Balance -490 -570 237 Intake: IV 10 10 Invasive Line 2 10 10 Oral 237 Output: Urine 500 580 Other: Voiding Method Bedside Commode Bedside Commode # Voids 1 # Bowel Movements 1 - Exam Abdomen: Soft, mild distention, mild diffuse tenderness, no rebound or guarding - Labs CBC & Chem 7: 05/17/21 07:33 05/17/21 07:33 Labs: Abnormal Lab Results - Last 24 Hours (Table) 05/16/21 05/16/21 05/17/21 Range/Units 11:41 12:42 07:33 WBC 31.3 H 22.9 H (3.8-10.6) k/uL RBC 2.77 L 2.59 L (3.80-5.40) m/uL Hgb 8.9 L 8.2 L (11.4-16.0) gm/dL Hct 27.3 L 25.0 L (34.0-46.0) % Plt Count 520 H 545 H (150-450) k/uL Neutrophils # (Manual) 17.60 H (1.3-7.7) k/uL Metamyelocytes # (Man) 1.15 H (0) k/uL Myelocytes # (Manual) 0.92 H (0) k/uL Chloride (98-107) mmol/L Glucose (74-99) mg/dL POC Glucose (mg/dL) 138 H (75-99) mg/dL Calcium (8.4-10.2) mg/dL AST (14-36) U/L Alkaline Phosphatase (38-126) U/L Total Protein (6.3-8.2) g/dL Albumin (3.5-5.0) g/dL 05/17/21 Range/Units 07:33 WBC (3.8-10.6) k/uL RBC (3.80-5.40) m/uL Hgb (11.4-16.0) gm/dL Hct (34.0-46.0) % Plt Count (150-450) k/uL Neutrophils # (Manual) (1.3-7.7) k/uL Metamyelocytes # (Man) (0) k/uL Myelocytes # (Manual) (0) k/uL Chloride 112 H (98-107) mmol/L Glucose 129 H (74-99) mg/dL POC Glucose (mg/dL) (75-99) mg/dL Calcium 7.6 L (8.4-10.2) mg/dL AST 46 H (14-36) U/L Alkaline Phosphatase 128 H (38-126) U/L Total Protein 4.5 L (6.3-8.2) g/dL Albumin 2.4 L (3.5-5.0) g/dL Microbiology - Last 24 Hours (Table) 05/10/21 05:48 Blood Culture - Final Blood No Growth after 144 hours 05/10/21 05:35 Blood Culture - Final Blood No Growth after 144 hours Assessment and Plan (1) Colitis Narrative/Plan: Patient doing well at this time. Continue clear liquids. Will prep for upper and lower endoscopy tomorrow. Patient is currently agreeable. Continue antibiotics. Current Visit: Yes Status: Acute Code(s): K52.9 - NONINFECTIVE GASTROENTERITIS AND COLITIS, UNSPECIFIED SNOMED Code(s): 26652274
[2021-05-17] MEDS ORDERED: PEG 3350-NA SULF,BICARB,CL/KCL 4,000 ML BOTTLE PO ONE (10:30)
[2021-05-17] MEDS: PANTOPRAZOLE 40 MG/10 ML VIAL IVP SCH (11:54)
[2021-05-17] MEDS: FLUTICASONE 50MCG/SPRAY NASAL 16GM EA NOSTRIL SCH (11:55)
--- NOTE | 2021-05-17 12:12 | P.PN ---
Subjective Progress Note Date: 05/17/21 The patient is a 65-year-old female who is currently admitted to the hospital with urinary tract infection and pneumonia. Cardiology was consult and the patient went into A. fib with RVR overnight. Initially rhythm was thought to be SVT and after receiving 18 mg of adenosine in 2 doses, her underlying rhythm appeared to be atrial fibrillation in the low 100s. She has remained in A. fib despite Cardizem drip at 10 mg daily and 50 mg by mouth of Toprol-XL. The patient was interviewed and examined lying comfortably in bed. She states she does have some difficulty breathing and feels as though she is not able to inhale enough oxygen via her nasal passages. She is saturating well on 3 L. No chest pain or chest pressure. No palpitations, dizziness, lightheadedness. She does have a congested cough, GENERAL: Well-appearing, well-nourished and in no acute distress. NECK: Supple without JVD or thyromegaly. LUNGS: Breath sounds rhonchorous to auscultation bilaterally. Respiration equal and mildly labored. HEART: Irregular rate and rhythm without murmurs, rubs or gallops. S1 and S2 heard. EXTREMITIES: Normal range of motion, no edema. No clubbing or cyanosis. Peripheral pulses intact and strong. VITALS: Blood pressure 128/60's, SpO2 97% on 3 L nasal cannula, respiratory rate 22, temperature 97.8F, pulse 108 TELEMETRY: Atrial fibrillation with heart rate in the low 100s LABS: TSH 1.05, AST 46, ALT 34, troponin 0.014, creatinine 0.80, BUN 14, potassium 3.8, sodium 141, WBC 22.9, hemoglobin 8.2, hematocrit 25.0, platelets 545 IMPRESSION: New onset of atrial fibrillation with RVR Leukocytosis, secondary to UTI and cholecystitis Acute kidney injury Hypertension Dyslipidemia History of COPD History of smoking Anemia, positive for GI bleeding PLAN: Resume home dose of furosemide Increase beta greg to 50 mg twice daily Wean off Cardizem drip as tolerated with goal of A. fib rate control Will need anticoagulation however possibility of current GI bleeding with unknown source Upper GI and colonoscopy pending for Tuesday Further recommendations will be based upon clinical course The patient has been seen and evaluated. Plan of care has been reviewed and agreed upon by Dr Barnes. Objective - Vital Signs Vital signs: Vital Signs Temp 97.8 F 05/17/21 08:00 Pulse 109 H 05/17/21 09:21 Resp 22 05/17/21 08:00 BP 128/67 05/17/21 08:00 Pulse Ox 99 05/17/21 09:10 Intake & Output 05/16/21 05/17/21 05/17/21 18:59 06:59 18:59 Intake Total 10 10 237 Output Total 500 580 Balance -490 -570 237 Intake: IV 10 10 Invasive Line 2 10 10 Oral 237 Output: Urine 500 580 Other: Voiding Method Bedside Commode Bedside Commode # Voids 1 # Bowel Movements 1 - Labs CBC & Chem 7: 05/17/21 07:33 05/17/21 07:33 Labs: Abnormal Lab Results - Last 24 Hours (Table) 05/16/21 05/17/21 05/17/21 Range/Units 12:42 07:33 07:33 WBC 31.3 H 22.9 H (3.8-10.6) k/uL RBC 2.77 L 2.59 L (3.80-5.40) m/uL Hgb 8.9 L 8.2 L (11.4-16.0) gm/dL Hct 27.3 L 25.0 L (34.0-46.0) % Plt Count 520 H 545 H (150-450) k/uL Neutrophils # (Manual) 17.60 H (1.3-7.7) k/uL Metamyelocytes # (Man) 1.15 H (0) k/uL Myelocytes # (Manual) 0.92 H (0) k/uL Chloride 112 H (98-107) mmol/L Glucose 129 H (74-99) mg/dL Calcium 7.6 L (8.4-10.2) mg/dL AST 46 H (14-36) U/L Alkaline Phosphatase 128 H (38-126) U/L Total Protein 4.5 L (6.3-8.2) g/dL Albumin 2.4 L (3.5-5.0) g/dL
[2021-05-17] MEDS: FUROSEMIDE 20 MG TAB PO SCH (15:14)
[2021-05-17] MEDS: DILTIAZEM 125 MG in SODIUM CHLORIDE 0.9% 100 ML IV SCH (15:15)
--- NOTE | 2021-05-17 17:08 | P.PN ---
Subjective Progress Note Date: 05/17/21 Principal diagnosis: SVT/rapid atrial fibrillation Acute GI bleed Acute blood loss anemia Acute colitis 65-year-old female patient admitted to the hospital with fever, change in mental status, diarrhea with UTI and sepsis; patient developed acute GI bleed while inpatient and is being followed by general surgery and cardiology Patient reported another bloody bowel movement this morning; repeat CT of the abdomen done by general surgery does reveal right-sided colitis with gallbladder distended with stone While on medical floor patient became tachycardic and hypotensive; stat EKG revealed patient to be in SVT; patient was resuscitated with adenosine 6 mg followed by 12 mg dose and placed on Cardizem 5 mg with plans to titrate as needed; cardiology is consulted; patient is transferred to selective care unit 05/17/2021 Patient is seen and evaluated resting comfortably in bed; denies any complaint of chest pain or shortness of breath Vital signs are reviewed and stable with temperature of 98.2, pulse 81, respirations 16 and blood pressure of 168/58; O2 saturation 97% on 2 L Laboratory review shows WBC of 9.4, hemoglobin 10.2, hematocrit 30.2 and platelet count of 232; sodium 135, potassium 3.5, BUN/creatinine of 32/1.4; BNP of 2710 with troponin peaking at 0.037 Patient was transferred to selective care unit yesterday for rapid atrial fibrillation, no history of atrial fibrillation; cardiology is on board; rec ommending to remain off Cardizem drip and increase beta blockers to 50 mg twice a day; mild elevation of BNP and recommended to continue home dose of Lasix; patient is scheduled for upper GI and colonoscopy tomorrow morning for GI bleed; cardiology recommending to start anticoagulation once cleared by GI Objective - Vital Signs Vital signs: Vital Signs Temp 97.8 F 05/17/21 08:00 Pulse 109 H 05/17/21 09:21 Resp 22 05/17/21 08:00 BP 128/67 05/17/21 08:00 Pulse Ox 99 05/17/21 09:10 Intake & Output 05/16/21 05/17/21 05/17/21 18:59 06:59 18:59 Intake Total 10 10 237 Output Total 500 580 Balance -490 -570 237 Intake: IV 10 10 Invasive Line 2 10 10 Oral 237 Output: Urine 500 580 Other: Voiding Method Bedside Commode Bedside Commode # Voids 1 # Bowel Movements 1 - Exam CONSTITUTIONAL: No apparent distress. HEENT: Head is normocephalic. Pupils are equal, round. Sclerae anicteric. Mucous membranes of the mouth are moist. No JVD. No carotid bruit. CHEST EXAMINATION: Expiratory wheezes throughout, no rales or rhonchi. No chest wall tenderness is noted on palpation or with deep breathing. HEART EXAMINATION: Regular rate and rhythm. S1, S2 heard. No murmurs, gallops or rub. ABDOMEN: Soft, nontender. EXTREMITIES: 2+ peripheral pulses, no lower extremity edema and no calf tenderness. NEUROLOGIC EXAMINATION: Patient is awake, alert and oriented x3. - Labs CBC & Chem 7: 05/17/21 07:33 05/17/21 07:33 Labs: Abnormal Lab Results - Last 24 Hours (Table) 05/16/21 05/16/21 05/17/21 Range/Units 11:41 12:42 07:33 WBC 31.3 H 22.9 H (3.8-10.6) k/uL RBC 2.77 L 2.59 L (3.80-5.40) m/uL Hgb 8.9 L 8.2 L (11.4-16.0) gm/dL Hct 27.3 L 25.0 L (34.0-46.0) % Plt Count 520 H 545 H (150-450) k/uL Neutrophils # (Manual) 17.60 H (1.3-7.7) k/uL Metamyelocytes # (Man) 1.15 H (0) k/uL Myelocytes # (Manual) 0.92 H (0) k/uL Chloride (98-107) mmol/L Glucose (74-99) mg/dL POC Glucose (mg/dL) 138 H (75-99) mg/dL Calcium (8.4-10.2) mg/dL AST (14-36) U/L Alkaline Phosphatase (38-126) U/L Total Protein (6.3-8.2) g/dL Albumin (3.5-5.0) g/dL 05/17/21 Range/Units 07:33 WBC (3.8-10.6) k/uL RBC (3.80-5.40) m/uL Hgb (11.4-16.0) gm/dL Hct (34.0-46.0) % Plt Count (150-450) k/uL Neutrophils # (Manual) (1.3-7.7) k/uL Metamyelocytes # (Man) (0) k/uL Myelocytes # (Manual) (0) k/uL Chloride 112 H (98-107) mmol/L Glucose 129 H (74-99) mg/dL POC Glucose (mg/dL) (75-99) mg/dL Calcium 7.6 L (8.4-10.2) mg/dL AST 46 H (14-36) U/L Alkaline Phosphatase 128 H (38-126) U/L Total Protein 4.5 L (6.3-8.2) g/dL Albumin 2.4 L (3.5-5.0) g/dL Microbiology - Last 24 Hours (Table) 05/10/21 05:48 Blood Culture - Final Blood No Growth after 144 hours 05/10/21 05:35 Blood Culture - Final Blood No Growth after 144 hours Assessment and Plan Assessment: Acute urinary tract infection with sepsis, present on admission Acute injury with acute renal failure with baseline chronic kidney disease stage III Acute cholecystitis Leukocytosis Possible colitis Hypokalemia Hypo-magnesium Metabolic acidosis secondary to acute kidney injury Full gastrointestinal bleeding noted melena and stool History of asthma COPD Possible right upper lobe pneumonia History of cerebrovascular accident/TIA Fibromyalgia GERD/reflux Hypertension Dyslipidemia History of memory impairment History of myocardial infarction Chronic hypoxic respiratory failure-dependent on 2 L of nasal cannula Back back pain Abdominal aortic aneurysm measuring 3.7 cm History of MRSA History of remote recent cardiac catheterization Full code Plan: Acute urinary tract infection continue IV antibiotics Acute kidney injury with acute renal failure continue IV fluids and continue to trend, avoid nephrotoxic medications Acute cholecystitis, continue broad-spectrum IV antibiotics and consultation with surgery Episode of bright red stools, consultation with general surgery for upper and lower GI. Continue home medications Continue medical management Continue to monitor vital signs and diagnostic testing Further recommendations to come based on patient's clinical condition
[2021-05-17] MEDS ORDERED: MAGNESIUM CITRATE 296 ML BOTTLE PO ONE (19:26)
[2021-05-17] MEDS: TEMAZEPAM 15 MG CAP PO SCH (20:09)
[2021-05-18] MEDS: metroNIDAZOLE-NS PMX 500 MG in SALINE 1 100ML.BAG IVPB SCH ×3 (05:15→20:08)
[2021-05-18] MEDS: PIPERACILLIN-TAZOBACTAM 3.375 GM in SODIUM CHLORIDE 0.9% 100 ML IVPB SCH ×3 (06:19→22:42)
[2021-05-18] MEDS: IPRATROPIUM-ALBUTEROL 3 ML NEB INHALATION SCH ×4 (07:34→20:45)
[2021-05-18] MEDS: LACTATED RINGERS 1,000 ML IV SCH (07:42)
[2021-05-18] MEDS: MONTELUKAST 10 MG TAB PO SCH (10:14)
[2021-05-18] MEDS: hydrALAZINE HCL 25 MG TAB PO SCH (10:14)
[2021-05-18] MEDS: ATORVASTATIN 80 MG TAB PO SCH (10:15)
[2021-05-18] MEDS: predniSONE 20 MG TAB PO SCH ×2 (10:15→20:07)
[2021-05-18] MEDS: busPIRone HCl 5 MG TAB PO SCH ×2 (10:15→20:07)
[2021-05-18] MEDS: FUROSEMIDE 20 MG TAB PO SCH (10:15)
[2021-05-18] MEDS: PANTOPRAZOLE 40 MG/10 ML VIAL IVP SCH (10:15)
[2021-05-18] MEDS: CYCLOBENZAPRINE 10 MG TAB PO SCH ×2 (10:15→20:07)
[2021-05-18] MEDS: METOPROLOL SUCCINATE (ER) 50 MG TAB.ER.24H PO SCH ×2 (10:15→20:59)
[2021-05-18] MEDS: FLUTICASONE 50MCG/SPRAY NASAL 16GM EA NOSTRIL SCH (10:16)
[2021-05-18] MEDS: MORPHINE SULFATE 2 MG/ML SYRINGE IVP PRN ×2 (10:21→17:20)
--- NOTE | 2021-05-18 11:43 | P.PN ---
Subjective HISTORY OF PRESENTING ILLNESS This is a pleasant 65-year-old female past medical history significant for COPD, hypertension, dyslipidemia, peripheral vascular disease and chronic nicotine dependence. She follows in the office with Dr. Barnes. Cardiology was initially consulted for operative evaluation on 05/12/21. Cardiology was reconsu lted on 05/16/21 for Tachycardia. She presented to the hospital with symptoms of nausea and diarrhea and has been diagnosed with cholecystitis and scheduled to undergo robotic cholecystectomy later this week. EKG on admission revealed sinus mechanism heart rate of 94 chest x-ray reveals right upper lobe infiltrate not significantly different from previous exam, demonstrated by previous CT scans up to 4 years ago. Echocardiogram obtained on this admission reveals preserved LV systolic function with ejection fraction 60-65% with a possible LVOT obstruction with a max gradient of 17 mmHg, mild MR and mild TR. Patient previously had a Lexiscan stress test April 2020 that revealed no evidence of reversibility. On 05/16, patient was transferred to [facility] due to tachycardia. Initial rhythm was thought to be SVT and Patient was given 6mg adenosine and 12mg IV adenosine. Patient's underlying rhythm was atrial fibrillation with RVR started on Cardizem 10mg IVP and 5mg drip. 05/18/21: Patient seen and examined at bedside. She is frustrated about her care and states she is not aware of the plan. Patient is NPO for possible EGD/colonoscopy today. Blood pressure 100/71, heart rate 5, afebrile, maintaining saturations 96% stenosis. Telemetry reviewed patient continues to be in atrial fibrillation with heart rates 100s. He is currently maintained on atorvastatin 80 mg daily, IV Cardizem 5 mg/HR, Lasix 20 mg daily, hydralazine 25 mg 3 times a day, metoprolol succinate 50 mg twice a day. Laboratory data reviewed, WBC 22.9, hemoglobin 8.2, platelets 545, sodium 141, potassium 3.8, BUN 14, serum creatinine 0.8, TSH within normal limits. PHYSICAL EXAMINATION CONSTITUTIONAL: No apparent distress. HEENT: Head is normocephalic. Pupils are equal, round. Sclerae anicteric. Mucous membranes of the mouth are moist. No JVD. No carotid bruit. CHEST EXAMINATION: Expiratory wheezes throughout, no rales or rhonchi. No chest wall tenderness is noted on palpation or with deep breathing. HEART EXAMINATION: Irregular rate and rhythm. S1, S2 heard. No murmurs, gallops or rub. ABDOMEN: Soft, nontender. EXTREMITIES: 2+ peripheral pulses, no lower extremity edema and no calf tenderness. NEUROLOGIC EXAMINATION: Patient is awake, alert and oriented x3. ASSESSMENT New onset paroxysmal atrial fibrillation with RVR -[id number] score 3 Cholecystitis Leukocytosis Acute kidney injury UTI Hypertension Dyslipidemia Peripheral vascular disease COPD Chronic nicotine dependence Altered mental status PLAN Discontinue hydralazine Continue metoprolol succinate 50mg BID and will make adjustments Continue cardizem drip at 5mg/hr and will adjust as tolerated Will need anticoagulation however possibility of current GI bleeding with unknown source. Will await GI recommendations Upper GI and colonoscopy pending for today Further recommendations will be based upon clinical course Nurse Practitioner note has been reviewed, I agree with a documented findings and plan of care. Patient was seen and examined. Objective - Vital Signs Vital signs: Vital Signs Temp 98.1 F 05/18/21 08:00 Pulse 105 H 05/18/21 08:00 Resp 18 05/18/21 08:00 BP 100/71 05/18/21 08:00 Pulse Ox 96 05/18/21 08:00 Intake & Output 05/17/21 05/18/21 05/18/21 18:59 06:59 18:59 Intake Total 719 20 Output Total 300 300 Balance 719 -280 -300 Intake: IV 20 20 Invasive Line 2 20 20 Intake, IV Titration 225 Amount Diltiazem 125 mg In 125 Sodium Chloride 0.9% 100 ml @ 5 MG/HR 5 mls/hr IV .Q24H [facility] Rx#:[id number] Piperacillin-Tazobactam 3 100 .375 gm In Sodium Chloride 0.9% 100 ml @ 25 mls/hr IVPB Q8HR@0600, 1400,2200 [facility] Rx#: [id number] Oral 474 Output: Stool 300 300 Other: Voiding Method Bedside Commode # Voids 1 # Bowel Movements 1 1 - Labs CBC & Chem 7: 05/17/21 07:33 05/17/21 07:33
[2021-05-18] MEDS: DILTIAZEM 125 MG in SODIUM CHLORIDE 0.9% 100 ML IV SCH (11:49)
[2021-05-18] MEDS ORDERED: LIDOCAINE 1% INJ 10MG/ML (20 ML MDV) ONE (15:37)
[2021-05-18] MEDS ORDERED: PROPOFOL 10 MG/ML 20 ML VIAL IV ONE (15:37)
[2021-05-18] MEDS ORDERED: LACTATED RINGERS 1,000 ML IV ONE (16:04)
--- NOTE | 2021-05-18 16:30 | P.PCN ---
Date of Procedure: 05/18/21 Procedure(s) Performed: PREOPERATIVE DIAGNOSIS: GI bleed POSTOPERATIVE DIAGNOSIS: Erosive gastritis, small hiatal hernia, diffuse colitis, colon polyps PROCEDURE: 1. EGD with biopsy 2. Colonoscopy biopsy and snare polypectomy ANESTHESIA: MAC SURGEON: Mahendra Sutton M.D. SPECIMENS: Antrum, cardia, colitis, transverse colon polyp, rectal polyp ENDOSCOPIC PROCEDURE: The patient was on the endoscopy table in the left decubitus position. The Olympus gastroscope was inserted into the oropharynx and passed under direct visualization to the region of the third portion of the duodenum. From that point the scope was slowly withdrawn inspecting all surfaces carefully. There were no neoplastic inflammatory or polypoid lesions throughout the duodenum. The pylorus was widely patent. The stomach was carefully inspected. There was diffuse gastritis present. Erosions were seen both in the antral region and in the cardia region of the stomach. Biopsies of both areas took place. No active bleeding was seen. Retroflexion revealed a small hiatal hernia. The patient's esophagus appeared normal. The patient was kept on the endoscopy table in the left decubitus position. The Olympus colonoscope was inserted into the anus and passed under direct visualization to the proximal colon. The patient had mucousy blood seen throughout the colon. It was difficult to say if we were in the ascending colon or not. The blood was limiting her visualization. The patient has significant tortuosity as well which was making it difficult to advance the scope more proximal. When we were able to use our steam shovel operating engineer to expose the underlying mucosa there was scattered areas of inflammatory change and superficial ulceration seen throughout the colon. Biopsies of the colitis took place. In the transverse colon there was a small polyp that was biopsied using the cold biopsy forceps. This measured about 1.5 cm in size. This was not fully excised. In the rectum another polyp was seen which was sessile in nature and removed using the snare with cautery technique. Etiology for bleeding appeared to be the patient's diffuse colitis. This did involve all segments of visualize colon including rectum. No exact site of active bleeding was identified. Patient did have small hemorrhoids at the anal region on digital rectal examination. The patient was taken to the recovery room in stable condition per anesthesia guidelines. RECOMMENDATIONS: Patient is already on oral prednisone at 20 mg twice daily. Patient is already on Zosyn and Flagyl. Await biopsy results. Continue supportive care.
[2021-05-18] MEDS: ACETAMINOPHEN TAB 325 MG TAB PO PRN (20:08)
[2021-05-18] MEDS: TEMAZEPAM 15 MG CAP PO SCH (20:59)
[2021-05-19] MEDS: MORPHINE SULFATE 2 MG/ML SYRINGE IVP PRN ×3 (01:39→17:12)
[2021-05-19] MEDS: LACTATED RINGERS 1,000 ML IV SCH ×2 (03:11→08:34)
[2021-05-19] MEDS: metroNIDAZOLE-NS PMX 500 MG in SALINE 1 100ML.BAG IVPB SCH (04:54)
[2021-05-19] MEDS: PIPERACILLIN-TAZOBACTAM 3.375 GM in SODIUM CHLORIDE 0.9% 100 ML IVPB SCH (06:13)
--- NOTE | 2021-05-19 07:12 | XR ---
EXAMINATION TYPE: XR chest 1V portable DATE OF EXAM: 05/19/2021 COMPARISON: 05/15/2021 HISTORY: Shortness of breath TECHNIQUE: Single frontal view of the chest is obtained. FINDINGS: There is no focal air space opacity, pleural effusion, or pneumothorax seen. The cardiac silhouette size is within normal limits. The osseous structures are intact. Postsurgical change ove rlying the cervical spine. Hyperinflation suggests COPD. Atherosclerotic change aorta. Subsegmental c hanges at the lung bases. IMPRESSION: 1. COPD. Basilar atelectasis favored over infiltrate correlate clinically.
[2021-05-19] MEDS: IPRATROPIUM-ALBUTEROL 3 ML NEB INHALATION SCH ×4 (07:27→20:40)
[2021-05-19 08:13] LABS: Albumin 2.1 g/dL (3.5-5.0); Calcium 7.4 mg/dL (8.4-10.2); Total Bilirubin 0.3 mg/dL (0.2-1.3); Total Protein 4.2 g/dL (6.3-8.2)
[2021-05-19 08:14] LABS: Anisocytosis Slight; Basophils # (A) 0.1 k/uL (0-0.2); Basophils % (A) 0 %; Eosinophils % (A) 0 %; Hypochromasia Slight; Lymphocytes # (A) 2.1 k/uL (1.0-4.8); Lymphocytes % (A) 9 %; MCH 33.6 pg (25.0-35.0); MCHC 34.4 g/dL (31.0-37.0); MCV 97.7 fL (80.0-100.0); Macrocytosis Slight; Magnesium 2.3 mg/dL (1.6-2.3); Mean Platelet Volume 9.1; Monocytes # (A) 0.7 k/uL (0-1.0); Monocytes % (A) 3 %; Neutrophils # (A) 20.8 k/uL (1.3-7.7); Neutrophils % (A) 87 %; Platelet Count 534 k/uL (150-450); Poikilocytosis Slight; Potassium 3.5 mmol/L (3.5-5.1); RBC 1.67 m/uL (3.80-5.40); RDW 16.5 % (11.5-15.5); WBC 23.9 k/uL (3.8-10.6)
[2021-05-19 08:21] LABS: HCT 16.3 % (34.0-46.0)
[2021-05-19 08:22] LABS: HGB 5.6 gm/dL (11.4-16.0)
[2021-05-19] MEDS ORDERED: FUROSEMIDE 10 MG/ML 2 ML VIAL IV ONE (08:35)
[2021-05-19] MEDS: CYCLOBENZAPRINE 10 MG TAB PO SCH ×2 (08:41→20:42)
[2021-05-19] MEDS: PANTOPRAZOLE 40 MG/10 ML VIAL IVP SCH ×2 (08:41→20:42)
[2021-05-19] MEDS: ATORVASTATIN 80 MG TAB PO SCH (08:41)
[2021-05-19] MEDS: MONTELUKAST 10 MG TAB PO SCH (08:41)
[2021-05-19] MEDS: ACETAMINOPHEN TAB 325 MG TAB PO PRN (08:41)
[2021-05-19] MEDS: METOPROLOL SUCCINATE (ER) 50 MG TAB.ER.24H PO SCH ×2 (08:42→20:42)
[2021-05-19] MEDS: predniSONE 20 MG TAB PO SCH ×3 (08:42→20:42)
[2021-05-19] MEDS: FLUTICASONE 50MCG/SPRAY NASAL 16GM EA NOSTRIL SCH (08:42)
[2021-05-19] MEDS: busPIRone HCl 5 MG TAB PO SCH ×2 (08:42→20:42)
[2021-05-19] MEDS: FUROSEMIDE 20 MG TAB PO SCH (08:42)
--- NOTE | 2021-05-19 10:41 | P.PN ---
Subjective Progress Note Date: 05/18/21 Principal diagnosis: New onset rapid atrial fibrillation Acute GI bleed Acute blood loss anemia Acute colitis 65-year-old female patient admitted to the hospital with fever, change in mental status, diarrhea with UTI and sepsis; patient developed acute GI bleed while inpatient and is being followed by general surgery and cardiology Patient reported another bloody bowel movement this morning; repeat CT of the abdomen done by general surgery does reveal right-sided colitis with gallbladder distended with stone While on medical floor patient became tachycardic and hypotensive; stat EKG revealed patient to be in SVT; patient was resuscitated with adenosine 6 mg followed by 12 mg dose and placed on Cardizem 5 mg with plans to titrate as needed; cardiology is consulted; patient is transferred to selective care unit 05/17/2021 Patient is seen and evaluated resting comfortably in bed; denies any complaint of chest pain or shortness of breath Vital signs are reviewed and stable with temperature of 98.2, pulse 81, respir ations 16 and blood pressure of 168/58; O2 saturation 97% on 2 L Laboratory review shows WBC of 9.4, hemoglobin 10.2, hematocrit 30.2 and platelet count of 232; sodium 135, potassium 3.5, BUN/creatinine of 32/1.4; BNP of 2710 with troponin peaking at 0.037 Patient was transferred to selective care unit yesterday for rapid atrial fibrillation, no history of atrial fibrillation; cardiology is on board; recommending to remain off Cardizem drip and increase beta blockers to 50 mg twice a day; mild elevation of BNP and recommended to continue home dose of Lasix; patient is scheduled for upper GI and colonoscopy tomorrow morning for GI bleed; cardiology recommending to start anticoagulation once cleared by GI 05/18/2021 Patient is currently lying in the bed comfortably. No complaints of palpit ations. Patient is scheduled for EGD and colonoscopy today due to GI bleed. Patient is being continued on Cardizem drip due to atrial fibrillation with a rapid ventricular rate. Heart rate is improving. Patient is on metoprolol 50 mg twice daily. Current being continued Antibiotics in the form of Zosyn and Flagyl. Laboratory data showed WBC 20.9 hemoglobin 8.2 and platelets 545 Sodium 141 potassium 3.8 chloride 112 Calcium 7.6 AST 46 ALT 34 and alk phos 128 TSH 1.05 urine culture showed E. coli. Patient has been afebrile. Denied any chest pain or shortness of breath. No headache or dizziness or lightheadedness. Current medications reviewed. Objective - Vital Signs Vital signs: Vital Signs Temp 98 F 05/18/21 17:24 Pulse 112 H 05/18/21 17:24 Resp 18 05/18/21 17:24 BP 130/70 05/18/21 17:24 Pulse Ox 96 05/18/21 17:24 Intake & Output 05/17/21 05/18/21 05/18/21 18:59 06:59 18:59 Intake Total 719 145 720 Output Total 300 300 Balance 719 -155 420 Weight 86.5 kg Intake: IV 20 20 400 Invasive Line 2 20 20 Intake, IV Titration 225 125 200 Amount Diltiazem 125 mg In 125 125 Sodium Chloride 0.9% 100 ml @ 5 MG/HR 5 mls/hr IV .Q24H [facility] Rx#:[id number] Piperacillin-Tazobactam 3 100 100 .375 gm In Sodium Chloride 0.9% 100 ml @ 25 mls/hr IVPB Q8HR@0600, 1400,2200 [facility] Rx#: [id number] metroNIDAZOLE-NS PMX 500 100 mg In Saline 1 100ml.bag @ 100 mls/hr IVPB Q8H [facility] Rx#:[id number] Oral 474 120 Output: Stool 300 300 Other: Voiding Method Bedside Commode # Voids 1 # Bowel Movements 1 1 - Exam - Exam CONSTITUTIONAL: No apparent distress. HEENT: Head is normocephalic. Pupils are equal, round. Sclerae anicteric. Mucous membranes of the mouth are moist. No JVD. No carotid bruit. CHEST EXAMINATION: Mild expiratory wheeze., no rales or rhonchi. No chest wall tenderness is noted on palpation or with deep breathing. HEART EXAMINATION is irregular rate and rhythm. S1, S2 heard. No murmurs, gallops or rub. ABDOMEN: Soft, nontender. EXTREMITIES: 2+ peripheral pulses, no lower extremity edema and no calf tenderness. NEUROLOGIC EXAMINATION: Patient is awake, alert and oriented x3. - Labs CBC & Chem 7: 05/19/21 07:23 05/19/21 07:23 Assessment and Plan Assessment: New onset atrial fibrillation with rapid ventricular rate. Acute urinary tract infection with sepsis, present on admission. Urine culture showed E. coli. Acute injury with acute renal failure with baseline chronic kidney disease stage III Acute cholecystitis Leukocytosis Acute GI bleed./Acute blood loss anemia Possible colitis Hypokalemia and hypomagnesemia replaced. Metabolic acidosis secondary to acute kidney injury Full gastrointestinal bleeding noted melena and stool History of asthma COPD Possible right upper lobe pneumonia History of cerebrovascular accident/TIA Fibromyalgia GERD/reflux Hypertension Dyslipidemia History of memory impairment History of myocardial infarction Chronic hypoxic respiratory failure-dependent on 2 L of nasal cannula Back back pain Abdominal aortic aneurysm measuring 3.7 cm History of MRSA History of remote recent cardiac catheterization Full code Plan: Patient is being continued on Cardizem drip and metoprolol will be continued. Anticoagulation is on hold due to GI bleed. Cardiology is on board. Acute urinary tract infection continue IV antibiotics in the form of Zosyn and Flagyl. Acute kidney injury with acute renal failure continue IV fluids and continue to trend, avoid nephrotoxic medications. Renal function is improving. Acute cholecystitis, continue broad-spectrum IV antibiotics and general surgery is following. Episode of bright red stools, consultation with general surgery for upper and lower GI. Continue home medications Continue to monitor vital signs and diagnostic testing Further recommendations to come based on patient's clinical condition Time with Patient: Greater than 30
--- NOTE | 2021-05-19 10:49 | P.PN ---
Subjective HISTORY OF PRESENTING ILLNESS This is a pleasant 65-year-old female past medical history significant for COPD, hypertension, dyslipidemia, peripheral vascular disease and chronic nicotine dependence. She follows in the office with Dr. Barnes. Cardiology was initially consulted for operative evaluation on 05/12/21. Cardiology was reconsu lted on 05/16/21 for Tachycardia. She presented to the hospital with symptoms of nausea and diarrhea and has been diagnosed with cholecystitis and scheduled to undergo robotic cholecystectomy later this week. EKG on admission revealed sinus mechanism heart rate of 94 chest x-ray reveals right upper lobe infiltrate not significantly different from previous exam, demonstrated by previous CT scans up to 4 years ago. Echocardiogram obtained on this admission reveals preserved LV systolic function with ejection fraction 60-65% with a possible LVOT obstruction with a max gradient of 17 mmHg, mild MR and mild TR. Patient previously had a Lexiscan stress test April 2020 that revealed no evidence of reversibility. On 05/16, patient was transferred to [facility] due to tachycardia. Initial rhythm was thought to be SVT and Patient was given 6mg adenosine and 12mg IV adenosine. Patient's underlying rhythm was atrial fibrillation with RVR started on Cardizem 10mg IVP and 5mg drip. 05/19/2021: Patient is s/p EGD and colonoscopy on 05/18/21, which revealed erosive gastritis, small hiatal hernia, diffuse colitis, colon polyps. Biopsies were taken. Per GI etiology for bleeding appeared to be the patient's diffuse colitis. No exact site of active bleeding was identified. Patient on prednisone, Zosyn and flagyl. Patient seen and examined at bedside, continues to be angry and frustrated with her care. Requesting to be discharged. Laboratory data reviewed, WBC 23.9, hemoglobin 5.6 (8.2 yesterday), platelets 534, sodium 139, potassium 3.5, BUN 11, serum creatinine 0.8, albumin 2.1. Telemetry reviewed, patient in atrial fibrillation HR 100-115. Patient currently maintained on ator vastatin 80 mg daily, Cardizem 5 mg/hr, metoprolol succinate 50mg BID. Patient denies any blood in stool, urine or sputum. She denies chest pain, palpitations, or shortness of breath. PHYSICAL EXAMINATION CONSTITUTIONAL: No apparent distress. Frustrated with her care. HEENT: Neck Supple. Mucous membranes of the mouth are moist. No JVD. CHEST EXAMINATION: Lungs diminished throughout, no rales or rhonchi. No chest wall tenderness is noted on palpation or with deep breathing. HEART EXAMINATION: Irregular rate and rhythm. S1, S2 heard. No murmurs, gallops or rub. ABDOMEN: Soft, nontender. EXTREMITIES: 2+ peripheral pulses, no lower extremity edema and no calf tenderness. NEUROLOGIC EXAMINATION: Patient is awake, alert and oriented x3. ASSESSMENT New onset paroxysmal atrial fibrillation with RVR -[id number] score 3 Cholecystitis Leukocytosis Acute kidney injury- resolved UTI Hypertension Dyslipidemia Peripheral vascular disease COPD Chronic nicotine dependence Anemia status post EGD and Colonoscpy on 05/18- Erosive gastritis and Diffuse colitis PLAN Plan for patient to receive 2 units of PRBCs today Increase cardizem to 7.5mg Continue metoprolol succinate 50mg BID and will make adjustments Anticoagulation on hold at this time due to anemia and possibility of current GI bleeding. Per GI, hold on any anticoagulation at this time. Further recommendations will be based upon clinical course Nurse Practitioner note has been reviewed, I agree with a documented findings and plan of care. Patient was seen and examined. Objective - Vital Signs Vital signs: Vital Signs Temp 98 F 05/19/21 07:37 Pulse 117 H 05/19/21 07:39 Resp 17 05/19/21 07:39 BP 111/69 05/19/21 07:37 Pulse Ox 98 05/19/21 07:37 Intake & Output 05/18/21 05/19/21 05/19/21 18:59 06:59 18:59 Intake Total 720 240 Output Total 300 Balance 420 240 Weight 86.5 kg Intake: IV 400 Intake, IV Titration 200 Amount Piperacillin-Tazobactam 3 100 .375 gm In Sodium Chloride 0.9% 100 ml @ 25 mls/hr IVPB Q8HR@0600, 1400,2200 [facility] Rx#: [id number] metroNIDAZOLE-NS PMX 500 100 mg In Saline 1 100ml.bag @ 100 mls/hr IVPB Q8H [facility] Rx#:[id number] Oral 120 240 Output: Stool 300 Other: Voiding Method Bedside Commode Bedside Commode - Labs CBC & Chem 7: 05/19/21 07:23 05/19/21 07:23 Labs: Abnormal Lab Results - Last 24 Hours (Table) 05/19/21 05/19/21 Range/Units 07:23 07:23 WBC 23.9 H (3.8-10.6) k/uL RBC 1.67 L (3.80-5.40) m/uL Hgb 5.6 L* D (11.4-16.0) gm/dL Hct 16.3 L* (34.0-46.0) % RDW 16.5 H (11.5-15.5) % Plt Count 534 H (150-450) k/uL Neutrophils # 20.8 H (1.3-7.7) k/uL Chloride 109 H (98-107) mmol/L Glucose 120 H (74-99) mg/dL Calcium 7.4 L (8.4-10.2) mg/dL AST 39 H (14-36) U/L Total Protein 4.2 L (6.3-8.2) g/dL Albumin 2.1 L (3.5-5.0) g/dL
--- NOTE | 2021-05-19 11:17 | P.PN ---
<Jackie Barton - Last Filed: 05/19/21 11:02> Subjective Progress Note Date: 05/19/21 CHIEF COMPLAINT: Colitis HISTORY OF PRESENT ILLNESS: Patient is status post EGD and colonoscopy with biopsies and snare polypectomy. Results showing erosive gastritis, small hiatal hernia, diffuse colitis, colon polyps. Patient is sitting up in bed. She keeps stating that she wants to go home. She is angry and frustrated. She denies any abdominal pain. Denies any nausea or vomiting. She tolerated her full liquids. She denies any blood in her stools. Afebrile. Tachycardic. WBC 23.9 hemoglobin is down from 8.2-5.6 platelets 534 PHYSICAL EXAM: VITAL SIGNS: Reviewed. GENERAL: Well-developed in no acute distress. HEENT: No sclera icterus. Extraocular movements grossly intact. Moist buccal mucosa. Head is atraumatic, normocephalic. ABDOMEN: Soft. Nondistended. Nontender. NEUROLOGIC: Alert and oriented. Cranial nerves II through XII grossly intact. ASSESSMENT: 1. Colitis 2. Cholecystitis 3. Anemia and acute GI bleed status post EGD and colonoscopy. Results showing erosive gastritis, small hiatal hernia, diffuse colitis, colon polyps PLAN: -Patient scheduled to receive blood transfusion for hemoglobin of 5.6 -Recommend no anticoagulation at this time due to GI bleed and anemia -Continue supportive care -Continue antibiotics -Continue prednisone -Continue conservative management for cholecystitis with antibiotics. No surgical intervention planned. Physician [employer] Supply Load Builder note has been reviewed by physician. Signing provider agrees with the documented findings, assessment, and plan of care. Objective - Vital Signs Vital signs: Vital Signs Temp 98 F 05/19/21 07:37 Pulse 117 H 05/19/21 07:39 Resp 17 05/19/21 07:39 BP 111/69 05/19/21 07:37 Pulse Ox 98 05/19/21 07:37 Intake & Output 05/18/21 05/19/21 05/19/21 18:59 06:59 18:59 Intake Total 720 240 Output Total 300 Balance 420 240 Weight 86.5 kg Intake: IV 400 Intake, IV Titration 200 Amount Piperacillin-Tazobactam 3 100 .375 gm In Sodium Chloride 0.9% 100 ml @ 25 mls/hr IVPB Q8HR@0600, 1400,2200 [facility] Rx#: [id number] metroNIDAZOLE-NS PMX 500 100 mg In Saline 1 100ml.bag @ 100 mls/hr IVPB Q8H [facility] Rx#:[id number] Oral 120 240 Output: Stool 300 Other: Voiding Method Bedside Commode Bedside Commode - Labs CBC & Chem 7: 05/19/21 07:23 05/19/21 07:23 Labs: Abnormal Lab Results - Last 24 Hours (Table) 05/19/21 05/19/21 Range/Units 07:23 07:23 WBC 23.9 H (3.8-10.6) k/uL RBC 1.67 L (3.80-5.40) m/uL Hgb 5.6 L* D (11.4-16.0) gm/dL Hct 16.3 L* (34.0-46.0) % RDW 16.5 H (11.5-15.5) % Plt Count 534 H (150-450) k/uL Neutrophils # 20.8 H (1.3-7.7) k/uL Chloride 109 H (98-107) mmol/L Glucose 120 H (74-99) mg/dL Calcium 7.4 L (8.4-10.2) mg/dL AST 39 H (14-36) U/L Total Protein 4.2 L (6.3-8.2) g/dL Albumin 2.1 L (3.5-5.0) g/dL <Mahendra Sutton - Last Filed: 05/19/21 16:04> Subjective As above. Patient with drop in hemoglobin. Not unexpected given yesterday's endoscopy findings of colitis with blood throughout the colon. Continue supportive care with antibiotics and steroid use for now. Await biopsies from colitis. Apparently CAT scan abdomen and pelvis ordered. We'll discuss with Dr. Samayoa's service. Objective - Vital Signs Vital signs: Vital Signs Temp 98 F 05/19/21 15:24 Pulse 67 05/19/21 15:24 Resp 16 05/19/21 15:24 BP 119/78 05/19/21 15:24 Pulse Ox 95 05/19/21 15:24 Intake & Output 05/18/21 05/19/21 05/19/21 18:59 06:59 18:59 Intake Total 720 365 Output Total 300 Balance 420 365 Weight 86.5 kg Intake: IV 400 Intake, IV Titration 200 125 Amount Diltiazem 125 mg In 125 Sodium Chloride 0.9% 100 ml @ 5 MG/HR 5 mls/hr IV .Q24H [facility] Rx#:[id number] Piperacillin-Tazobactam 3 100 .375 gm In Sodium Chloride 0.9% 100 ml @ 25 mls/hr IVPB Q8HR@0600, 1400,2200 [facility] Rx#: [id number] metroNIDAZOLE-NS PMX 500 100 mg In Saline 1 100ml.bag @ 100 mls/hr IVPB Q8H [facility] Rx#:[id number] Oral 120 240 Blood Product 0 Rc As-1 Unit 0 [id number] Output: Stool 300 Other: Voiding Method Bedside Commode Bedside Commode - Labs CBC & Chem 7: 05/19/21 07:23 05/19/21 07:23 Labs: Abnormal Lab Results - Last 24 Hours (Table) 05/19/21 05/19/21 05/19/21 Range/Units 07:23 07:23 08:47 WBC 23.9 H (3.8-10.6) k/uL RBC 1.67 L (3.80-5.40) m/uL Hgb 5.6 L* D (11.4-16.0) gm/dL Hct 16.3 L* (34.0-46.0) % RDW 16.5 H (11.5-15.5) % Plt Count 534 H (150-450) k/uL Neutrophils # 20.8 H (1.3-7.7) k/uL Chloride 109 H (98-107) mmol/L Glucose 120 H (74-99) mg/dL Calcium 7.4 L (8.4-10.2) mg/dL AST 39 H (14-36) U/L Total Protein 4.2 L (6.3-8.2) g/dL Albumin 2.1 L (3.5-5.0) g/dL Crossmatch See Detail Assessment and Plan (1) Colitis Current Visit: Yes Status: Acute Code(s): K52.9 - NONINFECTIVE GASTROENTERITIS AND COLITIS, UNSPECIFIED SNOMED Code(s): 76873541
[2021-05-19] MEDS: AMOXIC-POT CLAV 875-125MG 1 EACH TAB PO SCH ×2 (11:32→20:42)
[2021-05-19] MEDS: metroNIDAZOLE 500 MG TAB PO SCH ×2 (11:33→20:42)
[2021-05-19] MEDS: LORazepam 0.5 MG TAB PO PRN (11:34)
[2021-05-19] MEDS: IOPAMIDOL CONTRAST (ORAL USE) VIAL PO PRN ×2 (13:34→14:23)
[2021-05-19] MEDS: DILTIAZEM 125 MG in SODIUM CHLORIDE 0.9% 100 ML IV SCH (13:39)
--- NOTE | 2021-05-19 17:38 | CT ---
EXAMINATION TYPE: CT abdomen pelvis wo/w con DATE OF EXAM: 05/19/2021 COMPARISON: 05/16/2021 HISTORY: Abdominal pain. CT DLP: 2586.9 mGycm Automated exposure control for dose reduction was used. TECHNIQUE: Helical acquisition of images was performed from the lung bases through the pelvis. CONTRAST: Performed with Oral Contrast and without and with IV Contrast, patient injected with 100 mL of Isovue 300. FINDINGS: LUNG BASES: Normal. LIVER: Normal. BILIARY SYSTEM: Cholelithiasis. No CT evidence of acute cholecystitis. PANCREAS: Atrophic. SPLEEN: Normal. ADRENALS: Normal. KIDNEYS: No hydronephrosis or nephrolithiasis. There are renal vascular calcifications. BOWEL: No bowel obstruction or thickening of the visualized portions of the bowel. The pelvic loops are obscured by streak artifact from bilateral hip prostheses. Normal appendix. PERITONEUM: No pneumoperitoneum. No free fluid. LYMPH NODES: No lymphadenopathy. PELVIS: Obscured by streak artifact from bilateral hip prostheses. VASCULATURE: No abdominal aortic aneurysm. Moderate to marked calcified atherosclerotic disease. MUSCULOSKELETAL: No acute osseous abnormality. Scattered anasarca. IMPRESSION: 1. No acute findings to explain patient's abdominal pain. 2. Cholelithiasis.
--- NOTE | 2021-05-19 17:44 | P.PN ---
Subjective Progress Note Date: 05/19/21 Principal diagnosis: Acute urinary tract infection present on admission Acute kidney injury with acute renal failure with baseline kidney disease of stage III Acute cholecystitis Gastrointestinal bleeding 65-year-old female presented to the hospital with significant medical history of asthma, COPD, CVA/TIA, fibromyalgia, GERD/reflux, hyperlipidemia, history of stage III kidney disease, memory impairment, history of myocardial infarction, chronic respiratory failure, 2 L nasal cannula at home, chronic urinary tract infections, abdominal aortic aneurysm measuring 3.7 cm, history of MRSA, history of cardiac catheterizations, and several comorbidities. Patient had extensive diagnostic workup in the emergency department revealing a UTI, hospital community-acquired pneumonia, acute kidney injury with a creatinine of 5, fever and change in mental status. Throughout patient's hospital stay CT abdomen and pelvis was performed with impression dilated gallbladder with gallstones and suggestion of acute cholecystitis. Consultants on board to the patient's multi comorbidities and complexity of of illnesses. 05/12/2021 Seen and examined at bedside. Patient resting comfortably in bed. Patient endorsing shortness of breath, exertional dyspnea, abdominal pain, nausea, and diarrhea. Patient has significant acute kidney injury patient has improved with bicarbonate drip and creatinine has decreased from 5-3, patient has known history of stage III kidney disease. In-depth conversation with patient regarding surgical intervention for acute cholecystitis. Patient agreeable to surgical interventions. Vital signs and diagnostic testing reviewed 05/13/2021 Patient seen and examined at bedside. Patient resting comfortably in bed. Patient endorsing shortness of breath, exertional dyspnea, abdominal pain, nausea and intermittent diarrhea. Patient's kidney function has improved to stage III kidney disease at baseline. Patient has been transitioned to oral cor ticosteroids for COPD. Awaiting recommendations are surgery from surgical team regarding possible acute cholecystitis. Patient in no acute signs of distress 05/14/2021 Patient seen and examined at bedside. Patient resting comfortably in bed. Patient continues to endorse shortness of breath, exertional shortness of breath, abdominal pain, nausea, and anxiety. Patient kidney function has impro karen to baseline stage III kidney disease. Patient's breathing has improved with corticosteroids and [id number]-txegc DuoNeb's. Patient was unable to tolerate HIDA scan, deferred to surgery for treatment options. Patient to undergo upper and lower GI tomorrow for episode of bright red blood in stool. Vital signs and diagnostic testing reviewed. Patient in no acute signs of distress. 05/15/2021 Patient seen and examined at bedside. Patient resting comfortable in bed. Patient continues to endorse shortness of breath, exertional shortness of breath, abdominal pain, nausea and generalized anxiety. Patient's kidney functions has improved to baseline stage III kidney disease. Patient's br eathing has improved throughout hospital stay with corticosteroids and [id number] breathing treatments. Throughout the last 2 days patient has had noticeable melena and stool per nursing staff with associated drop of hemoglobin 11.2-9.3. Patient is willing at this time to have prep for upper and lower GI; consultation with general surgery for upper and lower GI. Vital signs and diagnostic testing reviewed. 05/16/2021 to 05/18/2020 see hospitalist coverage 05/19/2021 Patient seen and examined at bedside. Patient resting comfortably in bed. Patient had numerous episodes of melena and stool with scant to moderate bright red blood. Dropping hemoglobin from 11.1 on admission to 5.6, 2 units of packed red blood cells ordered to transfuse. CT abdomen and pelvis with and without contrast ordered. Patient continues to endorse shortness of breath at rest and exertion. Vital signs and diagnostic testing results reviewed. Objective - Vital Signs Vital signs: Vital Signs Temp 98 F 05/19/21 17:10 Pulse 105 H 05/19/21 17:10 Resp 16 05/19/21 17:10 BP 148/76 05/19/21 17:10 Pulse Ox 98 05/19/21 17:10 Intake & Output 05/18/21 05/19/21 05/19/21 18:59 06:59 18:59 Intake Total 720 675 Output Total 300 Balance 420 675 Weight 86.5 kg Intake: IV 400 Intake, IV Titration 200 125 Amount Diltiazem 125 mg In 125 Sodium Chloride 0.9% 100 ml @ 5 MG/HR 5 mls/hr IV .Q24H [facility] Rx#:[id number] Piperacillin-Tazobactam 3 100 .375 gm In Sodium Chloride 0.9% 100 ml @ 25 mls/hr IVPB Q8HR@0600, 1400,2200 [facility] Rx#: [id number] metroNIDAZOLE-NS PMX 500 100 mg In Saline 1 100ml.bag @ 100 mls/hr IVPB Q8H [facility] Rx#:[id number] Oral 120 240 Blood Product 310 As-1 Unit 0 [id number] Rc As-1 Unit 310 [id number] Output: Stool 300 Other: Voiding Method Bedside Commode Bedside Commode - Constitutional General appearance: Present: mild distress - EENT Eyes: Present: EOMI, PERRLA ENT: Present: normal oropharynx Ears: bilateral: normal - Neck Neck: Present: normal ROM Carotids: bilateral: upstroke normal Thyroid: bilateral: normal size - Respiratory Respiratory: bilateral: diminished (Anterior and posterior lung harmon) - Cardiovascular Details: Atrial fibrillation with controlled rate Heart rate: 98 Rhythm: irregularly irregular Heart sounds: normal: S1, S2 - Peripheral pulses radial pulse Peripheral Pulses: bilateral: Normal dorsalis pedis Peripheral Pulses: bilateral: Normal - Gastrointestinal General gastrointestinal: Present: soft, tenderness Localized gastrointestinal: tender: diffuse - Integumentary Integumentary: Present: decreased turgor, pale - Neurologic Neurologic: Present: CNII-XII intact - Musculoskeletal Musculoskeletal: Present: generalized weakness - Psychiatric Psychiatric: Present: A&O x's 3 - Allied health notes Allied health notes reviewed: nursing - Labs CBC & Chem 7: 05/19/21 07:23 05/19/21 07:23 Labs: Abnormal Lab Results - Last 24 Hours (Table) 05/19/21 05/19/21 05/19/21 Range/Units 07:23 07:23 08:47 WBC 23.9 H (3.8-10.6) k/uL RBC 1.67 L (3.80-5.40) m/uL Hgb 5.6 L* D (11.4-16.0) gm/dL Hct 16.3 L* (34.0-46.0) % RDW 16.5 H (11.5-15.5) % Plt Count 534 H (150-450) k/uL Neutrophils # 20.8 H (1.3-7.7) k/uL Chloride 109 H (98-107) mmol/L Glucose 120 H (74-99) mg/dL Calcium 7.4 L (8.4-10.2) mg/dL AST 39 H (14-36) U/L Total Protein 4.2 L (6.3-8.2) g/dL Albumin 2.1 L (3.5-5.0) g/dL Crossmatch See Detail - Imaging and Cardiology CT scan - abdomen: pending Assessment and Plan Assessment: Acute urinary tract infection with sepsis, present on admission Acute injury with acute renal failure with baseline chronic kidney disease stage III New-onset atrial fibrillation with RVR Acute gastrointestinal intestinal bleeding Acute cholecystitis Leukocytosis Possible colitis Hypokalemia Hypo-magnesium Metabolic acidosis secondary to acute kidney injury Full gastrointestinal bleeding noted melena and stool History of asthma COPD Possible right upper lobe pneumonia History of cerebrovascular accident/TIA Fibromyalgia GERD/reflux Hypertension Dyslipidemia History of memory impairment History of myocardial infarction Chronic hypoxic respiratory failure-dependent on 2 L of nasal cannula Back back pain Abdominal aortic aneurysm measuring 3.7 cm History of MRSA History of remote recent cardiac catheterization Full code Plan: Acute urinary tract infection continue antibiotics Acute kidney injury with acute renal failure continue IV fluids and continue to trend, avoid nephrotoxic medications Acute cholecystitis, continue broad-spectrum IV antibiotics and consultation with surgery New-onset atrial fibrillation, continue Cardizem drip for rate control; consultation with cardiology Acute gastrointestinal bleeding, transfuse 2 units of packed red blood cells; CT abdomen and pelvis ordered Continue home medications Continue medical management Continue to monitor vital signs and diagnostic testing Further recommendations to come based on patient's clinical condition Time with Patient: Greater than 30
[2021-05-19] MEDS: ALPRAZolam 0.25 MG TAB PO SCH ×2 (18:49→20:44)
[2021-05-19] MEDS: TEMAZEPAM 15 MG CAP PO SCH (21:59)
[2021-05-19 23:03] LABS: Anisocytosis Slight; Basophils # (A) 0.1 k/uL (0-0.2); Basophils % (A) 0 %; Eosinophils % (A) 0 %; HCT 24.7 % (34.0-46.0); Lymphocytes # (A) 1.9 k/uL (1.0-4.8); Lymphocytes % (A) 9 %; MCH 31.3 pg (25.0-35.0); MCHC 33.8 g/dL (31.0-37.0); Mean Platelet Volume 7.9; Monocytes # (A) 0.6 k/uL (0-1.0); Monocytes % (A) 3 %; Neutrophils # (A) 19.3 k/uL (1.3-7.7); Neutrophils % (A) 87 %; Platelet Count 415 k/uL (150-450); Poikilocytosis Slight; RBC 2.67 m/uL (3.80-5.40); RDW 17.1 % (11.5-15.5); WBC 22.1 k/uL (3.8-10.6)
[2021-05-19 23:08] LABS: HGB 8.3 gm/dL (11.4-16.0)
[2021-05-19 23:09] LABS: MCV 92.4 fL (80.0-100.0)
[2021-05-20] MEDS: ACETAMINOPHEN TAB 325 MG TAB PO PRN (02:53)
[2021-05-20] MEDS: metroNIDAZOLE 500 MG TAB PO SCH ×2 (02:53→10:33)
[2021-05-20 03:02] VITALS: RESP 18; TEMP 97.8
[2021-05-20] MEDS: DILTIAZEM 125 MG in SODIUM CHLORIDE 0.9% 100 ML IV SCH (06:23)
[2021-05-20] MEDS ORDERED: ALBUTEROL NEBULIZED (CONC) 5 MG, SODIUM CHLORIDE 0.9% NEBULIZ 3 ML INHALATION STA ×2 (06:38)
[2021-05-20] MEDS: IPRATROPIUM-ALBUTEROL 3 ML NEB INHALATION SCH ×2 (07:30→11:02)
[2021-05-20] MEDS: LACTATED RINGERS 1,000 ML IV SCH (07:53)
[2021-05-20 07:58] VITALS: BP 155/46
[2021-05-20] MEDS: predniSONE 20 MG TAB PO SCH (07:58)
[2021-05-20] MEDS: AMOXIC-POT CLAV 875-125MG 1 EACH TAB PO SCH (07:58)
[2021-05-20] MEDS: MONTELUKAST 10 MG TAB PO SCH (07:58)
[2021-05-20] MEDS: ALPRAZolam 0.25 MG TAB PO SCH (07:58)
[2021-05-20] MEDS: METOPROLOL SUCCINATE (ER) 50 MG TAB.ER.24H PO SCH (07:58)
[2021-05-20] MEDS: CYCLOBENZAPRINE 10 MG TAB PO SCH (07:58)
[2021-05-20] MEDS: ATORVASTATIN 80 MG TAB PO SCH (07:58)
[2021-05-20] MEDS: PANTOPRAZOLE 40 MG/10 ML VIAL IVP SCH (07:58)
[2021-05-20] MEDS: FUROSEMIDE 20 MG TAB PO SCH (07:58)
[2021-05-20] MEDS: FLUTICASONE 50MCG/SPRAY NASAL 16GM EA NOSTRIL SCH (07:59)
[2021-05-20] MEDS: busPIRone HCl 5 MG TAB PO SCH (07:59)
[2021-05-20] MEDS: MORPHINE SULFATE 2 MG/ML SYRINGE IVP PRN (08:06)
[2021-05-20 08:28] LABS: Anisocytosis Slight; Basophils # (A) 0.1 k/uL (0-0.2); Basophils % (A) 0 %; Eosinophils % (A) 0 %; HCT 25.8 % (34.0-46.0); HGB 8.6 gm/dL (11.4-16.0); Hypochromasia Slight; Lymphocytes # (A) 1.5 k/uL (1.0-4.8); Lymphocytes % (A) 7 %; MCH 31.2 pg (25.0-35.0); MCHC 33.4 g/dL (31.0-37.0); MCV 93.4 fL (80.0-100.0); Mean Platelet Volume 8.4; Monocytes # (A) 0.7 k/uL (0-1.0); Monocytes % (A) 3 %; Neutrophils # (A) 21.2 k/uL (1.3-7.7); Neutrophils % (A) 90 %; Platelet Count 465 k/uL (150-450); Poikilocytosis Slight; RBC 2.76 m/uL (3.80-5.40); RDW 17.1 % (11.5-15.5); WBC 23.7 k/uL (3.8-10.6)
[2021-05-20 08:29] LABS: Albumin 2.4 g/dL (3.5-5.0); Calcium 7.8 mg/dL (8.4-10.2); Magnesium 2.2 mg/dL (1.6-2.3); Potassium 3.3 mmol/L (3.5-5.1); Total Bilirubin 0.2 mg/dL (0.2-1.3); Total Protein 4.4 g/dL (6.3-8.2)
[2021-05-20] MEDS ORDERED: POTASSIUM CHLORIDE ER 20 MEQ TAB.ER PO STA (08:59)
[2021-05-20] MEDS ORDERED: DILTIAZEM ORAL 30 MG TAB PO SCH (10:45)
--- NOTE | 2021-05-20 11:03 | P.PN ---
Subjective Progress Note Date: 05/20/21 CHIEF COMPLAINT: Colitis HISTORY OF PRESENT ILLNESS: Patient is status post EGD and colonoscopy with biop sies and snare polypectomy. Results showing erosive gastritis, small hiatal hernia, diffuse colitis, colon polyps. Patient is sitting up in bed. She denies any abdominal pain. Denies any nausea or vomiting. She tolerated her full liquids. Per nursing staff patient had 2 maroon-colored bowel movements this morning. Patient did receive 2 units of blood yesterday for hemoglobin of 5.6. Hemoglobin this morning is 8.6 Afebrile. Tachycardia improved. Computed tomography scan of the abdomen and pelvis shows no acute change. And cholelithiasis. PHYSICAL EXAM: VITAL SIGNS: Reviewed. GENERAL: Well-developed in no acute distress. HEENT: No sclera icterus. Extraocular movements grossly intact. Moist buccal mucosa. Head is atraumatic, normocephalic. ABDOMEN: Soft. Nondistended. Nontender. NEUROLOGIC: Alert and oriented. Cranial nerves II through XII grossly intact. ASSESSMENT: 1. Colitis 2. Cholecystitis 3. Anemia and acute GI bleed status post EGD and colonoscopy. Results showing erosive gastritis, small hiatal hernia, diffuse colitis, colon polyps PLAN: -Check CBC q 6 and continue to monitor for signs of bleeding -Recommend no anticoagulation at this time due to GI bleed and anemia -Continue supportive care -Continue antibiotics -Continue prednisone -Continue Protonix -Continue conservative management for cholecystitis with antibiotics. No surgical intervention planned. Physician Personal Development Educator note has been reviewed by physician. Signing provider agrees with the documented findings, assessment, and plan of care. Objective - Vital Signs Vital signs: Vital Signs Temp 97.8 F 05/20/21 07:57 Pulse 100 05/20/21 08:00 Resp 18 05/20/21 08:00 BP 155/46 05/20/21 07:57 Pulse Ox 95 05/20/21 07:57 Intake & Output 05/19/21 05/20/21 05/20/21 18:59 06:59 18:59 Intake Total 1225 585 240 Output Total 350 300 Balance 875 585 -60 Weight 92.3 kg Intake: Intake, IV Titration 125 125 Amount Diltiazem 125 mg In 125 125 Sodium Chloride 0.9% 100 ml @ 7.5 MG/HR 7.5 mls/hr IV .[id number] [facility] Rx#: [id number] Oral 790 150 240 Blood Product 310 310 Rc As-1 Unit 0 310 [id number] Rc As-1 Unit 310 [id number] Output: Urine 350 Stool 300 Other: Voiding Method Bedside Commode Bedside Commode # Voids 2 1 # Bowel Movements 1 - Labs CBC & Chem 7: 05/20/21 07:26 05/20/21 07:26 Labs: Abnormal Lab Results - Last 24 Hours (Table) 05/19/21 05/19/21 05/20/21 Range/Units 08:47 22:40 07:26 WBC 22.1 H 23.7 H (3.8-10.6) k/uL RBC 2.67 L 2.76 L (3.80-5.40) m/uL Hgb 8.3 L D 8.6 L (11.4-16.0) gm/dL Hct 24.7 L 25.8 L (34.0-46.0) % RDW 17.1 H 17.1 H (11.5-15.5) % Plt Count 465 H (150-450) k/uL Neutrophils # 19.3 H 21.2 H (1.3-7.7) k/uL Potassium (3.5-5.1) mmol/L Chloride (98-107) mmol/L Glucose (74-99) mg/dL Calcium (8.4-10.2) mg/dL AST (14-36) U/L Alkaline Phosphatase (38-126) U/L Total Protein (6.3-8.2) g/dL Albumin (3.5-5.0) g/dL Crossmatch See Detail 05/20/21 Range/Units 07:26 WBC (3.8-10.6) k/uL RBC (3.80-5.40) m/uL Hgb (11.4-16.0) gm/dL Hct (34.0-46.0) % RDW (11.5-15.5) % Plt Count (150-450) k/uL Neutrophils # (1.3-7.7) k/uL Potassium 3.3 L (3.5-5.1) mmol/L Chloride 108 H (98-107) mmol/L Glucose 105 H (74-99) mg/dL Calcium 7.8 L (8.4-10.2) mg/dL AST 39 H (14-36) U/L Alkaline Phosphatase 141 H (38-126) U/L Total Protein 4.4 L (6.3-8.2) g/dL Albumin 2.4 L (3.5-5.0) g/dL Crossmatch
[2021-05-20 11:11] VITALS: PULSE 92
--- NOTE | 2021-05-20 12:17 | P.PN ---
Subjective HISTORY OF PRESENTING ILLNESS This is a pleasant 65-year-old female past medical history significant for COPD, hypertension, dyslipidemia, peripheral vascular disease and chronic nicotine dependence. She follows in the office with Dr. Barnes. Cardiology was initially consulted for operative evaluation on 05/12/21. Cardiology was reconsu lted on 05/16/21 for Tachycardia. She presented to the hospital with symptoms of nausea and diarrhea and has been diagnosed with cholecystitis and scheduled to undergo robotic cholecystectomy later this week. EKG on admission revealed sinus mechanism heart rate of 94 chest x-ray reveals right upper lobe infiltrate not significantly different from previous exam, demonstrated by previous CT scans up to 4 years ago. Echocardiogram obtained on this admission reveals preserved LV systolic function with ejection fraction 60-65% with a possible LVOT obstruction with a max gradient of 17 mmHg, mild MR and mild TR. Patient previously had a Lexiscan stress test April 2020 that revealed no evidence of reversibility. On 05/16, [facility] was [facility] due to tachycardia. Initial rhythm was thought to be SVT and Patient was given 6mg adenosine and 12mg IV adenosine. Patient's underlying rhythm was atrial fibrillation with RVR started on Cardizem 10mg IVP and 5mg drip. 05/19/2021: Patient is s/p EGD and colonoscopy on 05/18/21, which revealed erosive gastritis, small hiatal hernia, diffuse colitis, colon polyps. Biopsies were taken. Per GI etiology for bleeding appeared to be the patient's diffuse colitis. No exact site of active bleeding was identified. Patient on prednisone, Zosyn and flagyl. Laboratory data reviewed, hemoglobin 5.6 (8.2 yesterday), Telemetry reviewed, patient in atrial fibrillation HR 100-115. Patient currently maintained on atorvastatin 80 mg daily, Cardizem 5 mg/hr, metoprolol succinate 50mg BID. Patient's Cardizem was increased to 7.5mg/hr. Patient recieved 2 units of PRBCs 05/20/2021: Patient seen at bedside, no acute distress. Per nursing patient continues to have bloody bowel movements. Laboratory data reviewed hemoglobin 8.6, WBC 23, platelets 465, sodium 140, potassium 3.3, BUN 10, serum creatinine 0.8, magnesium 2.2. Patient currently maintained on Cardizem 7.5 mg/hr, atorvastatin 80 mg daily, metoprolol succinate 50 mg twice a day, Lasix 20 mg daily. Blood pressure 155/46, heart rate 90, afebrile, maintaining oxygen saturations 95% on 4 L nasal cannula. Telemetry reviewed patient is atrial fibrillation with better controlled rates heart rates 80-90s. PHYSICAL EXAMINATION CONSTITUTIONAL: No apparent distress. Frustrated with her care. HEENT: Neck Supple. Mucous membranes of the mouth are moist. No JVD. CHEST EXAMINATION: Lungs diminished throughout, no rales or rhonchi. No chest wall tenderness is noted on palpation or with deep breathing. HEART EXAMINATION: Irregular rate and rhythm. S1, S2 heard. No murmurs, gallops or rub. ABDOMEN: Soft, nontender. EXTREMITIES: 2+ peripheral pulses, no lower extremity edema and no calf tenderness. NEUROLOGIC EXAMINATION: Patient is awake, alert and oriented x3. ASSESSMENT New onset paroxysmal atrial fibrillation with RVR -[id number] score 3 Cholecystitis Leukocytosis Acute kidney injury- resolved UTI Hypertension Dyslipidemia Peripheral vascular disease COPD Chronic nicotine dependence Anemia status post EGD and Colonoscpy on 05/18- Erosive gastritis and Diffuse colitis Hypokalemia- potassium has been replaced PLAN Start cardizem 30mg TID , Stop Cardizem drip Continue metoprolol succinate 50mg BID Anticoagulation on hold at this time due to anemia and current GI bleeding. Per GI, hold on any anticoagulation at this time. Per Surgery not surgical intervention planned at this time. Further recommendations will be based upon clinical course Nurse Practitioner note has been reviewed, I agree with a documented findings and plan of care. Patient was seen and examined. Objective - Vital Signs Vital signs: Vital Signs Temp 97.8 F 05/20/21 07:57 Pulse 100 05/20/21 08:00 Resp 18 05/20/21 08:00 BP 155/46 05/20/21 07:57 Pulse Ox 95 05/20/21 07:57 Intake & Output 05/19/21 05/20/21 05/20/21 18:59 06:59 18:59 Intake Total 1225 585 240 Output Total 350 300 Balance 875 585 -60 Weight 92.3 kg Intake: Intake, IV Titration 125 125 Amount Diltiazem 125 mg In 125 125 Sodium Chloride 0.9% 100 ml @ 7.5 MG/HR 7.5 mls/hr IV .[id number] [facility] Rx#: [id number] Oral 790 150 240 Blood Product 310 310 Rc As-1 Unit 0 310 [id number] Rc As-1 Unit 310 [id number] Output: Urine 350 Stool 300 Other: Voiding Method Bedside Commode Bedside Commode # Voids 2 1 # Bowel Movements 1 - Labs CBC & Chem 7: 05/20/21 07:26 05/20/21 07:26 Labs: Abnormal Lab Results - Last 24 Hours (Table) 05/19/21 05/19/21 05/20/21 Range/Units 08:47 22:40 07:26 WBC 22.1 H 23.7 H (3.8-10.6) k/uL RBC 2.67 L 2.76 L (3.80-5.40) m/uL Hgb 8.3 L D 8.6 L (11.4-16.0) gm/dL Hct 24.7 L 25.8 L (34.0-46.0) % RDW 17.1 H 17.1 H (11.5-15.5) % Plt Count 465 H (150-450) k/uL Neutrophils # 19.3 H 21.2 H (1.3-7.7) k/uL Potassium (3.5-5.1) mmol/L Chloride (98-107) mmol/L Glucose (74-99) mg/dL Calcium (8.4-10.2) mg/dL AST (14-36) U/L Alkaline Phosphatase (38-126) U/L Total Protein (6.3-8.2) g/dL Albumin (3.5-5.0) g/dL Crossmatch See Detail 05/20/21 Range/Units 07:26 WBC (3.8-10.6) k/uL RBC (3.80-5.40) m/uL Hgb (11.4-16.0) gm/dL Hct (34.0-46.0) % RDW (11.5-15.5) % Plt Count (150-450) k/uL Neutrophils # (1.3-7.7) k/uL Potassium 3.3 L (3.5-5.1) mmol/L Chloride 108 H (98-107) mmol/L Glucose 105 H (74-99) mg/dL Calcium 7.8 L (8.4-10.2) mg/dL AST 39 H (14-36) U/L Alkaline Phosphatase 141 H (38-126) U/L Total Protein 4.4 L (6.3-8.2) g/dL Albumin 2.4 L (3.5-5.0) g/dL Crossmatch
--- NOTE | 2021-05-20 18:05 | P.DS ---
Providers Date of admission: 05/10/21 04:35 Expected date of discharge: 05/20/21 (Left AGAINST MEDICAL ADVICE) Attending physician: Geovani Samayoa Consults: 05/10/21 04:51 Consult Physician Routine Consulting Provider: Fabiola Cuellar Consult Reason/Comments: arf Do you want consulting provider notified?: Yes 05/10/21 06:36 Consult Physician Routine Consulting Provider: Yee Smith Consult Reason/Comments: pao Do you want consulting provider notified?: Yes 05/11/21 12:22 Consult Physician Routine Consulting Provider: Devonte Le Consult Reason/Comments: cardiac clearance for surgery Do you want consulting provider notified?: Yes 05/15/21 17:19 Consult Physician Routine Consulting Provider: Mahendra Sutton Consult Reason/Comments: Pao/GI bleed Do you want consulting provider notified?: Yes 05/16/21 12:19 Consult Physician Urgent Consulting Provider: Braden Barnes Consult Reason/Comments: tachycardia Do you want consulting provider notified?: Yes Primary care physician: Geovani Samayoa Hospital Course: 65-year-old female presented to the hospital with significant medical history of asthma, COPD, CVA/TIA, fibromyalgia, GERD/reflux, hyperlipidemia, history of stage III kidney disease, memory impairment, history of myocardial infarction, chronic respiratory failure, 2 L nasal cannula at home, chronic urinary tract infections, abdominal aortic aneurysm measuring 3.7 cm, history of MRSA, history of cardiac catheterizations, and several comorbidities. Patient had extensive diagnostic workup in the emergency department revealing a UTI, hospital community-acquired pneumonia, acute kidney injury with a creatinine of 5, fever and change in mental status. Throughout patient's hospital stay CT abdomen and pelvis was performed with impression dilated gallbladder with gallstones and suggestion of acute cholecystitis. Consultants on board to the patient's multi comorbidities and complexity of of illnesses. Patient had lengthy stay due to complications of gastrointestinal bleeding, Gen. surgery performed upper and lower GI see dictation from general surgeries upper and lower GI. During hospital stay patient developed paroxysmal atrial fibrillation, cardiology was consulted for recommendations placed on Cardizem drip for rate controlled, was placed on by mouth Cardizem for rate control of A. fib. During hospital stay patient had significant drop of hemoglobin to 5.62 units of packed red blood cells were transfused. Patient was counseled this a.m. to stay in the hospital due to ongoing atrial fibrillation and trending of hemoglobin and hematocrits due to acute blood loss. Patient left AGAINST MEDICAL ADVICE with a lengthy conversation regarding permanent disability or could occur leaving AGAINST MEDICAL ADVICE due to multiple illness is an comorbidities. Assessment: Acute urinary tract infection with sepsis, present on admission Acute injury with acute renal failure with baseline chronic kidney disease stage III Acute cholecystitis New onset paroxysmal atrial fibrillation Acute gastro-intestinal bleeding Anemia secondary to acute blood loss Leukocytosis colitis Hypokalemia Hypo-magnesium Metabolic acidosis secondary to acute kidney injury History of asthma COPD Possible right upper lobe pneumonia History of cerebrovascular accident/TIA Fibromyalgia GERD/reflux Hypertension Dyslipidemia History of memory impairment History of myocardial infarction Chronic hypoxic respiratory failure-dependent on 2 L of nasal cannula Back back pain Abdominal aortic aneurysm measuring 3.7 cm History of MRSA History of remote recent cardiac catheterization DO NOT RESUSCITATE Final diagnoses Acute urinary tract infection with sepsis present on admission, was treated with broad-spectrum antibiotics Acute kidney injury with acute renal failure with baseline chronic kidney disease stage III, improved with avoiding nephrotoxic drugs and IV hydration New onset atrial fibrillation, was treated with IV Cardizem for rate control, changed to by mouth Cardizem. Acute cholecystitis, was treated with broad-spectrum antibiotics Leukocytosis possibly due to sepsis Hypokalemia, was corrected with potassium replacement protocol Hypomagnesemia, was corrected with magnesium replacement protocol Chronic obstructive pulmonary disorder, was treated with corticosteroids and [id number] breathing treatments gastrointestinal bleeding avoided antiplatelets, had upper GI and lower GI performed by general surgery Anemia, 2 units of packed red blood cells transfused Metabolic acidosis secondary to acute kidney injury improved with IV hydration and avoidance of nephrotoxic drugs Right upper lobe pneumonia was treated with broad-spectrum antibiotics Patient was counseled and lengthy discussion regarding multiple comorbidities with illness and disease processes ongoing with the need for further diagnostic testing and treatment inpatient hospital stay; patient was adamantly against leaving AGAINST MEDICAL ADVICE. Patient was educated regarding leaving AGAINST MEDICAL ADVICE could lead to permanent disability or . Health Concerns: Multiple comorbidities Complexity of medical treatment plan Leaving AGAINST MEDICAL ADVICE with multiple comorbidities, and acute illness of cholecystitis, differential of gastrointestinal bleeding, acute kidney injury, COPD, and generalized malaise Pertinent Studies: CT of the head without contrast no acute abnormalities noted CT abdomen and pelvis see dictation Echocardiogram systolic function with normal ejection fraction of 60-65% Serial chest x-rays Ultrasound of bladder and abdomen see dictation HIDA scan unable to complete due to patient's inability to lay flat Procedures: EGD and colonoscopy results showing erosive gastritis, small hiatal hernia, diffuse colitis, and colon polyps. See dictation from general surgery Patient Condition at Discharge: Serious Plan - Discharge Summary Discharge Rx Participant: Yes New Discharge Prescriptions: New metroNIDAZOLE [Flagyl] 500 mg PO TID 10 Days #30 tab Ferrous Sulfate [Iron (65 MG Elemental)] 325 mg PO DAILY #60 tab Furosemide [Lasix] 20 mg PO DAILY #10 tab Diltiazem Cd [Cardizem CD] 180 mg PO DAILY #10 cap Amoxicillin/Potassium Clav [Augmentin 875-125 Tablet] 1 tab PO BID 10 Days #20 tab hydrALAZINE HCL 25 mg PO TID #30 tablet Continue Temazepam [Restoril] 30 mg PO HS Omeprazole 20 mg PO BID Isosorbide Mononitrate [Isosorbide Mononitrate ER] 30 mg PO DAILY Loratadine [Claritin] 10 mg PO DAILY busPIRone HCL 15 mg PO BID Montelukast [Singulair] 10 mg PO DAILY Cyclobenzaprine [Flexeril] 10 mg PO BID Estrogen,Con/M-Progest Acet [Prempro 0.625-5 mg Tablet] 1 tab PO DAILY Potassium Chloride ER [K-Dur 10] 10 meq PO DAILY Nitroglycerin Sl Tabs [Nitrostat] 0.4 mg SUBLINGUAL Q5M PRN PRN Reason: Chest Pain Fluticasone Nasal [place] [Flonase Nasal [place]] 2 sprays EA NOSTRIL DAILY EPINEPHrine (Auto Inject) [Epipen] 0.3 mg IM ONCE PRN PRN Reason: Anaphylaxis Atorvastatin [Lipitor] 80 mg PO DAILY Ipratropium-Albuterol Nebulize [Duoneb 0.5 mg-3 mg/3 ml Soln] 3 ml INHALATION RT-Q6H PRN PRN Reason: Shortness Of Breath Nystatin 100,000 Unit/gm Powd [Mycostatin Powder] 1 applic TOPICAL BID HYDROcodone/APAP 10-325MG [Antoine 10-325] 1 tab PO Q6HR PRN PRN Reason: Pain Gabapentin 900 mg PO TID traMADol HCL 50 mg PO QID PRN PRN Reason: Pain Metoprolol Succinate [Toprol XL] 50 mg PO DAILY #60 tab Discontinued Enalapril [Vasotec] 20 mg PO DAILY Ibuprofen [Motrin] 800 mg PO TID PRN PRN Reason: Pain Furosemide [Lasix] 40 mg PO DAILY Varenicline [Chantix Continuing Pack] 1 mg PO BID Aspirin EC [Ecotrin Low Dose] 81 mg PO DAILY Mirabegron [Myrbetriq] 25 mg PO DAILY Discharge Medication List Isosorbide Mononitrate [Isosorbide Mononitrate ER] 30 mg PO DAILY 12/26/14 [History] Omeprazole 20 mg PO BID 12/26/14 [History] Temazepam [Restoril] 30 mg PO HS 12/26/14 [History] Loratadine [Claritin] 10 mg PO DAILY 08/14/16 [History] Cyclobenzaprine [Flexeril] 10 mg PO BID 10/10/19 [History] EPINEPHrine (Auto Inject) [Epipen] 0.3 mg IM ONCE PRN 10/10/19 [History] Estrogen,Con/M-Progest Acet [Prempro 0.625-5 mg Tablet] 1 tab PO DAILY 10/10/19 [History] Fluticasone Nasal [place] [Flonase Nasal [place]] 2 sprays EA NOSTRIL DAILY 10/10/19 [History] Montelukast [Singulair] 10 mg PO DAILY 10/10/19 [History] Nitroglycerin Sl Tabs [Nitrostat] 0.4 mg SUBLINGUAL Q5M PRN 10/10/19 [History] Potassium Chloride ER [K-Dur 10] 10 meq PO DAILY 10/10/19 [History] busPIRone HCL 15 mg PO BID 10/10/19 [History] Atorvastatin [Lipitor] 80 mg PO DAILY 02/12/21 [History] HYDROcodone/APAP 10-325MG [Antoine 10-325] 1 tab PO Q6HR PRN 02/12/21 [History] Gabapentin 900 mg PO TID 02/19/21 [History] Ipratropium-Albuterol Nebulize [Duoneb 0.5 mg-3 mg/3 ml Soln] 3 ml INHALATION RT-Q6H PRN 02/19/21 [History] Nystatin 100,000 Unit/gm Powd [Mycostatin Powder] 1 applic TOPICAL BID 02/19/21 [History] traMADol HCL 50 mg PO QID PRN 02/19/21 [History] Amoxicillin/Potassium Clav [Augmentin 875-125 Tablet] 1 tab PO BID 10 Days #20 tab 05/15/21 [Rx] Ferrous Sulfate [Iron (65 MG Elemental)] 325 mg PO DAILY #60 tab 05/15/21 [Rx] Furosemide [Lasix] 20 mg PO DAILY #10 tab 05/15/21 [Rx] hydrALAZINE HCL 25 mg PO TID #30 tablet 05/15/21 [Rx] metroNIDAZOLE [Flagyl] 500 mg PO TID 10 Days #30 tab 05/15/21 [Rx] Diltiazem Cd [Cardizem CD] 180 mg PO DAILY #10 cap 05/20/21 [Rx] Metoprolol Succinate [Toprol XL] 50 mg PO DAILY #60 tab 05/20/21 [Rx] Follow up Appointment(s)/Referral(s): Geovani Samayoa MD [Primary Care Provider] - 1-2 days Patient Instructions/Handouts: Rectal Bleeding (DC), Biliary Colic (GEN), Acute Kidney Injury (DC), Urinary Tract Infection in Women (DC), Chronic Kidney Disease (DC), Low Fat Diet (ED), COPD (Chronic Obstructive Pulmonary Disease) (DC) Discharge Disposition: Left Against Medical Advice
[2021-05-20] MEDS ORDERED: PANTOPRAZOLE 40 MG TABLET PO SCH (21:00)
== END 2021-05-20 13:45 | disposition left against medical advice (07) | DRG 871 ==
LOC: EC 01:57 → 4SSUR 04:35 → 3SCARD 06:04 → 5NMEDONC 05-15 23:22 → 3SCARD 05-16 12:50
PROVIDERS: ADMIT Family Medicine; ATTEND Family Medicine
PROC: 0DB68ZX Excision of Stomach, Via Natural or Artificial Opening Endoscopic, Diagnostic (ICD-10-PCS; principal; 2021-05-16)
PROC: 0DBP8ZZ Excision of Rectum, Via Natural or Artificial Opening Endoscopic (ICD-10-PCS; 2021-05-18 07:30)
PROC: 0DBL8ZZ Excision of Transverse Colon, Via Natural or Artificial Opening Endoscopic (ICD-10-PCS; 2021-05-18 07:30)
DX: A41.9 Sepsis, unspecified organism (principal); G93.41 Metabolic encephalopathy; J18.9 Pneumonia, unspecified organism; E44.1 Mild protein-calorie malnutrition; E87.2 Acidosis; N17.9 Acute kidney failure, unspecified; N39.0 Urinary tract infection, site not specified; K82.1 Hydrops of gallbladder; I47.1 Supraventricular tachycardia; Z16.24 Resistance to multiple antibiotics; D62 Acute posthemorrhagic anemia; J44.0 Chronic obstructive pulmonary disease with (acute) lower respiratory infection; J44.1 Chronic obstructive pulmonary disease with (acute) exacerbation; J96.11 Chronic respiratory failure with hypoxia; K80.10 Calculus of gallbladder with chronic cholecystitis without obstruction; E66.9 Obesity, unspecified; E78.5 Hyperlipidemia, unspecified; E83.39 Other disorders of phosphorus metabolism; E83.42 Hypomagnesemia; E83.51 Hypocalcemia; E86.0 Dehydration; E86.1 Hypovolemia; E87.6 Hypokalemia; F17.200 Nicotine dependence, unspecified, uncomplicated; Z98.1 Arthrodesis status; Z96.643 Presence of artificial hip joint, bilateral; Z87.440 Personal history of urinary (tract) infections; Z86.73 Personal history of transient ischemic attack (TIA), and cerebral infarction without residual deficits; Z86.14 Personal history of Methicillin resistant Staphylococcus aureus infection; Z82.5 Family history of asthma and other chronic lower respiratory diseases; Z82.49 Family history of ischemic heart disease and other diseases of the circulatory system; Z79.899 Other long term (current) drug therapy; Z79.82 Long term (current) use of aspirin; Z66 Do not resuscitate; Z68.30 Body mass index [BMI] 30.0-30.9, adult; M79.7 Fibromyalgia; N18.30 Chronic kidney disease, stage 3 unspecified; B96.20 Unspecified Escherichia coli [E. coli] as the cause of diseases classified elsewhere; E87.70 Fluid overload, unspecified; F41.1 Generalized anxiety disorder; G89.29 Other chronic pain; I44.1 Atrioventricular block, second degree; M54.9 Dorsalgia, unspecified; M19.90 Unspecified osteoarthritis, unspecified site; I13.10 Hypertensive heart and chronic kidney disease without heart failure, with stage 1 through stage 4 chronic kidney disease, or unspecified chronic kidney disease; I25.10 Atherosclerotic heart disease of native coronary artery without angina pectoris; I25.2 Old myocardial infarction; I25.5 Ischemic cardiomyopathy; I48.0 Paroxysmal atrial fibrillation; I73.9 Peripheral vascular disease, unspecified; K21.9 Gastro-esophageal reflux disease without esophagitis; K29.60 Other gastritis without bleeding; K44.9 Diaphragmatic hernia without obstruction or gangrene; K52.9 Noninfective gastroenteritis and colitis, unspecified; K59.09 Other constipation; K63.5 Polyp of colon; K64.9 Unspecified hemorrhoids; K76.0 Fatty (change of) liver, not elsewhere classified; F32.9 Major depressive disorder, single episode, unspecified
CPT/HCPCS: 36415; 43239; 45380; 45385; 70450; 71045; 71046; 74176; 74177; 74178; 76705; 76770; 78226; 80048; 80053; 81001; 83605; 83690; 83735; 84100; 84132; 84443; 84484; 85025; 85027; 85610; 85730; 86850; 86900; 86901; 86920; 87040; 87077; 87086; 87186; 87324; 87635; 88305; 93005; 93306; 94640; 94760; 96361; 96374; 99291